=== PATIENT | male | born 1960 | race Caucasian/White ===

== ENCOUNTER 2016-06-14 12:04 | Inpatient (IN) | payer OTHER, BC ==
[~2016-06-14] VITALS: Ht 180.3 cm; Wt 101.8 kg
[~2016-06-14 12:04] MED LIST: ALBU1AER9 INH; AMLO-114 PO; CALC12502 PO; CARB100C2 PO; CETI10TA84 PO; CLIN300C10 PO; DULO1CAP39 PO; EFFSR150 PO; FENO48TA9 PO; FLUT0.0529 NAE; GLIP10TA9 PO; HYDR25TA5 PO; INSDGI SC; LEVO-459 PO; LPT40 PO; LSN20 PO; METO1TAB70 PO; MONT1TAB3 PO; OXYC7.5T65 PO; OXYSR40 PO; SLSS; SUMA25TA12 PO
[2016-06-14] MEDS ORDERED: SODIUM CHLORIDE 0.9% 1000ML 1,000 ML IV STA ×3 (12:28→14:49)
[2016-06-14] MEDS ORDERED: ONDANSETRON INJ 2 MG/ML 2 ML VIAL IV STA ×2 (12:28)
[2016-06-14] MEDS ORDERED: LORAZEPAM 2 MG/ML 1 ML VIAL IV STA ×2 (12:28)
--- NOTE | 2016-06-14 12:38 | EMERGENCY ROOM VISIT NOTE ---
History Report prepared by Kaitlin: Jose Guthrie Under the Supervision of: Dr. Marquez Torres M.D. First contact with patient: 12:22 Chief Complaint: ALTERED MENTAL STATUS Stated Complaint: AMS/TACHYCARDIA/HYPERGLYCEMIA History of Present Illness The patient is a 55 year old male who presents to the Emergency Room with complaints of persistent altered mental status that started this morning prior to arrival. Per the nursing staff, the patient has been having memory issues and did not know his mother earlier. However, the patient does now know his mother. The patient fell this morning and hit his head, and has a bruise above his left eye from that. Per the patient's , the last time the patient was seen normal was yesterday when he had a chiropractor appointment. The patient sees a chiropractor for problems with headaches and neck pain. Per the patient, he is currently having a headache, pain in the back of his neck, and abdominal pain. He is diabetic, and per the patient's , the patient has not been taking his medications. Source of History: patient, spouse/significant other, nursing staff Onset: This morning prior to arrival Position: other (global - altered mental status) Quality: other (memory issues) Timing: other (persistent) Associated Symptoms: + abdominal pain, + headache (may be chronic), + neck pain (may be chronic) Note: Associated symptoms: Did not know his mother earlier, but does know her now. Bruise above left eye from fall. Review of Systems See HPI for pertinent positives & negatives. A total of 10 systems reviewed and were otherwise negative. Past Medical & Surgical Medical Problems: (1) Depression (2) Diabetes mellitus, type II (3) Dyslipidemia (4) Factor V deficiency (5) History of aseptic necrosis of bone (6) History of skin cancer (7) Hypertension (8) Migraine (9) Sleep apnea (10) Trigeminal neuralgia Surgical Problems: (1) Status post hip replacement (2) Status post insertion of inferior vena caval filter (3) Status post sinus surgery (4) Status post sinus surgery Family History Asthma MOTHER Carcinoma of kidney FATHER Myocardial infarction FATHER Thyroid disease MOTHER Social History Smoking Status: Current Every Day Smoker Alcohol Use: none Drug Use: none Marital Status: Housing Status: lives with family Current/Historical Medications Scheduled Duloxetine HCl (Cymbalta), 1 CAP PO BID Hydralazine HCl (Hydralazine HCl), 50 MG PO TID Insulin Aspart (Novolog), 5 UNITS INJ TID Scheduled PRN Oxycodone/Acetaminophen 7.5MG/325MG (Percocet 7.5MG/325MG), 1 TAB PO Q6 PRN for Pain Allergies Coded Allergies: Penicillins (Verified Allergy, Mild, 12/02/09) Shellfish (Verified Adverse Reaction, Unknown, GI UPSET, 06/14/16) Physical Exam Vital Signs Date Time Temp Pulse Resp B/P Pulse Ox O2 Delivery O2 Flow Rate FiO2 06/14/16 12:37 38.2 06/14/16 12:25 124 06/14/16 12:14 37.9 123 18 153/108 96 Room Air Physical Exam CONSTITUTIONAL: Mildly agitated. Oriented to person and name. Slow to answer questions. HEENT: No icterus, moist mucous membranes NECK: No meningismus, trachea is midline. CARDIOVASCULAR: Regular rate, normal perfusion RESPIRATORY: Unlabored breathing. Clear to auscultation. GASTROINTESTINAL: Non-tender GENITOURINARY: No flank tenderness MUSCULOSKELETAL: Full range of motion NEUROLOGIC: No acute gross focal deficits. PSYCHIATRIC: Normal affect SKIN: Normal for ethnicity. Medical Decision & Procedures ER Provider Diagnostic Interpretation: X-ray results as stated below per my interpretation and radiologist interpretation. Other radiology results as stated below per my review and radiologist interpretation. CT SCAN OF THE BRAIN WITHOUT IV CONTRAST CLINICAL HISTORY: Change in mental status. COMPARISON STUDY: CT and MRI of the brain dated 08/04/2008. TECHNIQUE: Unenhanced axial CT scan of the brain is performed from the vertex to the skull base. CT DOSE: 894.57 mGycm FINDINGS: Brain parenchyma: There is an age indeterminant and possibly acute to subacute lacunar infarct identified in the left caudate head/left centrum semiovale. This is best seen on axial image #17. There are age-related involutional changes noting mild subcortical and periventricular microangiopathic change. There is no hemorrhage, mass effect, or evidence of acute territorial ischemia by CT criteria. Ferrari-white matter is preserved. No extra-axial fluid collection is seen. Ventricles, sulci, cisterns: Prominent secondary to involutional change. Intracranial vasculature: There is atherosclerotic calcification of the cavernous carotid and vertebral arteries. Calvarium: Unremarkable. Sinuses and mastoids: Findings are consistent with previous paranasal sinus surgery. Mild mucosal thickening seen within the right maxillary antrum. Moderate mucosal thickening is present within the frontal, ethmoid, and right sphenoid sinuses. The mastoid air cells are well pneumatized. Orbits: The bony orbits are grossly intact. IMPRESSION: 1. There is no hemorrhage, mass effect, or evidence of acute territorial ischemia by CT criteria. 2. Age indeterminant and possibly acute to subacute lacunar infarcts are identified in the left caudate head/left centrum semiovale. This could be further assessed with MRI of clinically warranted. 3. Paranasal sinus disease as above. Electronically signed by: Abdulaziz Soriano M.D. 06/14/2016 1:39 PM Dictated Date/Time: 06/14/2016 1:34 PM SINGLE VIEW CHEST CLINICAL HISTORY: Change in mental status. FINDINGS: An AP, portable, semierect chest radiograph is compared to study dated 12/04/2009. The examination is degraded by portable technique and patient rotation. The heart is enlarged. The pulmonary vasculature is noncongested. There are low lung lines with mild elevation of the right hemidiaphragm and bibasilar atelectasis. No airspace consolidation or large pleural effusion is identified. No pneumothorax is seen. The bony thorax is grossly intact. IMPRESSION: Cardiomegaly with no acute cardiopulmonary abnormality. Electronically signed by: Abdulaziz Soriano M.D. 06/14/2016 1:29 PM Dictated Date/Time: 06/14/2016 1:28 PM Laboratory Results 06/14/16 12:20 Red Blood Count 6.17, Mean Corpuscular Volume 78.8, Mean Corpuscular Hemoglobin 29.0, Mean Corpuscular Hemoglobin Concent 36.8, Mean Platelet Volume 10.5, Neutrophils (%) (Auto) 83.5, Lymphocytes (%) (Auto) 7.0, Monocytes (%) (Auto) 9.1, Eosinophils (%) (Auto) 0.0, Basophils (%) (Auto) 0.1, Neutrophils # (Auto) 22.16, Lymphocytes # (Auto) 1.85, Monocytes # (Auto) 2.40, Eosinophils # (Auto) 0.00, Basophils # (Auto) 0.02 06/14/16 12:20 Test 06/14/16 00:00 06/14/16 12:08 06/14/16 12:20 06/14/16 13:06 Influenza Type A Antigen Neg for Influ A (NEG) Influenza Type B Antigen Neg for Influ B (NEG) Bedside Glucose 439 mg/dl (70-99) White Blood Count 26.51 K/uL (4.8-10.8) Red Blood Count 6.17 M/uL (4.7-6.1) Hemoglobin 17.9 g/dL (14.0-18.0) Hematocrit 48.6 % (42-52) Mean Corpuscular Volume 78.8 fL (80-100) Mean Corpuscular Hemoglobin 29.0 pg (25-34) Mean Corpuscular Hemoglobin Concent 36.8 g/dl (32-36) Platelet Count 317 K/uL (130-400) Mean Platelet Volume 10.5 fL (7.4-10.4) Neutrophils (%) (Auto) 83.5 % Lymphocytes (%) (Auto) 7.0 % Monocytes (%) (Auto) 9.1 % Eosinophils (%) (Auto) 0.0 % Basophils (%) (Auto) 0.1 % Neutrophils # (Auto) 22.16 K/uL (1.4-6.5) Lymphocytes # (Auto) 1.85 K/uL (1.2-3.4) Monocytes # (Auto) 2.40 K/uL (0.11-0.59) Eosinophils # (Auto) 0.00 K/uL (0-0.5) Basophils # (Auto) 0.02 K/uL (0-0.2) RDW Standard Deviation 35.3 fL (36.4-46.3) RDW Coefficient of Variation 12.5 % (11.5-14.5) Immature Granulocyte % (Auto) 0.3 % Immature Granulocyte # (Auto) 0.08 K/uL (0.00-0.02) Prothrombin Time 11.5 SECONDS (9.0-12.0) Prothromb Time International Ratio 1.1 (0.9-1.1) Activated Partial Thromboplast Time 24.5 SECONDS (21.0-31.0) Partial Thromboplastin Ratio 0.9 Est Creatinine Clear Calc Drug Dose 51.1 ml/min Estimated GFR () 42.9 Estimated GFR (Non- 37.0 BUN/Creatinine Ratio 16.7 (10-20) Calcium Level 9.9 mg/dl (8.5-10.1) Magnesium Level 2.0 mg/dl (1.8-2.4) Total Bilirubin 1.3 mg/dl (0.2-1) Direct Bilirubin 0.2 mg/dl (0-0.2) Aspartate Amino Transf (AST/SGOT) 16 U/L (15-37) Alanine Aminotransferase (ALT/SGPT) 25 U/L (12-78) Alkaline Phosphatase 108 U/L (45-117) Total Creatine Kinase 337 U/L (39-308) Troponin I 0.073 ng/ml (0-0.045) Total Protein 8.1 gm/dl (6.4-8.2) Albumin 4.2 gm/dl (3.4-5.0) Lipase 194 U/L (73-393) Beta-Hydroxybutyric Acid 8.90 mg/dL (0.2-2.81) Procalcitonin 0.24 ng/mL (0-0.5) Thyroid Stimulating Hormone (TSH) 0.261 uIu/ml (0.300-4.500) Lyme Disease IgG Antibody NEG (NEG) Lyme Disease IgM Antibody NEG (NEG) Bedside Lactic Acid Venous 4.47 mmol/L (0.90-1.70) Test 06/14/16 13:08 06/14/16 13:10 Venous Blood pH 7.51 (7.36-7.41) Venous Blood Partial Pressure CO2 37 mmHg (38.0-50.0) Venous Blood Partial Pressure O2 20 mmHg Venous Blood HCO3 29 mmol/L Venous Blood Oxygen Saturation < 60.0 % Venous Blood Base Excess 5.7 mmol/L Ethyl Alcohol mg/dL < 3.0 mg/dl (0-3) Bedside Hemoglobin 19.4 g/dl (14.0-18.0) Bedside Hematocrit 57 % (42-52) Bedside Sodium 131 mEq/L (135-144) Bedside Potassium 3.3 mEq/L (3.3-5.0) Bedside Chloride 89 mEq/L (101-112) Bedside Total CO2 27 mEq/l (24-31) Anion Gap 19.0 mmol/L (16-25) Bedside Blood Urea Nitrogen 40 mg/dl (7-18) Bedside Creatinine 1.5 mg/dl (0.6-1.3) Bedside Glucose (other) 455 mg/dl (70-99) Bedside Ionized Calcium (Gary) 1.09 mmol/l (1.12-1.32) Labs reviewed by ED physician. Medications Administered Medications (Trade) Dose Ordered Sig/[place] Route Start Time Stop Time Status Last Admin Dose Admin Ondansetron HCl 4 mg 4 mg NOW STAT IV 06/14/16 12:28 06/14/16 12:31 DC 06/14/16 12:56 4 MG Sodium Chloride (Nss 1000ml) 1,000 ml @ 0 mls/hr Q0M STAT IV 06/14/16 12:28 06/14/16 12:31 DC 06/14/16 12:56 1,000 MLS/HR Lorazepam (Ativan Inj) 1 mg PRN STAT IV 06/14/16 12:28 06/14/16 12:32 DC 06/14/16 12:56 1 MG ECG Indication: altered mental status Rate (beats per minute): 125 Rhythm: sinus tachycardia Findings: no ectopy, other (RBBB, nonspecific-ST findings) ED Course 1222: Past medical records reviewed. The patient was evaluated in room C7. A complete history and physical examination was performed. 1228: Ordered Ativan Inj 1 mg IV PRN, Zofran Inj 4 mg IV, NSS 1000 ml @ 0 mls/ hr Wide Open IV. 1406: I reevaluated the patient. The patient's family verbally expressed understanding and agreement of the treatment plan. The patient will be evaluated for further treatment. 1411: Ordered Vancomycin HCl 1000 mg/NSS 270 ml @ 125 mls/hr IV, Insulin IV Infusion Protocol 1 ea N/A. 1415: Ordered Levaquin/D5W 500 mg IV, Aztreonam 1000 mg/Dextrose 110 ml @ 100 mls/hr IV, Insulin Protocol Goal Range (Other) 1 ea N/A, Insulin Protocol Dka Goal Range 1 ea N/A. 1415: I discussed the patient with Dr. Therese Sanders mink slicer - he will evaluate the patient for further treatment. 1900: Ordered NovoLOG ASPART SLIDING SCALE SC. Medical Decision Differential diagnoses include: sepsis, head bleed, DKA. 55-year-old presents to the emergency department with mother for evaluation of altered mental status. Mother states patient is staying with her. She notes she is also noncompliant with his diabetic regimen. Temperature 37.9 in the emergency room and patient is moderately altered and agitated from time to time. He is confused and cannot provide a clear history. Leukocytosis with shift noted as well as serum ketones and hyperglycemia consistent with DKA. IV fluids, insulin drip, brought specimen antibiotics ordered in context of penicillin allergy. At the time of admission the urine is still pending. Rosie Jamari at bedside at 3 PM. UA pending. Source unclear, CT abd/pelvis ordered. No signs of meningismus on presentation. HR 120. BP WNL. Patient sedated after ativan to facilitate CT Head study earlier. Consults Time Called: 1410 Consulting Physician: Dr. Therese Sanders mink slicer Returned Call: [phone] I discussed the patient with Dr. Therese Sanders mink slicer - he will evaluate the patient for further treatment. Impression Primary Impression: DKA (diabetic ketoacidoses) Additional Impression: Sepsis Critical Care Critical Care time 30 mins Scribe Attestation The scribe's documentation has been prepared under my direction and personally reviewed by me in its entirety. I confirm that the note above accurately reflects all work, treatment, procedures, and medical decision making performed by me. Departure Information Dispostion Being Evaluated By Hospitalist Referrals Vee Mccann M.D. (PCP) Patient Instructions My [facility] Problem Qualifiers
[2016-06-14 12:50] LABS: HEMATOCRIT 48.6 % (42-52); MEAN CELL VOLUME 78.8 fL (80-100); MEAN CORPUSCULAR HGB CONC 36.8 g/dl (32-36); MEAN PLATELET VOLUME 10.5 fL (7.4-10.4); PLATELET COUNT 317 K/uL (130-400); RED BLOOD COUNT 6.17 M/uL (4.7-6.1); WHITE BLOOD COUNT 26.51 K/uL (4.8-10.8)
[2016-06-14 13:00] LABS: INR 1.1 (0.9-1.1); PARTIAL THROMBOPLASTIN RATIO 0.9; PROTHROMBIN TIME (PATIENT) 11.5 SECONDS (9.0-12.0)
[2016-06-14 13:13] LABS: BASO % 0.1 %; BASO ABS # 0.02 K/uL (0-0.2); COMPLETE YES; IG% 0.3 %; LYMPH ABS # 1.85 K/uL (1.2-3.4); MONO % 9.1 %; NEUT % 83.5 %
[2016-06-14 13:14] LABS: BETA-HYDROXYBUTYRATE 8.9 mg/dL (0.2-2.81); BUN/CREATININE RATIO 16.7 (10-20); CALCIUM 9.9 mg/dl (8.5-10.1)
[2016-06-14] MEDS ORDERED: APR/25 PO (13:19)
[2016-06-14] MEDS ORDERED: CYM/30 PO (13:19)
[2016-06-14] MEDS ORDERED: NVLG SQ (13:19)
[2016-06-14] MEDS ORDERED: OXYC7.5T65 PO (13:19)
[2016-06-14 13:21] LABS: ISTAT CREATININE 1.5 mg/dl (0.6-1.3); ISTAT HEMOGLOBIN 19.4 g/dl (14.0-18.0); ISTAT IONIZED CALCIUM 1.09 mmol/l (1.12-1.32)
[2016-06-14 13:24] LABS: VEN BLOOD GAS BASE EXCESS 5.7 mmol/L; VENOUS BLOOD GAS PCO2 37 mmHg (38.0-50.0); VENOUS BLOOD GAS PO2 20 mmHg
[2016-06-14 13:25] LABS: VEN BLD GAS O2 SATURATION < 60.0 %
[2016-06-14 13:26] LABS: THYROID STIMULATING HORMONE 0.261 uIu/ml (0.300-4.500)
--- NOTE | 2016-06-14 13:30 | DIAGNOSTIC IMAGING REPORT ---
SINGLE VIEW CHEST CLINICAL HISTORY: Change in mental status. FINDINGS: An AP, portable, semierect chest radiograph is compared to study dated 12/04/2009. The examination is degraded by portable technique and patient rotation. The heart is enlarged. The pulmonary vasculature is noncongested. There are low lung lines with mild elevation of the right hemidiaphragm and bibasilar atelectasis. No airspace consolidation or large pleural effusion is identified. No pneumothorax is seen. The bony thorax is grossly intact. IMPRESSION: Cardiomegaly with no acute cardiopulmonary abnormality. Electronically signed by: Abdulaziz Soriano M.D. 06/14/2016 1:29 PM Dictated Date/Time: 06/14/2016 1:28 PM
--- NOTE | 2016-06-14 13:41 | DIAGNOSTIC IMAGING REPORT ---
CT SCAN OF THE BRAIN WITHOUT IV CONTRAST CLINICAL HISTORY: Change in mental status. COMPARISON STUDY: CT and MRI of the brain dated 08/04/2008. TECHNIQUE: Unenhanced axial CT scan of the brain is performed from the vertex to the skull base. CT DOSE: 894.57 mGycm FINDINGS: Brain parenchyma: There is an age indeterminant and possibly acute to subacute lacunar infarct identified in the left caudate head/left centrum semiovale. This is best seen on axial image #17. There are age-related involutional changes noting mild subcortical and periventricular microangiopathic change. There is no hemorrhage, mass effect, or evidence of acute territorial ischemia by CT criteria. Ferrari-white matter is preserved. No extra-axial fluid collection is seen. Ventricles, sulci, cisterns: Prominent secondary to involutional change. Intracranial vasculature: There is atherosclerotic calcification of the cavernous carotid and vertebral arteries. Calvarium: Unremarkable. Sinuses and mastoids: Findings are consistent with previous paranasal sinus surgery. Mild mucosal thickening seen within the right maxillary antrum. Moderate mucosal thickening is present within the frontal, ethmoid, and right sphenoid sinuses. The mastoid air cells are well pneumatized. Orbits: The bony orbits are grossly intact. IMPRESSION: 1. There is no hemorrhage, mass effect, or evidence of acute territorial ischemia by CT criteria. 2. Age indeterminant and possibly acute to subacute lacunar infarcts are identified in the left caudate head/left centrum semiovale. This could be further assessed with MRI of clinically warranted. 3. Paranasal sinus disease as above. Electronically signed by: Abdulaziz Soriano M.D. 06/14/2016 1:39 PM Dictated Date/Time: 06/14/2016 1:34 PM
[2016-06-14 14:03] LABS: PROCALCITONIN 0.24 ng/mL (0-0.5)
[2016-06-14] MEDS ORDERED: INSULIN IV INFUSION PROTOCOL STA ×2 (14:11→15:36)
[2016-06-14] MEDS ORDERED: VANCOMYCIN INJ 1,000 MG in SODIUM CHLORIDE 0.9% 250ML 250 ML IV STA (14:11)
[2016-06-14] MEDS ORDERED: DKA GOAL RANGE 150-250 mg/dl 1 EA ONE (14:15)
[2016-06-14] MEDS ORDERED: AZTREONAM IV 1,000 MG in DEXTROSE 5% 100ML 100 ML IV SCH (14:15)
[2016-06-14] MEDS ORDERED: LEVAQUIN 500MG / 100ML D5W IV ONE (14:15)
[2016-06-14] MEDS ORDERED: INSULIN PROTOCOL GOAL RANGE ONE (14:15)
[2016-06-14 14:20] LABS: LYME DISEASE AB IGG NEG (NEG); LYME DISEASE AB IGM NEG (NEG)
[2016-06-14] MEDS ORDERED: GLUCOSE 10 TABS/TUBE PO PRN (15:15)
[2016-06-14] MEDS ORDERED: GLUCAGON FOR INJ 1 MG VIAL SQ PRN (15:15)
[2016-06-14] MEDS ORDERED: DEXTROSE 50% 50 ML SYR IV PRN (15:15)
[2016-06-14] MEDS ORDERED: GLUCOSE 40% GEL 15 GM TUBE PO PRN (15:15)
[2016-06-14] MEDS ORDERED: PHARMACIST DISCHARGE MED REC CONSULT PRN (15:30)
[2016-06-14] MEDS ORDERED: INSULIN HUMAN REGULAR IV BOLUS 2.5 UNIT in SYRINGE 0 ML IV ONE (15:30)
[2016-06-14] MEDS ORDERED: LORAZEPAM 2 MG/ML 1 ML VIAL ONE (15:37)
[2016-06-14] MEDS: INSULIN REGULAR 250 UNITS in SODIUM CHLORIDE 0.9% 250ML 250 ML IV SCH ×4 (15:44→23:22)
[2016-06-14] MEDS ORDERED: PHARMACY GLYCEMIC MGMT CONSULT PRN (15:45)
[2016-06-14] MEDS ORDERED: LORAZEPAM 2 MG/ML 1 ML VIAL IV PRN (15:45)
[2016-06-14] MEDS ORDERED: HHS GOAL RANGE 250-350 mg/dl ONE (15:45)
[2016-06-14] MEDS ORDERED: MODERATE STRESS LEVEL ONE (15:45)
[2016-06-14] MEDS ORDERED: POLY335019 PO (16:20)
[2016-06-14] MEDS ORDERED: HYDR25TA4 PO (16:20)
[2016-06-14] MEDS ORDERED: AMLO-114 PO (16:20)
[2016-06-14] MEDS ORDERED: LISI-792 PO (16:20)
[2016-06-14] MEDS ORDERED: CALC600T9 PO (16:20)
[2016-06-14] MEDS ORDERED: ALBU18002 INH (16:20)
[2016-06-14] MEDS ORDERED: INSDGIPEN SC (16:20)
[2016-06-14] MEDS ORDERED: OXYC40TA34 PO (16:20)
[2016-06-14] MEDS ORDERED: PROM25TA9 PO (16:20)
[2016-06-14] MEDS ORDERED: [UNRECOGNIZED DRUG - CODE] PO (16:20)
[2016-06-14] MEDS ORDERED: ASPEC81 PO (16:20)
[2016-06-14] MEDS ORDERED: CALC500C3 PO (16:20)
[2016-06-14] MEDS ORDERED: AZEL0.15 NAE (16:20)
[2016-06-14] MEDS ORDERED: CETI10TA84 PO (16:20)
[2016-06-14] MEDS ORDERED: SUMA25TA12 PO (16:20)
[2016-06-14] MEDS ORDERED: FLUT0.15 NAE (16:20)
[2016-06-14] MEDS ORDERED: TGR200 PO (16:20)
[2016-06-14] MEDS ORDERED: CHOL100010 PO (16:20)
[2016-06-14] MEDS ORDERED: ATOR80TA PO (16:20)
[2016-06-14] MEDS ORDERED: VENL150C56 PO (16:20)
[2016-06-14] MEDS ORDERED: FENO48TA9 PO (16:20)
[2016-06-14] MEDS ORDERED: WHEAPOW13 PO (16:20)
[2016-06-14] MEDS ORDERED: METR0.7536 EXT (16:20)
--- NOTE | 2016-06-14 17:02 | History and Physical ---
History & Physical Date & Time of Service: Jun 14, 2016 at 15:46 Chief Complaint: Ams/Tachycardia/Hyperglycemia Primary Care Physician: Vee Mccann M.D. 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 History obtained from mother at bedside, nursing staff, and records as patient is obtunded. Per SUPPLY TECHNICIAN, patient was combative when he arrived and was sedated with 1 mg IV Ativan. Patient's mother states yesterday his mentation was at baseline when she saw him after chiropractor appointment for neck pain x 5 months. Pt has also been having severe migraines for several months. Patient lives alone in the mother's home, and today when she went to the house he was confused. He was disoriented to the date and could not recognize her. Patient told the mother he fell and hit his head and there is an abrasion on his right forehead. The fall was unwitnessed. She notes patient was unstable/ off balance when ambulating today with assistance. He usually ambulates with a cane. The emergency room RN states there was no facial drooping or focal weakness on her exam before he was sedated, but he was answering questions inappropriately. In the ER he was disoriented but was able to identify his mother. Per his mother he was nauseous earlier but had no vomiting. She states he often has diarrhea but not in past few days. His mother believes he is non-compliant with his insulin and other medications, except that he takes his oxycodone regularly. She does not believe he took more oxycodone than prescribed. She does not believe he drinks alcohol or takes illicit drugs. Patient is depressed and has expressed to his mother that he wishes to . He did not mention a plan to her. His mother reports chronic sinus problems. She is not aware of recent fever, URI, cough, SOB, abdominal pain, wounds. She denies known sick contact, hospitalization, or antibiotics. No history of CVA or cardiac disorder per his mother. Past Medical/Surgical History Medical Problems: (1) Depression Status: Chronic (2) Diabetes mellitus, type II Status: Chronic (3) Dyslipidemia Status: Chronic (4) Factor V deficiency Status: Chronic (5) History of aseptic necrosis of bone Permanent Comment: bilateral hips Status: Chronic (6) History of skin cancer Status: Chronic (7) Hypertension Status: Chronic (8) Migraine Status: Chronic (9) Sleep apnea Permanent Comment: does not tolerate CPAP Status: Chronic (10) Trigeminal neuralgia Status: Chronic Surgical Problems: (1) Status post hip replacement Permanent Comment: bilateral due to aseptic necrosis Status: Chronic (2) Status post insertion of inferior vena caval filter Status: Chronic (3) Status post sinus surgery Status: Chronic (4) Status post sinus surgery Status: Chronic Family History Asthma MOTHER Carcinoma of kidney FATHER Myocardial infarction FATHER Thyroid disease MOTHER Social History Smoking Status: Current Every Day Smoker Alcohol Use: none Drug Use: none Marital Status: Housing status: lives alone (lives alone in his mother's home. mother is in frequent contact.) Immunizations History of Influenza Vaccine: No History of Tetanus Vaccine?: Yes History of Pneumococcal: Yes History of Hepatitis B Vaccine: No Allergies Coded Allergies: Penicillins (Verified Allergy, Mild, 12/02/09) Shellfish (Verified Adverse Reaction, Unknown, GI UPSET, 06/14/16) Home Medications Scheduled Amlodipine (Norvasc), 10 MG PO DAILY Aspirin (Aspirin EC Low Dose), 81 MG PO DAILY Atorvastatin Calcium (Lipitor), 80 MG PO DAILY Azelastine Hcl (Astepro), 2 SPRY BENNY BID Calcium Carbonate (Tums), 500 MG PO TIDM Calcium Carbonate-Vitamin D (Calcium + D), 1 TAB PO DAILY Cetirizine (Zyrtec), 10 MG PO DAILY Cholecalciferol (Vitamin D), 1,000 UNIT PO DAILY Duloxetine HCl (Cymbalta), 1 CAP PO BID Fenofibrate (Tricor), 1 TAB PO DAILY Fluticasone Propionate (Nasal) (Flonase Allergy Relief), 2 SPRAYS BENNY DAILY Hydralazine HCl (Hydralazine HCl), 50 MG PO TID Hydrochlorothiazide (Hctz), 25 MG PO DAILY Insulin Aspart (Novolog), 5 UNITS SQ TIDM Insulin Glargine (Lantus Solostar), 25 UNITS SC HS Lisinopril (Zestril), 20 MG PO BID Metoprolol Succinate (Toprol Xl), 200 MG PO DAILY Metronidazole (Topical) (Metronidazole), 1 APPLN EXT HS Oxycodone Hcl (Oxycontin), 40 MG PO Q12 Polyethylene Glycol 3350 (Miralax), 17 GM PO DAILY Venlafaxine Hcl (Effexor Extended Rel), 1 CAP PO DAILY Wheat Dextrin (Benefiber), 1 TBS PO HS Scheduled PRN Albuterol Sulfate (Proair Respiclick), 2 PUFFS INH Q4H PRN for Wheezing Carbamazepine (Carbamazepine), 200 MG PO Q4H PRN for Pain Oxycodone/Acetaminophen 7.5MG/325MG (Percocet 7.5MG/325MG), 1 TAB PO Q6 PRN for Pain Promethazine Hcl (Phenergan), 25 MG PO Q8H PRN for Nausea Sumatriptan Succinate (Imitrex), 25 MG PO UD PRN for Migraine Review of Systems Unable to obtain due to patient's obtunded mental status. Physical Exam Vital Signs Date Time Temp Pulse Resp B/P Pulse Ox O2 Delivery O2 Flow Rate FiO2 06/14/16 14:49 127 23 95 06/14/16 14:44 122 17 96 06/14/16 14:39 127 26 94 06/14/16 14:34 122 25 95 06/14/16 14:29 122 22 94 06/14/16 14:24 124 15 94 06/14/16 14:20 165/106 06/14/16 14:19 132 27 91 06/14/16 13:19 121 14 92 06/14/16 13:14 121 25 93 06/14/16 13:09 118 26 93 06/14/16 13:04 110 21 91 06/14/16 12:59 115 21 93 06/14/16 12:54 132 15 100 06/14/16 12:49 125 31 97 06/14/16 12:44 127 30 83 06/14/16 12:39 128 98 06/14/16 12:37 38.2 06/14/16 12:34 124 22 94 06/14/16 12:29 128 24 97 06/14/16 12:25 124 06/14/16 12:24 125 31 98 06/14/16 12:14 37.9 123 18 153/108 96 Room Air 06/14/16 12:09 153/108 General Appearance: + obese, + pertinent finding (obtunded, snoring 55 year old male lying in bed, mother at bedside) Head: normocephalic, + evidence of trama (abrasion right forehead) Eyes: normal inspection, PERRL, + pertinent finding (unable to cooperate with EOM testing) ENT: normal ENT inspection, + pertinent finding (unable to examine pharynx as patient unable to cooperate) Neck: supple, no JVD, trachea midline Respiratory/Chest: lungs clear, normal breath sounds, no respiratory distress, no accessory muscle use Cardiovascular: no murmur, normal peripheral pulses, + tachycardia (rate regular) Abdomen/GI: normal bowel sounds, non tender, soft Extremities/Musculoskelatal: no calf tenderness, normal capillary refill, no pedal edema Neurologic/Psych: + pertinent finding (patient is obtunded after being sedated with Ativan. neuro exam limited due to mental status.) Skin: normal color, warm/dry, no rash Diagnostics Laboratory Results Results Past 24 Hours Test 06/14/16 00:00 06/14/16 12:08 06/14/16 12:20 06/14/16 13:02 Range/Units Influenza Type A Antigen Neg for Influ A NEG Influenza Type B Antigen Neg for Influ B NEG Bedside Glucose 439 70-99 mg/dl White Blood Count 26.51 4.8-10.8 K/uL Red Blood Count 6.17 4.7-6.1 M/uL Hemoglobin 17.9 14.0-18.0 g/dL Hematocrit 48.6 42-52 % Mean Corpuscular Volume 78.8 80-100 fL Mean Corpuscular Hemoglobin 29.0 25-34 pg Mean Corpuscular Hemoglobin Concent 36.8 32-36 g/dl Platelet Count 317 130-400 K/uL Mean Platelet Volume 10.5 7.4-10.4 fL Neutrophils (%) (Auto) 83.5 % Lymphocytes (%) (Auto) 7.0 % Monocytes (%) (Auto) 9.1 % Eosinophils (%) (Auto) 0.0 % Basophils (%) (Auto) 0.1 % Neutrophils # (Auto) 22.16 1.4-6.5 K/uL Lymphocytes # (Auto) 1.85 1.2-3.4 K/uL Monocytes # (Auto) 2.40 0.11-0.59 K/uL Eosinophils # (Auto) 0.00 0-0.5 K/uL Basophils # (Auto) 0.02 0-0.2 K/uL RDW Standard Deviation 35.3 36.4-46.3 fL RDW Coefficient of Variation 12.5 11.5-14.5 % Immature Granulocyte % (Auto) 0.3 % Immature Granulocyte # (Auto) 0.08 0.00-0.02 K/uL Prothrombin Time 11.5 9.0-12.0 SECONDS Prothromb Time International Ratio 1.1 0.9-1.1 Activated Partial Thromboplast Time 24.5 21.0-31.0 SECONDS Partial Thromboplastin Ratio 0.9 Sodium Level 130 136-145 mmol/L Potassium Level 3.0 3.5-5.1 mmol/L Chloride Level 90 98-107 mmol/L Carbon Dioxide Level 23 21-32 mmol/L Anion Gap 17.0 3-11 mmol/L Blood Urea Nitrogen 33 7-18 mg/dl Creatinine 2.00 0.60-1.40 mg/dl Est Creatinine Clear Calc Drug Dose 51.1 ml/min Estimated GFR () 42.9 Estimated GFR (Non- 37.0 BUN/Creatinine Ratio 16.7 10-20 Random Glucose 439 70-99 mg/dl Calcium Level 9.9 8.5-10.1 mg/dl Magnesium Level 2.0 1.8-2.4 mg/dl Total Bilirubin 1.3 0.2-1 mg/dl Direct Bilirubin 0.2 0-0.2 mg/dl Aspartate Amino Transf (AST/SGOT) 16 15-37 U/L Alanine Aminotransferase (ALT/SGPT) 25 12-78 U/L Alkaline Phosphatase 108 45-117 U/L Total Creatine Kinase 337 39-308 U/L Troponin I 0.073 0-0.045 ng/ml Total Protein 8.1 6.4-8.2 gm/dl Albumin 4.2 3.4-5.0 gm/dl Lipase 194 73-393 U/L Beta-Hydroxybutyric Acid 8.90 0.2-2.81 mg/dL Procalcitonin 0.24 0-0.5 ng/mL Thyroid Stimulating Hormone (TSH) 0.261 0.300-4.500 uIu/ml Lyme Disease IgG Antibody NEG NEG Lyme Disease IgM Antibody NEG NEG Bedside Lactic Acid Venous 4.20 0.90-1.70 mmol/L Test 06/14/16 13:06 06/14/16 13:08 06/14/16 13:10 06/14/16 15:08 Range/Units Bedside Lactic Acid Venous 4.47 0.90-1.70 mmol/L Venous Blood pH 7.51 7.36-7.41 Venous Blood Partial Pressure CO2 37 38.0-50.0 mmHg Venous Blood Partial Pressure O2 20 mmHg Venous Blood HCO3 29 mmol/L Venous Blood Oxygen Saturation < 60.0 % Venous Blood Base Excess 5.7 mmol/L Ethyl Alcohol mg/dL < 3.0 0-3 mg/dl Bedside Hemoglobin 19.4 14.0-18.0 g/dl Bedside Hematocrit 57 42-52 % Bedside Sodium 131 135-144 mEq/L Bedside Potassium 3.3 3.3-5.0 mEq/L Bedside Chloride 89 101-112 mEq/L Bedside Total CO2 27 24-31 mEq/l Anion Gap 19.0 16-25 mmol/L Bedside Blood Urea Nitrogen 40 7-18 mg/dl Bedside Creatinine 1.5 0.6-1.3 mg/dl Bedside Glucose (other) 455 70-99 mg/dl Bedside Ionized Calcium (Gary) 1.09 1.12-1.32 mmol/l Bedside Glucose 372 70-99 mg/dl Test 06/14/16 15:30 06/14/16 15:45 Range/Units Microbiology Results 06/14/16 Blood Culture, Received Pending 06/14/16 Blood Culture, Received Pending Diagnostic Radiology CT SCAN OF THE BRAIN WITHOUT IV CONTRAST CLINICAL HISTORY: Change in mental status. COMPARISON STUDY: CT and MRI of the brain dated 08/04/2008. TECHNIQUE: Unenhanced axial CT scan of the brain is performed from the vertex to the skull base. CT DOSE: 894.57 mGycm FINDINGS: Brain parenchyma: There is an age indeterminant and possibly acute to subacute lacunar infarct identified in the left caudate head/left centrum semiovale. This is best seen on axial image #17. There are age-related involutional changes noting mild subcortical and periventricular microangiopathic change. There is no hemorrhage, mass effect, or evidence of acute territorial ischemia by CT criteria. Ferrari-white matter is preserved. No extra-axial fluid collection is seen. Ventricles, sulci, cisterns: Prominent secondary to involutional change. Intracranial vasculature: There is atherosclerotic calcification of the cavernous carotid and vertebral arteries. Calvarium: Unremarkable. Sinuses and mastoids: Findings are consistent with previous paranasal sinus surgery. Mild mucosal thickening seen within the right maxillary antrum. Moderate mucosal thickening is present within the frontal, ethmoid, and right sphenoid sinuses. The mastoid air cells are well pneumatized. Orbits: The bony orbits are grossly intact. IMPRESSION: 1. There is no hemorrhage, mass effect, or evidence of acute territorial ischemia by CT criteria. 2. Age indeterminant and possibly acute to subacute lacunar infarcts are identified in the left caudate head/left centrum semiovale. This could be further assessed with MRI of clinically warranted. 3. Paranasal sinus disease as above. SINGLE VIEW CHEST CLINICAL HISTORY: Change in mental status. FINDINGS: An AP, portable, semierect chest radiograph is compared to study dated 12/04/2009. The examination is degraded by portable technique and patient rotation. The heart is enlarged. The pulmonary vasculature is noncongested. There are low lung lines with mild elevation of the right hemidiaphragm and bibasilar atelectasis. No airspace consolidation or large pleural effusion is identified. No pneumothorax is seen. The bony thorax is grossly intact. IMPRESSION: Cardiomegaly with no acute cardiopulmonary abnormality. EKG sinus tachycardia, rate 125, left atrial enlargement, incomplete RBBB, left anterior fascicular block; LAFB and incomplete RBBB new from prior EKG Impression Assessment and Plan ALTERED MENTAL STATUS Initially was disoriented, combative, off balance; now obtunded after being sedated with Ativan Possible etiologies include metabolic encephalopathy secondary to sepsis, HHS, electrolyte abnormalities, opioid use; R/o acute CVA as CT showed age indeterminate lacunar infarcts Check urine drug screen Hold home opioid medications Spoke with Rocio Hudson PA-C- appreciate input; need to do LP- best w/in 24 hours of initial abx; radiology scheduling for tomorrow morning SEPSIS Presents with fever, tachycardia, tachypnea, leukocytosis (WBC 26,000), lactic acid >4; No hypotension No source identified- CXR neg for infiltrate, need to obtain UA cath/ urine culture; check CT abdomen given nausea; check influenza PCR LP scheduled for tomorrow morning 2nd and 3rd liter fluid boluses are running Empiric broad spectrum antibiotics for PCN allergic patient started in ER - Levaquin, Vancomycin, Aztreonam Continue current antibiotics pending identification of source Blood cultures pending Continue IVF's at 125/hour after boluses finished Trend lactic acid R/O CVA Risk factors include HTN, DM, HL, chronic smoker CT head- no hemorrhage or acute ischemia, + age indeterminate and possibly acute to subacute lacunar infarcts in left caudate head/left centrum semiovale, + paranasal sinus disease Unclear if he is compliant with aspirin at home Will give aspirin suppository as patient is obtunded Check MRI brain, carotid US, echo w/ bubble study Neuro checks PT and OT evaluations Consult neurology HHS Underlying uncontrolled type 2 DM, A1c 10.2 in 01/2016; noncompliant with insulin as per mother Presents with BSG in 400s and elevated anion gap Check serum osmolality Insulin drip started in ER Pharmacy consulted Continue IVF's Monitor electrolytes NECK PAIN Worse x 5 months per mother; seeing chiropractor; now is s/p unwitnessed fall today Check CT neck without contrast given SHARON SHARON Cr is 2.0; baseline Cr 0.9 Likely prerenal due to sepsis Hold lisinopril Getting IVF's Monitor renal function HYPOKALEMIA IV replacement ordered Monitor PRP q4h HYPONATREMIA Possibly due to hyperglycemia Getting IV NSS Recheck PRP q4h ELEVATED TROPONIN No history of CAD EKG shows ST with new LAFB and incomplete RBBB Trend serial cardiac enzymes Recheck EKG in am HYPERTENSION BP [id number] Unclear if compliant with home amlodipine, metoprolol, hydralazine, lisinopril Will allow permissive HTN given possible acute CVA IV Lopressor 2.5 mg q6h PRN SBP >190 DEPRESSION Has suicidal ideation as per mother at bedside One to one observation Consult psych once patient is awake/ alert DYSLIPIDEMIA Unclear if compliant with statin Check lipid panel SLEEP APNEA Intermittently compliant with CPAP per his mother Will try CPAP HS DVT PROPHYLAXIS Heparin SQ Patient seen in collaboration with Dr. Saleh. Please see his addendum. ATTENDING ADDENDUM care coordinated with LISA Kauffman please refer to her notes for full details, I agree with her notes patient seen and examined, records reviewed by myself as well on exam, patient seen lethargic (has received Ativan) not in distress, no accessory muscle use would occasionally awaken, restless no other symptoms VS noted and reviewed not in distress, speaks in sentences with no effort nor accessory muscle use tachycardic rate, regular rhythm, no murmurs clear breath sounds bilaterally non distended, soft, nontender no bipedal edema, erythema, warmth WBC 26k Crea 2.0 CT head: IMPRESSION: 1. There is no hemorrhage, mass effect, or evidence of acute territorial ischemia by CT criteria. 2. Age indeterminant and possibly acute to subacute lacunar infarcts are identified in the left caudate head/left centrum semiovale. This could be further assessed with MRI of clinically warranted. 3. Paranasal sinus disease as above. ASSESSMENT/PLAN> ALTERED MENTAL STATUS, POSSIBLE METABOLIC ENCEPHALOPATHY SECONDARY TO SEPSIS- UNCLEAR SOURCE, R/O MENINGITIS R/O CVA - Sepsis protocol including IV fluids, Antibiotics empiric Vancomycin, Aztreonam, Levaquin, Acyclovir - Lumbar Tap ordered Brain MRI pending - Neurology consulted [facility] - Insulin Drip Pharm consulted S/P FALL check CT Neck other diagnoses and plan of care as per LISA Kauffman's notes Edenilson Saleh MD VTE Prophylaxis VTE Risk Assessment Done? Y/N: Yes Risk Level: Moderate
[2016-06-14] MEDS: INSULIN ASPART 100 UNITS/ML 3 ML PEN SC SCH ×2 (17:15→21:00)
[2016-06-14] MEDS ORDERED: INSULIN ASPART 100 UNITS/ML 3 ML PEN SC SCH ×2 (17:15)
[2016-06-14] MEDS ORDERED: SODIUM CHLORIDE 0.9% 1000ML 1,000 ML IV SCH (17:30)
[2016-06-14] MEDS ORDERED: PENDING D5 1/2NS+20mEq KCL IVF SCH (17:30)
[2016-06-14] MEDS ORDERED: LORAZEPAM 2 MG/ML 1 ML VIAL IV ONE (17:30)
[2016-06-14] MEDS ORDERED: PENDING NSS+20mEq KCL IVF SCH (17:30)
[2016-06-14] MEDS ORDERED: ASPIRIN 300 MG SUPP PR STA (17:31)
[2016-06-14] MEDS ORDERED: LEVAQUIN~CONSULT PHARMACY PRN (17:32)
--- NOTE | 2016-06-14 17:33 | Progress Note ---
Progress Note Post Crystalloid Evaluation Date: Jun 14, 2016 Time: 05:10 (Taylor Kauffman PA-C) Subjective Per nursing he was combative for 20-30 minutes then became obtunded after receiving another dose of Ativan. (Taylor Kauffman PA-C) Physical Exam Vital Signs: Vital Signs Date Time Temp Pulse Resp B/P Pulse Ox O2 Delivery O2 Flow Rate FiO2 06/14/16 16:45 128 27 171/115 94 06/14/16 12:37 38.2 Lungs: lungs clear, normal breath sounds, no respiratory distress, no accessory muscle use Heart: no murmur, normal peripheral pulses, + tachycardia (regular rhythm) Peripheral Pulse: Normal Capillary Refill: Normal (less than 2 seconds) Skin: Unremarkable (Taylor Kauffman PA-C) Assessment & Plan Sepsis unknown source Continue plan as noted in H&P (Taylor Kauffman PA-C) care coordinated with LISA Kauffman, agree with her notes as documented above (Edenilson Saleh MD)
[2016-06-14] MEDS ORDERED: [UNRECOGNIZED DRUG - OTHER] PRN (17:34)
[2016-06-14] MEDS ORDERED: [UNRECOGNIZED DRUG - OTHER] PRN (17:35)
--- NOTE | 2016-06-14 17:40 | Neurology Consultation ---
Neurology Consultation Date of Consultation: Jun 14, 2016. Attending Physician: Edenilson Saleh MD Primary Care Physician: Vee Mccann M.D. 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 History obtained from chart no family in room, nursing staff. He was combative when he arrived and was sedated with 1 mg IV Ativan. According to chart mom states yesterday he was at baseline. He has been having severe migraines and neck pain for several months. He lives with his mother. She states he didn't know the date and could not recognize her. He told her he fell and his his head. He seemed off balance today with ambulating. He usually ambulates with a cane. In the ED there was no facial droop by nursing but he was noted to be confused. She states he often has diarrhea but not in past few days. His mother believes he is non-compliant with his insulin and other medications, except that he takes his oxycodone regularly but thinks he has been taking it appropriately. She is not sure if he takes other drugs or drinks EtOH. Currently he is again sedated with ativan and is not cooperative. The ativan was given due to him being combative. Past Medical/Surgical History Medical Problems: (1) DKA (diabetic ketoacidoses) Status: Acute (2) Sepsis Status: Acute Surgical Problems: (1) Status post sinus surgery Status: Chronic Social History Smoking Status: Former smoker Alcohol Use: none Drug Use: none Marital Status: Housing Status: lives with family Allergies Coded Allergies: Penicillins (Verified Allergy, Mild, 12/02/09) Shellfish (Verified Adverse Reaction, Unknown, GI UPSET, 06/14/16) Current Inpatient Medications Current Inpatient Medications Medications (Trade) Dose Ordered Sig/[place] Route Start Time Stop Time Status Last Admin Dose Admin Aztreonam 1000 mg/ Dextrose 110 ml @ 100 mls/hr NOW IV 06/14/16 14:15 06/16/16 14:14 06/14/16 16:00 100 MLS/HR Insulin Human Regular/Sodium Chloride (novoLIN-R/Nss 250ml) 252.5 ml @ 0 mls/hr DAILY@1130 IV 06/14/16 15:30 07/14/16 15:29 06/14/16 15:44 2.6 MLS/HR Insulin Aspart (novoLOG ASPART) [facility] 06/14/16 17:15 07/14/16 18:59 Glucose (Glucose 40% Gel) UD PRN PO 06/14/16 15:15 07/14/16 15:14 Glucose (Glucose Chew Tab) 1 tabs UD PRN PO 06/14/16 15:15 07/14/16 15:14 Dextrose (Dextrose 50% 50ML Syringe) 50 ml UD PRN IV 06/14/16 15:15 07/14/16 15:14 Glucagon (Glucagon Inj) 1 mg UD PRN SQ 06/14/16 15:15 07/14/16 15:14 Heparin Sodium (Porcine) (Heparin Sq 5000 Unit/0.5ml) 5,000 unit Q8 SQ 06/14/16 22:00 07/14/16 21:59 UNV Acetaminophen (Tylenol Tab) 650 mg Q4H PRN PO 06/14/16 15:30 07/14/16 15:29 Ondansetron HCl (Zofran Inj) 4 mg Q6H PRN IV 06/14/16 15:30 07/14/16 15:29 Miscellaneous Information (Pharmacist Discharge Med Rec Consult) 1 ea UD PRN N/A 06/14/16 15:30 07/14/16 15:29 Insulin Aspart [facility] 06/14/16 17:15 07/14/16 18:59 UNV Sodium Chloride (Nss 1000ml) 1,000 ml @ 125 mls/hr Q8H IV 06/14/16 15:36 07/14/16 15:35 UNV Miscellaneous Information (PENDING NSS+20mEq KCL IVF) 1 ea Q2H N/A 06/14/16 15:45 07/14/16 15:44 UNV Miscellaneous Information (PENDING D5 1/ 2NS+20mEq KCL IVF) 1 ea Q2H N/A 06/14/16 15:45 07/14/16 15:44 UNV Miscellaneous (Insulin Protocol Hhs Goal Range) 1 ea ONE ONCE N/A 06/14/16 15:45 06/14/16 15:46 UNV Insulin Human Regular (Insulin IV Infusion Protocol) 1 ea NOW STAT N/A 06/14/16 15:36 06/14/16 15:37 UNV Miscellaneous (Insulin Protocol Moderate Stress Level) 1 ea ONE ONCE N/A 06/14/16 15:45 06/14/16 15:46 UNV Miscellaneous Information 1 ea 1 ea UD PRN N/A 06/14/16 15:45 07/14/16 15:44 UNV Potassium Chloride/Prmx (Kcl 10 Meq / Wtr/Premixed Water) 100 ml @ 100 mls/hr NOW STAT IV 06/14/16 15:36 06/14/16 16:35 UNV Miscellaneous Information (Pharmacy Consult) 1 ea NOW STAT N/A 06/14/16 16:08 06/14/16 16:09 UNV Miscellaneous Information (Pharmacy Consult) 1 ea NOW STAT N/A 06/14/16 16:08 06/14/16 16:09 UNV Miscellaneous Information (Pharmacy Consult) 1 ea NOW STAT N/A 06/14/16 16:08 06/14/16 16:09 UNV Aspirin (Aspirin Supp) 300 mg NOW STAT HI 06/14/16 16:09 06/14/16 16:10 UNV Metoprolol Tartrate (Lopressor Iv) 2.5 mg Q6 PRN IV. 06/14/16 16:30 07/14/16 16:29 UNV Lorazepam (Ativan Inj) 1 mg Q4H PRN IV 06/14/16 17:00 07/14/16 16:59 UNV Lorazepam (Ativan Inj) 1 mg 1700 ONCE IV 06/14/16 17:00 06/14/16 17:01 UNV Physical Exam Vital Signs (Past 24 Hrs): Date Time Temp Pulse Resp B/P Pulse Ox O2 Delivery O2 Flow Rate FiO2 06/14/16 16:45 128 27 171/115 94 06/14/16 16:19 128 27 94 06/14/16 16:14 117 31 94 06/14/16 16:09 119 22 94 06/14/16 16:04 118 21 95 06/14/16 15:59 119 29 96 06/14/16 15:58 171/115 06/14/16 15:54 119 15 06/14/16 15:49 122 20 06/14/16 15:44 132 21 06/14/16 15:39 129 27 06/14/16 15:34 130 37 06/14/16 15:29 135 20 97 06/14/16 15:24 122 23 95 06/14/16 15:19 122 24 94 06/14/16 15:14 125 26 94 06/14/16 15:09 119 23 93 06/14/16 15:04 126 29 95 06/14/16 14:59 134 32 96 06/14/16 14:54 127 20 95 06/14/16 14:49 127 23 95 06/14/16 14:44 122 17 96 06/14/16 14:39 127 26 94 06/14/16 14:34 122 25 95 06/14/16 14:29 122 22 94 06/14/16 14:24 124 15 94 06/14/16 14:20 165/106 06/14/16 14:19 132 27 91 06/14/16 13:19 121 14 92 06/14/16 13:14 121 25 93 06/14/16 13:09 118 26 93 06/14/16 13:04 110 21 91 06/14/16 12:59 115 21 93 06/14/16 12:54 132 15 100 06/14/16 12:49 125 31 97 06/14/16 12:44 127 30 83 06/14/16 12:39 128 98 06/14/16 12:37 38.2 06/14/16 12:34 124 22 94 06/14/16 12:29 128 24 97 06/14/16 12:25 124 06/14/16 12:24 125 31 98 06/14/16 12:14 37.9 123 18 153/108 96 Room Air 06/14/16 12:09 153/108 gen: ill appearing appears older than age stated, appears flushed a sweaty neck is somewhat stiff lungs course breath sounds CV tacky cardia moves all ext spontaneously will not follow commends Laboratory Results Past 24 Hours: 06/14/16 12:20 Red Blood Count 6.17, Mean Corpuscular Volume 78.8, Mean Corpuscular Hemoglobin 29.0, Mean Corpuscular Hemoglobin Concent 36.8, Mean Platelet Volume 10.5, Neutrophils (%) (Auto) 83.5, Lymphocytes (%) (Auto) 7.0, Monocytes (%) (Auto) 9.1, Eosinophils (%) (Auto) 0.0, Basophils (%) (Auto) 0.1, Neutrophils # (Auto) 22.16, Lymphocytes # (Auto) 1.85, Monocytes # (Auto) 2.40, Eosinophils # (Auto) 0.00, Basophils # (Auto) 0.02 Test 06/14/16 00:00 06/14/16 12:20 06/14/16 13:06 06/14/16 13:08 Influenza Type A Antigen Neg for Influ A (NEG) Influenza Type B Antigen Neg for Influ B (NEG) White Blood Count 26.51 K/uL (4.8-10.8) Red Blood Count 6.17 M/uL (4.7-6.1) Hemoglobin 17.9 g/dL (14.0-18.0) Hematocrit 48.6 % (42-52) Mean Corpuscular Volume 78.8 fL (80-100) Mean Corpuscular Hemoglobin 29.0 pg (25-34) Mean Corpuscular Hemoglobin Concent 36.8 g/dl (32-36) Platelet Count 317 K/uL (130-400) Mean Platelet Volume 10.5 fL (7.4-10.4) Neutrophils (%) (Auto) 83.5 % Lymphocytes (%) (Auto) 7.0 % Monocytes (%) (Auto) 9.1 % Eosinophils (%) (Auto) 0.0 % Basophils (%) (Auto) 0.1 % Neutrophils # (Auto) 22.16 K/uL (1.4-6.5) Lymphocytes # (Auto) 1.85 K/uL (1.2-3.4) Monocytes # (Auto) 2.40 K/uL (0.11-0.59) Eosinophils # (Auto) 0.00 K/uL (0-0.5) Basophils # (Auto) 0.02 K/uL (0-0.2) RDW Standard Deviation 35.3 fL (36.4-46.3) RDW Coefficient of Variation 12.5 % (11.5-14.5) Immature Granulocyte % (Auto) 0.3 % Immature Granulocyte # (Auto) 0.08 K/uL (0.00-0.02) Prothrombin Time 11.5 SECONDS (9.0-12.0) Prothromb Time International Ratio 1.1 (0.9-1.1) Activated Partial Thromboplast Time 24.5 SECONDS (21.0-31.0) Partial Thromboplastin Ratio 0.9 Est Creatinine Clear Calc Drug Dose 51.1 ml/min Osmolality 310 mOsm/kg (280-300) Total Bilirubin 1.3 mg/dl (0.2-1) Direct Bilirubin 0.2 mg/dl (0-0.2) Aspartate Amino Transf (AST/SGOT) 16 U/L (15-37) Alanine Aminotransferase (ALT/SGPT) 25 U/L (12-78) Alkaline Phosphatase 108 U/L (45-117) Total Creatine Kinase 337 U/L (39-308) Troponin I 0.073 ng/ml (0-0.045) Total Protein 8.1 gm/dl (6.4-8.2) Albumin 4.2 gm/dl (3.4-5.0) Lipase 194 U/L (73-393) Beta-Hydroxybutyric Acid 8.90 mg/dL (0.2-2.81) Procalcitonin 0.24 ng/mL (0-0.5) Thyroid Stimulating Hormone (TSH) 0.261 uIu/ml (0.300-4.500) Lyme Disease IgG Antibody NEG (NEG) Lyme Disease IgM Antibody NEG (NEG) Bedside Lactic Acid Venous 4.47 mmol/L (0.90-1.70) Venous Blood pH 7.51 (7.36-7.41) Venous Blood Partial Pressure CO2 37 mmHg (38.0-50.0) Venous Blood Partial Pressure O2 20 mmHg Venous Blood HCO3 29 mmol/L Venous Blood Oxygen Saturation < 60.0 % Venous Blood Base Excess 5.7 mmol/L Ethyl Alcohol mg/dL < 3.0 mg/dl (0-3) Test 06/14/16 13:10 06/14/16 15:08 06/14/16 16:00 Bedside Hemoglobin 19.4 g/dl (14.0-18.0) Bedside Hematocrit 57 % (42-52) Bedside Sodium 131 mEq/L (135-144) Bedside Potassium 3.3 mEq/L (3.3-5.0) Bedside Chloride 89 mEq/L (101-112) Bedside Total CO2 27 mEq/l (24-31) Bedside Blood Urea Nitrogen 40 mg/dl (7-18) Bedside Creatinine 1.5 mg/dl (0.6-1.3) Bedside Glucose (other) 455 mg/dl (70-99) Bedside Ionized Calcium (Gary) 1.09 mmol/l (1.12-1.32) Bedside Glucose 372 mg/dl (70-99) Imaging CT head- There is no hemorrhage, mass effect, or evidence of acute territorial ischemia by CT criteria. Age indeterminant and possibly acute to subacute lacunar infarcts are identified in the left caudate head/left centrum semiovale. This could be further assessed with MRI of clinically warranted. Paranasal sinus disease as above. CXR with no acute findings Impression 55 year old male presents with MS, elevated WBC and glucose Plan 1. will need an LP as soon as can be arranged 2. broad spectrum antibiotics started 3. sepsis work up in process but no source found 4. will need MRI brain once stable 5. tox screen for any overdose on narcotics 6. blood cultures are pending 7. fall precautions 8. further recommendations once LP is completed and other studies are completed I have seen and discussed above patient with Dr Rocio Baires, neurology Pt seen and examined, discussed with pt mother. The pt was last well day prior to admission. He had been to a chiropractor, otherwise not ill, no injury, med or dental procedures. Pt used narcotics for chronic back pain, judiciously. No drug or alcohol use. Today very confused,lethargic complained of headache. Pt does have hx of headache at a baseline. In ER, febrile, tachy combative elevated wbc. Pt sedated prior to my exam. Lethargic not following commands, neck is mildly stiff,perrl, unable to vis fundus, some purposeful movment. No pathologic reflexes. Impression, sauer in MS, fever elevated WBC without source. Need to r/o meningeal process. Discussed with mother who gave consent after discussing potential risks. The pt was prepped and draped in sterile fashion. 1% lidocaine given subq at L4-5 interspace. I was unable to cannulate the interspace, but the pt tolerated the procedure well. Imp change in MS, hyperglycemia, headache, leukocytosis. Meningeal process within differential. REc empiric coverage for meningeal pathogens. LP under fluoro in AM. Will need MRI with and without contrast when able to assess the L hemispheric infarcts which by themselves do not explain pt presentation. SAM Baires MD
[2016-06-14] MEDS: POTASSIUM CHLORIDE INJ 10 MEQ in SODIUM CHLORIDE 0.9% 100ML 100 ML IV SCH ×4 (18:04→20:49)
[2016-06-14] MEDS ORDERED: VANCOMYCIN INJ 1,550 MG in SODIUM CHLORIDE 0.9% 500ML 500 ML IV SCH (18:30)
[2016-06-14] MEDS ORDERED: [UNRECOGNIZED DRUG - OTHER] PRN (18:34)
[2016-06-14 19:20] LABS: URINE APPEARANCE CLEAR (CLEAR); URINE BILIRUBIN NEG (NEG); URINE COLOR YELLOW; URINE NITRITE NEG (NEG); URINE SPECIFIC GRAVITY 1.013 (1.000-1.030); UROBILINOGEN NEG (NEG)
[2016-06-14 19:23] LABS: MANUAL MICROSCOPIC REQUIRED? NO; REVIEW REQ? NO
[2016-06-14 19:27] VITALS: BP 178/106; PULSE 128; TEMP 37.8; O2SAT 96; BMI 31.7
[2016-06-14 19:47] LABS: BENZODIAZEPINE, URINE NEG (NEG); COCAINE,URINE NEG (NEG); PHENCYCLIDINE, URINE NEG (NEG)
[2016-06-14 19:51] LABS: CKMB/CK RATIO 0.5 (0-3.0)
[2016-06-14] MEDS: NSS + 20MEQ KCL 1000ML 1,000 ML IV SCH (20:49)
[2016-06-14 20:56] LABS: CALCIUM 8.5 mg/dl (8.5-10.1); CREATININE 1.2 mg/dl (0.60-1.40); PHOSPHORUS 1.4 mg/dl (2.5-4.9)
[2016-06-14] MEDS ORDERED: POTASSIUM PHOS 3 MMOL/1 ML INFUSION IV STA (21:05)
[2016-06-14] MEDS ORDERED: POTASSIUM PHOSPHATE INJ 21 MMOL in SODIUM CHLORIDE 0.9% 500ML 500 ML IV SCH (21:30)
[2016-06-14] MEDS: DEXTROSE 5% IV SCH (21:41)
[2016-06-14] MEDS: ACYCLOVIR SOD IV SCH (21:41)
[2016-06-14 21:53] VITALS: BP 154/83
[2016-06-14] MEDS ORDERED: HEPARIN SOD 5000 UNIT/0.5 ML CARP SQ SCH (22:00)
[2016-06-14 22:22] LABS: BLOOD UREA NITROGEN 24 mg/dl (7-18); BUN/CREATININE RATIO 22.1 (10-20); CALCIUM 8.1 mg/dl (8.5-10.1); CARBON DIOXIDE 25 mmol/L (21-32); CHLORIDE 103 mmol/L (98-107); GLUCOSE 194 mg/dl (70-99); PHOSPHORUS 1.6 mg/dl (2.5-4.9); SODIUM 139 mmol/L (136-145)
[2016-06-14 22:25] LABS: INFLUENZA A PCR Neg for Influ A (NEG); INFLUENZA B PCR Neg for Influ B (NEG)
--- NOTE | 2016-06-14 22:55 | Pharmacy Progress Note ---
Pharmacy Antibiotic Consult Date of Service: Jun 14, 2016. Pharmacy Dosing Scope Pharmacy is consulted to initiate vancomycin, Azactam, Levaquin, and acyclovir IV dosing therapy, order appropriate labs and adjust drug dose/frequency. Subjective The patient is a 55 year old male admitted on Jun 14, 2016 at 15:26 with altered mental status, elevated white count and temp. He is ordered IV abx for possible sepsis and meningitis. Objective Height (Feet): 5 Height (Inches): 11.00 Weight (Kilograms): 103.200 Lab Results (24hrs): Laboratory Tests Test 06/14/16 12:20 06/14/16 19:05 06/14/16 20:57 BUN/Creatinine Ratio 16.7 22.0 22.1 Blood Urea Nitrogen 33 mg/dl 26 mg/dl 24 mg/dl Creatinine 2.00 mg/dl 1.20 mg/dl 1.10 mg/dl White Blood Count 26.51 K/uL Red Blood Count 6.17 M/uL Hemoglobin 17.9 g/dL Hematocrit 48.6 % Mean Corpuscular Volume 78.8 fL Mean Corpuscular Hemoglobin 29.0 pg Mean Corpuscular Hemoglobin Concent 36.8 g/dl Platelet Count 317 K/uL Mean Platelet Volume 10.5 fL Neutrophils (%) (Auto) 83.5 % Lymphocytes (%) (Auto) 7.0 % Monocytes (%) (Auto) 9.1 % Eosinophils (%) (Auto) 0.0 % Basophils (%) (Auto) 0.1 % Neutrophils # (Auto) 22.16 K/uL Lymphocytes # (Auto) 1.85 K/uL Monocytes # (Auto) 2.40 K/uL Eosinophils # (Auto) 0.00 K/uL Basophils # (Auto) 0.02 K/uL Micro Results: Blood cx x 2 are pending. Chest x-ray is negative for pnx. Assessment & Plan Pt is admitted with altered mental status, unsteady gait, elevated white count, elevated temp & elevated blood glucose (insulin gtt was initiated). This is a 55 y/o male with PMH of DM type 2, HTN, HL, migraines, trigeminal neuralgia, SANAM intermittent CPAP compliance, depression, aseptic necrosis of bone s/p bilat hip replacement. Pt has also been having severe migraines for several months. He is ordered vancomycin, Levaquin, Azactam, and acyclovir for sepsis and possible meningitis. LP will be done tomorrow. Creatinine was 2.0 initially and improved to 1.1 within a few hrs, so may adjust dose in AM if significant change by then. Vancomycin: Loading dose: pt rec'd 1gm in the ER followed by 1550mg on admission to make a modified 25mg/kg load, then 1600mg IV every 12 hours. Goal trough level estimate: between 15 - 20 mcg/mL, aiming for closer to 20 for meningitis. Trough level has been ordered for: 06/16 prior to 0600 dose. Levaquin: 500mg IV initially in ER then continued at 750mg IV q 24 hrs Azactam: 1000mg IV initially in ER then 2gm IV q 8 hrs. Acyclovir: 1000mg (10mg/kg) IV q 8 hrs Pharmacy will continue to follow and will adjust dose/frequency as necessary. Thank you
[2016-06-14 23:11] VITALS: BP 140/93; PULSE 113; TEMP 37.6; O2SAT 98
[2016-06-15] VITALS (7 sets, daily range): BP systolic 146–220; BP diastolic 99–118; PULSE 77–106; TEMP 36.6–38.4; O2SAT 93–100; BMI 32.2
[2016-06-15 00:12] LABS: MAGNESIUM 1.9 mg/dl (1.8-2.4)
[2016-06-15] MEDS: AZTREONAM 2000 MG in DEXTROSE 5% 100 ML IV SCH ×4 (00:45→23:43)
[2016-06-15 00:46] LABS: CKMB/CK RATIO 0.5 (0-3.0)
[2016-06-15] MEDS: INSULIN REGULAR 250 UNITS in SODIUM CHLORIDE 0.9% 250ML 250 ML IV SCH ×5 (01:26→07:18)
[2016-06-15] MEDS ORDERED: ACETAMINOPHEN 325 MG TAB PO ONE (02:00)
[2016-06-15] MEDS ORDERED: POTASSIUM CHLORIDE 10 MEQ TABCR PO STA (03:05)
[2016-06-15] MEDS: DEXTROSE 5% IV SCH (03:28)
[2016-06-15] MEDS: ACYCLOVIR SOD IV SCH (03:28)
[2016-06-15 05:02] LABS: BLOOD UREA NITROGEN 21 mg/dl (7-18); BUN/CREATININE RATIO 18.7 (10-20); CALCIUM 8.3 mg/dl (8.5-10.1); CARBON DIOXIDE 27 mmol/L (21-32); CHLORIDE 103 mmol/L (98-107); CHOLESTEROL 236 mg/dl (0-200); CHOLESTEROL/HDL RATIO 7.4; GLUCOSE 212 mg/dl (70-99); HDL CHOLESTEROL 32 mg/dl; LDL CHOLESTEROL CALCULATED 151 mg/dl; PHOSPHORUS 2.5 mg/dl (2.5-4.9); SODIUM 140 mmol/L (136-145); TRIGLYCERIDES 266 mg/dl (0-150); VERY LOW DENSITY LIPOPROT CALC 53 mg/dl
--- NOTE | 2016-06-15 05:40 | Progress Note ---
Internal Med Progress Note Date of Service: Jun 15, 2016. Provider Documentation: Made aware by RN of hematuria on Al bag. px tugging at Al ff HH hold Heparin SQ for now Will relay to AM provider. Vital Signs: Date Time Temp Pulse Resp B/P Pulse Ox O2 Delivery O2 Flow Rate FiO2 06/15/16 06:07 37.2 06/15/16 04:00 Nasal Cannula 2.0 06/15/16 03:28 38.4 106 20 146/104 97 Nasal Cannula 2.0 06/15/16 00:00 Nasal Cannula 2.0 06/14/16 23:11 37.6 113 22 140/93 98 Nasal Cannula 2.0 06/14/16 21:53 154/83 06/14/16 20:00 Room Air 06/14/16 19:27 37.8 128 24 178/106 96 Room Air 06/14/16 16:45 128 27 171/115 94 06/14/16 16:19 128 27 94 06/14/16 16:14 117 31 94 06/14/16 16:09 119 22 94 06/14/16 16:04 118 21 95 06/14/16 15:59 119 29 96 06/14/16 15:58 171/115 06/14/16 15:54 119 15 06/14/16 15:49 122 20 06/14/16 15:44 132 21 06/14/16 15:39 129 27 06/14/16 15:34 130 37 06/14/16 15:29 135 20 97 06/14/16 15:24 122 23 95 06/14/16 15:19 122 24 94 06/14/16 15:14 125 26 94 06/14/16 15:09 119 23 93 06/14/16 15:04 126 29 95 06/14/16 14:59 134 32 96 06/14/16 14:54 127 20 95 06/14/16 14:49 127 23 95 06/14/16 14:44 122 17 96 06/14/16 14:39 127 26 94 06/14/16 14:34 122 25 95 06/14/16 14:29 122 22 94 06/14/16 14:24 124 15 94 06/14/16 14:20 165/106 06/14/16 14:19 132 27 91 06/14/16 13:19 121 14 92 06/14/16 13:14 121 25 93 06/14/16 13:09 118 26 93 06/14/16 13:04 110 21 91 06/14/16 12:59 115 21 93 06/14/16 12:54 132 15 100 06/14/16 12:49 125 31 97 06/14/16 12:44 127 30 83 06/14/16 12:39 128 98 06/14/16 12:37 38.2 06/14/16 12:34 124 22 94 06/14/16 12:29 128 24 97 06/14/16 12:25 124 06/14/16 12:24 125 31 98 06/14/16 12:14 37.9 123 18 153/108 96 Room Air 06/14/16 12:09 153/108 Lab Results: Results Past 24 Hours Test 06/14/16 12:08 06/14/16 12:20 06/14/16 13:02 06/14/16 13:06 Range/Units Bedside Glucose 439 70-99 mg/dl White Blood Count 26.51 4.8-10.8 K/uL Red Blood Count 6.17 4.7-6.1 M/uL Hemoglobin 17.9 14.0-18.0 g/dL Hematocrit 48.6 42-52 % Mean Corpuscular Volume 78.8 80-100 fL Mean Corpuscular Hemoglobin 29.0 25-34 pg Mean Corpuscular Hemoglobin Concent 36.8 32-36 g/dl Platelet Count 317 130-400 K/uL Mean Platelet Volume 10.5 7.4-10.4 fL Neutrophils (%) (Auto) 83.5 % Lymphocytes (%) (Auto) 7.0 % Monocytes (%) (Auto) 9.1 % Eosinophils (%) (Auto) 0.0 % Basophils (%) (Auto) 0.1 % Neutrophils # (Auto) 22.16 1.4-6.5 K/uL Lymphocytes # (Auto) 1.85 1.2-3.4 K/uL Monocytes # (Auto) 2.40 0.11-0.59 K/uL Eosinophils # (Auto) 0.00 0-0.5 K/uL Basophils # (Auto) 0.02 0-0.2 K/uL RDW Standard Deviation 35.3 36.4-46.3 fL RDW Coefficient of Variation 12.5 11.5-14.5 % Immature Granulocyte % (Auto) 0.3 % Immature Granulocyte # (Auto) 0.08 0.00-0.02 K/uL Prothrombin Time 11.5 9.0-12.0 SECONDS Prothromb Time International Ratio 1.1 0.9-1.1 Activated Partial Thromboplast Time 24.5 21.0-31.0 SECONDS Partial Thromboplastin Ratio 0.9 Sodium Level 130 136-145 mmol/L Potassium Level 3.0 3.5-5.1 mmol/L Chloride Level 90 98-107 mmol/L Carbon Dioxide Level 23 21-32 mmol/L Anion Gap 17.0 3-11 mmol/L Blood Urea Nitrogen 33 7-18 mg/dl Creatinine 2.00 0.60-1.40 mg/dl Est Creatinine Clear Calc Drug Dose 51.1 ml/min Estimated GFR () 42.9 Estimated GFR (Non- 37.0 BUN/Creatinine Ratio 16.7 10-20 Random Glucose 439 70-99 mg/dl Estimated Average Glucose 278 mg/dl Hemoglobin A1c 11.3 4.5-5.6 % Osmolality 310 280-300 mOsm/kg Calcium Level 9.9 8.5-10.1 mg/dl Magnesium Level 2.0 1.8-2.4 mg/dl Total Bilirubin 1.3 0.2-1 mg/dl Direct Bilirubin 0.2 0-0.2 mg/dl Aspartate Amino Transf (AST/SGOT) 16 15-37 U/L Alanine Aminotransferase (ALT/SGPT) 25 12-78 U/L Alkaline Phosphatase 108 45-117 U/L Total Creatine Kinase 337 39-308 U/L Troponin I 0.073 0-0.045 ng/ml Total Protein 8.1 6.4-8.2 gm/dl Albumin 4.2 3.4-5.0 gm/dl Lipase 194 73-393 U/L Beta-Hydroxybutyric Acid 8.90 0.2-2.81 mg/dL Procalcitonin 0.24 0-0.5 ng/mL Thyroid Stimulating Hormone (TSH) 0.261 0.300-4.500 uIu/ml Lyme Disease IgG Antibody NEG NEG Lyme Disease IgM Antibody NEG NEG Bedside Lactic Acid Venous 4.20 4.47 0.90-1.70 mmol/L Test 06/14/16 13:08 06/14/16 13:10 06/14/16 15:08 06/14/16 17:09 Range/Units Venous Blood pH 7.51 7.36-7.41 Venous Blood Partial Pressure CO2 37 38.0-50.0 mmHg Venous Blood Partial Pressure O2 20 mmHg Venous Blood HCO3 29 mmol/L Venous Blood Oxygen Saturation < 60.0 % Venous Blood Base Excess 5.7 mmol/L Ethyl Alcohol mg/dL < 3.0 0-3 mg/dl Bedside Hemoglobin 19.4 14.0-18.0 g/dl Bedside Hematocrit 57 42-52 % Bedside Sodium 131 135-144 mEq/L Bedside Potassium 3.3 3.3-5.0 mEq/L Bedside Chloride 89 101-112 mEq/L Bedside Total CO2 27 24-31 mEq/l Anion Gap 19.0 16-25 mmol/L Bedside Blood Urea Nitrogen 40 7-18 mg/dl Bedside Creatinine 1.5 0.6-1.3 mg/dl Bedside Glucose (other) 455 70-99 mg/dl Bedside Ionized Calcium (Gary) 1.09 1.12-1.32 mmol/l Bedside Glucose 372 228 70-99 mg/dl Test 06/14/16 18:14 06/14/16 18:55 06/14/16 19:00 06/14/16 19:05 Range/Units Bedside Glucose 246 70-99 mg/dl Venous Blood pH 7.45 7.36-7.41 Urine Color YELLOW Urine Appearance CLEAR CLEAR Urine pH 6.0 4.5-7.5 Urine Specific [place] 1.013 1.000-1.030 Urine Protein 1+ NEG Urine Glucose (UA) 3+ NEG Urine Ketones NEG NEG Urine Occult Blood 1+ NEG Urine Nitrite NEG NEG Urine Bilirubin NEG NEG Urine Urobilinogen NEG NEG Urine Leukocyte Esterase NEG NEG Urine WBC (Auto) 1-5 0-5 /hpf Urine RBC (Auto) 10-30 0-4 /hpf Urine Hyaline Casts (Auto) 1-5 0-5 /lpf Urine Epithelial Cells (Auto) 10-20 0-5 /lpf Urine Bacteria (Auto) NEG NEG Urine Opiates Screen POS NEG Urine Methadone, Qualitative NEG NEG Urine Barbiturates NEG NEG Urine Phencyclidine (PCP) Level NEG NEG Ur Amphetamine/Methamphetamine NEG NEG MDMA (Ecstasy) Screen NEG NEG Urine Benzodiazepines Screen NEG NEG Urine Cocaine Metabolite NEG NEG Urine Marijuana (THC) NEG NEG Sodium Level 140 136-145 mmol/L Potassium Level 3.0 3.5-5.1 mmol/L Chloride Level 103 98-107 mmol/L Carbon Dioxide Level 24 21-32 mmol/L Anion Gap 12.0 3-11 mmol/L Blood Urea Nitrogen 26 7-18 mg/dl Creatinine 1.20 0.60-1.40 mg/dl Est Creatinine Clear Calc Drug Dose 87.0 ml/min Estimated GFR () 79.5 Estimated GFR (Non- 68.6 BUN/Creatinine Ratio 22.0 10-20 Random Glucose 226 70-99 mg/dl Lactic Acid Level 2.0 0.4-2.0 mmol/L Calcium Level 8.5 8.5-10.1 mg/dl Phosphorus Level 1.4 2.5-4.9 mg/dl Magnesium Level 2.0 1.8-2.4 mg/dl Total Creatine Kinase 476 39-308 U/L Creatine Kinase MB 2.2 0.5-3.6 ng/ml Creatine Kinase MB Ratio 0.5 0-3.0 Troponin I 0.113 0-0.045 ng/ml Test 06/14/16 19:18 06/14/16 20:11 06/14/16 20:50 06/14/16 20:57 Range/Units Bedside Glucose 200 199 70-99 mg/dl Venous Blood pH 7.42 7.36-7.41 Sodium Level 139 136-145 mmol/L Potassium Level 3.5-5.1 mmol/L Chloride Level 103 98-107 mmol/L Carbon Dioxide Level 25 21-32 mmol/L Anion Gap 11.0 3-11 mmol/L Blood Urea Nitrogen 24 7-18 mg/dl Creatinine 1.10 0.60-1.40 mg/dl Est Creatinine Clear Calc Drug Dose 95.0 ml/min Estimated GFR () 88.4 Estimated GFR (Non- 76.2 BUN/Creatinine Ratio 22.1 10-20 Random Glucose 194 70-99 mg/dl Calcium Level 8.1 8.5-10.1 mg/dl Phosphorus Level 1.6 2.5-4.9 mg/dl Magnesium Level 1.8-2.4 mg/dl Test 06/14/16 21:14 06/14/16 22:21 06/14/16 22:55 06/14/16 23:19 Range/Units Bedside Glucose 198 195 234 70-99 mg/dl Potassium Level 3.5-5.1 mmol/L Magnesium Level 1.8-2.4 mg/dl Test 06/14/16 23:49 06/15/16 00:00 06/15/16 00:16 06/15/16 01:17 Range/Units Potassium Level 3.0 3.5-5.1 mmol/L Magnesium Level 1.9 1.8-2.4 mg/dl Total Creatine Kinase 429 39-308 U/L Creatine Kinase MB 2.2 0.5-3.6 ng/ml Creatine Kinase MB Ratio 0.5 0-3.0 Troponin I 0.131 0-0.045 ng/ml Bedside Glucose 200 162 70-99 mg/dl Test 06/15/16 02:22 06/15/16 03:23 06/15/16 04:20 06/15/16 05:22 Range/Units Bedside Glucose 188 220 227 158 70-99 mg/dl Sodium Level 140 136-145 mmol/L Potassium Level 3.5-5.1 mmol/L Chloride Level 103 98-107 mmol/L Carbon Dioxide Level 27 21-32 mmol/L Anion Gap 10.0 3-11 mmol/L Blood Urea Nitrogen 21 7-18 mg/dl Creatinine 1.10 0.60-1.40 mg/dl Est Creatinine Clear Calc Drug Dose 95.0 ml/min Estimated GFR () 88.4 Estimated GFR (Non- 76.2 BUN/Creatinine Ratio 18.7 10-20 Random Glucose 212 70-99 mg/dl Calcium Level 8.3 8.5-10.1 mg/dl Phosphorus Level 2.5 2.5-4.9 mg/dl Magnesium Level 1.8-2.4 mg/dl Triglycerides Level 266 0-150 mg/dl Cholesterol Level 236 0-200 mg/dl HDL Cholesterol 32 mg/dl LDL Cholesterol, Calculated 151 mg/dl VLDL Cholesterol, Calculated 53 mg/dl Cholesterol/HDL Ratio 7.4 Test 06/15/16 05:35 06/15/16 06:29 Range/Units White Blood Count 22.57 4.8-10.8 K/uL Red Blood Count 5.68 4.7-6.1 M/uL Hemoglobin 16.5 14.0-18.0 g/dL Hematocrit 46.6 42-52 % Mean Corpuscular Volume 82.0 80-100 fL Mean Corpuscular Hemoglobin 29.0 25-34 pg Mean Corpuscular Hemoglobin Concent 35.4 32-36 g/dl Platelet Count 223 130-400 K/uL Mean Platelet Volume 10.3 7.4-10.4 fL Neutrophils (%) (Auto) 73.8 % Lymphocytes (%) (Auto) 14.9 % Monocytes (%) (Auto) 10.8 % Eosinophils (%) (Auto) 0.1 % Basophils (%) (Auto) 0.1 % Neutrophils # (Auto) 16.65 1.4-6.5 K/uL Lymphocytes # (Auto) 3.36 1.2-3.4 K/uL Monocytes # (Auto) 2.44 0.11-0.59 K/uL Eosinophils # (Auto) 0.02 0-0.5 K/uL Basophils # (Auto) 0.03 0-0.2 K/uL RDW Standard Deviation 38.5 36.4-46.3 fL RDW Coefficient of Variation 12.9 11.5-14.5 % Immature Granulocyte % (Auto) 0.3 % Immature Granulocyte # (Auto) 0.07 0.00-0.02 K/uL Venous Blood pH 7.44 7.36-7.41 Potassium Level 3.0 3.5-5.1 mmol/L Magnesium Level 2.0 1.8-2.4 mg/dl Bedside Glucose 162 70-99 mg/dl Microbiology Results 06/14/16 Blood Culture, Received Pending 06/14/16 Blood Culture, Received Pending 06/14/16 Urine Culture, Received Pending
[2016-06-15] MEDS: VANCOMYCIN INJ 1,600 MG in SODIUM CHLORIDE 0.9% 500ML 500 ML IV SCH ×2 (06:07→17:43)
[2016-06-15 06:15] LABS: BASO % 0.1 %; BASO ABS # 0.03 K/uL (0-0.2); COMPLETE YES; EOS % 0.1 %; HEMATOCRIT 46.6 % (42-52); IG% 0.3 %; LYMPH % 14.9 %; LYMPH ABS # 3.36 K/uL (1.2-3.4); MEAN CORPUSCULAR HGB CONC 35.4 g/dl (32-36); MEAN PLATELET VOLUME 10.3 fL (7.4-10.4); MONO % 10.8 %; NEUT % 73.8 %; PLATELET COUNT 223 K/uL (130-400); RED BLOOD COUNT 5.68 M/uL (4.7-6.1); WHITE BLOOD COUNT 22.57 K/uL (4.8-10.8)
[2016-06-15 06:45] LABS: ESTIMATED AVERAGE GLUCOSE 278 mg/dl; HA1C FLAG Normal (Normal)
[2016-06-15] MEDS: INSULIN ASPART 100 UNITS/ML 3 ML PEN SC SCH ×4 (08:00→20:53)
[2016-06-15] MEDS ORDERED: LORAZEPAM 2 MG/ML 1 ML VIAL IV PRN (08:45)
[2016-06-15] MEDS ORDERED: HydrALAZINE HCL 20 MG/ML VIAL IV. ONE (08:45)
[2016-06-15] MEDS ORDERED: LORAZEPAM INJ 1 MG in SYRINGE 0.5 ML IV PRN (08:45)
[2016-06-15] MEDS: NSS + 20MEQ KCL 1000ML 1,000 ML IV SCH ×2 (08:52→20:57)
--- NOTE | 2016-06-15 08:56 | ECHOCARDIOGRAM REPORT ---
*NOTICE TO RECEIVING [facility] This information is strictly Confidential and protected under [place] law. [place] law prohibits you from making any further disclosure of this information unless further disclosure is expressly permitted by the written consent of the person to whom it pertains or is authorized by law. A general authorization for the release of medical or other information is not sufficient for this purpose. Hospital accepts no responsibility if the information is made available to any other person, INCLUDING THE PATIENT. Interpretation Summary * Name: MAHNAZ PASCUAL Study Date: 06/15/2016 06:55 AM BP: 188/118 mmHg * Patient Location: C.2E\[id number]\E202\S\1 HR: 104 * : 1960 (M/d/yyyy) Gender: Male Height: 70 in * Age: 55 yrs Ethnicity: [place] Weight: 224 lb * Ordering Physician: Taylor Kauffman * Referring Physician: Self, Referred * Performed By: Mary Burgess RDCS * * Reason For Study: TIA * BSA: 2.2 m2 * History: TIA * -- Conclusions -- * Small, underfilled LV chamber size with moderate concentric LVH. * Hyperdynamic LV systolic function, EF >70%. * No segmental left ventricular wall motion abnormalities are noted. * Grade I diastolic dysfunction. * No significant valvular pathology. * Intact interatrial septum. Procedure Details * A saline contrast injection was performed to assess for cardiac shunting. * The injection was performed through an intravenous line in the left arm. * The attending nurse who injected the saline contrast was MAGUI MEREDITH RN. * A total of 10 cc of agitated saline was given. * A contrast injection of Definity was performed to improve assessment of LV function. * Contrast was injected into an intravenous site in the left arm. * One vial of Definity ultrasound contrast was diluted in normal saline to a total volume of 10 ml. A total of '2' ml of solution was administered during imaging. * Lot # [id number] of Definity utilized for procedure. * Expiration date MAY 30. * The attending nurse who injected the contrast agent was MAGUI MEREDITH RN. * PATIENT DIFFICULT TO IMAGE; HE WOULD NOT STAY STILL Left Ventricle * The left ventricular cavity is small. * There is moderate concentric left ventricular hypertrophy. * Ejection Fraction = >70 %. * The left ventricle is hyperdynamic. * No segmental left ventricular wall motion abnormalities are noted. * The left ventricular wall motion is normal. Right Ventricle * The right ventricular cavity size is normal (basal dimension <4.2 cm in right ventricular apical 4-chamber view). * The right ventricular systolic function is normal as assessed by tricuspid annular plane systolic excursion (TAPSE) (normal >1.5 cm). Atria * The left atrial size is normal. * Right atrial size is normal. * The interatrial septum is intact with no evidence for an atrial septal defect. Mitral Valve * The mitral valve is normal in structure and function. Tricuspid Valve * The tricuspid valve is normal in structure and function. Aortic Valve * The aortic valve is not well visualized. * No hemodynamically significant valvular aortic stenosis. * There is no significant aortic regurgitation. Pulmonic Valve * The pulmonary valve is not well seen, but the Doppler examination is normal without significant regurgitation or stenosis. Great Vessels * The aortic root and proximal ascending aorta are normal sized. Pericardium/Pleural * There is no pericardial effusion. Left Ventricular Diastolic Function * Grade I diastolic dysfunction, (abnormal relaxation pattern). MMode 2D Measurements and Calculations IVSd 1.6 cm IVSs 2.1 cm LVIDd 4.0 cm LVIDs 2.5 cm LVPWd 1.6 cm LVPWs 1.9 cm IVS/LVPW 1.0 FS 36.5 % EDV(Teich) 70.0 ml ESV(Teich) 23.2 ml EF(Teich) 66.9 % EDV(cubed) 64.0 ml ESV(cubed) 16.4 ml EF(cubed) 74.4 % % IVS thick 35.9 % % LVPW thick 22.6 % LV mass(C)d 250.6 grams LV mass(C)dI 114.4 grams/m\S\2 LV mass(C)s 226.3 grams LV mass(C)sI 103.3 grams/m\S\2 SV(Teich) 46.8 ml SI(Teich) 21.4 ml/m\S\2 SV(cubed) 47.6 ml SI(cubed) 21.7 ml/m\S\2 LVAd ap4 26.2 cm\S\2 LVLd ap4 8.7 cm EDV(MOD-sp4) 64.0 ml EDV(sp4-el) 67.1 ml LVAs ap4 14.9 cm\S\2 LVLs ap4 7.5 cm ESV(MOD-sp4) 24.8 ml ESV(sp4-el) 25.2 ml EF(MOD-sp4) 61.2 % EF(sp4-el) 62.4 % SV(MOD-sp4) 39.2 ml SI(MOD-sp4) 17.9 ml/m\S\2 SV(sp4-el) 41.9 ml SI(sp4-el) 19.1 ml/m\S\2 Doppler Measurements and Calculations MV E max chela 50.9 cm/sec MV A max chela 74.7 cm/sec MV E/A 0.68 MV dec time 0.20 sec Ao V2 max 114.4 cm/sec Ao max PG 5.2 mmHg Ao max PG (full) 0.87 mmHg LV V1 max PG 4.4 mmHg LV V1 max 104.5 cm/sec
--- NOTE | 2016-06-15 10:04 | Progress Note ---
Subjective Date of Service: Jun 15, 2016. Subjective Pt evaluation today including: conversation w/ patient, physical exam, chart review, lab review, review of studies, review of inpatient medication list Saw/examined the patient in room 202 He is answering questions appropriately Remembers falling at home He has no pain anywhere Oriented x 3 He's not sure what's going on, but does know he's in the hospital Aware of the plan going forward for MRI and lumbar puncture Unable to control movements of the legs or arms Currently in restraints due to agitation Problem List Medical Problems: (1) DKA (diabetic ketoacidoses) Status: Acute (2) Sepsis Status: Acute Surgical Problems: (1) Status post sinus surgery Status: Chronic Review of Systems Constitutional: No chills, No fever Respiratory: No shortness of breath Cardiac: No chest pain Abdomen: No diarrhea, No nausea, No pain, No vomiting Difficult to obtain due to mental status He denies most symptoms Medications Current Inpatient Medications Medications (Trade) Dose Ordered Sig/[place] Route Start Time Stop Time Status Last Admin Dose Admin Insulin Human Regular/Sodium Chloride (novoLIN-R/Nss 250ml) 252.5 ml @ 0 mls/hr DAILY@1130 IV 06/14/16 15:30 07/14/16 15:29 06/15/16 07:18 1.4 MLS/HR Insulin Aspart (novoLOG ASPART) [facility] 06/14/16 17:15 07/14/16 18:59 Glucose (Glucose 40% Gel) UD PRN PO 06/14/16 15:15 07/14/16 15:14 Glucose (Glucose Chew Tab) 1 tabs UD PRN PO 06/14/16 15:15 07/14/16 15:14 Dextrose (Dextrose 50% 50ML Syringe) 50 ml UD PRN IV 06/14/16 15:15 07/14/16 15:14 Glucagon (Glucagon Inj) 1 mg UD PRN SQ 06/14/16 15:15 07/14/16 15:14 Heparin Sodium (Porcine) (Heparin Sq 5000 Unit/0.5ml) 5,000 unit Q8 SQ 06/14/16 22:00 07/14/16 21:59 Future Hold 06/14/16 21:44 5,000 UNIT Acetaminophen (Tylenol Tab) 650 mg Q4H PRN PO 06/14/16 15:30 07/15/16 15:29 Ondansetron HCl (Zofran Inj) 4 mg Q6H PRN IV 06/14/16 15:30 07/14/16 15:29 Miscellaneous Information (Pharmacist Discharge Med Rec Consult) 1 ea UD PRN N/A 06/14/16 15:30 07/14/16 15:29 Miscellaneous Information (Consult Glycemic Management Pharmacy) 1 ea UD PRN N/A 06/14/16 15:45 07/14/16 15:44 Miscellaneous Information (Pharmacy Consult) 1 ea UD PRN N/A 06/14/16 17:32 07/14/16 17:31 Miscellaneous Information (Pharmacy Consult) 1 ea UD PRN N/A 06/14/16 17:34 07/14/16 17:33 Miscellaneous Information (Pharmacy Consult) 1 ea UD PRN N/A 06/14/16 17:35 07/14/16 17:34 Metoprolol Tartrate (Lopressor Iv) 2.5 mg Q6 PRN IV 06/14/16 16:30 07/14/16 16:29 Lorazepam (Ativan Inj) 1 mg Q4H PRN IV 06/14/16 17:00 07/14/16 16:59 Miscellaneous Information 1 ea 1 ea UD PRN N/A 06/14/16 18:34 07/14/16 18:33 Aztreonam 2000 mg/ Dextrose 110 ml @ 110 mls/hr Q8@0000,0800,1600 IV 06/15/16 00:00 06/24/16 15:59 06/15/16 00:45 110 MLS/HR Acyclovir Sodium 1000 mg/Dextrose 270 ml @ 250 mls/hr Q8@0400,1200,2000 IV 06/14/16 20:00 06/24/16 19:59 06/15/16 03:28 250 MLS/HR Levofloxacin 750 mg/Prmx 150 ml @ 100 mls/hr DAILY@1400 IV 06/15/16 14:00 06/24/16 13:59 Potassium Chloride/Sodium Chloride 1,000 ml @ 125 mls/hr Q8H IV 06/14/16 21:00 07/14/16 20:59 06/14/16 20:49 125 MLS/HR Vancomycin HCl/ Sodium Chloride (Vancomycin Inj/ Nss 500ml) 532 ml @ 200 mls/hr Q12H IV 06/15/16 06:00 06/24/16 05:59 06/15/16 06:07 200 MLS/HR Hydralazine HCl (HydrALAZINE INJ) 10 mg TODAY@0845 ONCE IV. 06/15/16 08:45 06/15/16 08:46 Objective Vital Signs Date Time Temp Pulse Resp B/P Pulse Ox O2 Delivery O2 Flow Rate FiO2 06/15/16 07:43 37.2 104 20 188/118 93 Room Air 06/15/16 06:07 37.2 06/15/16 04:00 Nasal Cannula 2.0 06/15/16 03:28 38.4 106 20 146/104 97 Nasal Cannula 2.0 06/15/16 00:00 Nasal Cannula 2.0 06/14/16 23:11 37.6 113 22 140/93 98 Nasal Cannula 2.0 06/14/16 21:53 154/83 06/14/16 20:00 Room Air 06/14/16 19:27 37.8 128 24 178/106 96 Room Air 06/14/16 16:45 128 27 171/115 94 06/14/16 16:19 128 27 94 06/14/16 16:14 117 31 94 06/14/16 16:09 119 22 94 06/14/16 16:04 118 21 95 06/14/16 15:59 119 29 96 06/14/16 15:58 171/115 06/14/16 15:54 119 15 06/14/16 15:49 122 20 06/14/16 15:44 132 21 06/14/16 15:39 129 27 06/14/16 15:34 130 37 06/14/16 15:29 135 20 97 06/14/16 15:24 122 23 95 06/14/16 15:19 122 24 94 06/14/16 15:14 125 26 94 06/14/16 15:09 119 23 93 06/14/16 15:04 126 29 95 06/14/16 14:59 134 32 96 06/14/16 14:54 127 20 95 06/14/16 14:49 127 23 95 06/14/16 14:44 122 17 96 06/14/16 14:39 127 26 94 06/14/16 14:34 122 25 95 06/14/16 14:29 122 22 94 06/14/16 14:24 124 15 94 06/14/16 14:20 165/106 06/14/16 14:19 132 27 91 06/14/16 13:19 121 14 92 06/14/16 13:14 121 25 93 06/14/16 13:09 118 26 93 06/14/16 13:04 110 21 91 06/14/16 12:59 115 21 93 06/14/16 12:54 132 15 100 06/14/16 12:49 125 31 97 06/14/16 12:44 127 30 83 06/14/16 12:39 128 98 06/14/16 12:37 38.2 06/14/16 12:34 124 22 94 06/14/16 12:29 128 24 97 06/14/16 12:25 124 06/14/16 12:24 125 31 98 06/14/16 12:14 37.9 123 18 153/108 96 Room Air 06/14/16 12:09 153/108 Physical Exam General Appearance: + mild distress (mildly anxious/agitated) ENT: + pertinent finding (+abrasion above right eye) Respiratory/Chest: lungs clear, normal breath sounds, no respiratory distress, no accessory muscle use Cardiovascular: regular rate, rhythm, no edema, no murmur Abdomen: normal bowel sounds, non tender, soft Extremities: normal inspection, no pedal edema Neurologic/Psychiatric: alert, oriented x 3, + pertinent finding (+anxious/ agitated; somewhat confused, though answers to person, place, time; seems to not be able to control jerking body movements) Skin: normal color Laboratory Results Last 24 Hours Test 06/14/16 12:08 06/14/16 12:20 06/14/16 13:02 06/14/16 13:06 Bedside Glucose 439 mg/dl White Blood Count 26.51 K/uL Red Blood Count 6.17 M/uL Hemoglobin 17.9 g/dL Hematocrit 48.6 % Mean Corpuscular Volume 78.8 fL Mean Corpuscular Hemoglobin 29.0 pg Mean Corpuscular Hemoglobin Concent 36.8 g/dl Platelet Count 317 K/uL Mean Platelet Volume 10.5 fL Neutrophils (%) (Auto) 83.5 % Lymphocytes (%) (Auto) 7.0 % Monocytes (%) (Auto) 9.1 % Eosinophils (%) (Auto) 0.0 % Basophils (%) (Auto) 0.1 % Neutrophils # (Auto) 22.16 K/uL Lymphocytes # (Auto) 1.85 K/uL Monocytes # (Auto) 2.40 K/uL Eosinophils # (Auto) 0.00 K/uL Basophils # (Auto) 0.02 K/uL RDW Standard Deviation 35.3 fL RDW Coefficient of Variation 12.5 % Immature Granulocyte % (Auto) 0.3 % Immature Granulocyte # (Auto) 0.08 K/uL Prothrombin Time 11.5 SECONDS Prothromb Time International Ratio 1.1 Activated Partial Thromboplast Time 24.5 SECONDS Partial Thromboplastin Ratio 0.9 Sodium Level 130 mmol/L Potassium Level 3.0 mmol/L Chloride Level 90 mmol/L Carbon Dioxide Level 23 mmol/L Anion Gap 17.0 mmol/L Blood Urea Nitrogen 33 mg/dl Creatinine 2.00 mg/dl Est Creatinine Clear Calc Drug Dose 51.1 ml/min Estimated GFR () 42.9 Estimated GFR (Non- 37.0 BUN/Creatinine Ratio 16.7 Random Glucose 439 mg/dl Estimated Average Glucose 278 mg/dl Hemoglobin A1c 11.3 % Osmolality 310 mOsm/kg Calcium Level 9.9 mg/dl Magnesium Level 2.0 mg/dl Total Bilirubin 1.3 mg/dl Direct Bilirubin 0.2 mg/dl Aspartate Amino Transf (AST/SGOT) 16 U/L Alanine Aminotransferase (ALT/SGPT) 25 U/L Alkaline Phosphatase 108 U/L Total Creatine Kinase 337 U/L Troponin I 0.073 ng/ml Total Protein 8.1 gm/dl Albumin 4.2 gm/dl Lipase 194 U/L Beta-Hydroxybutyric Acid 8.90 mg/dL Procalcitonin 0.24 ng/mL Thyroid Stimulating Hormone (TSH) 0.261 uIu/ml Lyme Disease IgG Antibody NEG Lyme Disease IgM Antibody NEG Bedside Lactic Acid Venous 4.20 mmol/L 4.47 mmol/L Test 06/14/16 13:08 06/14/16 13:10 06/14/16 15:08 06/14/16 17:09 Venous Blood pH 7.51 Venous Blood Partial Pressure CO2 37 mmHg Venous Blood Partial Pressure O2 20 mmHg Venous Blood HCO3 29 mmol/L Venous Blood Oxygen Saturation < 60.0 % Venous Blood Base Excess 5.7 mmol/L Ethyl Alcohol mg/dL < 3.0 mg/dl Bedside Hemoglobin 19.4 g/dl Bedside Hematocrit 57 % Bedside Sodium 131 mEq/L Bedside Potassium 3.3 mEq/L Bedside Chloride 89 mEq/L Bedside Total CO2 27 mEq/l Anion Gap 19.0 mmol/L Bedside Blood Urea Nitrogen 40 mg/dl Bedside Creatinine 1.5 mg/dl Bedside Glucose (other) 455 mg/dl Bedside Ionized Calcium ([place]) 1.09 mmol/l Bedside Glucose 372 mg/dl 228 mg/dl Test 06/14/16 18:14 06/14/16 18:55 06/14/16 19:00 06/14/16 19:05 Bedside Glucose 246 mg/dl Venous Blood pH 7.45 Urine Color YELLOW Urine Appearance CLEAR Urine pH 6.0 Urine Specific [place] 1.013 Urine Protein 1+ Urine Glucose (UA) 3+ Urine Ketones NEG Urine Occult Blood 1+ Urine Nitrite NEG Urine Bilirubin NEG Urine Urobilinogen NEG Urine Leukocyte Esterase NEG Urine WBC (Auto) 1-5 /hpf Urine RBC (Auto) 10-30 /hpf Urine Hyaline Casts (Auto) 1-5 /lpf Urine Epithelial Cells (Auto) 10-20 /lpf Urine Bacteria (Auto) NEG Urine Opiates Screen POS Urine Methadone, Qualitative NEG Urine Barbiturates NEG Urine Phencyclidine (PCP) Level NEG Ur Amphetamine/Methamphetamine NEG MDMA (Ecstasy) Screen NEG Urine Benzodiazepines Screen NEG Urine Cocaine Metabolite NEG Urine Marijuana (THC) NEG Sodium Level 140 mmol/L Potassium Level 3.0 mmol/L Chloride Level 103 mmol/L Carbon Dioxide Level 24 mmol/L Anion Gap 12.0 mmol/L Blood Urea Nitrogen 26 mg/dl Creatinine 1.20 mg/dl Est Creatinine Clear Calc Drug Dose 87.0 ml/min Estimated GFR () 79.5 Estimated GFR (Non- 68.6 BUN/Creatinine Ratio 22.0 Random Glucose 226 mg/dl Lactic Acid Level 2.0 mmol/L Calcium Level 8.5 mg/dl Phosphorus Level 1.4 mg/dl Magnesium Level 2.0 mg/dl Total Creatine Kinase 476 U/L Creatine Kinase MB 2.2 ng/ml Creatine Kinase MB Ratio 0.5 Troponin I 0.113 ng/ml Test 06/14/16 19:18 06/14/16 20:11 06/14/16 20:50 06/14/16 20:57 Bedside Glucose 200 mg/dl 199 mg/dl Venous Blood pH 7.42 Sodium Level 139 mmol/L Potassium Level mmol/L Chloride Level 103 mmol/L Carbon Dioxide Level 25 mmol/L Anion Gap 11.0 mmol/L Blood Urea Nitrogen 24 mg/dl Creatinine 1.10 mg/dl Est Creatinine Clear Calc Drug Dose 95.0 ml/min Estimated GFR () 88.4 Estimated GFR (Non- 76.2 BUN/Creatinine Ratio 22.1 Random Glucose 194 mg/dl Calcium Level 8.1 mg/dl Phosphorus Level 1.6 mg/dl Magnesium Level mg/dl Test 06/14/16 21:14 06/14/16 22:21 06/14/16 22:55 06/14/16 23:19 Bedside Glucose 198 mg/dl 195 mg/dl 234 mg/dl Potassium Level mmol/L Magnesium Level mg/dl Test 06/14/16 23:49 06/15/16 00:00 06/15/16 00:16 06/15/16 01:17 Potassium Level 3.0 mmol/L Magnesium Level 1.9 mg/dl Total Creatine Kinase 429 U/L Creatine Kinase MB 2.2 ng/ml Creatine Kinase MB Ratio 0.5 Troponin I 0.131 ng/ml Bedside Glucose 200 mg/dl 162 mg/dl Test 06/15/16 02:22 06/15/16 03:23 06/15/16 04:20 06/15/16 05:22 Bedside Glucose 188 mg/dl 220 mg/dl 227 mg/dl 158 mg/dl Sodium Level 140 mmol/L Potassium Level mmol/L Chloride Level 103 mmol/L Carbon Dioxide Level 27 mmol/L Anion Gap 10.0 mmol/L Blood Urea Nitrogen 21 mg/dl Creatinine 1.10 mg/dl Est Creatinine Clear Calc Drug Dose 95.0 ml/min Estimated GFR () 88.4 Estimated GFR (Non- 76.2 BUN/Creatinine Ratio 18.7 Random Glucose 212 mg/dl Calcium Level 8.3 mg/dl Phosphorus Level 2.5 mg/dl Magnesium Level mg/dl Triglycerides Level 266 mg/dl Cholesterol Level 236 mg/dl HDL Cholesterol 32 mg/dl LDL Cholesterol, Calculated 151 mg/dl VLDL Cholesterol, Calculated 53 mg/dl Cholesterol/HDL Ratio 7.4 Test 06/15/16 05:35 06/15/16 06:29 06/15/16 07:14 06/15/16 08:00 White Blood Count 22.57 K/uL Red Blood Count 5.68 M/uL Hemoglobin 16.5 g/dL Hematocrit 46.6 % Mean Corpuscular Volume 82.0 fL Mean Corpuscular Hemoglobin 29.0 pg Mean Corpuscular Hemoglobin Concent 35.4 g/dl Platelet Count 223 K/uL Mean Platelet Volume 10.3 fL Neutrophils (%) (Auto) 73.8 % Lymphocytes (%) (Auto) 14.9 % Monocytes (%) (Auto) 10.8 % Eosinophils (%) (Auto) 0.1 % Basophils (%) (Auto) 0.1 % Neutrophils # (Auto) 16.65 K/uL Lymphocytes # (Auto) 3.36 K/uL Monocytes # (Auto) 2.44 K/uL Eosinophils # (Auto) 0.02 K/uL Basophils # (Auto) 0.03 K/uL RDW Standard Deviation 38.5 fL RDW Coefficient of Variation 12.9 % Immature Granulocyte % (Auto) 0.3 % Immature Granulocyte # (Auto) 0.07 K/uL Venous Blood pH 7.44 Potassium Level 3.0 mmol/L Magnesium Level 2.0 mg/dl Bedside Glucose 162 mg/dl 157 mg/dl Assessment and Plan This is a 55 year old male with PMH of uncontrolled HTN, DM2, HLD, 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 of trigeminal neuralgia, hx. of migraines, SANAM presented with altered mental status /confusion and a fall Altered Mental Status presented with disorientation Acute CVA vs. infectious process? Head CT shows acute vs. subacute lacunar infarct lumbar puncture pending for today (1429) MRI pending for around 11AM blood cultures/urine culture pending possible drug overdose? hold narcotics for now Ativan PRN He is alert, awake, oriented x 3 jerking movements of arms/legs; agitated this morning requiring Ativan doses intermittently currently in restraints for safety Acute Lacunar Infarct acute vs. subacute lacunar infarct likely secondary from uncontrolled blood pressure MRI pending for later today hold antiplatelet therapy for pending lumbar puncture will try to keep systolic blood pressure between 160 and 180 appreciate neurology input Sepsis with unknown source patient meets sepsis criteria leukocytosis - though this is a chronic issue +fever, +tachycardia CXR no acute process UA negative blood cultures/urine culture pending +neck pain will obtain lumbar puncture currently on broad spectrum antibiotics, antiviral Levaquin, Vanco, Aztreonam, Acyclovir Hyperosmolar Hyperglycemic Not compliant with medication/insulin Ha1c > 10 insulin drip was started, appreciate pharmacy glycemic control will now stop insulin drip, start Lantus 10 units BID and insulin sliding scale we'll continue fluids for now Acute Kidney Injury dehydration + infection contributing receiving IVFs continue abx. creat from 2.0, now < 1.0 hold CHARLY-I continue Elevated Troponin continues to have elevated troponin level multiple causes: sepsis, hypertensive urgency EKG changes = incomplete RBBB and LAFB holding antiplatelets for potential LP pending Hypertension blood pressure continues to be elevated patient is on amlodipine, metoprolol, lisinopril and hydralazine at home this is possibly related to noncompliance holding CHARLY-I due to kidney injury continue IV hydralazine, IV metoprolol SBP between 160-180 - possible acute CVA Hypokalemia continue potassium replacement now off of insulin drip also may be dilutional Hyponatremia, resolved with IVFs Depression will need psych consultation when he is mentally improved as per family members, he is depressed and has suicidal ideation currently receiving IV ativan PRN for agitation; restraints for safety will await MRI/LP results, then consult psych HLD elevated total cholesterol LDL ~ 151 restart statin when able SANAM Intermittently compliant with CPAP per his mother Will try CPAP HS DVT ppx subq heparin FULL CODE
[2016-06-15] MEDS: INSULIN GLARGINE SOLOSTAR 100 UNITS/ML 3 ML PEN SC SCH ×2 (10:22→20:55)
[2016-06-15] MEDS: METOPROLOL TARTRATE 1 MG/ML VIAL IV PRN ×2 (10:26→17:53)
[2016-06-15] MEDS: POTASSIUM CHLR 10 MEQ / WTR 10 MEQ in PREMIXED WATER 100 ML IV SCH ×4 (10:26→15:54)
[2016-06-15] MEDS ORDERED: NURSING VERBAL MED ORDER ONE (11:30)
--- NOTE | 2016-06-15 12:00 | DIAGNOSTIC IMAGING REPORT ---
CT SCAN OF THE CERVICAL SPINE CLINICAL HISTORY: Fall with neck pain. COMPARISON STUDY: No priors. TECHNIQUE: CT scan of the cervical spine is performed from the skull base to the upper thoracic spine. Images are reviewed in the axial, sagittal, and coronal planes. IV contrast was not administered for this examination. CT DOSE: 375.44 mGy.cm FINDINGS: Skeletal structures: The skeletal structures are well mineralized. There is no evidence of fracture or subluxation involving the cervical spine. Vertebral body height and alignment are maintained. There is straightening of the cervical lordosis. The odontoid process and lateral masses are intact. The atlantoaxial articulation is preserved noting productive degenerative change with bony overgrowth. The posterior ligaments are densely calcified. The spinous processes appear intact. Anterior osteophytes are seen from C4 through C7. Intervertebral discs: The disc spaces are well maintained. Central canal: Widely patent. Soft tissues: The prevertebral and paraspinous soft tissues are within normal limits. There is atherosclerotic calcification noted in the carotid bulbs. Calvarium: The visualized calvarium at the skull base appears intact. Brain parenchyma: Partially visualized brain parenchyma the skull base is within normal limits. Mastoids: Small mastoid effusions are partially visualized. Lung apices: Mild emphysematous change is present at the apices. Partially imaged apical lung parenchyma is otherwise clear as visualized. IMPRESSION: There is no evidence of fracture or subluxation involving the cervical spine. Electronically signed by: Abdulaziz Soriano M.D. 06/15/2016 11:59 AM Dictated Date/Time: 06/15/2016 11:56 AM
--- NOTE | 2016-06-15 12:07 | Pharmacy Progress Note ---
Glycemic Control Intl Consult Date of Service Jun 15, 2016. Scope Glycemic Pharmacist consulted by Rosie Kauffman PA-C on 06/15/16 for glycemic control and to write orders per [facility] inpatient glycemic control protocol Objective Weight (Kilograms): 104.600 Accuchecks BSG (last 24hrs): Test 06/14/16 12:08 06/14/16 12:20 06/14/16 15:08 06/14/16 17:09 Bedside Glucose 439 mg/dl (70-99) 372 mg/dl (70-99) 228 mg/dl (70-99) Random Glucose 439 mg/dl (70-99) Test 06/14/16 18:14 06/14/16 19:05 06/14/16 19:18 06/14/16 20:11 Bedside Glucose 246 mg/dl (70-99) 200 mg/dl (70-99) 199 mg/dl (70-99) Random Glucose 226 mg/dl (70-99) Test 06/14/16 20:57 06/14/16 21:14 06/14/16 22:21 06/14/16 23:19 Random Glucose 194 mg/dl (70-99) Bedside Glucose 198 mg/dl (70-99) 195 mg/dl (70-99) 234 mg/dl (70-99) Test 06/15/16 00:16 06/15/16 01:17 06/15/16 02:22 06/15/16 03:23 Bedside Glucose 200 mg/dl (70-99) 162 mg/dl (70-99) 188 mg/dl (70-99) 220 mg/dl (70-99) Test 06/15/16 04:20 06/15/16 05:22 06/15/16 06:29 06/15/16 07:14 Bedside Glucose 227 mg/dl (70-99) 158 mg/dl (70-99) 162 mg/dl (70-99) 157 mg/dl (70-99) Random Glucose 212 mg/dl (70-99) Test 06/15/16 08:00 06/15/16 09:06 06/15/16 10:03 06/15/16 11:09 Bedside Glucose 144 mg/dl (70-99) 184 mg/dl (70-99) 225 mg/dl (70-99) 181 mg/dl (70-99) Test 06/15/16 12:00 Laboratory Data (last 24hrs) Test 06/14/16 12:20 06/14/16 13:10 06/14/16 19:05 06/14/16 20:57 Anion Gap 17.0 mmol/L 19.0 mmol/L 12.0 mmol/L 11.0 mmol/L BUN/Creatinine Ratio 16.7 22.0 22.1 Blood Urea Nitrogen 33 mg/dl 26 mg/dl 24 mg/dl Creatinine 2.00 mg/dl 1.20 mg/dl 1.10 mg/dl Hemoglobin A1c 11.3 % Potassium Level 3.0 mmol/L 3.0 mmol/L mmol/L Sodium Level 130 mmol/L 140 mmol/L 139 mmol/L White Blood Count 26.51 K/uL Red Blood Count 6.17 M/uL Hemoglobin 17.9 g/dL Hematocrit 48.6 % Mean Corpuscular Volume 78.8 fL Mean Corpuscular Hemoglobin 29.0 pg Mean Corpuscular Hemoglobin Concent 36.8 g/dl Platelet Count 317 K/uL Mean Platelet Volume 10.5 fL Neutrophils (%) (Auto) 83.5 % Lymphocytes (%) (Auto) 7.0 % Monocytes (%) (Auto) 9.1 % Eosinophils (%) (Auto) 0.0 % Basophils (%) (Auto) 0.1 % Neutrophils # (Auto) 22.16 K/uL Lymphocytes # (Auto) 1.85 K/uL Monocytes # (Auto) 2.40 K/uL Eosinophils # (Auto) 0.00 K/uL Basophils # (Auto) 0.02 K/uL Test 06/14/16 22:55 06/14/16 23:49 06/15/16 04:20 06/15/16 05:35 Potassium Level mmol/L 3.0 mmol/L mmol/L 3.0 mmol/L Anion Gap 10.0 mmol/L BUN/Creatinine Ratio 18.7 Blood Urea Nitrogen 21 mg/dl Creatinine 1.10 mg/dl Sodium Level 140 mmol/L White Blood Count 22.57 K/uL Red Blood Count 5.68 M/uL Hemoglobin 16.5 g/dL Hematocrit 46.6 % Mean Corpuscular Volume 82.0 fL Mean Corpuscular Hemoglobin 29.0 pg Mean Corpuscular Hemoglobin Concent 35.4 g/dl Platelet Count 223 K/uL Mean Platelet Volume 10.3 fL Neutrophils (%) (Auto) 73.8 % Lymphocytes (%) (Auto) 14.9 % Monocytes (%) (Auto) 10.8 % Eosinophils (%) (Auto) 0.1 % Basophils (%) (Auto) 0.1 % Neutrophils # (Auto) 16.65 K/uL Lymphocytes # (Auto) 3.36 K/uL Monocytes # (Auto) 2.44 K/uL Eosinophils # (Auto) 0.02 K/uL Basophils # (Auto) 0.03 K/uL Test 06/15/16 08:00 06/15/16 12:00 HbA1c Test 06/14/16 12:20 Hemoglobin A1c 11.3 % (4.5-5.6) H Recent Pertinent Medications Outpatient Anti-diabetic Regimen: * Lantus 25 units SQ HS * NovoLog 5 units SQ TIDM * Non-Compliant with insulin regimen The patient is currently receiving: IV insulin infusion per protocol Assessment & Plan ASSESSMENT: * 55yo T2DM male with poorly controlled diabetes per significantly elevated A1c = 11.3% on 06/14/16. Pt is reportedly non-compliant with insulin regimen. * Pt initiated on IV insulin infusion per protocol on admission for severe hyperglycemia/HHS. * Pt meets criteria to transition off of IV insulin infusion to SQ basal bolus insulin regimen this AM per lab data. * Will utilize weight based dosing as patient is non-compliant with outpatient regimen. Will use conservative dosing as patient is only ordered a clear liquid diet. Not to be advanced today per provider. * ADA & AACE recommend a goal blood sugar range 140-180 mg/dl for the majority of critically ill & non-critically ill patients. However, more stringent targets may be selected in individual cases. PLAN FOR INPATIENT GLYCEMIC CONTROL: * Transition off of IV insulin infusion to SQ basal bolus insulin regimen * Basal insulin with LANTUS 10 units SQ BID * Correctional Insulin with NOVOLOG per scale ACHS or Q6hrs while NPO * Goal Range: Low 140 mg/dL - High 180 mg/dL * Correction Factor: 30 mg/dL/unit * Nutritional / Prandial insulin per carb ratio of 1 unit per 10 grams CHO consumed * Continue to titrate insulin regimen based on BSG trends * Please note that the plan above was derived based on current level of insulin resistance and hospital stress. These recommendations are appropriate for inpatient admission only. Plan of care upon discharge will need to be reassessed to avoid potential outpatient hypo/hyperglycemia. Thank you.
[2016-06-15] MEDS ORDERED: CHLORTHALIDONE 25 MG TAB PO ONE (12:30)
[2016-06-15] MEDS ORDERED: ENALAPRILAT IV 1.25 MG in DEXTROSE 5% 25ML 25 ML IV ONE (12:30)
[2016-06-15] MEDS: ACYCLOVIR SOD INJ 750 MG in DEXTROSE 5% 250ML 250 ML IV SCH ×2 (12:46→20:54)
--- NOTE | 2016-06-15 12:47 | DIAGNOSTIC IMAGING REPORT ---
ABDOMEN AND PELVIS CT WITHOUT CONTRAST CT DOSE: 1828.40 mGy.cm HISTORY: DKA, fever w/o source TECHNIQUE: Multiaxial CT images of the abdomen and pelvis were performed without the use of intravenous and oral contrast according to the standard department stone protocol. COMPARISON STUDY: Abdomen and pelvis CT 01/15/2009. FINDINGS: Suboptimal evaluation of the abdomen and pelvis due to the mild motion artifact, the patient's overlapping arms, and metallic artifact from the bilateral total hip arthroplasty partially obscuring the deep pelvic structures. The lung bases are clear. No pneumoperitoneum. No pneumatosis. Mild thickening of the distal esophagus. Fatty changes within the liver. No definite hepatic or splenic masses. The unenhanced adrenal glands and pancreas are unremarkable. No renal stones or hydronephrosis. An IVC filter is noted. The bladder is essentially obscured by the metallic artifact. There appears to be a Al catheter within the bladder. The rectum is also not well visualized. However, there is suggestion of a foreign body within the rectum with surrounding gas. This could represent a balloon tipped catheter. Fluid-filled nondilated large and small bowel. This raises the possibility of a gastroenteritis. Normal appendix. Suboptimal evaluation for bowel pathology due to the lack of intravenous and oral contrast. However, there is no definite bowel wall thickening or obstruction. Tiny fat-containing left inguinal hernia. No retroperitoneal lymphadenopathy. IMPRESSION: 1. Overall, suboptimal evaluation the abdomen and pelvis as described above. 2. No definite bowel wall thickening or obstruction. 3. Normal appendix. 4. Fluid-filled nondilated large and small bowel. This can be seen in the setting of a gastroenteritis. 4. There are suggestion of a foreign body within the rectum with surrounding gas raising the possibility of a balloon tip catheter. Clinical correlation recommended. 6. Bladder is essentially obscured by the metallic artifact from the bilateral hip prostheses. There is a Al catheter within the bladder. 7. Mild thickening of the distal esophagus. Electronically signed by: Robbie Cazares M.D. 06/15/2016 12:46 PM Dictated Date/Time: 06/15/2016 12:33 PM
[2016-06-15 12:59] LABS: HEMATOCRIT 47.2 % (42-52)
--- NOTE | 2016-06-15 13:03 | DIAGNOSTIC IMAGING REPORT ---
Brain MRI WITHOUT CONTRAST HISTORY: Altered mental status. TECHNIQUE: Multiplanar multisequence MRI of the brain was performed without the use of contrast. COMPARISON STUDY: Head CT 06/14/2016. FINDINGS: Multiple scattered small foci of restricted diffusion seen within the left high convexity, left caudate, right posterior occipital lobe, and left cerebellar hemisphere consistent with infarcts. Some of these demonstrate only partial loss of signal on the ADC map. Therefore, these may represent acute to subacute infarcts. The dominant focus within the left cerebellar hemisphere measures 2 cm. In addition, a few these have a slightly nodular component best seen within the right occipital lobe measuring 13 mm and within the left caudate measuring 10 mm with mild mass effect at the left lateral ventricle. Old lacunar infarct seen within the right thalamus. The midline structures appear grossly intact. The major vascular flow-voids at the skull base are maintained. Near complete opacification of the ethmoid air cells with complete opacification of the right frontal sinus. There is also mild mucoperiosteal thickening within the remaining paranasal sinuses. A few opacified right mastoid air cells. Mild atrophic changes and microvascular ischemic changes within the brain. No intracranial hemorrhage or midline shift. There appears to be a 2 cm polyp within the right ethmoid air cells. IMPRESSION: 1. Multiple scattered small foci of restricted diffusion as described above consistent with acute to subacute infarcts. 2. Some of these areas of infarction demonstrate a slightly nodular appearance. Therefore, recommend one month brain MRI follow-up with intravenous contrast to exclude the less likely possibility of an underlying lesion. 3. Sinus disease as described above. There appears to be a 2 cm polyp within the right ethmoid air cells. ENT consultation should be considered for further evaluation once the patient is stabilized. Electronically signed by: Robbie Cazares M.D. 06/15/2016 1:02 PM Dictated Date/Time: 06/15/2016 12:46 PM
[2016-06-15] MEDS: LORAZEPAM 2 MG/ML 1 ML VIAL IV PRN ×2 (13:17→15:17)
[2016-06-15 13:33] LABS: BUN/CREATININE RATIO 17.7 (10-20); CALCIUM 8.9 mg/dl (8.5-10.1); CREATININE 0.96 mg/dl (0.60-1.40)
[2016-06-15 13:39] LABS: PHOSPHORUS 1.7 mg/dl (2.5-4.9)
--- NOTE | 2016-06-15 14:01 | Neurology Progress Notes ---
Neurology Progress Note Date of Service Jun 15, 2016. 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 History obtained from chart no family in room, nursing staff. He was combative when he arrived and was sedated with 1 mg IV Ativan. According to chart mom states yesterday he was at baseline. He has been having severe migraines and neck pain for several months. He lives with his mother. She states he didn't know the date and could not recognize her. He told her he fell and his his head. He seemed off balance today with ambulating. He usually ambulates with a cane. In the ED there was no facial droop by nursing but he was noted to be confused. She states he often has diarrhea but not in past few days. His mother believes he is non-compliant with his insulin and other medications, except that he takes his oxycodone regularly but thinks he has been taking it appropriately. She is not sure if he takes other drugs or drinks EtOH. Currently he is more cooperative and identifying mom and friend in room. He knows he will be having a LP to evaluate for infection. According to nursing he was sitting up and eating his breakfast this am. He went down for his MRI at 10a. Objective Date Time Temp Pulse Resp B/P Pulse Ox O2 Delivery O2 Flow Rate FiO2 06/15/16 12:24 Nasal Cannula 2.0 06/15/16 11:03 37.3 84 18 220/114 94 2.0 06/15/16 10:26 92 221/127 06/15/16 08:00 Nasal Cannula 2.0 06/15/16 07:43 37.2 104 20 188/118 93 Room Air 06/15/16 06:07 37.2 06/15/16 04:00 Nasal Cannula 2.0 06/15/16 03:28 38.4 106 20 146/104 97 Nasal Cannula 2.0 06/15/16 00:00 Nasal Cannula 2.0 06/14/16 23:11 37.6 113 22 140/93 98 Nasal Cannula 2.0 06/14/16 21:53 154/83 06/14/16 20:00 Room Air 06/14/16 19:27 37.8 128 24 178/106 96 Room Air 06/14/16 16:45 128 27 171/115 94 06/14/16 16:19 128 27 94 06/14/16 16:14 117 31 94 06/14/16 16:09 119 22 94 06/14/16 16:04 118 21 95 06/14/16 15:59 119 29 96 06/14/16 15:58 171/115 06/14/16 15:54 119 15 06/14/16 15:49 122 20 06/14/16 15:44 132 21 06/14/16 15:39 129 27 06/14/16 15:34 130 37 06/14/16 15:29 135 20 97 06/14/16 15:24 122 23 95 06/14/16 15:19 122 24 94 06/14/16 15:14 125 26 94 06/14/16 15:09 119 23 93 06/14/16 15:04 126 29 95 06/14/16 14:59 134 32 96 06/14/16 14:54 127 20 95 06/14/16 14:49 127 23 95 06/14/16 14:44 122 17 96 06/14/16 14:39 127 26 94 06/14/16 14:34 122 25 95 06/14/16 14:29 122 22 94 06/14/16 14:24 124 15 94 06/14/16 14:20 165/106 06/14/16 14:19 132 27 91 Last 24 Hours Test 06/14/16 15:08 06/14/16 17:09 06/14/16 18:14 06/14/16 18:55 Bedside Glucose 372 mg/dl 228 mg/dl 246 mg/dl Venous Blood pH 7.45 Test 06/14/16 19:00 06/14/16 19:05 06/14/16 19:18 06/14/16 20:11 Urine Color YELLOW Urine Appearance CLEAR Urine pH 6.0 Urine Specific [place] 1.013 Urine Protein 1+ Urine Glucose (UA) 3+ Urine Ketones NEG Urine Occult Blood 1+ Urine Nitrite NEG Urine Bilirubin NEG Urine Urobilinogen NEG Urine Leukocyte Esterase NEG Urine WBC (Auto) 1-5 /hpf Urine RBC (Auto) 10-30 /hpf Urine Hyaline Casts (Auto) 1-5 /lpf Urine Epithelial Cells (Auto) 10-20 /lpf Urine Bacteria (Auto) NEG Urine Opiates Screen POS Urine Methadone, Qualitative NEG Urine Barbiturates NEG Urine Phencyclidine (PCP) Level NEG Ur Amphetamine/Methamphetamine NEG MDMA (Ecstasy) Screen NEG Urine Benzodiazepines Screen NEG Urine Cocaine Metabolite NEG Urine Marijuana (THC) NEG Sodium Level 140 mmol/L Potassium Level 3.0 mmol/L Chloride Level 103 mmol/L Carbon Dioxide Level 24 mmol/L Anion Gap 12.0 mmol/L Blood Urea Nitrogen 26 mg/dl Creatinine 1.20 mg/dl Est Creatinine Clear Calc Drug Dose 87.0 ml/min Estimated GFR () 79.5 Estimated GFR (Non- 68.6 BUN/Creatinine Ratio 22.0 Random Glucose 226 mg/dl Lactic Acid Level 2.0 mmol/L Calcium Level 8.5 mg/dl Phosphorus Level 1.4 mg/dl Magnesium Level 2.0 mg/dl Total Creatine Kinase 476 U/L Creatine Kinase MB 2.2 ng/ml Creatine Kinase MB Ratio 0.5 Troponin I 0.113 ng/ml Bedside Glucose 200 mg/dl 199 mg/dl Test 06/14/16 20:50 06/14/16 20:57 06/14/16 21:14 06/14/16 22:21 Venous Blood pH 7.42 Sodium Level 139 mmol/L Potassium Level mmol/L Chloride Level 103 mmol/L Carbon Dioxide Level 25 mmol/L Anion Gap 11.0 mmol/L Blood Urea Nitrogen 24 mg/dl Creatinine 1.10 mg/dl Est Creatinine Clear Calc Drug Dose 95.0 ml/min Estimated GFR () 88.4 Estimated GFR (Non- 76.2 BUN/Creatinine Ratio 22.1 Random Glucose 194 mg/dl Calcium Level 8.1 mg/dl Phosphorus Level 1.6 mg/dl Magnesium Level mg/dl Bedside Glucose 198 mg/dl 195 mg/dl Test 06/14/16 22:55 06/14/16 23:19 06/14/16 23:49 06/15/16 00:00 Potassium Level mmol/L 3.0 mmol/L Magnesium Level mg/dl 1.9 mg/dl Bedside Glucose 234 mg/dl Total Creatine Kinase 429 U/L Creatine Kinase MB 2.2 ng/ml Creatine Kinase MB Ratio 0.5 Troponin I 0.131 ng/ml Test 06/15/16 00:16 06/15/16 01:17 06/15/16 02:22 06/15/16 03:23 Bedside Glucose 200 mg/dl 162 mg/dl 188 mg/dl 220 mg/dl Test 06/15/16 04:20 06/15/16 05:22 06/15/16 05:35 06/15/16 06:29 Sodium Level 140 mmol/L Potassium Level mmol/L 3.0 mmol/L Chloride Level 103 mmol/L Carbon Dioxide Level 27 mmol/L Anion Gap 10.0 mmol/L Blood Urea Nitrogen 21 mg/dl Creatinine 1.10 mg/dl Est Creatinine Clear Calc Drug Dose 95.0 ml/min Estimated GFR () 88.4 Estimated GFR (Non- 76.2 BUN/Creatinine Ratio 18.7 Bedside Glucose 227 mg/dl 158 mg/dl 162 mg/dl Random Glucose 212 mg/dl Calcium Level 8.3 mg/dl Phosphorus Level 2.5 mg/dl Magnesium Level mg/dl 2.0 mg/dl Triglycerides Level 266 mg/dl Cholesterol Level 236 mg/dl HDL Cholesterol 32 mg/dl LDL Cholesterol, Calculated 151 mg/dl VLDL Cholesterol, Calculated 53 mg/dl Cholesterol/HDL Ratio 7.4 White Blood Count 22.57 K/uL Red Blood Count 5.68 M/uL Hemoglobin 16.5 g/dL Hematocrit 46.6 % Mean Corpuscular Volume 82.0 fL Mean Corpuscular Hemoglobin 29.0 pg Mean Corpuscular Hemoglobin Concent 35.4 g/dl Platelet Count 223 K/uL Mean Platelet Volume 10.3 fL Neutrophils (%) (Auto) 73.8 % Lymphocytes (%) (Auto) 14.9 % Monocytes (%) (Auto) 10.8 % Eosinophils (%) (Auto) 0.1 % Basophils (%) (Auto) 0.1 % Neutrophils # (Auto) 16.65 K/uL Lymphocytes # (Auto) 3.36 K/uL Monocytes # (Auto) 2.44 K/uL Eosinophils # (Auto) 0.02 K/uL Basophils # (Auto) 0.03 K/uL RDW Standard Deviation 38.5 fL RDW Coefficient of Variation 12.9 % Immature Granulocyte % (Auto) 0.3 % Immature Granulocyte # (Auto) 0.07 K/uL Venous Blood pH 7.44 Test 06/15/16 07:14 06/15/16 08:00 06/15/16 09:06 06/15/16 10:03 Bedside Glucose 157 mg/dl 144 mg/dl 184 mg/dl 225 mg/dl Test 06/15/16 11:09 06/15/16 12:50 Bedside Glucose 181 mg/dl Hemoglobin 16.6 g/dL Hematocrit 47.2 % Venous Blood pH 7.47 Sodium Level 142 mmol/L Potassium Level 3.0 mmol/L Chloride Level 106 mmol/L Carbon Dioxide Level 26 mmol/L Anion Gap 10.0 mmol/L Blood Urea Nitrogen 17 mg/dl Creatinine 0.96 mg/dl Est Creatinine Clear Calc Drug Dose 109.5 ml/min Estimated GFR () 104.2 Estimated GFR (Non- 89.9 BUN/Creatinine Ratio 17.7 Random Glucose 172 mg/dl Calcium Level 8.9 mg/dl Phosphorus Level 1.7 mg/dl Magnesium Level 2.0 mg/dl Imaging: MRI brain- . Multiple scattered small foci of restricted diffusion as described above consistent with acute to subacute infarcts. Some of these areas of infarction demonstrate a slightly nodular appearance. Therefore, recommend one month brain MRI follow-up with intravenous contrast to exclude the less likely possibility of an underlying lesion. Sinus disease as described above. There appears to be a 2 cm polyp within the right ethmoid air cells. ENT consultation should be considered for further evaluation once the patient is stabilized. CT spine - : There is no evidence of fracture or subluxation involving the cervical spine. CT abdomen-Overall, suboptimal evaluation the abdomen and pelvis as described above. 2. No definite bowel wall thickening or obstruction. Normal appendix. Fluid-filled nondilated large and small bowel. This can be seen in the setting of a gastroenteritis. There are suggestion of a foreign body within the rectum with surrounding gas raising the possibility of a balloon tip catheter. Clinical correlation recommended. Bladder is essentially obscured by the metallic artifact from the bilateral hip prostheses. There is a Al catheter within the bladder. Mild thickening of the distal esophagus. TTE- Small, underfilled LV chamber size with moderate concentric LVH. * Hyperdynamic LV systolic function, EF >70%. * No segmental left ventricular wall motion abnormalities are noted. * Grade I diastolic dysfunction. * No significant valvular pathology. * Intact interatrial septum. Exam: Physical Exam: Constitutional: appearance nourished, healthy and obese Ears, Nose, Mouth and Throat: mucous membranes moist, no injection and skin normal, eyes normal Cardiovascular: normal S-1 and S-2 and regular rate and rhythm Respiratory: clear to auscultation (CTA) and no rales, rhonchi or wheeze Musculoskeletal: no peripheral edema and good distal pulses Skin: no stigmata of neurocutaneous disease noted and normal and intact Eyes: extraocular muscles intact (EOMI) and pupils equal, round and reactive to light (PERRL) NEUROLOGIC EXAMINATION: Mental status: Alert and interactive Oriented knows he is at [facility] (called it [facility]), knows mom and his friend in room Oriented to person Speech fluent with no evidence of aphasia Cranial Nerves smile and eye brow raise symmetric Reflexes: Deep tendon reflexes were symmetrical and graded 2/5. Plantar responses were flexor. Sensory: no sensory deficits to light touch Coordination: unable to assess Gait/Stance: lying in bed repositioning self in bed moves all ext with commend and spontaneously Current Inpatient Medications Medications (Trade) Dose Ordered Sig/[place] Route Start Time Stop Time Status Last Admin Dose Admin Glucose (Glucose 40% Gel) UD PRN PO 06/14/16 15:15 07/14/16 15:14 Glucose (Glucose Chew Tab) 1 tabs UD PRN PO 06/14/16 15:15 07/14/16 15:14 Dextrose (Dextrose 50% 50ML Syringe) 50 ml UD PRN IV 06/14/16 15:15 07/14/16 15:14 Glucagon (Glucagon Inj) 1 mg UD PRN SQ 06/14/16 15:15 07/14/16 15:14 Heparin Sodium (Porcine) (Heparin Sq 5000 Unit/0.5ml) 5,000 unit Q8 SQ 06/14/16 22:00 07/14/16 21:59 Future Hold 06/14/16 21:44 5,000 UNIT Acetaminophen (Tylenol Tab) 650 mg Q4H PRN PO 06/14/16 15:30 07/15/16 15:29 Ondansetron HCl (Zofran Inj) 4 mg Q6H PRN IV 06/14/16 15:30 07/14/16 15:29 Miscellaneous Information (Pharmacist Discharge Med Rec Consult) 1 ea UD PRN N/A 06/14/16 15:30 07/14/16 15:29 Miscellaneous Information (Consult Glycemic Management Pharmacy) 1 ea UD PRN N/A 06/14/16 15:45 07/14/16 15:44 Miscellaneous Information (Pharmacy Consult) 1 ea UD PRN N/A 06/14/16 17:32 07/14/16 17:31 Miscellaneous Information (Pharmacy Consult) 1 ea UD PRN N/A 06/14/16 17:34 07/14/16 17:33 Miscellaneous Information (Pharmacy Consult) 1 ea UD PRN N/A 06/14/16 17:35 07/14/16 17:34 Metoprolol Tartrate (Lopressor Iv) 2.5 mg Q6 PRN IV 06/14/16 16:30 07/14/16 16:29 06/15/16 10:26 2.5 MG Lorazepam (Ativan Inj) 1 mg Q4H PRN IV 06/14/16 17:00 07/14/16 16:59 Miscellaneous Information 1 ea 1 ea UD PRN N/A 06/14/16 18:34 07/14/16 18:33 Aztreonam 2000 mg/ Dextrose 110 ml @ 110 mls/hr Q8@0000,0800,1600 IV 06/15/16 00:00 06/24/16 15:59 06/15/16 08:45 110 MLS/HR Levofloxacin 750 mg/Prmx 150 ml @ 100 mls/hr DAILY@1400 IV 06/15/16 14:00 06/24/16 13:59 Potassium Chloride/Sodium Chloride 1,000 ml @ 125 mls/hr Q8H IV 06/14/16 21:00 07/14/16 20:59 06/15/16 08:52 125 MLS/HR Vancomycin HCl/ Sodium Chloride (Vancomycin Inj/ Nss 500ml) 532 ml @ 200 mls/hr Q12H IV 06/15/16 06:00 06/24/16 05:59 06/15/16 06:07 200 MLS/HR Lorazepam 1 mg 1 mg ONE PRN IV 06/15/16 08:45 07/15/16 08:44 Lorazepam 1 mg/ Syringe 1 ml @ 1 mls/min ONE PRN IV 06/15/16 08:45 07/15/16 08:44 06/15/16 10:42 1 MLS/MIN Potassium Chloride/Prmx (Kcl 10 Meq / Wtr/Premixed Water) 100 ml @ 100 mls/hr Q1H IV 06/15/16 10:15 06/15/16 14:14 06/15/16 12:50 100 MLS/HR Insulin Glargine (Lantus Solostar Pen) 10 unit BID SC 06/15/16 10:00 07/15/16 09:59 06/15/16 10:22 10 UNIT Insulin Aspart SLIDING SCALE ACHS SC 06/15/16 11:00 07/15/16 10:59 Acyclovir Sodium/ Dextrose (Zovirax Inj/D5 250ml) 265 ml @ 250 mls/hr Q8@0400,1200,2000 IV 06/15/16 12:00 06/25/16 23:59 06/15/16 12:46 250 MLS/HR Impression 55 year old male presents with MS change elevated WBC and glucose- improving Plan 1. LP attempted at bedside last night unable to obtain fluid set for 1430 today 2. broad spectrum antibiotics continued 3. sepsis work up in process but no source found 4. MRI brain without contrast would have provided more information with contrast. 5. tox screen for any overdose on narcotics 6. blood cultures are still pending, C diff was negative 7. fall precautions 8. further recommendations once LP is completed and other studies are completed 9. blood pressure is not well controlled primary team for recs I have seen and discussed above patient with Dr Cam Aparicio, neurology Patientt seen and examined and imaging reviewed Above idscussed with Rocio Olsen LP finally done under fluoro but results pending He is much improved still a bit off mentally and has no cleaar focal findings nor nuchal rigidity and minimal headache MRI shows what I suspect are multiple embolic infarctions perhaps of variable age in posterior and anterior circulation distribution making aortic plaque or cardiac chambers/valvular studture likely sources but echo is negativ and some features of the noncontrast MRI are worrisome for secondary depositws or inflammatory changes. Need review of csf ( ordeers written ) and a repeat mri with contrast and would add an mra or cta to check for unlikely presence of intracranial vascular lesions or even a vasculitie I will check back tomorrow but for nwo he is bettter and improving. Cam Aparicio MD
[2016-06-15] MEDS ORDERED: AMLODIPINE BESYLATE 5 MG TAB PO ONE (14:45)
[2016-06-15] MEDS ORDERED: CLONIDINE HCL 0.1 MG TAB PO ONE ×2 (14:45→18:30)
[2016-06-15] MEDS ORDERED: [UNRECOGNIZED DRUG - REMARK] ONE (15:30)
[2016-06-15] MEDS: LEVOFLOXACIN 750MG / D5W IV SCH (15:46)
--- NOTE | 2016-06-15 16:03 | DIAGNOSTIC IMAGING REPORT ---
FLUOROSCOPICALLY GUIDED LUMBAR PUNCTURE CLINICAL HISTORY: Altered mental status. Sepsis. FLUOROSCOPY TIME: 0.7 minutes. A single image submitted. PROCEDURE: The procedure, risks and benefits were discussed with the patient including the risk of spinal headache, bleeding and infection. The patient agreed to the procedure and informed written consent was obtained. The procedure was performed by Dr. Cazares following a timeout. The left L5-S1 interlaminar space was targeted. Skin overlying the space was prepped and draped in the usual sterile fashion and local anesthesia was achieved with 1% lidocaine. Under intermittent fluoroscopic guidance, a 20-gauge x 12 cm Sprotte needle was inserted into the thecal sac. A total of 10 cc of clear, colorless cerebral spinal fluid was obtained and spread amongst 4 vials. The patient tolerated the procedure well. There were no immediate complications. The specimens were sent to the laboratory at the request of the referring physician. IMPRESSION: Successful fluoroscopic guided lumbar puncture with removal of 10 cc of clear, colorless cerebral spinal fluid. No immediate complications. Electronically signed by: Robbie Cazares M.D. 06/15/2016 4:02 PM Dictated Date/Time: 06/15/2016 4:01 PM
[2016-06-15 16:12] LABS: CSF APPEARANCE CLEAR; CSF COLOR COLORLESS; CSF XANTHOCHROMIC NO XANTHOCHROMIA
[2016-06-15 16:15] LABS: CSF TOTAL PROTEIN 54.4 mg/dl (15.0-45.0)
--- NOTE | 2016-06-15 20:38 | DIAGNOSTIC IMAGING REPORT ---
BILATERAL CAROTID DOPPLER STUDY HISTORY: Mental status change cava COMPARISON: None. TECHNIQUE: Real-time, grayscale, and color Doppler sonography of the carotid arteries was performed. Imaging reviewed in the transverse and longitudinal planes. All measurements were calculated based on NASCET criteria. FINDINGS: Antegrade flow is seen in the bilateral vertebral arteries. The brachial pressures are hemodynamically similar. The peak systolic velocity within the right ICA is 47. The right systolic ratio is 0.9. The peak systolic velocity within the left ICA is 73. The left systolic ratio is 1.0. IMPRESSION: No hemodynamically significant stenosis seen within the carotid arteries. Electronically signed by: Armando Carlos M.D. 06/15/2016 8:37 PM Dictated Date/Time: 06/15/2016 8:36 PM
[2016-06-16] VITALS (11 sets, daily range): BP systolic 130–191; BP diastolic 81–106; PULSE 74–99; TEMP 36.8–37.5; O2SAT 95–98
[2016-06-16] MEDS: ACYCLOVIR SOD INJ 750 MG in DEXTROSE 5% 250ML 250 ML IV SCH ×3 (03:49→20:18)
[2016-06-16] MEDS: NSS + 20MEQ KCL 1000ML 1,000 ML IV SCH (05:17)
[2016-06-16] MEDS ORDERED: VANCOMYCIN TROUGH SCH (05:30)
[2016-06-16] MEDS: VANCOMYCIN INJ 1,600 MG in SODIUM CHLORIDE 0.9% 500ML 500 ML IV SCH (05:52)
[2016-06-16 06:10] LABS: BASO % 0.2 %; BASO ABS # 0.03 K/uL (0-0.2); COMPLETE YES; EOS % 0.3 %; HEMATOCRIT 49.2 % (42-52); IG% 0.3 %; LYMPH % 17.6 %; LYMPH ABS # 2.77 K/uL (1.2-3.4); MEAN CELL VOLUME 82.8 fL (80-100); MEAN CORPUSCULAR HEMOGLOBIN 28.8 pg (25-34); MEAN CORPUSCULAR HGB CONC 34.8 g/dl (32-36); MEAN PLATELET VOLUME 10.2 fL (7.4-10.4); MONO % 7.8 %; NEUT % 73.8 %; PLATELET COUNT 198 K/uL (130-400); RED BLOOD COUNT 5.94 M/uL (4.7-6.1); WHITE BLOOD COUNT 15.74 K/uL (4.8-10.8)
[2016-06-16 06:34] LABS: BUN/CREATININE RATIO 13.8 (10-20); CALCIUM 8.7 mg/dl (8.5-10.1); CREATININE 0.98 mg/dl (0.60-1.40); MAGNESIUM 1.9 mg/dl (1.8-2.4); PHOSPHORUS 1.8 mg/dl (2.5-4.9); POTASSIUM 2.8 mmol/L (3.5-5.1)
[2016-06-16] MEDS ORDERED: POTASSIUM PHOS 3 MMOL/1 ML INFUSION IV STA (08:20)
[2016-06-16] MEDS ORDERED: POTASSIUM PHOSPHATE INJ 9 MMOL in SODIUM CHLORIDE 0.9% 250ML 250 ML IV ONE (09:00)
[2016-06-16] MEDS ORDERED: LISINOPRIL 10 MG TAB PO SCH (09:00)
[2016-06-16] MEDS ORDERED: POTASSIUM CHLORIDE 10 MEQ TABCR PO ONE (09:00)
[2016-06-16] MEDS: AZTREONAM 2000 MG in DEXTROSE 5% 100 ML IV SCH ×3 (09:01→23:54)
--- NOTE | 2016-06-16 09:02 | Progress Note ---
Subjective Date of Service: Jun 16, 2016. Subjective Pt evaluation today including: conversation w/ patient, physical exam, lab review, review of studies, review of inpatient medication list Saw/examined the patient in room 202 Doing well today; much more awake/alert No confusion this morning +chronic pain - bilateral hips +diarrhea - collecting in bag Had lumbar puncture yesterday, doing well afterwards Problem List Medical Problems: (1) DKA (diabetic ketoacidoses) Status: Acute (2) Sepsis Status: Acute Surgical Problems: (1) Status post sinus surgery Status: Chronic Review of Systems Constitutional: No chills, No fever, No weakness Respiratory: No cough, No shortness of breath, No sputum Cardiac: No chest pain Abdomen: + diarrhea, No nausea, No pain, No vomiting Musculoskeletal: + joint pain (bilateral hips) Heme: No abnormal bleeding/bruising Medications Current Inpatient Medications Medications (Trade) Dose Ordered Sig/Kenroy Route Start Time Stop Time Status Last Admin Dose Admin Glucose (Glucose 40% Gel) UD PRN PO 06/14/16 15:15 07/14/16 15:14 Glucose (Glucose Chew Tab) 1 tabs UD PRN PO 06/14/16 15:15 07/14/16 15:14 Dextrose (Dextrose 50% 50ML Syringe) 50 ml UD PRN IV 06/14/16 15:15 07/14/16 15:14 Glucagon (Glucagon Inj) 1 mg UD PRN SQ 06/14/16 15:15 07/14/16 15:14 Heparin Sodium (Porcine) (Heparin Sq 5000 Unit/0.5ml) 5,000 unit Q8 SQ 06/14/16 22:00 07/14/16 21:59 Future Hold 06/14/16 21:44 5,000 UNIT Acetaminophen (Tylenol Tab) 650 mg Q4H PRN PO 06/14/16 15:30 07/15/16 15:29 Ondansetron HCl (Zofran Inj) 4 mg Q6H PRN IV 06/14/16 15:30 07/14/16 15:29 Miscellaneous Information (Pharmacist Discharge Med Rec Consult) 1 ea UD PRN N/A 06/14/16 15:30 07/14/16 15:29 Miscellaneous Information (Consult Glycemic Management Pharmacy) 1 ea UD PRN N/A 06/14/16 15:45 07/14/16 15:44 Miscellaneous Information (Pharmacy Consult) 1 ea UD PRN N/A 06/14/16 17:32 07/14/16 17:31 Miscellaneous Information (Pharmacy Consult) 1 ea UD PRN N/A 06/14/16 17:34 07/14/16 17:33 Miscellaneous Information (Pharmacy Consult) 1 ea UD PRN N/A 06/14/16 17:35 07/14/16 17:34 Metoprolol Tartrate (Lopressor Iv) 2.5 mg Q6 PRN IV 06/14/16 16:30 07/14/16 16:29 06/15/16 17:53 2.5 MG Lorazepam (Ativan Inj) 1 mg Q4H PRN IV 06/14/16 17:00 07/14/16 16:59 06/15/16 15:17 1 MG Miscellaneous Information 1 ea 1 ea UD PRN N/A 06/14/16 18:34 07/14/16 18:33 Aztreonam 2000 mg/ Dextrose 110 ml @ 110 mls/hr Q8@0000,0800,1600 IV 06/15/16 00:00 06/24/16 15:59 06/15/16 23:43 110 MLS/HR Levofloxacin 750 mg/Prmx 150 ml @ 100 mls/hr DAILY@1400 IV 06/15/16 14:00 06/24/16 13:59 06/15/16 15:46 100 MLS/HR Potassium Chloride/Sodium Chloride 1,000 ml @ 125 mls/hr Q8H IV 06/14/16 21:00 07/14/16 20:59 06/16/16 05:17 125 MLS/HR Vancomycin HCl/ Sodium Chloride (Vancomycin Inj/ Nss 500ml) 532 ml @ 200 mls/hr Q12H IV 06/15/16 06:00 06/24/16 05:59 06/16/16 05:52 200 MLS/HR Lorazepam 1 mg 1 mg ONE PRN IV 06/15/16 08:45 07/15/16 08:44 Lorazepam/Syringe (Ativan Inj/ Syringe) 1 ml @ 1 mls/min ONE PRN IV 06/15/16 08:45 07/15/16 08:44 06/15/16 10:42 1 MLS/MIN Insulin Aspart SLIDING SCALE ACHS SC 06/15/16 11:00 07/15/16 10:59 06/15/16 16:55 3 UNITS Acyclovir Sodium/ Dextrose (Zovirax Inj/D5 250ml) 265 ml @ 250 mls/hr Q8@0400,1200,2000 IV 06/15/16 12:00 06/25/16 23:59 06/16/16 03:49 250 MLS/HR Insulin Glargine 12 unit 12 unit BID SC 06/16/16 09:00 07/16/16 08:59 Potassium Chloride/Prmx (Kcl 20 Meq / Wtr/Premixed Water) 100 ml @ 50 mls/hr NOW STAT IV 06/16/16 08:16 06/16/16 10:15 UNV Potassium Chloride (Klor-Con M10) 40 meq NOW STAT PO 06/16/16 08:16 06/16/16 08:17 UNV Chlorthalidone (Hygroton Tab) 25 mg QAM PO 06/16/16 09:00 07/16/16 08:59 UNV Lisinopril (Zestril Tab) 10 mg QAM PO 06/16/16 09:00 07/16/16 08:59 UNV Potassium Phosphate (Potassium Phosphate Replacement) 9 mmol NOW STAT IV 06/16/16 08:20 06/16/16 08:21 UNV Objective Vital Signs Date Time Temp Pulse Resp B/P Pulse Ox O2 Delivery O2 Flow Rate FiO2 06/16/16 07:18 37.0 83 18 182/102 95 Room Air 06/16/16 04:48 98 Nasal Cannula 06/16/16 03:55 37.5 74 20 164/99 98 Nasal Cannula 06/16/16 00:21 98 Nasal Cannula 06/16/16 00:00 36.8 91 20 130/81 96 Room Air 06/15/16 20:00 98 Nasal Cannula 06/15/16 18:56 37.0 79 22 167/99 98 Nasal Cannula 2.0 06/15/16 17:53 87 152/111 06/15/16 16:26 36.6 77 22 195/114 100 Room Air 06/15/16 16:00 Nasal Cannula 2.0 06/15/16 12:24 Nasal Cannula 2.0 06/15/16 11:03 37.3 84 18 220/114 94 2.0 06/15/16 10:26 92 221/127 Physical Exam General Appearance: no apparent distress Respiratory/Chest: lungs clear, normal breath sounds, no respiratory distress, no accessory muscle use Cardiovascular: regular rate, rhythm, no edema, no murmur Abdomen: normal bowel sounds, non tender, soft Extremities: normal inspection, no pedal edema, + pertinent finding 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, no motor/sensory deficits, alert, normal mood/affect, oriented x 3, + pertinent finding (closer to baseline , oriented x 3, no confusion) Laboratory Results Last 24 Hours Test 06/15/16 09:06 06/15/16 10:03 06/15/16 11:09 06/15/16 12:50 Bedside Glucose 184 mg/dl 225 mg/dl 181 mg/dl Hemoglobin 16.6 g/dL Hematocrit 47.2 % Venous Blood pH 7.47 Sodium Level 142 mmol/L Potassium Level 3.0 mmol/L Chloride Level 106 mmol/L Carbon Dioxide Level 26 mmol/L Anion Gap 10.0 mmol/L Blood Urea Nitrogen 17 mg/dl Creatinine 0.96 mg/dl Est Creatinine Clear Calc Drug Dose 109.5 ml/min Estimated GFR () 104.2 Estimated GFR (Non- 89.9 BUN/Creatinine Ratio 17.7 Random Glucose 172 mg/dl Calcium Level 8.9 mg/dl Phosphorus Level 1.7 mg/dl Magnesium Level 2.0 mg/dl Test 06/15/16 15:14 06/15/16 15:22 06/15/16 16:24 06/15/16 20:49 Random Glucose 218 mg/dl CSF Color COLORLESS CSF Appearance CLEAR CSF WBC 2 /uL CSF RBC 88 /uL CSF Xanthrochromic NO XANTHOCHROMIA CSF Cell Count Tube # 3 CSF Chemistry Tube # 1 CSF Glucose 114 mg/dl CSF Lactic Acid 2.3 mmol/L CSF Total Protein 54.4 mg/dl Bedside Glucose 212 mg/dl 134 mg/dl Test 06/16/16 05:44 06/16/16 06:47 White Blood Count 15.74 K/uL Red Blood Count 5.94 M/uL Hemoglobin 17.1 g/dL Hematocrit 49.2 % Mean Corpuscular Volume 82.8 fL Mean Corpuscular Hemoglobin 28.8 pg Mean Corpuscular Hemoglobin Concent 34.8 g/dl Platelet Count 198 K/uL Mean Platelet Volume 10.2 fL Neutrophils (%) (Auto) 73.8 % Lymphocytes (%) (Auto) 17.6 % Monocytes (%) (Auto) 7.8 % Eosinophils (%) (Auto) 0.3 % Basophils (%) (Auto) 0.2 % Neutrophils # (Auto) 11.61 K/uL Lymphocytes # (Auto) 2.77 K/uL Monocytes # (Auto) 1.23 K/uL Eosinophils # (Auto) 0.05 K/uL Basophils # (Auto) 0.03 K/uL RDW Standard Deviation 38.1 fL RDW Coefficient of Variation 12.7 % Immature Granulocyte % (Auto) 0.3 % Immature Granulocyte # (Auto) 0.05 K/uL Sodium Level 139 mmol/L Potassium Level 2.8 mmol/L Chloride Level 102 mmol/L Carbon Dioxide Level 27 mmol/L Anion Gap 10.0 mmol/L Blood Urea Nitrogen 14 mg/dl Creatinine 0.98 mg/dl Est Creatinine Clear Calc Drug Dose 107.3 ml/min Estimated GFR () 101.6 Estimated GFR (Non- 87.7 BUN/Creatinine Ratio 13.8 Random Glucose 175 mg/dl Calcium Level 8.7 mg/dl Phosphorus Level 1.8 mg/dl Magnesium Level 1.9 mg/dl Vancomycin Level Trough 11.6 mcg/ml Bedside Glucose 158 mg/dl Assessment and Plan This is a 55 year old male with PMH of uncontrolled HTN, DM2, HLD, 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 of trigeminal neuralgia, hx. of migraines, SANAM presented with altered mental status /confusion and a fall Altered Mental Status 2/4 closer to baseline oriented x 3, awake and alert unsure of what caused his fall off of restraints will advance diet today 2/3 presented with disorientation Acute CVA vs. infectious process? Head CT shows acute vs. subacute lacunar infarct lumbar puncture pending for today (1430) MRI pending for around 11AM blood cultures/urine culture pending possible drug overdose? hold narcotics for now Ativan PRN He is alert, awake, oriented x 3 jerking movements of arms/legs; agitated this morning requiring Ativan doses intermittently currently in restraints for safety Sepsis with unknown source 2/4 LP performed mild increase in glucose and protein does not meet criteria for bacterial or viral meningitis CSF gram stain = few WBCs CSF culture pending, CSF Lyme and VDRL pending blood cultures + for gram positive cocci x 1 afebrile for 24 hours, WBC improving, hemodynamically stable 2/3 patient meets sepsis criteria leukocytosis - though this is a chronic issue +fever, +tachycardia CXR no acute process UA negative blood cultures/urine culture pending +neck pain will obtain lumbar puncture currently on broad spectrum antibiotics, antiviral Levaquin, Vanco, Aztreonam, Acyclovir Acute Lacunar Infarct 2/4 MRI performed - scattered infarcts, possible nodular appearance repeat MRI with contrast and MRA will be needed appreciate neurology input 2/3 acute vs. subacute lacunar infarct likely secondary from uncontrolled blood pressure MRI pending for later today hold antiplatelet therapy for pending lumbar puncture will try to keep systolic blood pressure between 160 and 180 appreciate neurology input Hyperosmolar Hyperglycemic 2/4 off of insulin drip back to subq insulin advance diet and stop fluids today 2/3 Not compliant with medication/insulin Ha1c > 10 insulin drip was started, appreciate pharmacy glycemic control will now stop insulin drip, start Lantus 10 units BID and insulin sliding scale we'll continue fluids for now Hypertension, uncontrolled 2/4 Very difficult to control blood pressure will add Chlorthalidone and lisinopril this AM 2/3 blood pressure continues to be elevated patient is on amlodipine, metoprolol, lisinopril and hydralazine at home this is possibly related to noncompliance holding CHARLY-I due to kidney injury continue IV hydralazine, IV metoprolol SBP between 160-180 - possible acute CVA Hypokalemia likely due to diarrhea continue potassium replacement now off of insulin drip also may be dilutional Will give 40meq IV and 40meq PO stop fluids and monitor Acute Kidney Injury, resolved dehydration + infection contributing receiving IVFs continue abx. creat from 2.0, now < 1.0 hold CHARLY-I continue Elevated Troponin continues to have elevated troponin level multiple causes: sepsis, hypertensive urgency EKG changes = incomplete RBBB and LAFB holding antiplatelets for potential LP pending Hyponatremia, resolved with IVFs Depression will need psych consultation when he is mentally improved as per family members, he is depressed and has suicidal ideation currently receiving IV ativan PRN for agitation; restraints for safety will await MRI/LP results, then consult psych HLD elevated total cholesterol LDL ~ 151 restart statin when able SANAM Intermittently compliant with CPAP per his mother Will try CPAP HS DVT ppx subq heparin DNR
[2016-06-16] MEDS: INSULIN GLARGINE SOLOSTAR 100 UNITS/ML 3 ML PEN SC SCH ×2 (09:06→21:25)
[2016-06-16] MEDS: INSULIN ASPART 100 UNITS/ML 3 ML PEN SC SCH ×4 (09:07→21:24)
[2016-06-16] MEDS: CHLORTHALIDONE 25 MG TAB PO SCH (09:46)
[2016-06-16] MEDS: POTASSIUM CHLR 10 MEQ / WTR 10 MEQ in PREMIXED WATER 100 ML IV SCH ×4 (11:00→14:33)
--- NOTE | 2016-06-16 11:08 | Pharmacy Progress Note ---
Glycemic Control: Progress Nt Date of Service Jun 16, 2016. Scope Glycemic Pharmacist consulted by Rosie Kauffman PA-C on 06/14/16 for glycemic control and to write orders per [facility] inpatient glycemic control protocol. Objective Accuchecks BSG (last 24hrs): Test 06/15/16 11:09 06/15/16 12:50 06/15/16 15:14 06/15/16 16:24 Bedside Glucose 181 mg/dl (70-99) 212 mg/dl (70-99) Random Glucose 172 mg/dl (70-99) 218 mg/dl (70-99) Test 06/15/16 20:49 06/16/16 05:44 06/16/16 06:47 Bedside Glucose 134 mg/dl (70-99) 158 mg/dl (70-99) Random Glucose 175 mg/dl (70-99) Laboratory Data (last 24hrs) Test 06/15/16 12:50 06/16/16 05:44 Anion Gap 10.0 mmol/L 10.0 mmol/L BUN/Creatinine Ratio 17.7 13.8 Blood Urea Nitrogen 17 mg/dl 14 mg/dl Creatinine 0.96 mg/dl 0.98 mg/dl Potassium Level 3.0 mmol/L 2.8 mmol/L Sodium Level 142 mmol/L 139 mmol/L White Blood Count 15.74 K/uL Red Blood Count 5.94 M/uL Hemoglobin 17.1 g/dL Hematocrit 49.2 % Mean Corpuscular Volume 82.8 fL Mean Corpuscular Hemoglobin 28.8 pg Mean Corpuscular Hemoglobin Concent 34.8 g/dl Platelet Count 198 K/uL Mean Platelet Volume 10.2 fL Neutrophils (%) (Auto) 73.8 % Lymphocytes (%) (Auto) 17.6 % Monocytes (%) (Auto) 7.8 % Eosinophils (%) (Auto) 0.3 % Basophils (%) (Auto) 0.2 % Neutrophils # (Auto) 11.61 K/uL Lymphocytes # (Auto) 2.77 K/uL Monocytes # (Auto) 1.23 K/uL Eosinophils # (Auto) 0.05 K/uL Basophils # (Auto) 0.03 K/uL HbA1c: Test 06/14/16 12:20 Hemoglobin A1c 11.3 % (4.5-5.6) H Recent Pertinent Medications Outpatient Anti-diabetic Regimen: * Lantus 25 units SQ HS * NovoLog 5 units SQ TIDM * Non-Compliant with insulin regimen The patient is currently receiving: Basal Insulin: Lantus 10 units SQ BID Bolus Insulin: NovoLog per scale ACHS Goal range = 140-180mg/dl CF = 30mg/dl/unit CR = 1 unit for every 10g CHO consumed Assessment & Plan ASSESSMENT: * 55yo T2DM male with poorly controlled diabetes per significantly elevated A1c = 11.3% on 06/14/16. Pt is reportedly non-compliant with insulin regimen. * Pt initiated on IV insulin infusion per protocol on admission for severe hyperglycemia/HHS and transitioned to conservative SQ basal bolus insulin regimen 06/15 (pt ordered clear liquid diet only). * Patient has received 23 units of SQ insulin (+ IV insulin infusion yesterday AM) over the past 24hrs * AM fasting BSG is slightly elevated @ 158mg/dl --> will slightly increase basal insulin from 10 units BID to 12 units BID * Diet to advance today, will continue current bolus insulin parameters and re- evaluate once tolerating PO * ADA & AACE recommend a goal blood sugar range 140-180 mg/dl for the majority of critically ill & non-critically ill patients. However, more stringent targets may be selected in individual cases. PLAN FOR INPATIENT GLYCEMIC CONTROL: * Basal insulin with LANTUS 12 units SQ BID * Correctional Insulin with NOVOLOG per scale ACHS or Q6hrs while NPO * Goal Range: Low 140 mg/dL - High 180 mg/dL * Correction Factor: 30 mg/dL/unit * Nutritional / Prandial insulin per carb ratio of 1 unit per 10 grams CHO consumed * Continue to titrate insulin regimen based on BSG trends * Please note that the plan above was derived based on current level of insulin resistance and hospital stress. These recommendations are appropriate for inpatient admission only. Plan of care upon discharge will need to be reassessed to avoid potential outpatient hypo/hyperglycemia. Thank you.
--- NOTE | 2016-06-16 11:59 | Pharmacy Progress Note ---
Pharmacy Antibiotic Prog Note Date of Service: Jun 16, 2016. Subjective: The patient is currently receiving Vancomycin 1600mg IV q12h, in addition to IV azactam, levaquin & acyclovir. The patient is currently on day #3 of IV therapy. Objective: Height (Feet): 5 Height (Inches): 11.00 Weight (Kilograms): 104.600 Levels: Item Value Date Time Vancomycin Level Trough 11.6 mcg/ml 06/16/16 0544 Lab Results (24hrs): Laboratory Tests Test 06/15/16 12:50 06/16/16 05:44 BUN/Creatinine Ratio 17.7 13.8 Blood Urea Nitrogen 17 mg/dl 14 mg/dl Creatinine 0.96 mg/dl 0.98 mg/dl White Blood Count 15.74 K/uL Red Blood Count 5.94 M/uL Hemoglobin 17.1 g/dL Hematocrit 49.2 % Mean Corpuscular Volume 82.8 fL Mean Corpuscular Hemoglobin 28.8 pg Mean Corpuscular Hemoglobin Concent 34.8 g/dl Platelet Count 198 K/uL Mean Platelet Volume 10.2 fL Neutrophils (%) (Auto) 73.8 % Lymphocytes (%) (Auto) 17.6 % Monocytes (%) (Auto) 7.8 % Eosinophils (%) (Auto) 0.3 % Basophils (%) (Auto) 0.2 % Neutrophils # (Auto) 11.61 K/uL Lymphocytes # (Auto) 2.77 K/uL Monocytes # (Auto) 1.23 K/uL Eosinophils # (Auto) 0.05 K/uL Basophils # (Auto) 0.03 K/uL Micro Results: Item Value Date Time Blood Culture - Preliminary Resulted 06/14/16 1253 Blood Gram Positive Cocci Blood Culture - Preliminary Resulted 06/14/16 1303 Blood NO GROWTH TO DATE. Urine Culture - Final Complete 06/14/16 1900 Urine,Catheterized NO GROWTH - LESS THAN 1,000 COLONIES/ML Shiga Toxin Test Received 06/15/16 0950 Stool Pending C.difficile Toxin B Gene (PCR) - Final Complete 06/15/16 0950 Stool No C. difficile toxin B gene detected Gram Stain - Final Resulted 06/15/16 1522 Cerebral Spinal Fluid Fungal Culture Received 06/15/16 1522 Cerebral Spinal Fluid Pending Cryptococcal Antigen - Final Complete 06/15/16 1522 Cerebral Spinal Fluid NO CRYPTOCOCCAL ANTIGEN DETECTED Acid Fast Stain Received 06/15/16 1522 Cerebral Spinal Fluid Pending Recent Pertinent Medications: Item Value Date Time Vancomycin HCl 270 ml @ 125 mls/hr 06/14/16 1411 1000 mg/Sodium NOW STAT/IV 06/14/16 1523 Chloride Vancomycin HCl 531 ml @ 200 mls/hr 06/14/16 1830 1550 mg/Sodium TODAY@1830/IV 06/14/16 1925 Chloride Vancomycin HCl 532 ml @ 200 mls/hr 06/15/16 0600 1600 mg/Sodium Q12H/IV 06/16/16 0552 Chloride Vancomycin HCl 530 ml @ 200 mls/hr 06/16/16 1200 1500 mg/Sodium Q8H/IV Chloride Item Value Date Time Aztreonam 1000 mg/ 110 ml @ 100 mls/hr 06/14/16 1415 Dextrose NOW/IV 06/14/16 1600 Aztreonam 2000 mg/ 110 ml @ 110 mls/hr 06/15/16 0000 Dextrose Q8@0000,0800,1600/IV 06/16/16 0901 Item Value Date Time Levofloxacin 500 mg 06/14/16 1415 (Levaquin / D5W) NOW ONCE/IV 06/14/16 1501 Levofloxacin 750 150 ml @ 100 mls/hr 06/15/16 1400 mg/Prmx DAILY@1400/IV 06/15/16 1546 Item Value Date Time Acyclovir Sodium 270 ml @ 250 mls/hr 06/14/16 2000 1000 mg/Dextrose Q8@0400,1200,2000/IV 06/15/16 0328 Acyclovir Sodium 265 ml @ 250 mls/hr 06/15/16 1200 750 mg/Dextrose Q8@0400,1200,2000/IV 06/16/16 0349 Assessment & Plan: Vancomycin * Goal trough level: 15-20mcg/mL * Trough drawn: 11.6mcg/mL * Drug level is: Subtherapeutic * Change to: Vancomycin 1500mg IV q8h * Half-life est ~ 7.5hr * Trough level ordered for: 06/17/16 1200 Pharmacy will continue to follow and will adjust dose/frequency as necessary. Thank you
--- NOTE | 2016-06-16 14:32 | PROGRESS NOTE ---
DATE: 06/16/2016 Jason looks fine today. His parents think he is almost back to baseline, he is quite conversant, knows his history but has no memory of arriving here this past and claims that he was having headaches for at least several weeks before that, but otherwise had no other symptoms. Denies fevers, sweats, chills, weight loss or any systemic complaints. Today, we have a positive blood culture but the organism is not defined. He has been on antibiotics with vancomycin, acyclovir and aztreonam and his fever seems to be breaking, his white count is coming down. CSF analysis is pretty unremarkable. There are some red cells but only 2 white cells. Protein, glucose are reasonable and there does not appear to be any evidence for meningitis now clinically or by CSF. The MRI without contrast is very suggestive of multiple embolic infarctions in the posterior and anterior circulations but there is some question about whether there may be some other issues, i.e., inflammatory deposits and an MRI with contrast really needs to be done. His echocardiogram is unremarkable without any abnormalities on the valve, specifically no vegetations were seen but endocarditis could still be associated with normal echo. Overall then, while his exam looks fine, he looks back to baseline. I think we need to do some other studies and I am going to schedule him for an MRI with contrast and MRA to make sure we do not have an intracranial vasculopathy, although I doubt that very much. I am going to get infectious disease and cardiology involved to see if they think he needs any further evaluations and specifically to address the question of whether or not this might be endocarditis. He does have a Carlin filter and has had this in for a number of years and this may also be a nidus of infection that could be colonized. Whatever the case, neurology is going to continue to follow him but for now these are only recommendations. I will check back tomorrow, hopefully when some of the studies are on the chart. MARIBEL
[2016-06-16] MEDS: VANCOMYCIN INJ 1,500 MG in SODIUM CHLORIDE 0.9% 500ML 500 ML IV SCH ×2 (14:33→20:18)
[2016-06-16] MEDS: LEVOFLOXACIN 750MG / D5W IV SCH (16:15)
[2016-06-16] MEDS ORDERED: AMLODIPINE BESYLATE 5 MG TAB PO ONE (19:42)
[2016-06-16] MEDS ORDERED: ALUMINUM/MAGNESIUM SUSP 30 ML UDC PO PRN (20:45)
[2016-06-17] VITALS (21 sets, daily range): BP systolic 93–238; BP diastolic 59–123; PULSE 83–101; TEMP 36.6–37.4; O2SAT 93–97
[2016-06-17] MEDS: ACYCLOVIR SOD INJ 750 MG in DEXTROSE 5% 250ML 250 ML IV SCH (03:42)
[2016-06-17] MEDS: VANCOMYCIN INJ 1,500 MG in SODIUM CHLORIDE 0.9% 500ML 500 ML IV SCH ×2 (03:42→12:18)
[2016-06-17] MEDS: ONDANSETRON INJ 2 MG/ML 2 ML VIAL IV PRN ×2 (03:50→10:06)
[2016-06-17] MEDS: ACETAMINOPHEN 325 MG TAB PO PRN (04:22)
[2016-06-17 05:55] LABS: BASO % 0.3 %; BASO ABS # 0.04 K/uL (0-0.2); COMPLETE YES; EOS % 1.2 %; HEMATOCRIT 45.8 % (42-52); IG% 0.3 %; LYMPH % 19.9 %; LYMPH ABS # 3.16 K/uL (1.2-3.4); MEAN CELL VOLUME 81.9 fL (80-100); MEAN CORPUSCULAR HGB CONC 35.4 g/dl (32-36); MEAN PLATELET VOLUME 10.1 fL (7.4-10.4); MONO % 8.4 %; NEUT % 69.9 %; PLATELET COUNT 227 K/uL (130-400); RED BLOOD COUNT 5.59 M/uL (4.7-6.1)
[2016-06-17 06:21] LABS: CALCIUM 8.7 mg/dl (8.5-10.1); CREATININE 0.96 mg/dl (0.60-1.40); POTASSIUM 2.6 mmol/L (3.5-5.1)
[2016-06-17 06:33] LABS: PHOSPHORUS 2.6 mg/dl (2.5-4.9)
[2016-06-17] MEDS ORDERED: POTASSIUM CHLORIDE 10 MEQ TABCR PO STA (07:20)
[2016-06-17] MEDS: AZTREONAM 2000 MG in DEXTROSE 5% 100 ML IV SCH (07:45)
[2016-06-17] MEDS: INSULIN GLARGINE SOLOSTAR 100 UNITS/ML 3 ML PEN SC SCH ×2 (07:51→21:18)
[2016-06-17] MEDS: INSULIN ASPART 100 UNITS/ML 3 ML PEN SC SCH ×4 (07:51→21:18)
[2016-06-17] MEDS: LISINOPRIL 40 MG TAB PO SCH (07:52)
[2016-06-17] MEDS ORDERED: POTASSIUM CHLR 10 MEQ / WTR 10 MEQ in PREMIXED WATER 100 ML IV SCH (08:00)
[2016-06-17] MEDS ORDERED: LOPERAMIDE HCL 2 MG CAP PO STA (08:04)
[2016-06-17] MEDS ORDERED: AMLODIPINE BESYLATE 5 MG TAB PO ONE ×2 (08:30→15:00)
[2016-06-17] MEDS ORDERED: CHLORTHALIDONE 25 MG TAB PO ONE (08:30)
[2016-06-17] MEDS: CHLORTHALIDONE 25 MG TAB PO SCH (08:38)
[2016-06-17] MEDS ORDERED: AMLODIPINE BESYLATE 5 MG TAB PO SCH (09:00)
--- NOTE | 2016-06-17 09:00 | Progress Note ---
Subjective Date of Service: Jun 17, 2016. Subjective Pt evaluation today including: conversation w/ patient, physical exam, lab review, review of studies, review of inpatient medication list Saw/examined the patient in room 202 He is mentally back to baseline +depression, +chronic bilateral hip pain Problem List Medical Problems: (1) DKA (diabetic ketoacidoses) Status: Acute (2) Sepsis Status: Acute Surgical Problems: (1) Status post sinus surgery Status: Chronic Review of Systems Constitutional: No chills, No fever Respiratory: No cough, No shortness of breath, No sputum Cardiac: No chest pain Abdomen: No diarrhea, No nausea, No pain, No vomiting Musculoskeletal: + joint pain (bilateral hip pain) Psychiatric: + depression symptoms, No anxiety, No insomnia, No substance abuse Medications Current Inpatient Medications Medications (Trade) Dose Ordered Sig/Ken[place] Route Start Time Stop Time Status Last Admin Dose Admin Glucose (Glucose 40% Gel) UD PRN PO 06/14/16 15:15 07/14/16 15:14 Glucose (Glucose Chew Tab) 1 tabs UD PRN PO 06/14/16 15:15 07/14/16 15:14 Dextrose (Dextrose 50% 50ML Syringe) 50 ml UD PRN IV 06/14/16 15:15 07/14/16 15:14 Glucagon (Glucagon Inj) 1 mg UD PRN SQ 06/14/16 15:15 07/14/16 15:14 Heparin Sodium (Porcine) (Heparin Sq 5000 Unit/0.5ml) 5,000 unit Q8 SQ 06/14/16 22:00 07/14/16 21:59 Future Hold 06/14/16 21:44 5,000 UNIT Acetaminophen (Tylenol Tab) 650 mg Q4H PRN PO 06/14/16 15:30 07/15/16 15:29 06/17/16 04:22 650 MG Ondansetron HCl (Zofran Inj) 4 mg Q6H PRN IV 06/14/16 15:30 07/14/16 15:29 06/17/16 03:50 4 MG Miscellaneous Information (Pharmacist Discharge Med Rec Consult) 1 ea UD PRN N/A 06/14/16 15:30 07/14/16 15:29 Miscellaneous Information (Consult Glycemic Management Pharmacy) 1 ea UD PRN N/A 06/14/16 15:45 07/14/16 15:44 Miscellaneous Information (Pharmacy Consult) 1 ea UD PRN N/A 06/14/16 17:32 07/14/16 17:31 Miscellaneous Information (Pharmacy Consult) 1 ea UD PRN N/A 06/14/16 17:34 07/14/16 17:33 Miscellaneous Information (Pharmacy Consult) 1 ea UD PRN N/A 06/14/16 17:35 07/14/16 17:34 Metoprolol Tartrate (Lopressor Iv) 2.5 mg Q6 PRN IV 06/14/16 16:30 07/14/16 16:29 06/15/16 17:53 2.5 MG Lorazepam 1 mg 1 mg Q4H PRN IV 06/14/16 17:00 07/14/16 16:59 06/15/16 15:17 1 MG Aztreonam 2000 mg/ Dextrose 110 ml @ 110 mls/hr Q8@0000,0800,1600 IV 06/15/16 00:00 06/24/16 15:59 06/17/16 07:45 110 MLS/HR Levofloxacin/Prmx (Levaquin / D5W/ Premixed D5W) 150 ml @ 100 mls/hr DAILY@1400 IV 06/15/16 14:00 06/24/16 13:59 06/16/16 16:15 100 MLS/HR Lorazepam 1 mg 1 mg ONE PRN IV 06/15/16 08:45 07/15/16 08:44 Lorazepam/Syringe (Ativan Inj/ Syringe) 1 ml @ 1 mls/min ONE PRN IV 06/15/16 08:45 07/15/16 08:44 06/15/16 10:42 1 MLS/MIN Insulin Aspart (novoLOG ASPART) SLIDING SCALE ACHS SC 06/15/16 11:00 07/15/16 10:59 06/17/16 07:51 7 UNITS Insulin Glargine (Lantus Solostar Pen) 12 unit BID SC 06/16/16 09:00 07/16/16 08:59 06/17/16 07:51 12 UNIT Chlorthalidone 25 mg 25 mg QAM PO 06/16/16 09:00 07/16/16 08:59 06/17/16 08:38 25 MG Vancomycin HCl/ Sodium Chloride (Vancomycin Inj/ Nss 500ml) 530 ml @ 200 mls/hr Q8H IV 06/16/16 12:00 06/24/16 11:59 06/17/16 03:42 200 MLS/HR Amlodipine Besylate (Norvasc Tab) 5 mg QAM PO 06/17/16 09:00 07/17/16 08:59 06/17/16 08:38 5 MG Al Hydroxide/Mg Hydroxide (Maalox Susp) 15 ml Q6H PRN PO 06/16/16 20:45 07/16/16 20:44 Lisinopril 40 mg 40 mg QAM PO 06/17/16 09:00 07/17/16 08:59 06/17/16 07:52 40 MG Potassium Chloride/Prmx (Kcl 10 Meq / Wtr/Premixed Water) 100 ml @ 100 mls/hr Q1H IV 06/17/16 08:00 06/17/16 11:59 06/17/16 07:45 100 MLS/HR Objective Vital Signs Date Time Temp Pulse Resp B/P Pulse Ox O2 Delivery O2 Flow Rate FiO2 06/17/16 07:50 37.0 92 18 192/123 95 Room Air 06/17/16 04:27 96 Room Air 06/17/16 03:19 37.4 96 18 153/100 96 Room Air 06/17/16 00:10 96 Room Air 06/16/16 22:58 37.4 99 20 162/101 96 Room Air 06/16/16 20:00 96 Room Air 06/16/16 19:12 36.9 83 20 162/103 96 Room Air 06/16/16 15:44 37.2 82 20 178/93 95 Nasal Cannula 6.0 06/16/16 15:44 96 Room Air 2.0 06/16/16 12:00 96 Room Air 06/16/16 11:20 37.1 75 20 191/106 96 Room Air Physical Exam General Appearance: no apparent distress Respiratory/Chest: lungs clear, normal breath sounds, no respiratory distress, no accessory muscle use Cardiovascular: regular rate, rhythm, no edema, no murmur Abdomen: normal bowel sounds, non tender, soft Extremities: normal inspection, no pedal edema Neurologic/Psychiatric: no motor/sensory deficits, alert, normal mood/affect Laboratory Results Last 24 Hours Test 06/16/16 11:18 06/16/16 16:25 06/16/16 20:59 06/17/16 05:35 Bedside Glucose 184 mg/dl 164 mg/dl 176 mg/dl White Blood Count 15.90 K/uL Red Blood Count 5.59 M/uL Hemoglobin 16.2 g/dL Hematocrit 45.8 % Mean Corpuscular Volume 81.9 fL Mean Corpuscular Hemoglobin 29.0 pg Mean Corpuscular Hemoglobin Concent 35.4 g/dl Platelet Count 227 K/uL Mean Platelet Volume 10.1 fL Neutrophils (%) (Auto) 69.9 % Lymphocytes (%) (Auto) 19.9 % Monocytes (%) (Auto) 8.4 % Eosinophils (%) (Auto) 1.2 % Basophils (%) (Auto) 0.3 % Neutrophils # (Auto) 11.12 K/uL Lymphocytes # (Auto) 3.16 K/uL Monocytes # (Auto) 1.34 K/uL Eosinophils # (Auto) 0.19 K/uL Basophils # (Auto) 0.04 K/uL RDW Standard Deviation 37.5 fL RDW Coefficient of Variation 12.5 % Immature Granulocyte % (Auto) 0.3 % Immature Granulocyte # (Auto) 0.05 K/uL Venous Blood pH 7.52 Sodium Level 136 mmol/L Potassium Level 2.6 mmol/L Chloride Level 100 mmol/L Carbon Dioxide Level 26 mmol/L Anion Gap 10.0 mmol/L Blood Urea Nitrogen 13 mg/dl Creatinine 0.96 mg/dl Est Creatinine Clear Calc Drug Dose 108.5 ml/min Estimated GFR () 104.2 Estimated GFR (Non- 89.9 BUN/Creatinine Ratio 14.0 Random Glucose 167 mg/dl Calcium Level 8.7 mg/dl Phosphorus Level 2.6 mg/dl Magnesium Level 2.0 mg/dl Test 06/17/16 06:44 Bedside Glucose 146 mg/dl Assessment and Plan This is a 55 year old male with PMH of uncontrolled HTN, DM2, HLD, 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 of trigeminal neuralgia, hx. of migraines, SANAM presented with altered mental status /confusion and a fall Altered Mental Status 06/17 patient is closer to baseline possible embolic CVA vs. metabolic encephalopathy appreciate neurology input advanced diet and stopped IVFs 06/16 closer to baseline oriented x 3, awake and alert unsure of what caused his fall off of restraints will advance diet today 2/3 presented with disorientation Acute CVA vs. infectious process? Head CT shows acute vs. subacute lacunar infarct lumbar puncture pending for today (0) MRI pending for around 11AM blood cultures/urine culture pending possible drug overdose? hold narcotics for now Ativan PRN He is alert, awake, oriented x 3 jerking movements of arms/legs; agitated this morning requiring Ativan doses intermittently currently in restraints for safety Sepsis with unknown source 2/5 +fevers on admission, which have since resolved +leukocytosis unknown source? blood cultures + x1 CSF studies not convincing; stopped acyclovir continue broad spectrum abx. and consult ID as per neuro, will consult cardiology for further input 2 LP performed mild increase in glucose and protein does not meet criteria for bacterial or viral meningitis CSF gram stain = few WBCs CSF culture pending, CSF Lyme and VDRL pending blood cultures + for gram positive cocci x 1 afebrile for 24 hours, WBC improving, hemodynamically stable 2/3 patient meets sepsis criteria leukocytosis - though this is a chronic issue +fever, +tachycardia CXR no acute process UA negative blood cultures/urine culture pending +neck pain will obtain lumbar puncture currently on broad spectrum antibiotics, antiviral Levaquin, Vanco, Aztreonam, Acyclovir Acute Lacunar Infarct 06/17 MRI with contrast pending for today 2 MRI performed - scattered infarcts, possible nodular appearance repeat MRI with contrast and MRA will be needed appreciate neurology input 2 acute vs. subacute lacunar infarct likely secondary from uncontrolled blood pressure MRI pending for later today hold antiplatelet therapy for pending lumbar puncture will try to keep systolic blood pressure between 160 and 180 appreciate neurology input Hyperosmolar Hyperglycemic 2/ off of insulin drip back to subq insulin advance diet and stop fluids today 2/3 Not compliant with medication/insulin Ha1c > 10 insulin drip was started, appreciate pharmacy glycemic control will now stop insulin drip, start Lantus 10 units BID and insulin sliding scale we'll continue fluids for now Hypertension, uncontrolled 2 lisinopril increased to 40mg continue metoprolol chlorthalidone added amlodipine added 2 Very difficult to control blood pressure will add Chlorthalidone and lisinopril this AM 2/3 blood pressure continues to be elevated patient is on amlodipine, metoprolol, lisinopril and hydralazine at home this is possibly related to noncompliance holding CHARLY-I due to kidney injury continue IV hydralazine, IV metoprolol SBP between 160-180 - possible acute CVA Hypokalemia likely due to diarrhea continue potassium replacement now off of insulin drip also may be dilutional Will give 40meq IV and 40meq PO stop fluids and monitor Acute Kidney Injury, resolved dehydration + infection contributing receiving IVFs continue abx. creat from 2.0, now < 1.0 hold CHARLY-I continue Elevated Troponin continues to have elevated troponin level multiple causes: sepsis, hypertensive urgency EKG changes = incomplete RBBB and LAFB holding antiplatelets for potential LP pending Hyponatremia, resolved with IVFs Depression will need psych consultation when he is mentally improved as per family members, he is depressed and has suicidal ideation currently receiving IV ativan PRN for agitation; restraints for safety will await MRI/LP results, then consult psych HLD elevated total cholesterol LDL ~ 151 restart statin when able SANAM Intermittently compliant with CPAP per his mother Will try CPAP HS DVT ppx subq heparin DNR
--- NOTE | 2016-06-17 09:11 | Pharmacy Progress Note ---
Glycemic Control: Progress Nt Date of Service Jun 17, 2016. Scope Glycemic Pharmacist consulted by Dr Rosie Kauffman PA-C on 06/14/16 for glycemic control and to write orders per [facility] inpatient glycemic control protocol. Objective Accuchecks BSG (last 24hrs): Test 06/16/16 11:18 06/16/16 16:25 06/16/16 20:59 06/17/16 05:35 Bedside Glucose 184 mg/dl (70-99) 164 mg/dl (70-99) 176 mg/dl (70-99) Random Glucose 167 mg/dl (70-99) Test 06/17/16 06:44 Bedside Glucose 146 mg/dl (70-99) Laboratory Data (last 24hrs) Test 06/17/16 05:35 Anion Gap 10.0 mmol/L BUN/Creatinine Ratio 14.0 Blood Urea Nitrogen 13 mg/dl Creatinine 0.96 mg/dl Potassium Level 2.6 mmol/L Sodium Level 136 mmol/L White Blood Count 15.90 K/uL Red Blood Count 5.59 M/uL Hemoglobin 16.2 g/dL Hematocrit 45.8 % Mean Corpuscular Volume 81.9 fL Mean Corpuscular Hemoglobin 29.0 pg Mean Corpuscular Hemoglobin Concent 35.4 g/dl Platelet Count 227 K/uL Mean Platelet Volume 10.1 fL Neutrophils (%) (Auto) 69.9 % Lymphocytes (%) (Auto) 19.9 % Monocytes (%) (Auto) 8.4 % Eosinophils (%) (Auto) 1.2 % Basophils (%) (Auto) 0.3 % Neutrophils # (Auto) 11.12 K/uL Lymphocytes # (Auto) 3.16 K/uL Monocytes # (Auto) 1.34 K/uL Eosinophils # (Auto) 0.19 K/uL Basophils # (Auto) 0.04 K/uL HbA1c: Test 06/14/16 12:20 Hemoglobin A1c 11.3 % (4.5-5.6) H Recent Pertinent Medications Outpatient Anti-diabetic Regimen: * Lantus 25 units SQ HS * NovoLog 5 units SQ TIDM * Non-Compliant with insulin regimen The patient is currently receiving: Basal Insulin: Lantus 12 units SQ BID Bolus Insulin: NovoLog per scale ACHS Goal range = 120-140mg/dl CF = 30mg/dl/unit CR = 1 unit for every 10g CHO consumed Assessment & Plan ASSESSMENT: * 55yo T2DM male with poorly controlled diabetes per significantly elevated A1c = 11.3% on 06/14/16. Pt is reportedly non-compliant with insulin regimen due to depression. * Pt initiated on IV insulin infusion per protocol on admission for severe hyperglycemia/HHS and transitioned to conservative SQ basal bolus insulin regimen 06/15. Insulin regimen has been titrated daily based on BSG trends. * Patient has received 40 units of SQ insulin over the past 24hrs, BSGs 158, 184 , 164, 176, 146 over the past 24hrs. * AM fasting BSG is trending in the right direction - only mildly above goal range today at 146mg/dl. Expect BSGs to continue to improve as Lantus approaches steady state. Do not want to cause hypoglycemia in a non-compliant patient which could lead to further resistance to adherence with insulin regimen. Will continue current orders and consider increasing basal insulin by a few units if AM fasting BSG does not trend downwards tomorrow. * Post-prandial BSGs only slightly above goal range. Again, do not want to cause hypo in this patient therefore will continue current orders and re-assess tomorrow. * ADA & AACE recommend a goal blood sugar range 140-180 mg/dl for the majority of critically ill & non-critically ill patients. However, more stringent targets may be selected in individual cases. Will utilize more stringent target of 120-140mg/dl based on age. Will use higher "low" end of goal range to help prevent hypoglycemia when pre-meal BSG is below goal range (CHO coverage will be "subtracted off"). PLAN FOR INPATIENT GLYCEMIC CONTROL: No changes needed at this time. Continue current orders and consider making minor adjustments tomorrow based on BSG trends. * Basal insulin with LANTUS 12 units SQ BID * Correctional Insulin with NOVOLOG per scale ACHS or Q6hrs while NPO * Goal Range: Low 120 mg/dL - High 140 mg/dL * Correction Factor: 30 mg/dL/unit * Nutritional / Prandial insulin per carb ratio of 1 unit per 10 grams CHO consumed * Continue to titrate insulin regimen based on BSG trends Looking ahead to discharge: * Please refer to transit manager note from 06/15/16. Pt with significant depression and resistance to adequately manage his diabetes. Depression is very common in patients with diabetes. Diabetes will not improve until depression is resolved. * Main goals for treatment are to help Mr Vides live well day to day. Additionally, prevent blindness, kidney failure, amputation, heart attack, & stroke. * Recommendations: * Consult psych, treat depression accordingly * Continue easy outpatient regimen with once daily Lantus and fixed dosing of NovoLog to hopefully increace compliance. Pt has been receiving ~ 40 units of insulin per day while admitted with adequate control. Recommend continuing this dosing. -- Lantus 25 units HS -- NovoLog 5 units SQ TIDM * Consider Diabetes support group * Please note that the plan above was derived based on current level of insulin resistance and hospital stress. These recommendations are appropriate for inpatient admission only. Plan of care upon discharge will need to be reassessed to avoid potential outpatient hypo/hyperglycemia. Thank you.
[2016-06-17] MEDS ORDERED: HydrALAZINE HCL 20 MG/ML VIAL IV. STA (09:56)
[2016-06-17] MEDS ORDERED: POTASSIUM CHLORIDE 10 MEQ TABCR PO ONE (10:00)
[2016-06-17] MEDS ORDERED: MoRPHine SULFATE 2 MG/ML CARP IV STA (10:01)
[2016-06-17] MEDS ORDERED: LORAZEPAM 2 MG/ML 1 ML VIAL IV STA (10:01)
[2016-06-17] MEDS ORDERED: CLONIDINE HCL 0.1 MG TAB PO ONE (10:15)
--- NOTE | 2016-06-17 10:58 | Psychiatric Consultation ---
Consultation Chief Complaint "I stopped my depression meds months ago". History of Present Illness 55 year old male with DM type 2, HTN,hyperlipidemia, migraines, trigeminal neuralgia, sleep apnea, depression, aseptic necrosis of bone s/p bilat hip replacement, chronic smoker, who presented to the ED with altered mental status. Psychiatrically, he has a h/o depressive disorder who has cymbalta (rx'd at 30mg bid) added to his effexor xr 150mg with both being stopped on his own, per pt a number of months ago, external med history suggests that he stopped around Jan 2016. He endorsed fluctuating of his depressive symptoms to a more severe level for few days at a time with his pain concerns being a main triger for him. His can have some passive SI without intent or specific plan and "could never do that". When pressed he shared how overdose or being hit by a train could be ways one could do it but that he would not ever do that, with the impact of others part of the rationale for why would never do it. He denied any h/o para-suicidal behaviors. He denied any passive or active SI today. He endorsed some confusion while in the hospital including seeing lines on the wall when his eye s are closed and hearing some mumbling that could not fully make out that seemed to him from the rooms next door's other patients and staff. He reported that he feels clearheaded today and that the confusion is gone and that each day since admitted he noticed improvement in that. He denied any prior h/o psychotic features or manic symptoms. He denied substance concerns. He appears to have had at east moderate depressive symptoms occurring most days for many years. one therapy appt years ago. Pt has quite elevated bp currently. Past Psychiatric History Current OP Treatment: no current treatment Prior OP Treatment: therapist (1 visit years ago) Prior Psych Hospitalizations: other (none) Past Medical/Surgical History History of Obesity: No History of HTN: Yes History of Diabetes: Yes History of Heart Disease: No History of Dyslipidemia: Yes History of Concussion/Seizure: No Problem List: (1) Altered mental status (2) Depression (3) Sleep apnea (4) Factor V deficiency (5) Migraine (6) Sepsis (7) Facial cellulitis Allergies Allergies: Coded Allergies: Penicillins (Verified Allergy, Mild, 12/02/09) Shellfish (Verified Adverse Reaction, Unknown, GI UPSET, 06/14/16) Home Medications Scheduled Amlodipine (Norvasc), 10 MG PO DAILY Aspirin (Aspirin EC Low Dose), 81 MG PO DAILY Atorvastatin Calcium (Lipitor), 80 MG PO DAILY Azelastine Hcl (Astepro), 2 SPRY BENNY BID Calcium Carbonate (Tums), 500 MG PO TIDM Calcium Carbonate-Vitamin D (Calcium + D), 1 TAB PO DAILY Cetirizine (Zyrtec), 10 MG PO DAILY Cholecalciferol (Vitamin D), 1,000 UNIT PO DAILY Duloxetine HCl (Cymbalta), 1 CAP PO BID Fenofibrate (Tricor), 1 TAB PO DAILY Fluticasone Propionate (Nasal) (Flonase Allergy Relief), 2 SPRAYS BENNY DAILY Hydralazine HCl (Hydralazine HCl), 50 MG PO TID Hydrochlorothiazide (Hctz), 25 MG PO DAILY Insulin Aspart (Novolog), 5 UNITS SQ TIDM Insulin Glargine (Lantus Solostar), 25 UNITS SC HS Lisinopril (Zestril), 20 MG PO BID Metoprolol Succinate (Toprol Xl), 200 MG PO DAILY Metronidazole (Topical) (Metronidazole), 1 APPLN EXT HS Oxycodone Hcl (Oxycontin), 40 MG PO Q12 Polyethylene Glycol 3350 (Miralax), 17 GM PO DAILY Venlafaxine Hcl (Effexor Extended Rel), 1 CAP PO DAILY Wheat Dextrin (Benefiber), 1 TBS PO HS Scheduled PRN Albuterol Sulfate (Proair Respiclick), 2 PUFFS INH Q4H PRN for Wheezing Carbamazepine (Carbamazepine), 200 MG PO Q4H PRN for Pain Oxycodone/Acetaminophen 7.5MG/325MG (Percocet 7.5MG/325MG), 1 TAB PO Q6 PRN for Pain Promethazine Hcl (Phenergan), 25 MG PO Q8H PRN for Nausea Sumatriptan Succinate (Imitrex), 25 MG PO UD PRN for Migraine Family History Asthma MOTHER Carcinoma of kidney FATHER Myocardial infarction FATHER Thyroid disease MOTHER Alcohol Use Alcohol Use In Past 12 Months: No Substance History Substance Use Past 12 Months: Hx of Inhalent Use: No Hx of Organic Substance Use: No Hx of Illegal/Street Drug Use: No Hx of Over the Counter Med Use: No Hx of Prescription Med Use: No Personal History 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 Legal History: none Abuse History: none Psychological Trauma History: Other (denied, besides pain issues) Examination Vital Signs Vital Signs Past 12 Hours Date Time Temp Pulse Resp B/P Pulse Ox O2 Delivery O2 Flow Rate FiO2 06/17/16 08:00 Room Air 06/17/16 07:50 37.0 92 18 192/123 95 Room Air 06/17/16 04:27 96 Room Air 06/17/16 03:19 37.4 96 18 153/100 96 Room Air 06/17/16 00:10 96 Room Air 06/16/16 22:58 37.4 99 20 162/101 96 Room Air Laboratory Results Last 24 Hours Test 06/16/16 11:18 06/16/16 16:25 06/16/16 20:59 06/17/16 05:35 Bedside Glucose 184 mg/dl 164 mg/dl 176 mg/dl White Blood Count 15.90 K/uL Red Blood Count 5.59 M/uL Hemoglobin 16.2 g/dL Hematocrit 45.8 % Mean Corpuscular Volume 81.9 fL Mean Corpuscular Hemoglobin 29.0 pg Mean Corpuscular Hemoglobin Concent 35.4 g/dl Platelet Count 227 K/uL Mean Platelet Volume 10.1 fL Neutrophils (%) (Auto) 69.9 % Lymphocytes (%) (Auto) 19.9 % Monocytes (%) (Auto) 8.4 % Eosinophils (%) (Auto) 1.2 % Basophils (%) (Auto) 0.3 % Neutrophils # (Auto) 11.12 K/uL Lymphocytes # (Auto) 3.16 K/uL Monocytes # (Auto) 1.34 K/uL Eosinophils # (Auto) 0.19 K/uL Basophils # (Auto) 0.04 K/uL RDW Standard Deviation 37.5 fL RDW Coefficient of Variation 12.5 % Immature Granulocyte % (Auto) 0.3 % Immature Granulocyte # (Auto) 0.05 K/uL Venous Blood pH 7.52 Sodium Level 136 mmol/L Potassium Level 2.6 mmol/L Chloride Level 100 mmol/L Carbon Dioxide Level 26 mmol/L Anion Gap 10.0 mmol/L Blood Urea Nitrogen 13 mg/dl Creatinine 0.96 mg/dl Est Creatinine Clear Calc Drug Dose 108.5 ml/min Estimated GFR () 104.2 Estimated GFR (Non- 89.9 BUN/Creatinine Ratio 14.0 Random Glucose 167 mg/dl Calcium Level 8.7 mg/dl Phosphorus Level 2.6 mg/dl Magnesium Level 2.0 mg/dl Test 06/17/16 06:44 Bedside Glucose 146 mg/dl Impression / Recommendations Impression 55 year old admitted 06/14 with AMS h/o chronic pain and depression, pt stopped his cymbalta and effexor xr (cymbalta appears to have been added to effexor xr 150mg) months ago. Pt has depressive symptoms that worsens when his pain worsens. He endorsed passive SI when his depression is more severe but without intent or specific plan. When pressed about potential plans he shared about OD or getting hit by a train, but was focus on how could never do either of those nor other such type of behaviors. Denied SI currently and denied ho past para-suicidal behaviors. He is willing to resume an antidepressant and prefer to resume Cymbalta over starting something else. Inventory Assets Strengths: willing to take medications for treatment, does not act out destructively Needs: resumption of treatment of depression, consideration of psychotherapy Risk Factors Assessment Male: Yes : Yes Protective Factors Assessment Employed: No Supportive family: Yes Recommendations (1) Altered mental status 2/5 - improving and appearing back to baseline, appears secondary to medical concerns (2) Depression 2/5 - restart cymbalta after not taking for number of months, informed consent to start at 30mg at lunch time given current level of nausea that pt has , set to increase to 60mg on 06/19 if tolerating. Effexor xr last taken months ago and not resuming as aim is to focus on cymbalta as primary SNRI for his depression with potential to help alleviate pain concerns as well. pt has passive SI only without intent or related behaviors and is not considered an imminent risk of harm to self or others. Pt should have outpatient f/u for his depression and would encourage psychiatric me management and also psychotherapy, of note monitoring GI symptoms but also BP given Cymbalta as a SNRI does have side effect profile to sometimes raise BP.
[2016-06-17] MEDS ORDERED: VANCOMYCIN TROUGH SCH (11:30)
--- NOTE | 2016-06-17 12:03 | PROGRESS NOTE ---
DATE: 06/17/2016 Jason is about the same as he was yesterday. Today, he feels a little dyspeptic, little nauseated, may have a little headache and was slightly agitated this morning but all of this has passed over and right now he is alert, awake, oriented, has no memory for the first few days of his hospitalization but this is not surprising. On exam may have a little clumsiness of the left hand, but otherwise not much on neurologic examination to correlate with his multiple areas of infarction, although he did have one in what appeared to be left cerebellar hemisphere, so the hand clumsiness may reflect this. We are still awaiting MRIs with contrast and an MRA to be sure there is not a vasculopathy. The CSF analysis is acceptable and certainly does not indicate an infection and the acyclovir has been stopped. He is still on several other antibiotics. He has a positive culture for the gram-positive organism not yet identified. Infectious disease and cardiology consults are still pending. At this point, I am going to simply follow up on the results of the imaging studies and await the opinions of the consultants but from a neurologic point of view, we do not have evidence for significant meningitis, we do have evidence for what appears to be multiple embolic strokes from an unknown source, likely aortic or possibly intracardiac despite the negative echo and will be curious to see if Dr. Franklin would recommend doing a transesophageal echo or other diagnostic studies to amplify on this. For now, the question remains about whether these emboli are possibly due to bacterial endocarditis and again infectious disease and cardiology will hopefully help settle this. We will take a look at Mr. Vides tomorrow and I will check later this afternoon on computer for the results of his MRI scans. MARIBEL
[2016-06-17] MEDS ORDERED: ISOSORBIDE MONONITRATE 30 MG TABCR PO ONE (12:15)
[2016-06-17] MEDS: DULOXETINE (CYMBALTA) 30 MG CAP PO SCH (12:19)
--- NOTE | 2016-06-17 13:54 | CARDIOLOGY CONSULTATION ---
DATE OF CONSULTATION: 06/17/2016 CONSULTATION REQUESTED BY: Dr. Aparicio. REASON FOR CONSULTATION: Transesophageal echocardiogram. HISTORY OF PRESENT ILLNESS: Mr. Vides is a very pleasant, yet medically complex 55-year-old gentleman who presented to [facility] on 06/14/2016 with reported change in mental status along with sepsis of an unknown source. He was also found to have a CVA as well as acute renal failure and significantly elevated blood sugars. He was found to have positive blood cultures, lumbar puncture and was unremarkable and an MRI that was suggestive of multiple embolic infarctions. A 2D echocardiogram was unremarkable and cardiology was consulted to evaluate for the need for transesophageal echocardiogram to rule out endocarditis as a possible cause of his embolization. Currently, the patient is resting comfortably in bed and is back to his reported normal baseline mental status. He is currently without complaint and states he just feels tired. He specifically denies any chest pain, shortness of breath, palpitations, lightheadedness, dizziness, or syncope. PAST SURGICAL HISTORY: 1. IVC filter placement. 2. Bilateral hip replacements. 3. Nasal septum repair. 4. Tonsillectomy. 5. Upper endoscopy. 6. Colonoscopy. MEDICAL ILLNESSES: 1. Diabetes. 2. Trigeminal neuralgia. 3. Aseptic necrosis. 4. Dyslipidemia. 5. Hypertension. 6. Obesity. 7. Obstructive sleep apnea, noncompliant with CPAP. 8. Medical noncompliance. FAMILY HISTORY: Noncontributory. SOCIAL HISTORY: The patient has a remote tobacco use history, quit in 2012. Denies alcohol or recreational drug use. He lives at home by himself. His mother checks on him often. REVIEW OF SYSTEMS: As per HPI, all other systems reviewed and negative at this time. ALLERGIES: 1. PENICILLIN. 2. SEAFOOD. MEDICATIONS: Currently, 1. Amlodipine 5 mg daily. 2. Lisinopril 40 mg daily. 3. Chlorthalidone 25 mg daily. 4. Levaquin daily. 5. Cymbalta daily. 6. Oxycodone b.i.d. PHYSICAL EXAMINATION: VITALS: Temperature 36.9, pulse 83, respiratory rate 12, and blood pressure 238/114. GENERAL: Awake, alert, and oriented x3 in no acute distress, lethargic. HEENT: Normocephalic and atraumatic. Pupils are equal, round, and reactive to light and accommodation. Extraocular muscles intact. Anicteric sclerae. Moist mucous membranes. NECK: No JVD. No bruit. CARDIOVASCULAR: Regular. Positive S4. Normal S1 and S2. No S3. No murmurs or rubs. PULMONARY: Clear to auscultation bilaterally. No rales, rhonchi, or wheezing. ABDOMEN: Bowel sounds x4, soft. No rebound, guarding, or tenderness. No organomegaly. EXTREMITIES: No clubbing, cyanosis or edema. +2 pedal pulses bilaterally. SKIN: Warm and dry. TEST RESULTS: 1. Transthoracic echocardiogram was read as small under-filled LV chamber size with moderate concentric LVH, hyperdynamic LV systolic function, EF greater than 70%. 2. No segmental left ventricle wall motion abnormalities were noted. Grade 1 diastolic dysfunction. No significant valvular pathology. Intact interatrial septum. 3. Brain MRI was read as multiple scattered small foci of restricted diffusion consistent with acute subacute infarcts. Some of these areas of infarcts demonstrate slightly nodular appearance. Therefore, recommend followup study sinus disease. IMPRESSION: 1. Acute and subacute cerebrovascular accidents. 2. Questionable embolization. 3. Positive blood cultures with Coag negative staph. 4. Hypertension, uncontrolled. RECOMMENDATIONS: It was my pleasure to see Mr. Vides in consultation today. I agree that a transesophageal echocardiogram is indicated at this time to evaluate for possible source of his embolization. The procedure along with the risks, which include but are not limited to oropharyngeal trauma, tooth loss, and esophageal puncture have been discussed with the patient. He states he understands. He is accepting these risks and wishes to proceed with the procedure. Further recommendations to follow. In terms of his uncontrolled hypertension, while in the setting of acute CVA, some permissive hypertension is allowable; however, now is way too high. So, I will change his hydralazine to 25 mg t.i.d. and also add Imdur 30 mg daily. His hydralazine can be up titrated as necessary. He should be continued on his current dose of lisinopril. His amlodipine can also be increased to 10 mg daily.
[2016-06-17] MEDS ORDERED: CALCIUM POLYCARBOPHIL 1 TAB PO PRN (15:45)
[2016-06-17] MEDS ORDERED: LOPERAMIDE HCL 2 MG CAP PO PRN (15:45)
--- NOTE | 2016-06-17 15:59 | Critical Care Consultation ---
Critical Care Consultation Date of Consultation: Jun 17, 2016. Attending Physician: Brenda Willis DO Reason for Consultation: Hypertensive urgency refractory to medication treatment, systolics greater than 200 History of Present Illness Patient is a 55-year-old male with a significant past medical history for aseptic necrosis of the hips with bilateral hip replacement, chronic smoker, type 2 diabetes, hypertension, migraines, chronic narcotic use secondary to chronic pain, and altered mental status which prompted his evaluation in [facility] emergency room on June 14. Patient underwent an LP, unremarkable findings, EKG has been reviewed, MRI which demonstrated multiple infarctions that may be embolic in nature, transthoracic echo which did not demonstrate valvular pathology nor a right to left shunt, ejection fraction greater than 70%. Patient's pain medications were initially held due to presentation with altered mental status, since that time he has been refractory to hydralazine, isosorbide, clonidine, Norvasc, lisinopril, and metoprolol. - Consult it for further management of the patient's hypertension via continuous infusion. Past Medical/Surgical History Patient is a poor historian with regarding the exact nature of his medical problems #1 chronic pain #2 bilateral hip necrosis (patient unsure of etiology) #3 bilateral hip replacement #4 hypertension, poorly controlled #5 insulin-dependent diabetes mellitus #6 depression #7 migraines #8 status post [place] filter placed in 2006 while in [place] (patient unsure of indication, reports that his blood is thick, denies having DVT nor PE) Family History Asthma MOTHER Carcinoma of kidney FATHER Myocardial infarction FATHER Thyroid disease MOTHER Social History Smoking Status: Smoker Current Status UNK Alcohol Use: none Drug Use: none Marital Status: Housing Status: lives with family Allergies Coded Allergies: Penicillins (Verified Allergy, Mild, 12/02/09) Shellfish (Verified Adverse Reaction, Unknown, GI UPSET, 06/14/16) Home Medications Scheduled Amlodipine (Norvasc), 10 MG PO DAILY Aspirin (Aspirin EC Low Dose), 81 MG PO DAILY Atorvastatin Calcium (Lipitor), 80 MG PO DAILY Azelastine Hcl (Astepro), 2 SPRY BENNY BID Calcium Carbonate (Tums), 500 MG PO TIDM Calcium Carbonate-Vitamin D (Calcium + D), 1 TAB PO DAILY Cetirizine (Zyrtec), 10 MG PO DAILY Cholecalciferol (Vitamin D), 1,000 UNIT PO DAILY Duloxetine HCl (Cymbalta), 1 CAP PO BID Fenofibrate (Tricor), 1 TAB PO DAILY Fluticasone Propionate (Nasal) (Flonase Allergy Relief), 2 SPRAYS BENNY DAILY Hydralazine HCl (Hydralazine HCl), 50 MG PO TID Hydrochlorothiazide (Hctz), 25 MG PO DAILY Insulin Aspart (Novolog), 5 UNITS SQ TIDM Insulin Glargine (Lantus Solostar), 25 UNITS SC HS Lisinopril (Zestril), 20 MG PO BID Metoprolol Succinate (Toprol Xl), 200 MG PO DAILY Metronidazole (Topical) (Metronidazole), 1 APPLN EXT HS Oxycodone Hcl (Oxycontin), 40 MG PO Q12 Polyethylene Glycol 3350 (Miralax), 17 GM PO DAILY Venlafaxine Hcl (Effexor Extended Rel), 1 CAP PO DAILY Wheat Dextrin (Benefiber), 1 TBS PO HS Scheduled PRN Albuterol Sulfate (Proair Respiclick), 2 PUFFS INH Q4H PRN for Wheezing Carbamazepine (Carbamazepine), 200 MG PO Q4H PRN for Pain Oxycodone/Acetaminophen 7.5MG/325MG (Percocet 7.5MG/325MG), 1 TAB PO Q6 PRN for Pain Promethazine Hcl (Phenergan), 25 MG PO Q8H PRN for Nausea Sumatriptan Succinate (Imitrex), 25 MG PO UD PRN for Migraine Current Inpatient Medications Current Inpatient Medications Medications (Trade) Dose Ordered Sig/[place] Route Start Time Stop Time Status Last Admin Dose Admin Glucose (Glucose 40% Gel) UD PRN PO 06/14/16 15:15 07/14/16 15:14 Glucose (Glucose Chew Tab) 1 tabs UD PRN PO 06/14/16 15:15 07/14/16 15:14 Dextrose (Dextrose 50% 50ML Syringe) 50 ml UD PRN IV 06/14/16 15:15 07/14/16 15:14 Glucagon (Glucagon Inj) 1 mg UD PRN SQ 06/14/16 15:15 07/14/16 15:14 Heparin Sodium (Porcine) (Heparin Sq 5000 Unit/0.5ml) 5,000 unit Q8 SQ 06/14/16 22:00 07/14/16 21:59 Future Hold 06/14/16 21:44 5,000 UNIT Acetaminophen (Tylenol Tab) 650 mg Q4H PRN PO 06/14/16 15:30 07/15/16 15:29 06/17/16 04:22 650 MG Ondansetron HCl (Zofran Inj) 4 mg Q6H PRN IV 06/14/16 15:30 07/14/16 15:29 06/17/16 10:06 4 MG Miscellaneous Information (Pharmacist Discharge Med Rec Consult) 1 ea UD PRN N/A 06/14/16 15:30 07/14/16 15:29 Miscellaneous Information (Consult Glycemic Management Pharmacy) 1 UD PRN N/A 06/14/16 15:45 07/14/16 15:44 Miscellaneous Information (Pharmacy Consult) 1 UD PRN N/A 06/14/16 17:32 07/14/16 17:31 Miscellaneous Information (Pharmacy Consult) 1 UD PRN N/A 06/14/16 17:34 07/14/16 17:33 Miscellaneous Information (Pharmacy Consult) 1 UD PRN N/A 06/14/16 17:35 07/14/16 17:34 Metoprolol Tartrate (Lopressor Iv) 2.5 mg Q6 PRN IV 06/14/16 16:30 07/14/16 16:29 06/15/16 17:53 2.5 MG Lorazepam 1 mg 1 mg Q4H PRN IV 06/14/16 17:00 07/14/16 16:59 06/15/16 15:17 1 MG Aztreonam 2000 mg/ Dextrose 110 ml @ 110 mls/hr Q8@0000,0800,1600 IV 06/15/16 00:00 06/24/16 15:59 06/17/16 07:45 110 MLS/HR Levofloxacin/Prmx (Levaquin / D5W/ Premixed D5W) 150 ml @ 100 mls/hr DAILY@1400 IV 06/15/16 14:00 06/24/16 13:59 06/16/16 16:15 100 MLS/HR Lorazepam 1 mg 1 mg ONE PRN IV 06/15/16 08:45 07/15/16 08:44 Lorazepam/Syringe (Ativan Inj/ Syringe) 1 ml @ 1 mls/min ONE PRN IV 06/15/16 08:45 07/15/16 08:44 06/15/16 10:42 1 MLS/MIN Insulin Aspart (novoLOG ASPART) SLIDING SCALE ACHS SC 06/15/16 11:00 07/15/16 10:59 06/17/16 07:51 7 UNITS Insulin Glargine (Lantus Solostar Pen) 12 unit BID SC 06/16/16 09:00 07/16/16 08:59 06/17/16 07:51 12 UNIT Chlorthalidone 25 mg 25 mg QAM PO 06/16/16 09:00 07/16/16 08:59 06/17/16 08:38 25 MG Vancomycin HCl/ Sodium Chloride (Vancomycin Inj/ Nss 500ml) 530 ml @ 200 mls/hr Q8H IV 06/16/16 12:00 06/24/16 11:59 06/17/16 12:18 200 MLS/HR Amlodipine Besylate (Norvasc Tab) 5 mg QAM PO 06/17/16 09:00 07/17/16 08:59 06/17/16 08:38 5 MG Al Hydroxide/Mg Hydroxide (Maalox Susp) 15 ml Q6H PRN PO 06/16/16 20:45 07/16/16 20:44 Lisinopril (Zestril Tab) 40 mg QAM PO 06/17/16 09:00 07/17/16 08:59 06/17/16 07:52 40 MG Oxycodone HCl (Oxycontin Tab) 40 mg Q12 PO 06/17/16 21:00 07/01/16 20:59 Oxycodone/ Acetaminophen (Percocet 7.5-325MG Tab) 1 tab Q6H PRN PO 06/17/16 10:00 07/01/16 09:59 Duloxetine HCl (Cymbalta Cap) 30 mg QDL PO 06/17/16 11:30 06/18/16 11:31 06/17/16 12:19 30 MG Duloxetine HCl (Cymbalta Cap) 60 mg QDL PO 06/19/16 11:30 07/19/16 11:29 Hydralazine HCl (Apresoline Tab) 25 mg TID PO 06/17/16 14:00 07/17/16 13:59 Isosorbide Mononitrate (Imdur Ext Rel Tab) 30 mg QAM PO 06/18/16 09:00 07/18/16 08:59 Review of Systems Chronic pain, generalized, and in bilateral hips. Denies chest pain or shortness of breath. With the exceptions noted above A 10 point review of systems has been obtained and is otherwise negative Physical Exam Date Time Temp Pulse Resp B/P Pulse Ox O2 Delivery O2 Flow Rate FiO2 06/17/16 12:35 36.9 83 18 95 06/17/16 11:53 95 Room Air 06/17/16 11:35 36.9 83 18 238/114 95 Room Air 06/17/16 08:00 Room Air 06/17/16 07:50 37.0 92 18 192/123 95 Room Air 06/17/16 04:27 96 Room Air 06/17/16 03:19 37.4 96 18 153/100 96 Room Air 06/17/16 00:10 96 Room Air 06/16/16 22:58 37.4 99 20 162/101 96 Room Air 06/16/16 20:00 96 Room Air 06/16/16 19:12 36.9 83 20 162/103 96 Room Air 06/16/16 15:44 37.2 82 20 178/93 95 Nasal Cannula 6.0 06/16/16 15:44 96 Room Air 2.0 Gen.: Well-nourished well-hydrated male resting in bed with no acute distress CVS: S1-S2 mild systolic ejection murmur, regular rate and rhythm Pulmonary: Lungs clear to auscultation bilaterally Abdomen soft nondistended nontender no hepatosplenomegaly Extremities: Strength 5 out of 5 and 2+ pulses in all 4 extremities. There is no edema, patient does have early evidence of clubbing Skin: Likely onychomycosis of the fingers Neuro: No focal neuro deficit Psych: Flat affect, answering questions appropriately. Laboratory Results Last 24 Hours Test 06/16/16 16:25 06/16/16 20:59 06/17/16 05:35 06/17/16 06:44 Bedside Glucose 164 mg/dl 176 mg/dl 146 mg/dl White Blood Count 15.90 K/uL Red Blood Count 5.59 M/uL Hemoglobin 16.2 g/dL Hematocrit 45.8 % Mean Corpuscular Volume 81.9 fL Mean Corpuscular Hemoglobin 29.0 pg Mean Corpuscular Hemoglobin Concent 35.4 g/dl Platelet Count 227 K/uL Mean Platelet Volume 10.1 fL Neutrophils (%) (Auto) 69.9 % Lymphocytes (%) (Auto) 19.9 % Monocytes (%) (Auto) 8.4 % Eosinophils (%) (Auto) 1.2 % Basophils (%) (Auto) 0.3 % Neutrophils # (Auto) 11.12 K/uL Lymphocytes # (Auto) 3.16 K/uL Monocytes # (Auto) 1.34 K/uL Eosinophils # (Auto) 0.19 K/uL Basophils # (Auto) 0.04 K/uL RDW Standard Deviation 37.5 fL RDW Coefficient of Variation 12.5 % Immature Granulocyte % (Auto) 0.3 % Immature Granulocyte # (Auto) 0.05 K/uL Venous Blood pH 7.52 Sodium Level 136 mmol/L Potassium Level 2.6 mmol/L Chloride Level 100 mmol/L Carbon Dioxide Level 26 mmol/L Anion Gap 10.0 mmol/L Blood Urea Nitrogen 13 mg/dl Creatinine 0.96 mg/dl Est Creatinine Clear Calc Drug Dose 108.5 ml/min Estimated GFR () 104.2 Estimated GFR (Non- 89.9 BUN/Creatinine Ratio 14.0 Random Glucose 167 mg/dl Calcium Level 8.7 mg/dl Phosphorus Level 2.6 mg/dl Magnesium Level 2.0 mg/dl Test 06/17/16 11:05 06/17/16 11:24 Bedside Glucose 147 mg/dl Vancomycin Level Trough 20.3 mcg/ml Diagnostic Results I have reviewed the echo report dated 06/15/2016 I have reviewed the carotid Doppler study report dated 06/15/2016 Reviewed the MRI report as well as reviewed the images dated 06/15/2016 Reviewed the cervical spine CT scan report dated 06/15/2016 I reviewed the abdominal pelvis CT scan report dated 06/15/2016 I have reviewed the CT head report dated 06/14/2016 Assessment & Plan (1) Malignant hypertensive urgency (2) Focal infarction of brain (3) Acute diarrhea (4) Opiate dependence, continuous (5) S/P bilateral hip replacements (6) Chronic pain disorder (7) Migraine (8) History of aseptic necrosis of bone (9) Diabetes mellitus, type II (10) Hypertension (11) Sleep apnea Neuro: Multifocal infarcts of brain - Bearing vascular distributions of the brain - Will likely undergo transesophageal echocardiography to fully evaluate for possible endocarditis - Attempt better blood pressure control Migraines Chronic pain - On long-term narcotics - Pain medications have been withheld during period of altered mental status , aspect of withdrawal may be occurring to elevated blood pressures Cardiovascular - Malignant hypertension urgency - Reviewed cardiology consultation notes - During my evaluation on the second floor patient's systolic blood pressure was 230s, upon his arrival in ICU after being administered additional medications his systolic blood pressure was 150s. - His oral antihypertensives have been changed to Dr. Franklin's recommendations, patient will get an additional 2.5 mg of amlodipine today to make a full 10 mg dose - If patient has significant rebound will place a arterial line and started on IV nicardipine Pulmonary: History of smoking - Encourage tobacco abstinence Abdomen: ; Acute diarrhea - Acute narcotic withdrawal may contribute to diarrhea - Stool study negative - Add fiber - Loperamide when necessary Hematology - Discharge summary dated 12/05/2009 documents "thrombophilia including factor V Leiden, factor VII, factor XI and MTH4 mutations. He has not had a DVT or PE. Diagnosis was made as he had developed bilateral aseptic necrosis of the femur" - History [place] filter - History of so as hematoma secondary to supratherapeutic INR in 2009, patient reports he has not restarted anticoagulant since then - Patient would not be strong candidate for systemic anticoagulation in the setting of multiple infarcts and malignant hypertensive urgency - Prophylaxis with 5000 units heparin subcutaneous every 8 hours Infectious disease: - Leukocytosis - C. difficile toxin negative, - Staph coagulase-negative bacteremia 1 bottle initial blood cultures - Will send second set of blood cultures - Procalcitonin not extremely elevated upon admission, negative lactic acidosis, has been 72 hours since initial presentation Will de-escalate antibiotics - Will discontinue gram-negative coverage - Discontinue Levaquin, no evidence of pneumonia no need for atypical coverage - MRSA screen negative, however coag negative staph from one of 2 bottles - Will continue vancomycin in the setting, repeat blood cultures pending - If prostatic hardware infected or endocarditis may need antibiotic change with the addition of gentamicin - I have contacted the lab on 06/17/2016 at 1550 to run sensitivities on the positive blood culture. - Infectious disease consult, awaiting formal consultation - Hardware infection still in differential, - Will obtain plain radiographs of hips, ESR and CRP - Orthopedics consult regarding possible hip hardware infectionconsult - Consider tagged white blood cell scan if unable to answer this question clinically CODE STATUS: DNR/DNI in event of cardiac arrest Patient is designated his mother Diamante Vides as his healthcare surrogate decision maker her phone is [phone]. I have deferred completing a POLST form to the primary care team. I have personally spent 60 minutes of critical care time in the direct management of this patient. This is a life/limb threatening event. This includes time spent evaluating patient, direct bedside care, chart review, placing orders, interpretation of diagnostic studies, discussion with consultants, patient, and family members, as well as other required patient management activities. This time is exclusive of all separately billable procedures, and teaching time and separate from and in addition to any other critical care service time.
--- NOTE | 2016-06-17 16:01 | Medical Consult ---
Consultation Date of Consultation: Jun 17, 2016. Attending Physician: Brenda Willis DO Reason for Consultation: sepsis with embolic CVAs, question endocarditis History of Present Illness 55-year-old male with complicated past medical history including type 2 diabetes mellitus, hypertension, hyperlipidemia, factor 5 Leiden deficiency, Carlin filter, bilateral aseptic necrosis, chronic neck pain who was found by his mother at home on the day of admission with altered mental status with confusion. She had seen him the day before and he was apparently in usual state of health. He also reportedly was expressing suicidal ideation. Was brought to the emergency department and admitted for further management. Has undergone lumbar puncture with no evidence of CAR FRAMER infection and only mildly elevated protein. MRI of the brain has shown multiple subacute infarcts. 1/2 blood cultures growing coagulase negative Staph. Transthoracic echocardiogram without obvious vegetations seen. Was started on broad-spectrum antibiotics with vancomycin, levofloxacin, and aztreonam as well as acyclovir. All CSF cultures and Gram stain negative. Cryptococcal antigen negative. Acyclovir has been discontinued. No other reported significant symptoms prior to admission. patient now having watery diarrhea. Past Medical/Surgical History Medical Problems: (1) DKA (diabetic ketoacidoses) Status: Acute (2) Sepsis Status: Acute Surgical Problems: (1) Status post sinus surgery Status: Chronic Medical Problems: (1) Acute diarrhea (2) Altered mental status (3) Chronic pain disorder (4) Depression (5) Diabetes mellitus, type II (6) Dyslipidemia (7) Factor V deficiency (8) Focal infarction of brain (9) History of aseptic necrosis of bone (10) History of skin cancer (11) Hypertension (12) Malignant hypertensive urgency (13) Migraine (14) Opiate dependence, continuous (15) Sepsis (16) Sleep apnea (17) Trigeminal neuralgia Surgical Problems: (1) S/P bilateral hip replacements (2) Status post hip replacement (3) Status post insertion of inferior vena caval filter (4) Status post sinus surgery (5) Status post sinus surgery Family History Asthma MOTHER Carcinoma of kidney FATHER Myocardial infarction FATHER Thyroid disease MOTHER Social History Smoking Status: Smoker Current Status UNK Alcohol Use: none Drug Use: none Marital Status: Housing Status: lives with family Allergies Coded Allergies: Penicillins (Verified Allergy, Mild, 12/02/09) Shellfish (Verified Adverse Reaction, Unknown, GI UPSET, 06/14/16) Current Inpatient Medications Current Inpatient Medications Medications (Trade) Dose Ordered Sig/[place] Route Start Time Stop Time Status Last Admin Dose Admin Glucose (Glucose 40% Gel) UD PRN PO 06/14/16 15:15 07/14/16 15:14 Glucose (Glucose Chew Tab) 1 tabs UD PRN PO 06/14/16 15:15 07/14/16 15:14 Dextrose (Dextrose 50% 50ML Syringe) 50 ml UD PRN IV 06/14/16 15:15 07/14/16 15:14 Glucagon (Glucagon Inj) 1 mg UD PRN SQ 06/14/16 15:15 07/14/16 15:14 Heparin Sodium (Porcine) (Heparin Sq 5000 Unit/0.5ml) 5,000 unit Q8 SQ 06/14/16 22:00 07/14/16 21:59 Future Hold 06/14/16 21:44 5,000 UNIT Acetaminophen (Tylenol Tab) 650 mg Q4H PRN PO 06/14/16 15:30 07/15/16 15:29 06/17/16 04:22 650 MG Ondansetron HCl (Zofran Inj) 4 mg Q6H PRN IV 06/14/16 15:30 07/14/16 15:29 06/17/16 10:06 4 MG Miscellaneous Information (Pharmacist Discharge Med Rec Consult) 1 UD PRN N/A 06/14/16 15:30 07/14/16 15:29 Miscellaneous Information (Consult Glycemic Management Pharmacy) 1 UD PRN N/A 06/14/16 15:45 07/14/16 15:44 Miscellaneous Information (Pharmacy Consult) 1 ea UD PRN N/A 06/14/16 17:34 07/14/16 17:33 Metoprolol Tartrate (Lopressor Iv) 2.5 mg Q6 PRN IV 06/14/16 16:30 07/14/16 16:29 06/15/16 17:53 2.5 MG Lorazepam (Ativan Inj) 1 mg Q4H PRN IV 06/14/16 17:00 07/14/16 16:59 06/15/16 15:17 1 MG Lorazepam 1 mg 1 mg ONE PRN IV 06/15/16 08:45 07/15/16 08:44 Lorazepam/Syringe (Ativan Inj/ Syringe) 1 ml @ 1 mls/min ONE PRN IV 06/15/16 08:45 07/15/16 08:44 06/15/16 10:42 1 MLS/MIN Insulin Aspart (novoLOG ASPART) SLIDING SCALE ACHS SC 06/15/16 11:00 07/15/16 10:59 06/17/16 07:51 7 UNITS Insulin Glargine (Lantus Solostar Pen) 12 unit BID SC 06/16/16 09:00 07/16/16 08:59 06/17/16 07:51 12 UNIT Chlorthalidone 25 mg 25 mg QAM PO 06/16/16 09:00 07/16/16 08:59 06/17/16 08:38 25 MG Vancomycin HCl/ Sodium Chloride (Vancomycin Inj/ Nss 500ml) 530 ml @ 200 mls/hr Q8H IV 06/16/16 12:00 06/24/16 11:59 06/17/16 12:18 200 MLS/HR Al Hydroxide/Mg Hydroxide (Maalox Susp) 15 ml Q6H PRN PO 06/16/16 20:45 07/16/16 20:44 06/17/16 15:45 15 ML Lisinopril (Zestril Tab) 40 mg QAM PO 06/17/16 09:00 07/17/16 08:59 06/17/16 07:52 40 MG Oxycodone HCl (Oxycontin Tab) 40 mg Q12 PO 06/17/16 21:00 07/01/16 20:59 Oxycodone/ Acetaminophen (Percocet 7.5-325MG Tab) 1 tab Q6H PRN PO 06/17/16 10:00 07/01/16 09:59 Duloxetine HCl (Cymbalta Cap) 30 mg QDL PO 06/17/16 11:30 06/18/16 11:31 06/17/16 12:19 30 MG Duloxetine HCl (Cymbalta Cap) 60 mg QDL PO 06/19/16 11:30 07/19/16 11:29 Hydralazine HCl (Apresoline Tab) 25 mg TID PO 06/17/16 14:00 07/17/16 13:59 06/17/16 15:39 25 MG Isosorbide Mononitrate (Imdur Ext Rel Tab) 30 mg QAM PO 06/18/16 09:00 07/18/16 08:59 Amlodipine Besylate (Norvasc Tab) 10 mg QAM PO 06/18/16 09:00 07/18/16 08:59 Calcium Polycarbophil (Fibercon Tab) 1 tab BID PRN PO 06/17/16 15:45 07/17/16 15:44 Loperamide HCl (Imodium Cap) 2 mg UD PRN PO 06/17/16 15:45 07/17/16 15:44 Review of Systems All systems were reviewed and are negative except as per HPI Physical Exam Date Time Temp Pulse Resp B/P Pulse Ox O2 Delivery O2 Flow Rate FiO2 06/17/16 12:35 36.9 83 18 95 06/17/16 11:53 95 Room Air 06/17/16 11:35 36.9 83 18 238/114 95 Room Air 06/17/16 08:00 Room Air 06/17/16 07:50 37.0 92 18 192/123 95 Room Air 06/17/16 04:27 96 Room Air 06/17/16 03:19 37.4 96 18 153/100 96 Room Air 06/17/16 00:10 96 Room Air 06/16/16 22:58 37.4 99 20 162/101 96 Room Air 06/16/16 20:00 96 Room Air 06/16/16 19:12 36.9 83 20 162/103 96 Room Air General Appearance: WD/WN, no apparent distress Head: normocephalic, atraumatic Eyes: normal inspection, EOMI ENT: normal ENT inspection, pharynx normal Neck: supple, no adenopathy, thyroid normal, trachea midline Respiratory/Chest: chest non-tender, lungs clear, normal breath sounds, no respiratory distress Cardiovascular: regular rate, rhythm, no gallop, no murmur Abdomen/GI: normal bowel sounds, non tender, soft, no organomegaly Back: normal inspection, no CVA tenderness Extremities/Musculoskelatal: no calf tenderness, non-tender Neurologic/Psych: alert, + disoriented Skin: normal color, warm/dry, no rash Lymphatic: no adenopathy Laboratory Results Date/Time Source Procedure Growth Status 06/17/16 15:42 Blood Blood Culture Pending Received 06/17/16 15:33 Blood Blood Culture Pending Received 06/17/16 13:10 Nasal MRSA DNA Surveillance Screen - Final Specimen Negative for MRSA by DNA Probe Complete Last 24 Hours Test 06/16/16 16:25 06/16/16 20:59 06/17/16 05:35 06/17/16 06:44 Bedside Glucose 164 mg/dl 176 mg/dl 146 mg/dl White Blood Count 15.90 K/uL Red Blood Count 5.59 M/uL Hemoglobin 16.2 g/dL Hematocrit 45.8 % Mean Corpuscular Volume 81.9 fL Mean Corpuscular Hemoglobin 29.0 pg Mean Corpuscular Hemoglobin Concent 35.4 g/dl Platelet Count 227 K/uL Mean Platelet Volume 10.1 fL Neutrophils (%) (Auto) 69.9 % Lymphocytes (%) (Auto) 19.9 % Monocytes (%) (Auto) 8.4 % Eosinophils (%) (Auto) 1.2 % Basophils (%) (Auto) 0.3 % Neutrophils # (Auto) 11.12 K/uL Lymphocytes # (Auto) 3.16 K/uL Monocytes # (Auto) 1.34 K/uL Eosinophils # (Auto) 0.19 K/uL Basophils # (Auto) 0.04 K/uL RDW Standard Deviation 37.5 fL RDW Coefficient of Variation 12.5 % Immature Granulocyte % (Auto) 0.3 % Immature Granulocyte # (Auto) 0.05 K/uL Venous Blood pH 7.52 Sodium Level 136 mmol/L Potassium Level 2.6 mmol/L Chloride Level 100 mmol/L Carbon Dioxide Level 26 mmol/L Anion Gap 10.0 mmol/L Blood Urea Nitrogen 13 mg/dl Creatinine 0.96 mg/dl Est Creatinine Clear Calc Drug Dose 108.5 ml/min Estimated GFR () 104.2 Estimated GFR (Non- 89.9 BUN/Creatinine Ratio 14.0 Random Glucose 167 mg/dl Calcium Level 8.7 mg/dl Phosphorus Level 2.6 mg/dl Magnesium Level 2.0 mg/dl Test 06/17/16 11:05 06/17/16 11:24 06/17/16 15:20 Bedside Glucose 147 mg/dl Vancomycin Level Trough 20.3 mcg/ml Patient Name: MAHNAZ PASCUAL Unit Number: [id number] Dictated: 06/15/16 1246 Transcribed: 06/15/161245 [facility] Printed Date/Time: [~ rep prt dt]/[~ rep prt tm] [~ rep ct labl] - [~ rep ct ivnm] [facility] [place] [address] Dictated: 06/15/161245 Transcribed: 06/15/161245 [place] Printed Date/Time: [~ rep prt dt]/[~ rep prt tm] [~ rep ct labl] - [~ rep ct ivnm] FINDINGS: Multiple scattered small foci of restricted diffusion seen within the left high convexity, left caudate, right posterior occipital lobe, and left cerebellar hemisphere consistent with infarcts. Some of these demonstrate only partial loss of signal on the ADC map. Therefore, these may represent acute to subacute infarcts. The dominant focus within the left cerebellar hemisphere measures 2 cm. In addition, a few these have a slightly nodular component best seen within the right occipital lobe measuring 13 mm and within the left caudate measuring 10 mm with mild mass effect at the left lateral ventricle. Old lacunar infarct seen within the right thalamus. The midline structures appear grossly intact. The major vascular flow-voids at the skull base are maintained. Near complete opacification of the ethmoid air cells with complete opacification of the right frontal sinus. There is also mild mucoperiosteal thickening within the remaining paranasal sinuses. A few opacified right mastoid air cells. Mild atrophic changes and microvascular ischemic changes within the brain. No intracranial hemorrhage or midline shift. There appears to be a 2 cm polyp within the right ethmoid air cells. IMPRESSION: 1. Multiple scattered small foci of restricted diffusion as described above consistent with acute to subacute infarcts. 2. Some of these areas of infarction demonstrate a slightly nodular appearance. Therefore, recommend one month brain MRI follow-up with intravenous contrast to exclude the less likely possibility of an underlying lesion. 3. Sinus disease as described above. There appears to be a 2 cm polyp within the right ethmoid air cells. ENT consultation should be considered for further evaluation once the patient is stabilized. Electronically signed by: Robbie Cazares M.D. 06/15/2016 1:02 PM Dictated Date/Time: 06/15/2016 12:46 PM The status of this report is Signed. Draft = Not yet reviewed or approved by Radiologist. Signed = Reviewed and approved by Radiologist. <AttendingPhy>Brenda Willis DO</AttendingPhy> <FamilyPhy>Vee Mccann M.D.</FamilyPhy> <PrimaryPhy>Vee Mccann M.D.</PrimaryPhy> <UnitNumber> [id number]</UnitNumber> <VisitNumber>[id number]</VisitNumber> <PatientName> MAHNAZ PASCUAL</PatientName> <DateOfBirth>1960</DateOfBirth> <Location>[facility] </Location> <ServiceDate>06/14/16</ServiceDate> <MNE>ESINDI</MNE> <OrderingPhy> Damian Mcdonnell M.D.</OrderingPhy> <OrderingPhyMNE>f rep ord dr kaufman</ OrderingPhyMNE> <DictatingPhyMNE>f rep dict dr kaufman</DictatingPhyMNE> <CCListMNE> f rep ct mne</CCListMNE> <AdmittingPhyMNE>f pt admit dr kaufman</AdmittingPhyMNE> < AttendingPhyMNE>f pt attend dr kaufman</AttendingPhyMNE> <ConsultingPhyMNE>f pt consult dr kaufman</ConsultingPhyMNE> <FamilyPhyMNE>f pt fam dr kaufman</FamilyPhyMNE> <OtherPhyMNE>f pt other dr kaufmna</OtherPhyMNE> < PrimaryPhyMNE>f pt prim care dr kaufman</PrimaryPhyMNE> <ReferringPhyMNE>f pt referring dr kaufman</ReferringPhyMNE> Assessment & Plan 55-year-old male with multiple medical comorbidities now with acute change in mental status with fever in the hospital, single positive blood culture for coagulase-negative Staph, and multiple subacute infarcts on MRI scan. Most likely, the coagulase-negative Staph represents a contaminant, as no obvious risk factors for coagulase negative Staph endocarditis. Given his history of hypercoagulability, wonder about the possibility of a septic emboli. Also need to rule out vasculitic process given family history of hypercoagulable state. No evidence of CAR FRAMER infection based on CSF findings. I have recommended discontinuation of droplet precautions, agree with discontinuation of acyclovir , and would also discontinue levofloxacin. Not clear how much sinus infection may be contributing to fever. Also need to rule out C difficile colitis given large amount of watery stools and abdominal discomfort. Agree with need for transesophageal echocardiogram, and this will be done tomorrow. We will continue to follow.
--- NOTE | 2016-06-17 17:05 | Pharmacy Progress Note ---
Pharmacy Antibiotic Prog Note Date of Service: Jun 17, 2016. Subjective: The patient is currently receiving Vancomycin 1500mg IV q8h. The patient is currently on day #4 of IV therapy. Objective: Height (Feet): 5 Height (Inches): 11.00 Weight (Kilograms): 102.700 Levels: Item Value Date Time Vancomycin Level Trough 20.3 mcg/ml 06/17/16 1124 Vancomycin Level Trough 11.6 mcg/ml 06/16/16 0544 Lab Results (24hrs): Laboratory Tests Test 06/17/16 05:35 BUN/Creatinine Ratio 14.0 Blood Urea Nitrogen 13 mg/dl Creatinine 0.96 mg/dl White Blood Count 15.90 K/uL Red Blood Count 5.59 M/uL Hemoglobin 16.2 g/dL Hematocrit 45.8 % Mean Corpuscular Volume 81.9 fL Mean Corpuscular Hemoglobin 29.0 pg Mean Corpuscular Hemoglobin Concent 35.4 g/dl Platelet Count 227 K/uL Mean Platelet Volume 10.1 fL Neutrophils (%) (Auto) 69.9 % Lymphocytes (%) (Auto) 19.9 % Monocytes (%) (Auto) 8.4 % Eosinophils (%) (Auto) 1.2 % Basophils (%) (Auto) 0.3 % Neutrophils # (Auto) 11.12 K/uL Lymphocytes # (Auto) 3.16 K/uL Monocytes # (Auto) 1.34 K/uL Eosinophils # (Auto) 0.19 K/uL Basophils # (Auto) 0.04 K/uL Micro Results: Item Value Date Time Blood Culture - Preliminary Resulted 06/14/16 1253 Blood Coag Neg Staph Not Lugdunensis Blood Culture - Preliminary Resulted 06/14/16 1303 Blood NO GROWTH TO DATE. Urine Culture - Final Complete 06/14/16 1900 Urine,Catheterized NO GROWTH - LESS THAN 1,000 COLONIES/ML C.difficile Toxin B Gene (PCR) - Final Complete 06/15/16 0950 Stool No C. difficile toxin B gene detected Gram Stain - Final Complete 06/15/16 1522 Cerebral Spinal Fluid Fungal Culture - Preliminary Resulted 06/15/16 1522 Cerebral Spinal Fluid NO YEAST OR FUNGUS ISOLATED - REPORT ... Cryptococcal Antigen - Final Complete 06/15/16 1522 Cerebral Spinal Fluid NO CRYPTOCOCCAL ANTIGEN DETECTED Shiga Toxin Test - Preliminary Resulted 06/15/16 0950 Stool No E. Coli shiga toxin 1 or shiga tox... Acid Fast Stain - Final Resulted 06/15/16 1522 Cerebral Spinal Fluid MRSA DNA Surveillance Screen - Final Complete 06/17/16 1310 Nasal Specimen Negative for MRSA by DNA Probe Blood Culture Received 06/17/16 1533 Blood Pending Blood Culture Received 06/17/16 1542 Blood Pending Recent Pertinent Medications: Item Value Date Time Vancomycin HCl 270 ml @ 125 mls/hr 06/14/16 1411 1000 mg/Sodium NOW STAT/IV 06/14/16 1523 Chloride Vancomycin HCl 531 ml @ 200 mls/hr 06/14/16 1830 1550 mg/Sodium TODAY@1830/IV 06/14/16 1925 Chloride Vancomycin HCl 532 ml @ 200 mls/hr 06/15/16 0600 1600 mg/Sodium Q12H/IV 06/16/16 0552 Chloride Vancomycin HCl 530 ml @ 200 mls/hr 06/16/16 1200 1500 mg/Sodium Q8H/IV 06/17/16 1218 Chloride Vancomycin HCl 528 ml @ 200 mls/hr 06/17/16 2000 1400 mg/Sodium Q8H/IV Chloride Item Value Date Time Acyclovir Sodium 270 ml @ 250 mls/hr 06/14/16 2000 1000 mg/Dextrose Q8@0400,1200,2000/IV 06/15/16 0328 Acyclovir Sodium 265 ml @ 250 mls/hr 06/15/16 1200 750 mg/Dextrose Q8@0400,1200,2000/IV 06/17/16 0342 Item Value Date Time Aztreonam 1000 mg/ 110 ml @ 100 mls/hr 06/14/16 1415 Dextrose NOW/IV 06/14/16 1600 Aztreonam 2000 mg/ 110 ml @ 110 mls/hr 06/15/16 0000 Dextrose Q8@0000,0800,1600/IV 06/17/16 0745 Item Value Date Time Levofloxacin 500 mg 06/14/16 1415 (Levaquin / D5W) NOW ONCE/IV 06/14/16 1501 Levofloxacin 750 150 ml @ 100 mls/hr 06/15/16 1400 mg/Prmx DAILY@1400/IV 06/16/16 1615 Assessment & Plan: Vancomycin * 55 yo male on IV Vanco for possible bacteremia or possible infected hardware, meningitis ruled out * Goal trough level: 15-20mcg/mL * Trough level drawn: 20.3mcg/mL (11.6mcg/mL yesterday) * therapeutic level achieved for possible indications, slightly elevated * Change to: Vancomycin 1400mg IV q8h (~7% decrease) * Repeat trough level ordered for: 06/19/16 0400 Pharmacy will continue to follow and will adjust dose/frequency as necessary. Thank you
[2016-06-17] MEDS ORDERED: GADAVIST IV PRN (17:30)
[2016-06-17] MEDS: OXYCODONE/ACETAMINOPHEN 7.5-325 TAB PO PRN (17:55)
--- NOTE | 2016-06-17 18:11 | DIAGNOSTIC IMAGING REPORT ---
AP PELVIS AND 2 VIEWS OF THE BILATERAL HIPS EACH CLINICAL HISTORY: infection Right COMPARISON STUDY: Pelvis 11/25/2009. FINDINGS: A rectal tube is in place. No acute fracture or dislocation within the pelvis or hips. There are bilateral total hip arthroplasties. The hardware appears intact. No abnormal periprosthetic lucency. An IVC filter is partially visualized. IMPRESSION: Bilateral total hip arthroplasties. No evidence for hardware complication. Electronically signed by: Robbie Cazares M.D. 06/17/2016 6:10 PM Dictated Date/Time: 06/17/2016 6:08 PM
[2016-06-17] MEDS: VANCOMYCIN INJ 1,400 MG in SODIUM CHLORIDE 0.9% 500ML 500 ML IV SCH (20:12)
--- NOTE | 2016-06-17 20:25 | DIAGNOSTIC IMAGING REPORT ---
Brain MRI WITH AND WITHOUT CONTRAST HISTORY: Altered mental status. cva possible abscesses TECHNIQUE: Multiplanar multisequence MRI of the brain was performed both before and after the intravenous administration of contrast. COMPARISON STUDY: Brain MRI 06/15/2016. FINDINGS: Overall, no significant change in multiple scattered T2 hyperintense foci which demonstrate restricted diffusion. These are identified within the left cerebellar hemisphere, right occipital lobe, left high convexity and left basal ganglia. The dominant focus remains within the left cerebellar hemisphere. No new areas of restricted diffusion identified. Again, some these areas demonstrate less than expected loss of signal on ADC map. Therefore, these may represent an acute to subacute infarcts. Some of these areas also demonstrate a rounded appearance. Mild microvascular ischemic changes are again noted. No hematoma or midline shift. Opacified right frontal sinus and partial opacified ethmoid air cells are again noted. There are few opacified bilateral inferior mastoid air cells. The 1.1 cm focus of restricted diffusion within the left basal ganglia demonstrates mass effect along the left lateral ventricle. There is an old lacunar infarct seen within the right thalamus. Some of these T2 hyperintense areas demonstrate faint enhancement. This is nonspecific and can also be seen in the setting of subacute infarcts. IMPRESSION: 1. Overall, no significant change compared to the prior study. Multiple scattered T2 hyperintense foci with associated restricted diffusion as described above. Again, this favors acute to subacute infarcts. Some these demonstrate faint enhancement which can also be seen in the setting of subacute infarcts. A few these lesions demonstrate a nodular appearance. Therefore, recommend continued brain MRI follow-up to ensure resolution. Focal masses/lesions or cerebritis could have a similar appearance but is considered less likely. The pattern of enhancement is also less likely to represent an abscess. 2. Sinus disease is again noted. Electronically signed by: Robbie Cazares M.D. 06/17/2016 8:23 PM Dictated Date/Time: 06/17/2016 8:09 PM
--- NOTE | 2016-06-17 20:29 | DIAGNOSTIC IMAGING REPORT ---
Brain MRA HISTORY: Recent stroke. TECHNIQUE: 3-D [id number] MRA of the brain was performed without contrast. COMPARISON STUDY: None. FINDINGS: Bilateral distal vertebral arteries are widely patent. Mild smooth narrowing within the proximal to mid basilar artery which may be due to the tortuosity. Mild to moderate focal narrowing within the right P2 segment. The left [employer] is patent. The bilateral intracranial internal carotid arteries are patent. The bilateral ACAs and MCAs show no significant stenosis or occlusion. No aneurysms identified within the [place]. IMPRESSION: 1. Mild to moderate focal narrowing within the right P2 segment. 2. Mild smooth narrowing within the proximal to mid basilar artery which may be due to the tortuosity. 3. Otherwise, no significant stenosis, occlusion, or aneurysm within the [place]. Electronically signed by: Robbie Cazares M.D. 06/17/2016 8:28 PM Dictated Date/Time: 06/17/2016 8:24 PM
[2016-06-17] MEDS ORDERED: OXYCODONE HCL 40 MG TABCR (OXYCONTIN) PO SCH (21:00)
[2016-06-17] MEDS: OXYCODONE HCL 20 MG TABCR (OXYCONTIN) PO SCH (21:26)
[2016-06-17] MEDS: NSS + 20MEQ KCL 1000ML 1,000 ML IV SCH (23:08)
[2016-06-18] VITALS (21 sets, daily range): BP systolic 91–135; BP diastolic 48–88; PULSE 64–88; TEMP 36.5–36.9; O2SAT 92–99; BMI 31.2
[2016-06-18] MEDS: OXYCODONE/ACETAMINOPHEN 7.5-325 TAB PO PRN (02:21)
[2016-06-18] MEDS: VANCOMYCIN INJ 1,400 MG in SODIUM CHLORIDE 0.9% 500ML 500 ML IV SCH (03:58)
[2016-06-18 06:07] LABS: HEMATOCRIT 40.5 % (42-52); MEAN CELL VOLUME 81.8 fL (80-100); MEAN CORPUSCULAR HEMOGLOBIN 28.5 pg (25-34); MEAN CORPUSCULAR HGB CONC 34.8 g/dl (32-36); MEAN PLATELET VOLUME 9.7 fL (7.4-10.4); PLATELET COUNT 196 K/uL (130-400); RED BLOOD COUNT 4.95 M/uL (4.7-6.1)
[2016-06-18 06:39] LABS: BUN/CREATININE RATIO 20.5 (10-20); CALCIUM 8.1 mg/dl (8.5-10.1); CREATININE 1.2 mg/dl (0.60-1.40); MAGNESIUM 2.2 mg/dl (1.8-2.4); POTASSIUM 2.9 mmol/L (3.5-5.1)
[2016-06-18] MEDS: INSULIN ASPART 100 UNITS/ML 3 ML PEN SC SCH ×4 (06:45→20:48)
[2016-06-18] MEDS ORDERED: VENLAFAXINE HCL XR 150 MG CAPXR PO SCH (09:00)
[2016-06-18] MEDS ORDERED: INSULIN GLARGINE SOLOSTAR 100 UNITS/ML 3 ML PEN SC SCH (09:00)
[2016-06-18] MEDS ORDERED: AMLODIPINE BESYLATE 5 MG TAB PO SCH (09:00)
[2016-06-18] MEDS ORDERED: ISOSORBIDE MONONITRATE 30 MG TABCR PO SCH (09:00)
[2016-06-18] MEDS ORDERED: MoRPHine SULFATE 2 MG/ML CARP IV ONE (09:30)
[2016-06-18] MEDS ORDERED: MIDAZOLAM HCL 5 MG/ML 1 ML VIAL ONE (09:40)
[2016-06-18] MEDS ORDERED: FENTANYL CITRATE INJ 50 MCG/1 ML 2 ML VIAL ONE (09:40)
--- NOTE | 2016-06-18 09:47 | CONSULTATION REPORT ---
DATE OF CONSULTATION: 06/18/[address] Willis. Plan of care was discussed with Dr. Taylor Holden. CHIEF COMPLAINT: Patient admitted with mental status changes. HISTORY OF PRESENT ILLNESS: Mr. Vides is a 55-year-old white male who was admitted with altered mental status. He has past medical history pertinent for uncontrolled type 2 diabetes mellitus, uncontrolled hypertension, chronic trigeminal neuralgia related pain, depressive disorder, chronic tobacco user, as well as history of chronic bilateral hip pain with history of avascular necrosis status post bilateral NATACHA performed in 2006. The patient was reportedly in his usual state of health whenever his mother visited him and reported difficulties with altered mental status which lead to this admission. The patient was reportedly confused and did report a fall, which was unwitnessed, and an abrasion to the right side of forehead. Extensive evaluation has been completed during this admission and he is currently being treated with IV antibiotic therapy for concerns over sepsis. The etiology of his altered mental status is felt to be multifactorial. Medications were initially held upon admission due to concerns over the altered mental status, including his chronic opiate therapy. His opiate therapy has been resumed within the past 24 hours. The patient reports chronic pain in the bilateral hip location in the lateral aspect of the hip, as well as the groin region. He indicates the pain as deep aching in characteristic and constant at all times, and slightly exacerbated by extended ambulation. The patient reports chronic utilization of opiates since 2006, approximately 3 months after the time of his hip replacements. The patient had minimal benefit from his hip replacement surgeries regards to pain control. He indicates a prior lumbar spine evaluation which failed to reveal etiology of his bilateral hip pain complaints. He denies interventional procedures directed at his bilateral chronic hip pain. The patient denies misuse or abuse of opiate therapy in the past and reports compliance with his prescribed medications. The patient reports pain will occasionally radiate into the thigh location and rarely below the level the knee in a nondermatomal pattern/radicular pattern. He denies weaknesses in the lower extremity or footdrop. He denies any bowel or bladder incontinence. The patient had no complaints of neck pain or headaches upon today's examination which were reported in the medical chart. The patient reports moderate pain control with his opiate therapy chronically. He indicates that he is able to perform his ambulatory and ADL activities. He is prescribed his chronic opiate therapy by his family physician , Dr. Mccann. PAST MEDICAL HISTORY: 1. Chronic bilateral hip pain. 2. Chronic opiate dependency. 3. History of bilateral hip avascular necrosis status post NATACHA 2006. 4. Poorly controlled hypertension. 5. Insulin-dependent diabetes mellitus -- poorly controlled. 6. Depressive disorder with history of suicidal ideations. 7. Chronic neck pain. 8. Migraine headache disorder. 9. Obstructive sleep apnea. 10. History of trigeminal neuralgia. 11. Chronic tobacco user -- smoker. 12. History of skin cancer. 13. Factor V deficiency. PAST SURGICAL HISTORY: 1. Bilateral NATACHA 2006. 2. Status post [place] filter placement in 2006. 3. History of sinus repair with sinus surgery. SOCIAL HISTORY: The patient is living alone with his mother. He denies alcohol or illicit drug use. He denies abuse of his opiate therapy. He is not actively smoking, but has a chronic smoking history. FAMILY HISTORY: 1. Asthma. 2. Kidney cancer. 3. Heart disease. 4. Thyroid disease. ALLERGIES: 1. PENICILLIN. 2. SHELLFISH. CURRENT MEDICATIONS: Were reviewed extensively in EMR -- refer for current list. Home opiate therapy was reported as OxyContin 40 mg q. 12 hours and oxycodone/acetaminophen 7.5/325 one tablet q. 6 hours p.r.n., reportedly b.i.d. dosing. REVIEW OF SYSTEMS: The patient denies complaints related to cardiac, pulmonary, GI, , endocrine, neurologic, hepatic, renal, ENT, dermatologic or musculoskeletal other than described above in the HPI. PHYSICAL EXAMINATION: VITAL SIGNS: Pulse 67, temperature 36.8 degrees Celsius, respirations 12, BP 101/54, pulse oximetry 93 on room air. GENERAL: Mr. Vides was sleeping upon entering the room. He was easily arousable. He is in no acute distress. His speech and thought process was appropriate. His mood and affect was appropriate. His cognition was intact. NECK: Full range of motion without limitation. He is moderately tender in the paravertebral musculature. He has no focal midline or facet joint tenderness to provocative testing. Spurling's maneuver was negative bilaterally. He is minimally tender over the greater occipital nerves to direct palpation bilaterally. BACK AND SPINE: Loss of lumbar lordosis. The patient is nontender over the midline. He has no focal facet or SI joint tenderness. He is nontender in the paravertebral, quadratus lumborum or gluteal musculature to palpation. There is no appreciable spasm or myoneural trigger points. LOWER EXTREMITIES: SLR is negative bilaterally. The patient has well-healed lateral incisions status post NATACHA bilaterally. He is minimally tender to direct palpation over the lateral aspect of the hip and in the groin location. He has limited range of motion of the hips, status post NATACHA. He is tender with modified internal and external rotation maneuvering bilaterally. No evidence of edema, erythema or skin breakdown of the lower extremities. Strength is 5/5 with dorsiflexion, plantar flexion and hip flexion. NEUROLOGIC: Cranial nerves grossly intact. Ambulatory function was not witnessed. IMAGING: Hip x-rays dated 06/17/2016 bilaterally revealed bilateral NATACHA with no evidence for hardware complications. Hardware appeared to be intact. IVC filter was partially visualized. Cervical spine CT reviewed from 06/15/2016 reveal no evidence of fracture or subluxation involving the cervical spine. Anterior osteophytes were seen from C4 through C7. ASSESSMENT: 1. Chronic bilateral hip pain with history of avascular necrosis status post bilateral total hip arthroplasty 2006. 2. Chronic opiate dependency. 3. Depressive disorder. 4. Poorly controlled insulin-dependent diabetes mellitus. 5. Uncontrolled hypertension. 6. Obesity. 7. Altered mental status upon admission -- resolved. 8. Diarrhea. TREATMENT AND RECOMMENDATIONS: 1. I agree with resuming his chronic outpatient opiate therapy during this admission. I do believe the patient is at risk of opioid misuse/abuse due to his comorbid medical conditions and should be monitored closely in the outpatient setting with frequent pill counting and urine screening. Urine evaluation upon this admission was positive for opiates and negative for illicits. Definitive testing is still pending at this time regarding the positive opiate screen. PDMP was reviewed which revealed he is obtaining 120 tablets of oxycodone per month, although he reported b.i.d. use only. Reassessing quantity prescribed per month should be considered by Dr. Mccann in the outpatient setting. There appears to be consistency with his PDMP with regards to pharmacy utilization, as well as prescriber. 2. We did discuss potentially pursuing an articular branch nerve block procedure in the outpatient setting in an attempt to diminish his chronic hip pain, potentially followed by radiofrequency ablation. This would be recommended in the outpatient setting as the patient has more urgent acute medical conditions at this time. He may contact the pain clinic upon discharge for outpatient evaluation. 3. The patient's loose voluminous stools could be related to his opiate withdrawal. Would expect improvement upon resuming of opiate therapy. Alternatively, a stool evaluation should be considered. 4. Will sign off on the patient at this time, but will evaluate the patient in the outpatient setting upon his request for the potential interventional procedure in attempt to diminish his chronic opiate dependency. Thank you for allowing us to participate in the care of Mr. Vides. MARIBEL
--- NOTE | 2016-06-18 09:57 | Psychiatric Progress Notes ---
Psychiatric Progress Note Date of Service Jun 18, 2016. Notes ID: Patient reviewed/seen with liaison nurse. Initial consult completed by Dr. Patricia on 06/17 also reviewed. CC: NPO for WILIAN HPI: states he slept well overnight and feels mood is better today, denies panic , denies SI. ROS: NPO, states he is hungry, sleep improved, had N past 2 days, feels a bit less this am MSE: alert, cooperative, speech nl, thoughts organized, no SI/HI/mckeon Imp: depression and AMS Plan: continue Cymbalta 30 mg for now
--- NOTE | 2016-06-18 10:08 | Pharmacy Progress Note ---
Glycemic Control: Progress Nt Date of Service Jun 18, 2016. Scope Glycemic Pharmacist consulted by Ria PEGUERO on 06/14/16 for glycemic control and to write orders per [facility] inpatient glycemic control protocol. Objective Accuchecks BSG (last 24hrs): Test 06/17/16 11:05 06/17/16 21:07 06/18/16 06:00 Bedside Glucose 147 mg/dl (70-99) 256 mg/dl (70-99) Random Glucose 102 mg/dl (70-99) Laboratory Data (last 24hrs) Test 06/18/16 06:00 Anion Gap 11.0 mmol/L BUN/Creatinine Ratio 20.5 Blood Urea Nitrogen 25 mg/dl Creatinine 1.20 mg/dl Potassium Level 2.9 mmol/L Sodium Level 138 mmol/L White Blood Count 14.50 K/uL HbA1c: Test 06/14/16 12:20 Hemoglobin A1c 11.3 % (4.5-5.6) H Recent Pertinent Medications Outpatient Anti-diabetic Regimen: * Lantus 25 units SQ HS * Novolog 5 units SQ TID w/ meals * poor compliance with the regimen * A1c = 11.3 % 06/14/16 The patient is currently receiving: * Basal insulin: Lantus 12 units every 12 hours * Correctional Insulin: Novolog Correction per scale ACHS Goal Range: Low 120 mg/dL - High 140 mg/dL Correction Factor: 30 mg/dL/unit * Prandial insulin: Per carb ratio of 1 unit per 10 grams CHO consumed * Oral Agents: None currently Risk Factors for Insulin Resistance: * Infection: continues to receive Vancomycin IV for sepsis, possible meningitis , possible septic emboli / endocarditis * Diet: Currently NPO for WILIAN today Assessment & Plan ASSESSMENT: 06/18/16: * Glycemic control has been quite good over the last 48 hours with the exception of an elevated post-prandial BSG at bedtime last evening * Prior to last evening, most BSGs had fallen in the range of 146-184 * The BSG spike to 259 last night was most likely due to lack of prandial insulin with dinner. * Fasting BSG 102 this AM with 24 units of basal insulin on board. He is NPO this AM for WILIAN, will give only 6 units instead of the ordered 12 units. Will resume the usual dose of 12 units this evening with appropriate hold parameters * Novolog CF and CR have prevented climbing post-prandial hyperglycemia when used - no changes required PLAN FOR INPATIENT GLYCEMIC CONTROL: * Continuing Lantus 12 units SQ BID - give 1/2 dose if BSG less than 110; give only 6 units this AM due to NPO status and BSG 102 * Continuing correction factor of 30 mg/dl/unit * Continuing carb ratio of 1 unit per 10 grams CHO consumed * Continuing goal range of Low 120 mg/dL - High 140 mg/dL * Please note that the plan above was derived based on current level of insulin resistance and hospital stress. These recommendations are appropriate for inpatient admission only. Plan of care upon discharge will need to be reassessed to avoid potential outpatient hypo/hyperglycemia. Thank you.
--- NOTE | 2016-06-18 10:17 | Critical Care Progress Note ---
Critical Care Progress Note Date of Service Jun 18, 2016. ICU Day ICU Day Number: [address] Jaqueline Adams This is a 55-year-old male that presented to an [facility] on June 14 for altered mental status. He has a significant past medical history of aseptic necrosis of bilateral hip replacements, is a chronic smoker, type 2 diabetes, headaches/migraines, hypertension, chronic pain requiring narcotic usage. Patient's previous medical workup was pointed towards possible embolism ; he has a history of DVT requiring Monroe filter placement, which is in place currently. He will undergo a WILIAN today to rule out endocarditis. He is already underwent lumbar puncture which was negative. Significantly for this admission, he has had an MRI which demonstrated multiple infarctions consistent with embolism. Upon seeing the patient today he has no acute complaints other than a 7-9 out of 10 headache. Headache is not affected by light or conversation. He feels that he is much improved and feels better; does state that his strength could be more than it currently is. He had no acute events overnight. His blood pressure has remained stable; he is on room air with adequate saturations. However he does state he has a dry cough intermittently. He denies change in vision, fever, chills, shortness of breath, dyspnea, chest pain/pressure, awareness of tachyarrhythmias. He states he did have reflux-like abdominal pain yesterday, which has resolved today. He denies nausea and vomiting, or irritation from his fecal management system/Al. He denies numbness or tingling. Objective Vital Signs - as noted Laboratory Data - as noted Physical Exam: General - NAD, Resting in bed comfortably on room air Eyes - PERRL, EOMI No icterus, gaze conjugate ENT - Mucosa moist, no lesions or candidiasis Lungs - No paradoxical chest wall movement, clear to auscultation bilaterally, no wheezes, rales, or rhonchi Heart - Reg rate and rhythm, No murmur, rubs, clicks, or gallops appreciated Abdomen - BS present, no bruits noted, tympanic to percussion, soft, nontender, nondistended, no organomegaly Extremities - No edema, pedal pulses intact, old appearing hematoma of third toe on Right foot Neuro - A&OX4 Strength extremities equal and appropriate bilaterally CN:PERRL, EOMI, no facial asymmetry, uvula/tongue midline Assessment & Plan (1) Malignant hypertensive urgency Cardiology consult in place Oral antihypertensives currently following Dr. Franklin's recommendations: SBP controlled since admission to ICU Continue current regimen Monitor on telemetry (2) Focal infarction of brain Vasculitis in differential as well as septic emboli based on history Neuro Consult in place Maintain blood pressure less than 180 WILIAN today to rule out endocarditis (3) Acute diarrhea Fecal management system in place; 200 mL out over last 8 hours C. difficile infection ruled out Discontinue fecal management system (4) Opiate dependence, continuous Pain management consult in place; was seen this morning Patient currently denies pain aside from headache Further recommendations per pain management (5) S/P bilateral hip replacements Orthopedics consult placed yesterday; rule out possible prosthetic joint infection However, unlikely. Repeat cultures sent yesterday Await Consult Recommendations (6) Chronic pain disorder Patient currently not complaining of pain, aside from headache Pain management consult in place Continue home Narcotics and Cymbalta Await recommendations (7) Migraine Recent lumbar puncture, MRI demonstrates multiple infarcts, pretense of urgency during admission Home medication includes Imitrex 25 mg by mouth when necessary for migraine Control blood pressure as noted above Continue current pain regimen Neurology consult in place, appreciate Dr. Aparicio's input (8) History of aseptic necrosis of bone Orthopedic consult in place, awaiting recommendation (9) Diabetes mellitus, type II Glucose 24 hour range: 102-256 Currently 102 and nothing by mouth for procedure A1C: 11.3 Consult [employer] Sliding scale insulin in place Monitor blood sugars per protocol Resume diet when possible s/p completion of procedure (10) Hypertension SBP: Low 100s Cardiology consult in place Monitor on telemetry Continue current Antihypertensive * Hydralazine 25 mg by mouth 3 times a day * Lisinopril 40 mg by mouth every morning Consider Descalating antihypertensives, if blood pressure remains in the low 100s (11) Sleep apnea Electrolytes: Hypokalemia: 2.9 Continue NS + 20K IV @ 100ml/hr Recheck K this afternoon Replete as needed Heme: - Per Dr. Domingo: Discharge summary dated 12/05/2009 documents "thrombophilia including factor V Leiden, factor VII, factor XI and MTH4 mutations. He has not had a DVT or PE. Diagnosis was made as he had developed bilateral aseptic necrosis of the femur" History Monroe filter History of Psoas hematoma secondary to supratherapeutic INR in 2009, patient reports he has not restarted anticoagulant since then Patient would not be strong candidate for systemic anticoagulation in the setting of multiple infarcts and malignant hypertensive urgency Prophylaxis with 5000 units heparin subcutaneous every 8 hours DVT Prophylaxis Held for Procedure SCD's held for AM until completion of Bilateral Lower Extremity Dopplers ID: Leukocytosis improvin.5 now (26.51 peak) - C. difficile toxin negative, Staph coagulase-negative bacteremia 1 bottle initial blood cultures(Possible Contaminant) Repeat Cultures Pending Procalcitonin 0.[address] Joe Consulted * Day 5 of Vancomycin, 1400mg IV q8hrs Orthopedic Consult placed, awaiting evaluation D/C Al and Fecal Management System when appropriate Access: [address] DVT Prophylaxis: currently held pending procedure; restart when complete GI Prophylaxis: Not indicated CCT: 0 minutes; Level 3 Inpatient Billing; Not including any billable procedures. Thank you for including us in the care of this patient. Please review Dr. Parsons's addendum for further recommendations. Resident Physician Supervision Note: I was present with LISA Blankenship during the history and exam. I discussed the case with her and agree with the findings and plan as documented in the note. Patient is s/p WILIAN, which did not show any shunt or valvular defect that would explain multifocal embolic phenomenon Patient much improved overall, BP better controlled. No evidence of infectious insult May be transferred to monitored floor, no further need for critical care monitoring Documented By: Noel Parsons Consults & Procedures Consultants: Cardiology: Dr. Franklin Neuro: Dr. Aparicio I.D: Dr. Joe Pain Management: Dr. Holden Psych: Dr. Patricia Ortho: Dr. Pimentel [employer] Procedures: Lumbar Puncture TTE WILIAN Data Medications: Current Inpatient Medications Medications (Trade) Dose Ordered Sig/Ken[place] Route Start Time Stop Time Status Last Admin Dose Admin Glucose (Glucose 40% Gel) UD PRN PO 06/14/16 15:15 07/14/16 15:14 Glucose (Glucose Chew Tab) 1 tabs UD PRN PO 06/14/16 15:15 07/14/16 15:14 Dextrose (Dextrose 50% 50ML Syringe) 50 ml UD PRN IV 06/14/16 15:15 07/14/16 15:14 Glucagon (Glucagon Inj) 1 mg UD PRN SQ 06/14/16 15:15 07/14/16 15:14 Acetaminophen (Tylenol Tab) 650 mg Q4H PRN PO 06/14/16 15:30 07/15/16 15:29 06/17/16 04:22 650 MG Ondansetron HCl (Zofran Inj) 4 mg Q6H PRN IV 06/14/16 15:30 07/14/16 15:29 06/17/16 10:06 4 MG Miscellaneous Information (Pharmacist Discharge Med Rec Consult) 1 UD PRN N/A 06/14/16 15:30 07/14/16 15:29 Miscellaneous Information (Consult Glycemic Management Pharmacy) 1 UD PRN N/A 06/14/16 15:45 07/14/16 15:44 Miscellaneous Information (Pharmacy Consult) 1 UD PRN N/A 06/14/16 17:34 07/14/16 17:33 Metoprolol Tartrate (Lopressor Iv) 2.5 mg Q6 PRN IV 06/14/16 16:30 07/14/16 16:29 06/15/16 17:53 2.5 MG Lorazepam (Ativan Inj) 1 mg Q4H PRN IV 06/14/16 17:00 07/14/16 16:59 06/15/16 15:17 1 MG Lorazepam 1 mg 1 mg ONE PRN IV 06/15/16 08:45 07/15/16 08:44 Lorazepam/Syringe (Ativan Inj/ Syringe) 1 ml @ 1 mls/min ONE PRN IV 06/15/16 08:45 07/15/16 08:44 06/15/16 10:42 1 MLS/MIN Insulin Aspart (novoLOG ASPART) SLIDING SCALE ACHS SC 06/15/16 11:00 07/15/16 10:59 06/17/16 21:18 6 UNITS Insulin Glargine (Lantus Solostar Pen) 12 unit BID SC 06/16/16 09:00 07/16/16 08:59 06/17/16 21:18 12 UNIT Chlorthalidone (Hygroton Tab) 25 mg QAM PO 06/16/16 09:00 07/16/16 08:59 06/17/16 08:38 25 MG Al Hydroxide/Mg Hydroxide (Maalox Susp) 15 ml Q6H PRN PO 06/16/16 20:45 07/16/16 20:44 06/17/16 15:45 15 ML Lisinopril (Zestril Tab) 40 mg QAM PO 06/17/16 09:00 07/17/16 08:59 06/17/16 07:52 40 MG Oxycodone/ Acetaminophen (Percocet 7.5-325MG Tab) 1 tab Q6H PRN PO 06/17/16 10:00 07/01/16 09:59 06/18/16 02:21 1 TAB Duloxetine HCl (Cymbalta Cap) 30 mg QDL PO 06/17/16 11:30 06/18/16 11:31 06/17/16 12:19 30 MG Duloxetine HCl (Cymbalta Cap) 60 mg QDL PO 06/19/16 11:30 07/19/16 11:29 Hydralazine HCl (Apresoline Tab) 25 mg TID PO 06/17/16 14:00 07/17/16 13:59 06/17/16 21:05 25 MG Amlodipine Besylate (Norvasc Tab) 10 mg QAM PO 06/18/16 09:00 07/18/16 08:59 Calcium Polycarbophil (Fibercon Tab) 1 tab BID PRN PO 06/17/16 15:45 07/17/16 15:44 06/17/16 17:55 1 TAB Loperamide HCl 2 mg 2 mg UD PRN PO 06/17/16 15:45 07/17/16 15:44 Vancomycin HCl/ Sodium Chloride (Vancomycin Inj/ Nss 500ml) 528 ml @ 200 mls/hr Q8H IV 06/17/16 20:00 06/24/16 11:59 06/18/16 03:58 200 MLS/HR Gadobutrol (Gadavist) 10 mmol UD PRN IV 06/17/16 17:30 06/21/16 17:29 Oxycodone HCl 40 mg 40 mg Q12 PO 06/17/16 21:00 07/01/16 20:59 06/17/16 21:26 40 MG Potassium Chloride/Sodium Chloride 1,000 ml @ 60 mls/hr [id number] IV 06/17/16 22:30 07/17/16 22:29 06/17/16 23:08 60 MLS/HR Potassium Chloride/Prmx (Kcl 10 Meq / Wtr/Premixed Water) 100 ml @ 50 mls/hr Q1H IV 06/18/16 10:00 06/18/16 13:59 Morphine Sulfate (MoRPHine SULFATE INJ) 1 mg TODAY@0930 ONCE IV 06/18/16 09:30 06/18/16 09:31 I & O: 24-Hour Column 06/18/16 07:59 Intake Total 3754 ml Output Total 2150 ml Balance 1604 ml Vital Signs: Date Time Temp Pulse Resp B/P Pulse Ox O2 Delivery O2 Flow Rate FiO2 06/18/16 06:00 67 12 101/54 93 Room Air 06/18/16 04:00 Room Air 06/18/16 04:00 36.8 64 14 104/58 94 Room Air 06/18/16 02:00 75 15 102/58 95 Room Air 06/18/16 00:01 36.8 77 14 112/75 97 Room Air 06/17/16 23:59 Room Air 06/17/16 22:00 86 15 134/78 95 Room Air 06/17/16 20:00 Room Air 06/17/16 20:00 36.6 94 15 132/67 95 Room Air 06/17/16 17:58 101 6 110/74 93 06/17/16 17:43 93/59 06/17/16 16:13 91 19 141/81 95 06/17/16 16:06 96 18 122/83 97 06/17/16 14:58 86 15 150/91 96 06/17/16 14:13 95 8 142/88 97 06/17/16 13:58 100 17 126/75 97 06/17/16 13:43 93 0 134/76 96 06/17/16 13:28 92 9 140/77 95 06/17/16 13:19 88 14 139/82 96 06/17/16 12:58 96 16 119/81 06/17/16 12:57 93 18 137/82 06/17/16 12:35 36.9 83 18 95 06/17/16 11:53 95 Room Air 06/17/16 11:35 36.9 83 18 238/114 95 Room Air Laboratory Results: Last 24 Hours Test 06/17/16 11:05 06/17/16 11:24 06/17/16 16:00 06/17/16 21:07 Bedside Glucose 147 mg/dl 256 mg/dl Vancomycin Level Trough 20.3 mcg/ml Erythrocyte Sedimentation Rate 16 mm/hr C-Reactive Protein 0.51 mg/dl Test 06/18/16 06:00 White Blood Count 14.50 K/uL Red Blood Count 4.95 M/uL Hemoglobin 14.1 g/dL Hematocrit 40.5 % Mean Corpuscular Volume 81.8 fL Mean Corpuscular Hemoglobin 28.5 pg Mean Corpuscular Hemoglobin Concent 34.8 g/dl RDW Standard Deviation 37.6 fL RDW Coefficient of Variation 12.6 % Platelet Count 196 K/uL Mean Platelet Volume 9.7 fL Venous Blood pH 7.43 Sodium Level 138 mmol/L Potassium Level 2.9 mmol/L Chloride Level 104 mmol/L Carbon Dioxide Level 23 mmol/L Anion Gap 11.0 mmol/L Blood Urea Nitrogen 25 mg/dl Creatinine 1.20 mg/dl Est Creatinine Clear Calc Drug Dose 86.8 ml/min Estimated GFR () 79.5 Estimated GFR (Non- 68.6 BUN/Creatinine Ratio 20.5 Random Glucose 102 mg/dl Calcium Level 8.1 mg/dl Magnesium Level 2.2 mg/dl
--- NOTE | 2016-06-18 10:18 | Progress Note ---
Subjective Date of Service: Jun 18, 2016. Subjective Pt evaluation today including: conversation w/ patient, physical exam, lab review, review of studies, conversation w/ tax credit leasing consultant, review of inpatient medication list Saw/examined the patient in room 108 Doing well today, awake/alert, oriented x 3, pleasant Denies significant pain today, chronic bilateral pain improved with medications aware of the plan going forward Problem List Medical Problems: (1) DKA (diabetic ketoacidoses) Status: Acute (2) Sepsis Status: Acute Surgical Problems: (1) Status post sinus surgery Status: Chronic Review of Systems Constitutional: No chills, No fever Respiratory: No cough, No sputum Cardiac: No chest pain Abdomen: + diarrhea, No nausea, No pain, No vomiting Musculoskeletal: + joint pain (chronic bilateral hip pain) Medications Current Inpatient Medications Medications (Trade) Dose Ordered Sig/Ken[place] Route Start Time Stop Time Status Last Admin Dose Admin Glucose (Glucose 40% Gel) UD PRN PO 06/14/16 15:15 07/14/16 15:14 Glucose (Glucose Chew Tab) 1 tabs UD PRN PO 06/14/16 15:15 07/14/16 15:14 Dextrose (Dextrose 50% 50ML Syringe) 50 ml UD PRN IV 06/14/16 15:15 07/14/16 15:14 Glucagon (Glucagon Inj) 1 mg UD PRN SQ 06/14/16 15:15 07/14/16 15:14 Heparin Sodium (Porcine) (Heparin Sq 5000 Unit/0.5ml) 5,000 unit Q8 SQ 06/14/16 22:00 07/14/16 21:59 Future Hold 06/14/16 21:44 5,000 UNIT Acetaminophen (Tylenol Tab) 650 mg Q4H PRN PO 06/14/16 15:30 07/15/16 15:29 06/17/16 04:22 650 MG Ondansetron HCl (Zofran Inj) 4 mg Q6H PRN IV 06/14/16 15:30 07/14/16 15:29 06/17/16 10:06 4 MG Miscellaneous Information (Pharmacist Discharge Med Rec Consult) 1 ea UD PRN N/A 06/14/16 15:30 07/14/16 15:29 Miscellaneous Information (Consult Glycemic Management Pharmacy) 1 ea UD PRN N/A 06/14/16 15:45 07/14/16 15:44 Miscellaneous Information (Pharmacy Consult) 1 ea UD PRN N/A 06/14/16 17:34 07/14/16 17:33 Metoprolol Tartrate (Lopressor Iv) 2.5 mg Q6 PRN IV 06/14/16 16:30 07/14/16 16:29 06/15/16 17:53 2.5 MG Lorazepam (Ativan Inj) 1 mg Q4H PRN IV 06/14/16 17:00 07/14/16 16:59 06/15/16 15:17 1 MG Lorazepam 1 mg 1 mg ONE PRN IV 06/15/16 08:45 07/15/16 08:44 Lorazepam/Syringe (Ativan Inj/ Syringe) 1 ml @ 1 mls/min ONE PRN IV 06/15/16 08:45 07/15/16 08:44 06/15/16 10:42 1 MLS/MIN Insulin Aspart (novoLOG ASPART) SLIDING SCALE ACHS SC 06/15/16 11:00 07/15/16 10:59 06/17/16 21:18 6 UNITS Insulin Glargine (Lantus Solostar Pen) 12 unit BID SC 06/16/16 09:00 07/16/16 08:59 06/17/16 21:18 12 UNIT Chlorthalidone (Hygroton Tab) 25 mg QAM PO 06/16/16 09:00 07/16/16 08:59 06/17/16 08:38 25 MG Al Hydroxide/Mg Hydroxide (Maalox Susp) 15 ml Q6H PRN PO 06/16/16 20:45 07/16/16 20:44 06/17/16 15:45 15 ML Lisinopril (Zestril Tab) 40 mg QAM PO 06/17/16 09:00 07/17/16 08:59 06/17/16 07:52 40 MG Oxycodone/ Acetaminophen (Percocet 7.5-325MG Tab) 1 tab Q6H PRN PO 06/17/16 10:00 07/01/16 09:59 06/18/16 02:21 1 TAB Duloxetine HCl (Cymbalta Cap) 30 mg QDL PO 06/17/16 11:30 06/18/16 11:31 06/17/16 12:19 30 MG Duloxetine HCl (Cymbalta Cap) 60 mg QDL PO 06/19/16 11:30 07/19/16 11:29 Hydralazine HCl (Apresoline Tab) 25 mg TID PO 06/17/16 14:00 07/17/16 13:59 06/17/16 21:05 25 MG Amlodipine Besylate (Norvasc Tab) 10 mg QAM PO 06/18/16 09:00 07/18/16 08:59 Calcium Polycarbophil (Fibercon Tab) 1 tab BID PRN PO 06/17/16 15:45 07/17/16 15:44 06/17/16 17:55 1 TAB Loperamide HCl 2 mg 2 mg UD PRN PO 06/17/16 15:45 07/17/16 15:44 Vancomycin HCl/ Sodium Chloride (Vancomycin Inj/ Nss 500ml) 528 ml @ 200 mls/hr Q8H IV 06/17/16 20:00 06/24/16 11:59 06/18/16 03:58 200 MLS/HR Gadobutrol (Gadavist) 10 mmol UD PRN IV 06/17/16 17:30 06/21/16 17:29 Oxycodone HCl 40 mg 40 mg Q12 PO 06/17/16 21:00 07/01/16 20:59 06/17/16 21:26 40 MG Potassium Chloride/Sodium Chloride 1,000 ml @ 60 mls/hr [id number] IV 06/17/16 22:30 07/17/16 22:29 06/17/16 23:08 60 MLS/HR Potassium Chloride/Prmx (Kcl 20 Meq / Wtr/Premixed Water) 100 ml @ 50 mls/hr NOW STAT IV 06/18/16 09:03 06/18/16 11:02 UNV Morphine Sulfate (MoRPHine SULFATE INJ) 1 mg NOW STAT IV 06/18/16 09:03 06/18/16 09:04 UNV Objective Vital Signs Date Time Temp Pulse Resp B/P Pulse Ox O2 Delivery O2 Flow Rate FiO2 06/18/16 06:00 67 12 101/54 93 Room Air 06/18/16 04:00 Room Air 06/18/16 04:00 36.8 64 14 104/58 94 Room Air 06/18/16 02:00 75 15 102/58 95 Room Air 06/18/16 00:01 36.8 77 14 112/75 97 Room Air 06/17/16 23:59 Room Air 06/17/16 22:00 86 15 134/78 95 Room Air 06/17/16 20:00 Room Air 06/17/16 20:00 36.6 94 15 132/67 95 Room Air 06/17/16 17:58 101 6 110/74 93 06/17/16 17:43 93/59 06/17/16 16:13 91 19 141/81 95 06/17/16 16:06 96 18 122/83 97 06/17/16 14:58 86 15 150/91 96 06/17/16 14:13 95 8 142/88 97 06/17/16 13:58 100 17 126/75 97 06/17/16 13:43 93 0 134/76 96 06/17/16 13:28 92 9 140/77 95 06/17/16 13:19 88 14 139/82 96 06/17/16 12:58 96 16 119/81 06/17/16 12:57 93 18 137/82 06/17/16 12:35 36.9 83 18 95 06/17/16 11:53 95 Room Air 06/17/16 11:35 36.9 83 18 238/114 95 Room Air Physical Exam General Appearance: no apparent distress Respiratory/Chest: lungs clear, normal breath sounds, no respiratory distress, no accessory muscle use Cardiovascular: regular rate, rhythm, no edema, no murmur Abdomen: normal bowel sounds, non tender, soft Extremities: normal inspection, no pedal edema Neurologic/Psychiatric: no motor/sensory deficits, alert, normal mood/affect Laboratory Results Last 24 Hours Test 06/17/16 11:05 06/17/16 11:24 06/17/16 16:00 06/17/16 21:07 Bedside Glucose 147 mg/dl 256 mg/dl Vancomycin Level Trough 20.3 mcg/ml Erythrocyte Sedimentation Rate 16 mm/hr C-Reactive Protein 0.51 mg/dl Test 06/18/16 06:00 White Blood Count 14.50 K/uL Red Blood Count 4.95 M/uL Hemoglobin 14.1 g/dL Hematocrit 40.5 % Mean Corpuscular Volume 81.8 fL Mean Corpuscular Hemoglobin 28.5 pg Mean Corpuscular Hemoglobin Concent 34.8 g/dl RDW Standard Deviation 37.6 fL RDW Coefficient of Variation 12.6 % Platelet Count 196 K/uL Mean Platelet Volume 9.7 fL Venous Blood pH 7.43 Sodium Level 138 mmol/L Potassium Level 2.9 mmol/L Chloride Level 104 mmol/L Carbon Dioxide Level 23 mmol/L Anion Gap 11.0 mmol/L Blood Urea Nitrogen 25 mg/dl Creatinine 1.20 mg/dl Est Creatinine Clear Calc Drug Dose 86.8 ml/min Estimated GFR () 79.5 Estimated GFR (Non- 68.6 BUN/Creatinine Ratio 20.5 Random Glucose 102 mg/dl Calcium Level 8.1 mg/dl Magnesium Level 2.2 mg/dl Assessment and Plan This is a 55 year old male with PMH of uncontrolled HTN, DM2, HLD, 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 of trigeminal neuralgia, hx. of migraines, SANAM presented with altered mental status /confusion and a fall Neurology Acute/Subacute Scattered Infarcts * Patient presented to the ER with altered mental status, disorientation, possible infectious vs. acute CVA * Head CT, Brain MRI, and Brain MRI with contrast/MRA performed = suggestive of acute-subacute CVA * since admission, patient has been doing much better - he was initially in restraints, very combative; now is he is AAOx3, calm, back to baseline * source of likely embolic events not known; WILIAN pending today for further input * neurology following Infectious Disease Sepsis/Fever of Unknown Origin * patient presented to the ER with +fevers, +leukocytosis, +tachycardia - meeting sepsis criteria * patient was pancultured; CXR, UA negative; due to neck pain, LP performed, but no significant findings * He was initially started on Levaquin, Vanco, Aztreonam, Acyclovir * appreciate ID input; Levaquin, Aztreonam and Acyclovir have been stopped as of 06/17 * continue Vanco for now * blood culture x 1 positive for coag neg staph. Repeat cultures pending * WILIAN pending to r/o endocarditis * since day #1 of admission, he has been afebrile and WBC improving Cardiovascular Hypertensive Urgency * patient presented with elevated blood pressures in the 170s-180s, likely secondary to noncompliance * very difficult to control with oral medications * On 06/17, patient's blood pressures increased to >200/100 * He was tried on amlodipine, lisinopril, lopressor, chlorthalidone, hydralazine , imdur, clonidine with only slight improvement * he was transferred to the ICU for possible IV drip for blood pressure * He was given IV morphine for pain which seemed to have helped his blood pressure * did well with his blood pressure in the ICU and stable for transfer back to [facility] * will stop hydralazine, imdur; would continue lisinopril, amlodipine, and b- benja - will await cardio input Elevated Troponin * patient presented with elevated troponin, likely multifactorial: sepsis, hyperosmolar hyperglycemia, hypertensive urgency * clinically stable, cardiology on board for further input Hyperlipidemia * elevated total cholesterol * LDL ~ 151 * restart statin when able Endocrine Hyperosmolar Hyperglycemic State * Patient presented with BSGs > 400, elevated anion gap, acute kidney injury * patient has been noncompliant with all medications at home, including insulin * Ha1c > 10 * was initially started on an insulin drip * was given IVFs and switched back to subq insulin * Currently on Lantus 12 units BID and an insulin sliding scale * glycemic control consult placed * will need diabetic education prior to discharge Nephrology Acute Kidney Injury, resolved * patient initially presented with creat of 2.0 * likely due to dehydration, volume depletion * given IVFs for HSS and creat has since been back to normal * on 06/18, creat is up to 1.2, monitor and will avoid nephrotoxic agents when able Hyponatremia, resolved * secondary to dehydration, volume depletion * resolved with IVFs Hypokalemia * patient continues to have hypokalemia * initially thought to be due to insulin drip * likely due to GI loss, diarrhea * does not like the tablets, will replace through IV today, recheck K and Mg daily Gastrointestinal Diarrhea * patient has been having diarrhea throughout hospital stay * antibiotics have been tapered, IVFs have been discontinued * rectal tube placed for patient comfort * C. diff and stool cultures are negative * Loperamide and Fibercon started * if persistent, may need GI input Musculoskeletal Avascular Necrosis of Bilateral Hips * s/p bilateral hip replacement * patient has been having chronic pain and uses opioids as outpatient to manage this * he has difficulty daily due to the bilateral hip pain * will consult orthopedic surgery; possible hardware infection? * pain management consulted - will follow and possible outpatient nerve block injections Hematology Thrombophilia * has a hx. of thrombophilia including Factor V Leiden mutation * was once on Coumadin, but due to hematoma, was stopped * s/p [employer] filter * currently on subq heparin q8 Psychiatry Depression * major depression disorder * was once on Cymbalta and Effexor * he had stopped taking these medications on his own * as per patent's mom, he has been depression since stopping these medications * psychiatry consulted and Cymbalta will be restarted at this time DNR
--- NOTE | 2016-06-18 10:21 | Procedure Note ---
Pre-Mod Sedation Assessment General Date of Moderate Sedation: Jun 18, 2016. Vital Signs: Vital Signs Past 12 Hours Date Time Temp Pulse Resp B/P Pulse Ox O2 Delivery O2 Flow Rate FiO2 06/18/16 06:00 67 12 101/54 93 Room Air 06/18/16 04:00 Room Air 06/18/16 04:00 36.8 64 14 104/58 94 Room Air 06/18/16 02:00 75 15 102/58 95 Room Air 06/18/16 00:01 36.8 77 14 112/75 97 Room Air 06/17/16 23:59 Room Air Review Cardiovascular: regular rate, rhythm, no edema, no JVD, no murmur, normal peripheral pulses, + gallop/S4 Abdomen: normal bowel sounds, non tender, soft, no organomegaly, no pulsatile mass Lungs: chest non-tender, lungs clear, normal breath sounds, no respiratory distress, no accessory muscle use Airway Class: II Pre-Sedation Airway Assessment Smoking Status: Smoker Current Status UNK Notes The planned sedation has been discussed with the patient and consent obtained. I have identified the patient, determined the appropriateness of sedation and have assessed the patient immediately prior to the procedure. All medicine(s) and interventions are by my order.
--- NOTE | 2016-06-18 10:25 | Procedure Note ---
Post-Mod Sedation Assessment General Date of Moderate Sedation Jun 18, 2016. Vital Signs: Vital Signs Past 12 Hours Date Time Temp Pulse Resp B/P Pulse Ox O2 Delivery O2 Flow Rate FiO2 06/18/16 06:00 67 12 101/54 93 Room Air 06/18/16 04:00 Room Air 06/18/16 04:00 36.8 64 14 104/58 94 Room Air 06/18/16 02:00 75 15 102/58 95 Room Air 06/18/16 00:01 36.8 77 14 112/75 97 Room Air 06/17/16 23:59 Room Air Review - Discharge Criteria Vital Signs Stable: Yes Alert/Oriented/Conversant: Yes Returned to Baseline Mental St: Yes Nausea Absent/Minimal: Yes Pain/Discomfort/Absent/Minimal: Yes Normal/Baseline Respirations: Yes Active Bleeding?: No Pt Received D/C Instructions: No Prescriptions Given: None
--- NOTE | 2016-06-18 10:26 | [facility] Post Operative Brief Note ---
Immediate Operative Summary Operative Date Jun 18, 2016. Pre-Operative Diagnosis r/o endocarditis Post-Operative Diagnosis endocarditis ruled out Procedure(s) Performed doc Surgeon Rigoberto Tree Feller Surgeon(s) Davis RN Estimated Blood Loss none Findings no vegetations Specimens none Anesthesia Versed 4mg, Fentanyl 100mg Complication(s) None Disposition Surgical ICU
--- NOTE | 2016-06-18 10:29 | Pharmacy Progress Note ---
Pharmacy Antibiotic Prog Note Date of Service: Jun 18, 2016. Subjective: The patient is currently receiving VANCOMYCIN 1400 mg (~13.8mg/kg) IV every 8 hours. The patient is currently on day # 4 of IV VANCOMYCIN therapy for sepsis, possible meningitis, possible septic emboli, possible endocarditis Objective: Height (Feet): 5 Height (Inches): 11.00 Weight (Kilograms): 101.600 Levels: vancomycin level = 20.3mcg/mL 06/17/16 Lab Results (24hrs): Laboratory Tests Test 06/18/16 06:00 BUN/Creatinine Ratio 20.5 Blood Urea Nitrogen 25 mg/dl Creatinine 1.20 mg/dl White Blood Count 14.50 K/uL Micro Results: All micro negative with the exception of CoN staph in 1 of 2 blood cultures on Assessment & Plan: VANCOMYCIN: * Patient continues to produce a large amount of urine; he is on diuretic therapy (chlorthalidone) * He has continued to produce a large amount of loose stools as well * SCr increased over the last 24 hours (0.96-->1.2) * Patient has hypertensive yesterday and transferred to ICU for closer monitoring and an anticipated need for IV continuous infusion of antihypertensives. His BP is controlled at this time without continuous med infusions. * Vancomycin trough level was slightly elevated and the vancomycin dose was reduced as a result, however I am concerned the dose reduction may not have been enough. Given the possible decline in renal fxn over the last 24 hrs, will make another empiric dose reduction, check SCr w/ AM labs tomorrow as well as trough level tomorrow AM. New dose = 1300mg IV Q 8 hours. Pharmacy will continue to follow and will adjust dose/frequency as necessary. Thank you
--- NOTE | 2016-06-18 10:30 | Cardiology Follow-Up ---
Subjective Subjective Date of Service: Jun 18, 2016. Pt evaluation today including: conversation w/ patient, physical exam, chart review, lab review, review of studies, review of inpatient medication list Problem List Medical Problems: (1) DKA (diabetic ketoacidoses) Status: Acute (2) Sepsis Status: Acute Surgical Problems: (1) Status post sinus surgery Status: Chronic Review of Systems Constitutional: No chills, No fever Respiratory: No cough, No sputum Cardiac: No chest pain Abdomen: + diarrhea, No nausea, No pain, No vomiting Musculoskeletal: + joint pain (chronic bilateral hip pain) Psychiatric: + depression symptoms, No anxiety, No insomnia, No substance abuse Heme: No abnormal bleeding/bruising Objective Vital Signs Last Vital Signs Documentation Date Time Temp Pulse Resp B/P Pulse Ox O2 Delivery O2 Flow Rate FiO2 06/18/16 06:00 67 12 101/54 93 Room Air 06/18/16 04:00 36.8 06/16/16 15:44 6.0 Physical Exam: General Appearance: WD/WN, no apparent distress Eyes: bilateral eyes EOMI, bilateral eyes PERRL, bilateral eyes normal inspection ENT: normal ENT inspection, hearing grossly normal, pharynx normal, + pertinent finding (+abrasion above right eye) Neck: supple, no adenopathy, thyroid normal, no JVD, no carotid bruits, trachea midline Respiratory/Chest: lungs clear, normal breath sounds, no respiratory distress, no accessory muscle use Cardiovascular: regular rate, rhythm, no edema, no JVD, no murmur, + gallop/S4 Abdomen: normal bowel sounds, non tender, soft Extremities: normal range of motion, non-tender, normal inspection, no pedal edema, no calf tenderness Neurologic/Psychiatric: woodworking machine feeder II-XII nml as tested, no motor/sensory deficits, alert, normal mood/affect Skin: normal color, warm/dry, no rash Lymphatic: no adenopathy Assessment and Plan 1. 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 Hypertension extremely labile with significant spike on 06/17 resolved likely secondary to cva will titrate meds back now d/c hydralazine and imdur decrease amlodipine to 5mg daily
--- NOTE | 2016-06-18 10:32 | Infectious Disease Progress Nt ---
Progress Note Date of Service Jun 18, 2016. Subjective Pt evaluation today including: conversation w/ patient, physical exam, chart review, lab review, review of studies, conversation w/ product management consultant, review of inpatient medication list WILIAN this morning shows no evidence of endocarditis. remains afebrile. Follow- up blood cultures negative to date. No new complaints.Mental status improving. All Other Systems: Reviewed and Negative Medications Current Inpatient Medications Medications (Trade) Dose Ordered Sig/[place] Route Start Time Stop Time Status Last Admin Dose Admin Glucose (Glucose 40% Gel) UD PRN PO 06/14/16 15:15 07/14/16 15:14 Glucose (Glucose Chew Tab) 1 tabs UD PRN PO 06/14/16 15:15 07/14/16 15:14 Dextrose (Dextrose 50% 50ML Syringe) 50 ml UD PRN IV 06/14/16 15:15 07/14/16 15:14 Glucagon (Glucagon Inj) 1 mg UD PRN SQ 06/14/16 15:15 07/14/16 15:14 Acetaminophen (Tylenol Tab) 650 mg Q4H PRN PO 06/14/16 15:30 07/15/16 15:29 06/17/16 04:22 650 MG Ondansetron HCl (Zofran Inj) 4 mg Q6H PRN IV 06/14/16 15:30 07/14/16 15:29 06/17/16 10:06 4 MG Miscellaneous Information (Pharmacist Discharge Med Rec Consult) 1 ea UD PRN N/A 06/14/16 15:30 07/14/16 15:29 Miscellaneous Information (Consult Glycemic Management Pharmacy) 1 ea UD PRN N/A 06/14/16 15:45 07/14/16 15:44 Miscellaneous Information (Pharmacy Consult) 1 ea UD PRN N/A 06/14/16 17:34 07/14/16 17:33 Metoprolol Tartrate (Lopressor Iv) 2.5 mg Q6 PRN IV 06/14/16 16:30 07/14/16 16:29 06/15/16 17:53 2.5 MG Lorazepam (Ativan Inj) 1 mg Q4H PRN IV 06/14/16 17:00 07/14/16 16:59 06/15/16 15:17 1 MG Lorazepam 1 mg 1 mg ONE PRN IV 06/15/16 08:45 07/15/16 08:44 Lorazepam/Syringe (Ativan Inj/ Syringe) 1 ml @ 1 mls/min ONE PRN IV 06/15/16 08:45 07/15/16 08:44 06/15/16 10:42 1 MLS/MIN Insulin Aspart (novoLOG ASPART) SLIDING SCALE ACHS SC 06/15/16 11:00 07/15/16 10:59 06/17/16 21:18 6 UNITS Insulin Glargine (Lantus Solostar Pen) 12 unit BID SC 06/16/16 09:00 07/16/16 08:59 Future hold 06/17/16 21:18 12 UNIT Chlorthalidone (Hygroton Tab) 25 mg QAM PO 06/16/16 09:00 07/16/16 08:59 06/17/16 08:38 25 MG Al Hydroxide/Mg Hydroxide (Maalox Susp) 15 ml Q6H PRN PO 06/16/16 20:45 07/16/16 20:44 06/17/16 15:45 15 ML Lisinopril (Zestril Tab) 40 mg QAM PO 06/17/16 09:00 07/17/16 08:59 06/17/16 07:52 40 MG Oxycodone/ Acetaminophen (Percocet 7.5-325MG Tab) 1 tab Q6H PRN PO 06/17/16 10:00 07/01/16 09:59 06/18/16 02:21 1 TAB Duloxetine HCl (Cymbalta Cap) 30 mg QDL PO 06/17/16 11:30 06/18/16 11:31 06/17/16 12:19 30 MG Duloxetine HCl (Cymbalta Cap) 60 mg QDL PO 06/19/16 11:30 07/19/16 11:29 Hydralazine HCl (Apresoline Tab) 25 mg TID PO 06/17/16 14:00 07/17/16 13:59 06/17/16 21:05 25 MG Amlodipine Besylate (Norvasc Tab) 10 mg QAM PO 06/18/16 09:00 07/18/16 08:59 Calcium Polycarbophil (Fibercon Tab) 1 tab BID PRN PO 06/17/16 15:45 07/17/16 15:44 06/17/16 17:55 1 TAB Loperamide HCl (Imodium Cap) 2 mg UD PRN PO 06/17/16 15:45 07/17/16 15:44 Gadobutrol (Gadavist) 10 mmol UD PRN IV 06/17/16 17:30 06/21/16 17:29 Oxycodone HCl 40 mg 40 mg Q12 PO 06/17/16 21:00 07/01/16 20:59 06/17/16 21:26 40 MG Potassium Chloride/Sodium Chloride 1,000 ml @ 60 mls/hr [id number] IV 06/17/16 22:30 07/17/16 22:29 06/17/16 23:08 60 MLS/HR Potassium Chloride/Prmx (Kcl 10 Meq / Wtr/Premixed Water) 100 ml @ 50 mls/hr Q1H IV 06/18/16 10:00 06/18/16 13:59 Insulin Glargine 6 unit 6 unit TODAY@0900 SC 06/18/16 09:00 06/18/16 12:00 Vancomycin HCl/ Sodium Chloride (Vancomycin Inj/ Nss 250ml) 276 ml @ 125 mls/hr Q8H IV 06/18/16 12:00 06/24/16 11:59 Objective Vital Signs Date Time Temp Pulse Resp B/P Pulse Ox O2 Delivery O2 Flow Rate FiO2 06/18/16 10:07 78 16 112/48 98 Nasal Cannula 4.0 06/18/16 09:50 70 16 118/59 94 Nasal Cannula 4.0 06/18/16 06:00 67 12 101/54 93 Room Air 06/18/16 04:00 Room Air 06/18/16 04:00 36.8 64 14 104/58 94 Room Air 06/18/16 02:00 75 15 102/58 95 Room Air 06/18/16 00:01 36.8 77 14 112/75 97 Room Air 06/17/16 23:59 Room Air 06/17/16 22:00 86 15 134/78 95 Room Air 06/17/16 20:00 Room Air 06/17/16 20:00 36.6 94 15 132/67 95 Room Air 06/17/16 17:58 101 6 110/74 93 06/17/16 17:43 93/59 06/17/16 16:13 91 19 141/81 95 06/17/16 16:06 96 18 122/83 97 06/17/16 14:58 86 15 150/91 96 06/17/16 14:13 95 8 142/88 97 06/17/16 13:58 100 17 126/75 97 06/17/16 13:43 93 0 134/76 96 06/17/16 13:28 92 9 140/77 95 06/17/16 13:19 88 14 139/82 96 06/17/16 12:58 96 16 119/81 06/17/16 12:57 93 18 137/82 06/17/16 12:35 36.9 83 18 95 06/17/16 11:53 95 Room Air 06/17/16 11:35 36.9 83 18 238/114 95 Room Air Physical Exam General Appearance: WD/WN, no apparent distress Eyes: normal inspection, sclerae normal ENT: normal ENT inspection, pharynx normal Neck: supple, no adenopathy, trachea midline Respiratory/Chest: lungs clear, normal breath sounds, no respiratory distress Cardiovascular: regular rate, rhythm, no gallop, no murmur Abdomen: normal bowel sounds, non tender, soft, no organomegaly Extremities: non-tender, no calf tenderness Neurologic/Psychiatric: alert, oriented x 3 Skin: normal color, no rash Lymphatic: no adenopathy Laboratory Results Date/Time Source Procedure Growth Status 06/17/16 15:42 Blood Blood Culture Pending Received 06/17/16 15:33 Blood Blood Culture Pending Received 06/17/16 13:10 Nasal MRSA DNA Surveillance Screen - Final Specimen Negative for MRSA by DNA Probe Complete 06/17/16 20:30 Stool C.difficile Toxin B Gene (PCR) - Final No C. difficile toxin B gene detected Complete Last 24 Hours Test 06/17/16 11:05 06/17/16 11:24 06/17/16 16:00 06/17/16 21:07 Bedside Glucose 147 mg/dl 256 mg/dl Vancomycin Level Trough 20.3 mcg/ml Erythrocyte Sedimentation Rate 16 mm/hr C-Reactive Protein 0.51 mg/dl Test 06/18/16 06:00 White Blood Count 14.50 K/uL Red Blood Count 4.95 M/uL Hemoglobin 14.1 g/dL Hematocrit 40.5 % Mean Corpuscular Volume 81.8 fL Mean Corpuscular Hemoglobin 28.5 pg Mean Corpuscular Hemoglobin Concent 34.8 g/dl RDW Standard Deviation 37.6 fL RDW Coefficient of Variation 12.6 % Platelet Count 196 K/uL Mean Platelet Volume 9.7 fL Venous Blood pH 7.43 Sodium Level 138 mmol/L Potassium Level 2.9 mmol/L Chloride Level 104 mmol/L Carbon Dioxide Level 23 mmol/L Anion Gap 11.0 mmol/L Blood Urea Nitrogen 25 mg/dl Creatinine 1.20 mg/dl Est Creatinine Clear Calc Drug Dose 86.8 ml/min Estimated GFR () 79.5 Estimated GFR (Non- 68.6 BUN/Creatinine Ratio 20.5 Random Glucose 102 mg/dl Calcium Level 8.1 mg/dl Magnesium Level 2.2 mg/dl Brain MRI WITH AND WITHOUT CONTRAST HISTORY: Altered mental status. cva possible abscesses TECHNIQUE: Multiplanar multisequence MRI of the brain was performed both before and after the intravenous administration of contrast. COMPARISON STUDY: Brain MRI 06/15/2016. FINDINGS: Overall, no significant change in multiple scattered T2 hyperintense foci which demonstrate restricted diffusion. These are identified within the left cerebellar hemisphere, right occipital lobe, left high convexity and left basal ganglia. The dominant focus remains within the left cerebellar hemisphere. No new areas of restricted diffusion identified. Again, some these areas demonstrate less than expected loss of signal on ADC map. Therefore, these may represent an acute to subacute infarcts. Some of these areas also demonstrate a rounded appearance. Mild microvascular ischemic changes are again noted. No hematoma or midline shift. Opacified right frontal sinus and partial opacified ethmoid air cells are again noted. There are few opacified bilateral inferior mastoid air cells. The 1.1 cm focus of restricted diffusion within the left basal ganglia demonstrates mass effect along the left lateral ventricle. There is an old lacunar infarct seen within the right thalamus. Some of these T2 hyperintense areas demonstrate faint enhancement. This is nonspecific and can also be seen in the setting of subacute infarcts. Assessment and Plan (1) Malignant hypertensive urgency Cardiology consult in place Oral antihypertensives currently following Dr. Franklin's recommendations: SBP controlled since admission to ICU Continue current regimen Monitor on telemetry (2) Focal infarction of brain Vasculitis in differential as well as septic emboli based on history Neuro Consult in place Maintain blood pressure less than 180 WILIAN today to rule out endocarditis (3) Acute diarrhea Fecal management system in place; 200 mL out over last 8 hours C. difficile infection ruled out Discontinue fecal management system (4) Opiate dependence, continuous Pain management consult in place; was seen this morning Patient currently denies pain aside from headache Further recommendations per pain management (5) S/P bilateral hip replacements Orthopedics consult placed yesterday; rule out possible prosthetic joint infection However, unlikely. Repeat cultures sent yesterday Await Consult Recommendations (6) Chronic pain disorder Patient currently not complaining of pain, aside from headache Pain management consult in place Continue home Narcotics and Cymbalta Await recommendations (7) Migraine Status: Chronic Recent lumbar puncture, MRI demonstrates multiple infarcts, pretense of urgency during admission Home medication includes Imitrex 25 mg by mouth when necessary for migraine Control blood pressure as noted above Continue current pain regimen Neurology consult in place, appreciate Dr. 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 Orthopedic consult in place, awaiting recommendation (9) Diabetes mellitus, type II Status: Chronic Glucose 24 hour range: 102-256 Currently 102 and nothing by mouth for procedure A1C: 11.3 Consult Digital Learning Platforms Manager Sliding scale insulin in place Monitor blood sugars per protocol Resume diet when possible s/p completion of procedure (10) Hypertension Status: Chronic SBP: Low 100s Cardiology consult in place Monitor on telemetry Continue current Antihypertensive * Hydralazine 25 mg by mouth 3 times a day * Lisinopril 40 mg by mouth every morning Consider Descalating antihypertensives, if blood pressure remains in the low 100s (11) Sleep apnea Status: Chronic 55-year-old male with multiple medical comorbidities now with acute change in mental status with fever in the hospital, single positive blood culture for coagulase-negative Staph, and multiple subacute infarcts on MRI scan. Most likely, the coagulase-negative Staph represents a contaminant, as no obvious risk factors for coagulase negative Staph endocarditis. WILIAN shows no evidence of endocarditis, and follow-up blood cultures are negative. Would give consideration of discontinuation of vancomycin in next day or so, will discuss with all involved.
[2016-06-18] MEDS ORDERED: AMLODIPINE BESYLATE 5 MG TAB PO ONE (11:00)
[2016-06-18] MEDS: POTASSIUM CHLR 10 MEQ / WTR 10 MEQ in PREMIXED WATER 100 ML IV SCH ×4 (11:00→14:00)
[2016-06-18] MEDS: LISINOPRIL 40 MG TAB PO SCH (11:27)
[2016-06-18] MEDS: CHLORTHALIDONE 25 MG TAB PO SCH (11:27)
[2016-06-18] MEDS: DULOXETINE (CYMBALTA) 30 MG CAP PO SCH (11:28)
[2016-06-18] MEDS: OXYCODONE HCL 20 MG TABCR (OXYCONTIN) PO SCH ×2 (11:44→20:45)
--- NOTE | 2016-06-18 12:15 | TEE ---
*NOTICE TO RECEIVING LIBERTARIAN AGENCY This information is strictly Confidential and protected under [place] law. [place] law prohibits you from making any further disclosure of this information unless further disclosure is expressly permitted by the written consent of the person to whom it pertains or is authorized by law. A general authorization for the release of medical or other information is not sufficient for this purpose. Hospital accepts no responsibility if the information is made available to any other person, INCLUDING THE PATIENT. Interpretation Summary * Name: MAHNAZ PASCUAL Study Date: 06/18/2016 09:27 AM BP: 131/80 mmHg * Patient Location: [facility] HR: 65 * : 1960 (M/d/yyyy) Gender: Male Height: 71 in * Age: 55 yrs Ethnicity: [place] Weight: 226 lb * Ordering Physician: Yoav Franklin * Performed By: Natalee Bright RDCS * * Reason For Study: Endocarditis * BSA: 2.2 m2 * -- Conclusions -- * No valvular lesions present. * Normal valvular structure and function. Procedure Details * The transesophageal portion of this study was personally supervised by the undersigned interpreting physician. * WILIAN Probe #2 utilized for procedure. * The study was performed at bedside. * Time out was conducted by the physician, nurse, and computer hardware technician with positive identification of patient and procedure. * Informed consent for Transesophageal Echocardiogram was obtained prior to the procedure. * An intravenous line was placed. A topical anesthetic agent was used for oropharangeal anesthesia. A bite block was inserted. * The patient's vital signs, including blood pressure, heart rate, pulse oximetry and cardiac rhythm were monitored throughout the procedure . * Fentanyl 100 mcg was administered for procedural sedation. * Midazolam 4 mg administered for sedation. * The posterior oropharynx was anesthetized using a topical anesthetic spray. A bite guard was inserted. * A multifrequency, multiplane transesopheageal echocardiographic endoscope was inserted and manipulated in the standard fashion to achieve multiplane views. * The transesophageal probe was passed without difficulty. * The usual views were obtained; basal, mid-esophageal, transgastric and aortic views. * Contrast injection with agitated saline was performed. * A 2D transesophageal echocardiogram with Doppler and color flow Doppler was performed. Left Ventricle * The left ventricle is normal in size. * Left ventricular systolic function is normal. Atria * The left atrial size is normal. * Right atrial size is normal. * The interatrial septum is intact with no evidence for an atrial septal defect. Mitral Valve * The mitral valve is normal in structure and function. Tricuspid Valve * The tricuspid valve is normal in structure and function. Aortic Valve * The aortic valve is normal in structure and function. Pulmonic Valve * The pulmonic valve is normal in structure and function. Great Vessels * The aortic root and proximal ascending aorta are normal sized. Pericardium * There is no pericardial effusion.
[2016-06-18] MEDS: VANCOMYCIN INJ 1,300 MG in SODIUM CHLORIDE 0.9% 250ML 250 ML IV SCH ×2 (13:18→20:55)
[2016-06-18] MEDS: NSS + 20MEQ KCL 1000ML 1,000 ML IV SCH (15:10)
[2016-06-18] MEDS ORDERED: FENTANYL CITRATE INJ 50 MCG/1 ML 2 ML VIAL IV ONE (15:45)
[2016-06-18] MEDS ORDERED: MIDAZOLAM HCL 1 MG/ML 2ML VIAL IV ONE (15:45)
--- NOTE | 2016-06-18 16:39 | DIAGNOSTIC IMAGING REPORT ---
ULTRASOUND VENOUS DOPPLER LWR EXT BILA CLINICAL HISTORY: Leg swelling. History of DVTs. COMPARISON STUDY: No previous studies for comparison. FINDINGS: Real-time and color flow Doppler imaging were performed. Flow was seen within the femoral, popliteal and calf veins with no intraluminal thrombus demonstrated. The saphenous vein is patent. IMPRESSION: No evidence of lower extremity DVT. Electronically signed by: Ander Marr M.D. 06/18/2016 4:37 PM Dictated Date/Time: 06/18/2016 4:37 PM
--- NOTE | 2016-06-18 19:30 | PROGRESS NOTE ---
DATE: 06/18/2016 Jason has been moved to another room in the ICU but he is fine intellectually, he is not confused, he was not agitated. He has no focal findings. The left arm clumsiness that I thought was present yesterday is not evident and overall he seems to be getting close to his baseline. The enhanced MRI did not show anything of significance other than the presumptive embolic infarctions and the MRA did not show anything that would have been suggestive of vasculitis. Transesophageal echo has been done. I have not seen the official report but Jason tells me that it was "okay." I will wait until the official report however before I accept this. He does have a [place] filter in place from prior episodes of DVT and he is said to have factor V Leiden mutation but his Coumadin therapy which he had taken for years, was stopped and he has not apparently been on any aspirin. At this point, the major question is still whether he has an endocarditis as the cause of his embolic infarctions and wait and see what infectious disease and cardiology decide. For now in terms of anticoagulation, unless there is a clear embolic source, I would put him on aspirin/plavix but I wonder if we should repeat the coagulopathy workup at some point when things calm down a bit and see if he might be someone who needs to be on Coumadin. We will visit him tomorrow. Hopefully, we will have a few more answers then. MARIBEL
[2016-06-18] MEDS: INSULIN GLARGINE SOLOSTAR 100 UNITS/ML 3 ML PEN SC SCH (20:47)
--- NOTE | 2016-06-18 22:35 | ORTHOPEDIC CONSULTATION ---
DATE OF CONSULTATION: 06/18/2016 CHIEF COMPLAINT: Altered mental status, rule out hip infection. HISTORY OF PRESENT ILLNESS: This patient is a 55-year-old chronically ill male with multiple medical problems including type 2 diabetes, hypertension, trigeminal neuralgia, obstructive sleep apnea, depression and history of bilateral hip replacements performed many years ago in [facility]. He apparently was admitted approximately 3-4 days ago combative and with mental status changes. He has been hospitalized and had at least 1 laboratory blood test that showed the possibility of staph sepsis in the blood. An orthopedic consultation is requested specifically regarding his hip and to rule out any possibility of hip infection as a source. The patient again notes he had his hip performed in [facility] many years ago. He has had chronic hip and thigh pain bilaterally over the years. He states that this has not really changed, he did not have any escalation or increased pain with his current hospitalization or illness. He also has a history of chronic DVT and has a [place] filter in place. OBJECTIVE: Exam today - the patient is in bed. He is comfortable. He has well-healed scars consistent with previous surgeries. Both hips can be flexed and rotated with essentially no discomfort. The patient can actually actively move both hips without discomfort as well. LABORATORY STUDIES: Show a C-reactive protein of 0.51, erythrocyte sedimentation rate of 16. He does have an elevated white cell count at 14.5. X-RAYS: AP pelvis and lateral of the hip show bilateral total hip replacements in good position. There is no evidence of any bone loss or scalloping, alignment is good, there is minimal to no polyethylene wear, the hips are of a porcine growth type and again show no acute changes at all. ASSESSMENT: Altered mental status, possible staphylococcal bacteremia. DISCUSSION: It is highly unlikely that this patient has any seeding or any origination of infection from his hips. He has normal laboratory values and essentially no hip pain. I would be worried about his [place] filter as a possible source of sepsis. At this point, he is being appropriately treated and has not shown any sign of infecting or seeding his hips. We would be happy to see him again as needed.
[2016-06-19] VITALS (8 sets, daily range): BP systolic 129–161; BP diastolic 71–97; PULSE 68–79; TEMP 36.5–37.2; O2SAT 95–97
[2016-06-19 03:27] LABS: HSV TYPE 1 DNA Not Detected (Not Detected); HSV TYPE 1&2 DNA SOURCE CSF; HSV TYPE 2 DNA Not Detected (Not Detected); LYME DNA PCR CSF OR SYNOVIAL Not detected (Not Detected); LYME DNA SOURCE CSF
[2016-06-19] MEDS ORDERED: VANCOMYCIN TROUGH SCH (03:30)
[2016-06-19 04:07] LABS: HEMATOCRIT 39.8 % (42-52); MEAN CELL VOLUME 80.7 fL (80-100); MEAN CORPUSCULAR HGB CONC 35.9 g/dl (32-36); MEAN PLATELET VOLUME 9.7 fL (7.4-10.4); PLATELET COUNT 199 K/uL (130-400); RED BLOOD COUNT 4.93 M/uL (4.7-6.1); WHITE BLOOD COUNT 14.18 K/uL (4.8-10.8)
[2016-06-19] MEDS: VANCOMYCIN INJ 1,300 MG in SODIUM CHLORIDE 0.9% 250ML 250 ML IV SCH ×2 (04:11→21:22)
[2016-06-19 04:23] LABS: BUN/CREATININE RATIO 18.3 (10-20); CALCIUM 8.4 mg/dl (8.5-10.1); CREATININE 1.1 mg/dl (0.60-1.40); MAGNESIUM 1.9 mg/dl (1.8-2.4)
[2016-06-19] MEDS ORDERED: POTASSIUM CHLORIDE 10 MEQ TABCR PO STA (05:22)
[2016-06-19] MEDS ORDERED: MAGNESIUM SULFATE 1GM / D5W 1 GM in PREMIXED IN D5W 100 ML IV STA (05:23)
[2016-06-19] MEDS: ACETAMINOPHEN 325 MG TAB PO PRN ×2 (07:37→16:59)
[2016-06-19] MEDS: INSULIN ASPART 100 UNITS/ML 3 ML PEN SC SCH ×4 (07:49→21:00)
[2016-06-19] MEDS: INSULIN GLARGINE SOLOSTAR 100 UNITS/ML 3 ML PEN SC SCH ×2 (07:50→21:00)
[2016-06-19] MEDS: AMLODIPINE BESYLATE 5 MG TAB PO SCH (07:51)
[2016-06-19] MEDS: NSS + 20MEQ KCL 1000ML 1,000 ML IV SCH (07:51)
[2016-06-19] MEDS: CHLORTHALIDONE 25 MG TAB PO SCH (07:52)
[2016-06-19] MEDS: LISINOPRIL 40 MG TAB PO SCH (07:52)
[2016-06-19] MEDS: OXYCODONE HCL 20 MG TABCR (OXYCONTIN) PO SCH ×2 (07:55→21:29)
[2016-06-19] MEDS ORDERED: VANCOMYCIN CONSULT ACTIVE PRN (10:45)
[2016-06-19] MEDS ORDERED: DULOXETINE HCL 60 MG CAP PO SCH (11:30)
[2016-06-19] MEDS: DULOXETINE HCL 60 MG CAP PO SCH (11:35)
--- NOTE | 2016-06-19 11:42 | Cardiology Follow-Up ---
Subjective Subjective Date of Service: Jun 19, 2016. Pt evaluation today including: conversation w/ patient, conversation w/ family , physical exam, chart review, lab review, review of studies, review of inpatient medication list Additional Details: Pt seen and examined, with mother at bedside. States that he feels weak, otherwise, without complaint. Denies cp, sob, palpitations, lightheadedness or dizziness. Tele reviewed: sinus rhythm without arrhythmia or significant ectopy. Problem List Medical Problems: (1) DKA (diabetic ketoacidoses) Status: Acute (2) Sepsis Status: Acute Surgical Problems: (1) Status post sinus surgery Status: Chronic Review of Systems Constitutional: No chills, No fever Respiratory: No cough, No sputum Cardiac: No chest pain Abdomen: + diarrhea, No nausea, No pain, No vomiting Musculoskeletal: + joint pain (chronic bilateral hip pain) Psychiatric: + depression symptoms, No anxiety, No insomnia, No substance abuse Heme: No abnormal bleeding/bruising Objective Vital Signs Last Vital Signs Documentation Date Time Temp Pulse Resp B/P Pulse Ox O2 Delivery O2 Flow Rate FiO2 06/19/16 11:24 Room Air 06/19/16 07:52 37.0 74 16 136/84 96 06/18/16 18:01 4.0 Physical Exam: General Appearance: WD/WN, no apparent distress Eyes: bilateral eyes EOMI, bilateral eyes PERRL, bilateral eyes normal inspection ENT: normal ENT inspection, pharynx normal Neck: supple, no adenopathy, trachea midline Respiratory/Chest: lungs clear, normal breath sounds, no respiratory distress Cardiovascular: regular rate, rhythm, no gallop, no murmur Abdomen: normal bowel sounds, non tender, soft, no organomegaly Extremities: non-tender, no calf tenderness Neurologic/Psychiatric: alert, oriented x 3 Skin: normal color, no rash Lymphatic: no adenopathy Assessment and Plan 1. 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 Hypertension extremely labile with significant spike on 06/17 resolved likely secondary to cva cont current doses of amlodipine, lisinopril and chlorthalidone no further cardiac follow up necessary
--- NOTE | 2016-06-19 15:17 | Infectious Disease Progress Nt ---
Progress Note Date of Service Jun 19, 2016. Subjective Pt evaluation today including: conversation w/ patient, conversation w/ family (Mother), physical exam, chart review, lab review, review of studies, conversation w/ healthcare market consultant, review of inpatient medication list Still large amount of diarrhea via rectal tube. C difficile PCR negative. Mental status improved. Remains afebrile and hemodynamically stable. Orthopedic follow-up noted. No obvious septic arthritis. Follow-up blood cultures all negative. All Other Systems: Reviewed and Negative Medications Current Inpatient Medications Medications (Trade) Dose Ordered Sig/Kenroy Route Start Time Stop Time Status Last Admin Dose Admin Glucose (Glucose 40% Gel) UD PRN PO 06/14/16 15:15 07/14/16 15:14 Glucose (Glucose Chew Tab) 1 tabs UD PRN PO 06/14/16 15:15 07/14/16 15:14 Dextrose (Dextrose 50% 50ML Syringe) 50 ml UD PRN IV 06/14/16 15:15 07/14/16 15:14 Glucagon (Glucagon Inj) 1 mg UD PRN SQ 06/14/16 15:15 07/14/16 15:14 Acetaminophen (Tylenol Tab) 650 mg Q4H PRN PO 06/14/16 15:30 07/15/16 15:29 06/19/16 07:37 650 MG Ondansetron HCl (Zofran Inj) 4 mg Q6H PRN IV 06/14/16 15:30 07/14/16 15:29 06/17/16 10:06 4 MG Miscellaneous Information (Pharmacist Discharge Med Rec Consult) 1 ea UD PRN N/A 06/14/16 15:30 07/14/16 15:29 Miscellaneous Information (Consult Glycemic Management Pharmacy) 1 ea UD PRN N/A 06/14/16 15:45 07/14/16 15:44 Metoprolol Tartrate (Lopressor Iv) 2.5 mg Q6 PRN IV 06/14/16 16:30 07/14/16 16:29 06/15/16 17:53 2.5 MG Lorazepam (Ativan Inj) 1 mg Q4H PRN IV 06/14/16 17:00 07/14/16 16:59 06/15/16 15:17 1 MG Lorazepam 1 mg 1 mg ONE PRN IV 06/15/16 08:45 07/15/16 08:44 Lorazepam/Syringe (Ativan Inj/ Syringe) 1 ml @ 1 mls/min ONE PRN IV 06/15/16 08:45 07/15/16 08:44 06/15/16 10:42 1 MLS/MIN Insulin Aspart (novoLOG ASPART) SLIDING SCALE ACHS SC 06/15/16 11:00 07/15/16 10:59 06/19/16 11:46 5 UNITS Chlorthalidone (Hygroton Tab) 25 mg QAM PO 06/16/16 09:00 07/16/16 08:59 06/19/16 07:52 25 MG Al Hydroxide/Mg Hydroxide (Maalox Susp) 15 ml Q6H PRN PO 06/16/16 20:45 07/16/16 20:44 06/17/16 15:45 15 ML Lisinopril (Zestril Tab) 40 mg QAM PO 06/17/16 09:00 07/17/16 08:59 06/19/16 07:52 40 MG Oxycodone/ Acetaminophen (Percocet 7.5-325MG Tab) 1 tab Q6H PRN PO 06/17/16 10:00 07/01/16 09:59 06/18/16 02:21 1 TAB Duloxetine HCl (Cymbalta Cap) 60 mg QDL PO 06/19/16 11:30 07/19/16 11:29 06/19/16 11:35 60 MG Calcium Polycarbophil (Fibercon Tab) 1 tab BID PRN PO 06/17/16 15:45 07/17/16 15:44 06/17/16 17:55 1 TAB Loperamide HCl (Imodium Cap) 2 mg UD PRN PO 06/17/16 15:45 07/17/16 15:44 Gadobutrol (Gadavist) 10 mmol UD PRN IV 06/17/16 17:30 06/21/16 17:29 Oxycodone HCl 40 mg 40 mg Q12 PO 06/17/16 21:00 07/01/16 20:59 06/19/16 07:55 40 MG Potassium Chloride/Sodium Chloride (Nss + 20meq KCl 1000ml) 1,000 ml @ 60 mls/hr [id number] IV 06/17/16 22:30 07/17/16 22:29 2/7/17 07:51 60 MLS/HR Amlodipine Besylate (Norvasc Tab) 5 mg QAM PO 06/19/16 09:00 07/19/16 08:59 06/19/16 07:51 5 MG Insulin Glargine (Lantus Solostar Pen) 0 units if BSG less than 12... BID SC 06/18/16 21:00 07/18/16 20:59 06/19/16 07:50 6 UNIT Vancomycin HCl 1 ea 1 ea UD PRN N/A 06/19/16 10:45 07/19/16 10:44 Vancomycin HCl/ Sodium Chloride (Vancomycin Inj/ Nss 250ml) 276 ml @ 125 mls/hr Q12H IV 06/19/16 22:00 06/29/16 21:59 Objective Vital Signs Date Time Temp Pulse Resp B/P Pulse Ox O2 Delivery O2 Flow Rate FiO2 06/19/16 12:00 Room Air 06/19/16 11:24 Room Air 06/19/16 11:20 37.1 68 20 148/84 95 Room Air 06/19/16 08:00 Room Air 06/19/16 07:52 37.0 74 16 136/84 96 06/19/16 04:02 Room Air 06/19/16 03:52 37.1 69 17 129/73 95 Room Air 06/19/16 00:36 36.9 74 18 134/76 95 Room Air 06/19/16 00:02 Room Air 06/18/16 20:04 Room Air 06/18/16 19:30 36.5 71 19 135/85 96 Room Air 71 06/18/16 18:01 36.9 74 20 93 4.0 06/18/16 16:00 36.9 74 20 134/78 93 Room Air 06/18/16 16:00 Room Air Physical Exam General Appearance: WD/WN, no apparent distress Eyes: normal inspection, sclerae normal ENT: normal ENT inspection, pharynx normal Neck: supple, no adenopathy, trachea midline Respiratory/Chest: chest non-tender, lungs clear, normal breath sounds, no respiratory distress Cardiovascular: regular rate, rhythm, no gallop, no murmur Abdomen: normal bowel sounds, non tender, soft, no organomegaly Extremities: non-tender, no calf tenderness Neurologic/Psychiatric: alert, oriented x 3 Skin: normal color, no rash Lymphatic: no adenopathy Laboratory Results Last 24 Hours Test 06/18/16 16:51 06/18/16 17:04 06/18/16 20:34 06/19/16 03:59 Bedside Glucose 166 mg/dl 187 mg/dl Potassium Level 3.1 mmol/L 3.0 mmol/L White Blood Count 14.18 K/uL Red Blood Count 4.93 M/uL Hemoglobin 14.3 g/dL Hematocrit 39.8 % Mean Corpuscular Volume 80.7 fL Mean Corpuscular Hemoglobin 29.0 pg Mean Corpuscular Hemoglobin Concent 35.9 g/dl RDW Standard Deviation 36.4 fL RDW Coefficient of Variation 12.4 % Platelet Count 199 K/uL Mean Platelet Volume 9.7 fL Sodium Level 137 mmol/L Chloride Level 100 mmol/L Carbon Dioxide Level 26 mmol/L Anion Gap 11.0 mmol/L Blood Urea Nitrogen 20 mg/dl Creatinine 1.10 mg/dl Est Creatinine Clear Calc Drug Dose 94.2 ml/min Estimated GFR () 88.4 Estimated GFR (Non- 76.2 BUN/Creatinine Ratio 18.3 Random Glucose 152 mg/dl Calcium Level 8.4 mg/dl Magnesium Level 1.9 mg/dl Vancomycin Level Trough 26.9 mcg/ml Test 06/19/16 07:00 06/19/16 11:42 Bedside Glucose 124 mg/dl 169 mg/dl Assessment and Plan (1) Malignant hypertensive urgency Cardiology consult in place Oral antihypertensives currently following Dr. Franklin's recommendations: SBP controlled since admission to ICU Continue current regimen Monitor on telemetry (2) Focal infarction of brain Vasculitis in differential as well as septic emboli based on history Neuro Consult in place Maintain blood pressure less than 180 WILIAN today to rule out endocarditis (3) Acute diarrhea Fecal management system in place; 200 mL out over last 8 hours C. difficile infection ruled out Discontinue fecal management system (4) Opiate dependence, continuous Pain management consult in place; was seen this morning Patient currently denies pain aside from headache Further recommendations per pain management (5) S/P bilateral hip replacements Orthopedics consult placed yesterday; rule out possible prosthetic joint infection However, unlikely. Repeat cultures sent yesterday Await Consult Recommendations (6) Chronic pain disorder Patient currently not complaining of pain, aside from headache Pain management consult in place Continue home Narcotics and Cymbalta Await recommendations (7) Migraine Status: Chronic Recent lumbar puncture, MRI demonstrates multiple infarcts, pretense of urgency during admission Home medication includes Imitrex 25 mg by mouth when necessary for migraine Control blood pressure as noted above Continue current pain regimen Neurology consult in place, appreciate Dr. 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 Orthopedic consult in place, awaiting recommendation (9) Diabetes mellitus, type II Status: Chronic Glucose 24 hour range: 102-256 Currently 102 and nothing by mouth for procedure A1C: 11.3 Consult Callisthenics Instructor Sliding scale insulin in place Monitor blood sugars per protocol Resume diet when possible s/p completion of procedure (10) Hypertension Status: Chronic SBP: Low 100s Cardiology consult in place Monitor on telemetry Continue current Antihypertensive * Hydralazine 25 mg by mouth 3 times a day * Lisinopril 40 mg by mouth every morning Consider Descalating antihypertensives, if blood pressure remains in the low 100s (11) Sleep apnea Status: Chronic 55-year-old male with multiple medical comorbidities now with acute change in mental status with fever in the hospital, single positive blood culture for coagulase-negative Staph, and multiple subacute infarcts on MRI scan. Most likely, the coagulase-negative Staph represents a contaminant, as no obvious risk factors for coagulase negative Staph endocarditis. WILIAN shows no evidence of endocarditis, and follow-up blood cultures are negative. Would give consideration of discontinuation of vancomycin. We will discuss.
--- NOTE | 2016-06-19 15:32 | Pharmacy Progress Note ---
Pharmacy Antibiotic Prog Note Date of Service: Jun 19, 2016. Subjective: The patient is currently receiving Vancomycin 1300mg IV every 12 hours. The patient is currently on day # 6 of Vancomycin IV therapy. Objective: Height (Feet): 5 Height (Inches): 11.00 Weight (Kilograms): 103.000 Levels: Item Value Date Time Vancomycin Level Trough 26.9 mcg/ml 06/19/16 0359 Lab Results (24hrs): Laboratory Tests Test 06/19/16 03:59 BUN/Creatinine Ratio 18.3 Blood Urea Nitrogen 20 mg/dl Creatinine 1.10 mg/dl White Blood Count 14.18 K/uL Assessment & Plan: This drug level is Supratherapeutic. I will reduce frequency for patients Vancomycin. Change to Vancomycin 1300mg IV every 12 hours and check another trough level prior to 1000 dose on 06/21/16. The patients renal function has been somewhat erratic which has contributed to some inconsistent trough levels. Dr. Joe and several other disciplines have given input on this patients case. Dr. Joe is now at the point of considering discontinuation of the Vancomycin. Dr. Pimentel has seen and ruled out infection source from his artificial hip(s) but we will wait for the medical team to decide on a discontinuation time frame at this point. Goal trough level estimate: between 15-20 mcg/mL. Pharmacy will continue to follow and will adjust dose/frequency as necessary. Thank you
[2016-06-19 16:18] LABS: COD UR NEGATIVE NG/ML (CUTOFF=50); HYDROCOD UR NEGATIVE NG/ML (CUTOFF=50); HYDROMOR UR NEGATIVE NG/ML (CUTOFF=50); MORPHINE UR NEGATIVE NG/ML (CUTOFF=50); NORHYDROCODONE CONF UR NEGATIVE NG/ML (CUTOFF=50); OXYMORPH UR 965 NG/ML (CUTOFF=50)
--- NOTE | 2016-06-19 17:30 | Progress Note ---
Internal Med Progress Note Date of Service: Jun 19, 2016. Provider Documentation: SUBJECTIVE: Patient is alert/awake and is in no apparent distress. Answers my questions appropriately. Breathing comfortably. Still has rectal tube and has been passing liquid stools. OBJECTIVE: Vital Signs-as noted below Examination: General Appearance: Is Alert/Awake, In no apparent distress HEENT: Normocephalic, Eyes, Ears, Nose & Throat are normal. Neck: Supple, Midline trachea. Respiratory/Chest: lungs clear, normal breath sounds, no respiratory distress, no accessory muscle use Cardiovascular: regular rate, rhythm, no edema, no murmur Abdomen: normal bowel sounds, non tender, soft Extremities: normal inspection, no pedal edema Neurologic/Psychiatric: no motor/sensory deficits, alert, normal mood/affect Lab data as noted below. 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 of trigeminal neuralgia, hx. of migraines, SANAM presented with altered mental status/confusion and a fall Acute/Subacute Scattered Infarcts: Patient presented to the ER with altered mental status, disorientation, possible infectious vs. acute CVA. Clinically improving and is hemodynamically stable. -Head CT, Brain MRI, and Brain MRI with contrast/MRA performed = suggestive of acute-subacute CVA -Reviewed WILIAN and shows no clinically significant finding. -Neurology following. Thanks for input. Sepsis/Fever of Unknown Origin: Patient presented to the ER with +fevers, + leukocytosis, +tachycardia - meeting sepsis criteria Has been afebrile -Patient was pancultured; CXR, UA negative; due to neck pain, LP performed, but no significant findings -He was initially started on Levaquin, Vanco, Aztreonam, Acyclovir. Levaquin , Aztreonam and Acyclovir have been stopped as of 06/17 & is on Vancomycin for now. -Appreciate ID input. Thanks -Blood culture x 1 positive for coag neg staph. Repeat cultures pending Hyponatremia: Resolved Hypokalemia: Patient continues to have hypokalemia. Likely due to GI loss, diarrhea -Does not like the tablets, will replace through IV today, recheck K and Mg daily Hypertensive Urgency: Patient presented with elevated blood pressures in the 170s-180s, likely secondary to noncompliance On 06/17, patient's blood pressures increased to >200/100. He was tried on amlodipine, lisinopril, lopressor, chlorthalidone, hydralazine, imdur, clonidine with only slight improvement -He was given IV morphine for pain which seemed to have helped his blood pressure -Continue lisinopril, amlodipine, and b-ebnja --Noted Cardiology input. Thanks Elevated Troponin: Patient presented with elevated troponin, likely multifactorial: sepsis, hyperosmolar hyperglycemia, hypertensive urgency -Clinically stable and Cardiology is following the patient. Diarrhea: Patient has been having diarrhea throughout hospital stay. Antibiotics have been tapered, IVFs have been discontinued -Rectal tube placed for patient comfort -C. diff and stool cultures are negative -Loperamide and Fibercon started -if persistent, may need GI input Hyperlipidemia: LDL is 151. Will restart Statin once is clinically stable. Hyperosmolar Hyperglycemic State: Patient presented with BSGs > 400, elevated anion gap, acute kidney injury. Patient has been noncompliant with all medications at home, including insulin. HbA1c > 10 -He was initially started on an insulin drip. Was given IVFs and switched back to subq insulin -Currently on Lantus 12 units BID and an insulin sliding scale -glycemic control consult -Will need diabetic education prior to discharge Acute Kidney Injury: Resolved. Patient initially presented with creat of 2.0 likely due to dehydration, volume depletion -Given IVFs for HSS and creat has since been back to normal -Monitor GFR and avoid any Nephrotoxin. 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 Patient has been having chronic pain and uses opioids as outpatient to manage this He has difficulty daily due to the bilateral hip pain -Consult orthopedic surgery; possible hardware infection? -Pain management consulted - will follow and possible outpatient nerve block injections Thrombophilia: Has a hx. of thrombophilia including Factor V Leiden mutation & was once on Coumadin, but due to hematoma, was stopped s/p Carlin filter -Currently on Sq heparin q8 Depression: History of major depression disorder & was once on Cymbalta and Effexor. He had stopped taking these medications on his own As per patent's mom, he has been depression since stopping these medications -Psychiatry consulted and Cymbalta will be restarted at this time Patient is DNR DVT Prophylaxis: Sq Heparin Disposition: Pending DVT PROPHYLAXIS [] DISPOSITION [] Vital Signs: Date Time Temp Pulse Resp B/P Pulse Ox O2 Delivery O2 Flow Rate FiO2 06/19/16 16:00 Room Air 06/19/16 15:23 37.2 77 19 146/71 96 Room Air 06/19/16 12:00 Room Air 06/19/16 11:24 Room Air 06/19/16 11:20 37.1 68 20 148/84 95 Room Air 06/19/16 08:00 Room Air 06/19/16 07:52 37.0 74 16 136/84 96 06/19/16 04:02 Room Air 06/19/16 03:52 37.1 69 17 129/73 95 Room Air 06/19/16 00:36 36.9 74 18 134/76 95 Room Air 06/19/16 00:02 Room Air 06/18/16 20:04 Room Air 06/18/16 19:30 36.5 71 19 135/85 96 Room Air 71 06/18/16 18:01 36.9 74 20 93 4.0 Lab Results: Results Past 24 Hours Test 06/18/16 20:34 06/19/16 03:59 06/19/16 07:00 06/19/16 11:42 Range/Units Bedside Glucose 187 124 169 70-99 mg/dl White Blood Count 14.18 4.8-10.8 K/uL Red Blood Count 4.93 4.7-6.1 M/uL Hemoglobin 14.3 14.0-18.0 g/dL Hematocrit 39.8 42-52 % Mean Corpuscular Volume 80.7 80-100 fL Mean Corpuscular Hemoglobin 29.0 25-34 pg Mean Corpuscular Hemoglobin Concent 35.9 32-36 g/dl RDW Standard Deviation 36.4 36.4-46.3 fL RDW Coefficient of Variation 12.4 11.5-14.5 % Platelet Count 199 130-400 K/uL Mean Platelet Volume 9.7 7.4-10.4 fL Sodium Level 137 136-145 mmol/L Potassium Level 3.0 3.5-5.1 mmol/L Chloride Level 100 98-107 mmol/L Carbon Dioxide Level 26 21-32 mmol/L Anion Gap 11.0 3-11 mmol/L Blood Urea Nitrogen 20 7-18 mg/dl Creatinine 1.10 0.60-1.40 mg/dl Est Creatinine Clear Calc Drug Dose 94.2 ml/min Estimated GFR () 88.4 Estimated GFR (Non- 76.2 BUN/Creatinine Ratio 18.3 10-20 Random Glucose 152 70-99 mg/dl Calcium Level 8.4 8.5-10.1 mg/dl Magnesium Level 1.9 1.8-2.4 mg/dl Vancomycin Level Trough 26.9 SEE COMMENT mcg/ml Test 06/19/16 16:12 Range/Units Bedside Glucose 182 70-99 mg/dl
[2016-06-19] MEDS ORDERED: NURSING VERBAL MED ORDER ONE (21:15)
[2016-06-19] MEDS ORDERED: VANCOMYCIN INJ 1,300 MG in SODIUM CHLORIDE 0.9% 250ML 250 ML IV SCH (22:00)
--- NOTE | 2016-06-19 23:43 | PROGRESS NOTE ---
DATE: 06/19/2016 Jason looks great today. He has been moved to yet another room. He is not confused. He feels well. Dr. Joe has recommended stopping the vancomycin thinking the staph was contaminant and cardiology has found nothing to suggest significant valvular disorder, interatrial shunt or indeed any other source of emboli. We may not find the cause of this. This could have been due to some paroxysmal atrial fibrillation that we did not see and on an outpatient basis perhaps cardionet monitoring would be indicated. For now, I would suggest we get another coagulation profile as he did have what apparently was a Factor V Leiden issue in the past. I would recommend obtaining protein S, protein C, antithrombin III, antiprothrombin gene, factor V Leiden, MTHFR and the antiphospholipid antibody. I will let his attending physician decide when to order this. In terms of anticoagulation, I would send him home on aspirin and Plavix combination. Neurology could take a look at him again in about 4-6 weeks' time which would allow some of the outstanding laboratory studies to come back on the chart and see how he does after discharge. I will check back with him tomorrow. MARIBEL
[2016-06-20] VITALS (10 sets, daily range): BP systolic 121–162; BP diastolic 72–88; PULSE 69–102; TEMP 36.8–37.1; O2SAT 94–98
[2016-06-20 06:47] LABS: BASO % 0.3 %; BASO ABS # 0.04 K/uL (0-0.2); COMPLETE YES; EOS % 2.5 %; HEMATOCRIT 40.6 % (42-52); IG% 0.4 %; LYMPH % 19.7 %; LYMPH ABS # 2.74 K/uL (1.2-3.4); MEAN CELL VOLUME 81.2 fL (80-100); MEAN CORPUSCULAR HEMOGLOBIN 29.4 pg (25-34); MEAN CORPUSCULAR HGB CONC 36.2 g/dl (32-36); MEAN PLATELET VOLUME 9.8 fL (7.4-10.4); MONO % 7.8 %; NEUT % 69.3 %; PLATELET COUNT 211 K/uL (130-400); WHITE BLOOD COUNT 13.88 K/uL (4.8-10.8)
[2016-06-20 07:13] LABS: ALT/SGPT 36 U/L (12-78); BLOOD UREA NITROGEN 16 mg/dl (7-18); BUN/CREATININE RATIO 15.9 (10-20); CALCIUM 8.6 mg/dl (8.5-10.1); CARBON DIOXIDE 30 mmol/L (21-32); CHLORIDE 97 mmol/L (98-107); GLUCOSE 132 mg/dl (70-99); MAGNESIUM 2.1 mg/dl (1.8-2.4); SODIUM 137 mmol/L (136-145)
[2016-06-20 07:17] LABS: ALB/GLOB RATIO 0.9 (0.9-2); ALKALINE PHOSPHATASE 72 U/L (45-117); AST/SGOT 20 U/L (15-37)
[2016-06-20] MEDS: LISINOPRIL 40 MG TAB PO SCH (07:51)
[2016-06-20] MEDS: OXYCODONE HCL 20 MG TABCR (OXYCONTIN) PO SCH ×2 (07:52→20:08)
[2016-06-20] MEDS: AMLODIPINE BESYLATE 5 MG TAB PO SCH (07:53)
[2016-06-20] MEDS: INSULIN GLARGINE SOLOSTAR 100 UNITS/ML 3 ML PEN SC SCH ×2 (07:57→20:12)
[2016-06-20] MEDS: INSULIN ASPART 100 UNITS/ML 3 ML PEN SC SCH ×4 (07:57→20:07)
[2016-06-20] MEDS ORDERED: POTASSIUM CHLORIDE 20 MEQ TABCR PO ONE (08:45)
[2016-06-20] MEDS: VANCOMYCIN INJ 1,300 MG in SODIUM CHLORIDE 0.9% 250ML 250 ML IV SCH (10:08)
[2016-06-20] MEDS: DULOXETINE HCL 60 MG CAP PO SCH (11:30)
[2016-06-20] MEDS: ACETAMINOPHEN 325 MG TAB PO PRN (11:32)
--- NOTE | 2016-06-20 13:21 | Pharmacy Progress Note ---
Glycemic: Assessment & Plan Date of Service Jun 20, 2016. Assessment & Plan Recent Pertinent Medications Outpatient Anti-diabetic Regimen: * Lantus 25 units SQ HS * NovoLog 5 units SQ TID w/ meals * poor compliance with the regimen * A1c = 11.3 % 06/14/16 The patient is currently receiving: * Basal insulin: Lantus 6 units every 12 hours * Correctional Insulin: NovoLog Correction per scale AC/HS Goal Range: Low 120 mg/dL - High 140 mg/dL Correction Factor: 30 mg/dL/unit * Prandial insulin: Per carb ratio of 1 unit per 10 grams CHO consumed * Oral Agents: None currently Risk Factors for Insulin Resistance: * Infection: continues to receive Vancomycin IV * Diet: T1DM/AHA Assessment & Plan ASSESSMENT: 06/18/16: * Glycemic control has been quite good over the last 48 hours with the exception of an elevated post-prandial BSG at bedtime last evening * Prior to last evening, most BSGs had fallen in the range of 146-184 * The BSG spike to 259 last night was most likely due to lack of prandial insulin with dinner. * Fasting BSG 102 this AM with 24 units of basal insulin on board. He is NPO this AM for WILIAN, will give only 6 units instead of the ordered 12 units. Will resume the usual dose of 12 units this evening with appropriate hold parameters * NovoLog CF and CR have prevented climbing post-prandial hyperglycemia when used - no changes required 06/20/16: * Glycemic control has been adequate over the past 24-48 hours with 18-25 units per day administered * Fasting BSG WNL today - we will continue 6 units of basal insulin twice daily * much less than home dose (~50% decrease) secondary to non-compliance as an outpatient * NovoLog parameters remain appropriate PLAN FOR INPATIENT GLYCEMIC CONTROL: * Continuing Lantus 6 units SQ BID * hold if BSG is below 100mg/dL * Continue NovoLog AC and HS * Correction factor of 30 mg/dl/unit * Carb ratio of 1 unit per 10 grams CHO consumed * Goal range of Low 120 mg/dL - High 140 mg/dL * Please note that the plan above was derived based on current level of insulin resistance and hospital stress. These recommendations are appropriate for inpatient admission only. Plan of care upon discharge will need to be reassessed to avoid potential outpatient hypo/hyperglycemia. Thank you.
--- NOTE | 2016-06-20 15:07 | Neurology Progress Notes ---
Neurology Progress Note Date of Service Jun 20, 2016. 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 He was combative when he arrived and was sedated with 1 mg IV Ativan. According to chart mom states yesterday he was at baseline. He has been having severe migraines and neck pain for several months. He lives with his mother. She states he didn't know the date and could not recognize her. He told her he fell and his his head. He seemed off balance today with ambulating. He usually ambulates with a cane. In the ED there was no facial droop by nursing but he was noted to be confused His mother is currently in room and worried that they are not finding the source of the infection. Orthopedics didn't feel there was seeding from his previous hip surgeries but mention his caval filter as a possible source of sepsis. He does currently have a headache which he states he has been getting Tylenol and some narcotics for the pain. It is the same headache he has had since the admission. Objective Date Time Temp Pulse Resp B/P Pulse Ox O2 Delivery O2 Flow Rate FiO2 06/20/16 12:00 36.9 85 16 162/87 94 Room Air 06/20/16 12:00 98 Room Air 06/20/16 10:35 102 06/20/16 08:00 98 Room Air 06/20/16 04:00 Room Air 06/20/16 03:37 36.8 69 18 145/88 96 Room Air 06/19/16 23:59 Room Air 06/19/16 23:56 37.1 79 20 133/76 97 Room Air 06/19/16 20:00 Room Air 06/19/16 19:08 36.5 74 18 142/76 97 Room Air 06/19/16 16:00 Room Air 06/19/16 15:23 37.2 77 19 146/71 96 Room Air Last 24 Hours Test 06/19/16 16:12 06/19/16 20:02 06/20/16 06:33 06/20/16 06:40 Bedside Glucose 182 mg/dl 112 mg/dl 119 mg/dl White Blood Count 13.88 K/uL Red Blood Count 5.00 M/uL Hemoglobin 14.7 g/dL Hematocrit 40.6 % Mean Corpuscular Volume 81.2 fL Mean Corpuscular Hemoglobin 29.4 pg Mean Corpuscular Hemoglobin Concent 36.2 g/dl Platelet Count 211 K/uL Mean Platelet Volume 9.8 fL Neutrophils (%) (Auto) 69.3 % Lymphocytes (%) (Auto) 19.7 % Monocytes (%) (Auto) 7.8 % Eosinophils (%) (Auto) 2.5 % Basophils (%) (Auto) 0.3 % Neutrophils # (Auto) 9.62 K/uL Lymphocytes # (Auto) 2.74 K/uL Monocytes # (Auto) 1.08 K/uL Eosinophils # (Auto) 0.35 K/uL Basophils # (Auto) 0.04 K/uL RDW Standard Deviation 36.5 fL RDW Coefficient of Variation 12.5 % Immature Granulocyte % (Auto) 0.4 % Immature Granulocyte # (Auto) 0.05 K/uL Sodium Level 137 mmol/L Potassium Level 3.0 mmol/L Chloride Level 97 mmol/L Carbon Dioxide Level 30 mmol/L Anion Gap 10.0 mmol/L Blood Urea Nitrogen 16 mg/dl Creatinine 1.00 mg/dl Est Creatinine Clear Calc Drug Dose 104.3 ml/min Estimated GFR () 99.2 Estimated GFR (Non- 85.5 BUN/Creatinine Ratio 15.9 Random Glucose 132 mg/dl Calcium Level 8.6 mg/dl Magnesium Level 2.1 mg/dl Total Bilirubin 0.6 mg/dl Aspartate Amino Transf (AST/SGOT) 20 U/L Alanine Aminotransferase (ALT/SGPT) 36 U/L Alkaline Phosphatase 72 U/L Troponin I < 0.015 ng/ml Total Protein 6.4 gm/dl Albumin 3.1 gm/dl Globulin 3.3 gm/dl Albumin/Globulin Ratio 0.9 Test 06/20/16 11:22 06/20/16 13:30 Bedside Glucose 145 mg/dl Imaging: TTE-- Conclusions -- * No valvular lesions present. * Normal valvular structure and function. Exam: Physical Exam: Constitutional: appearance nourished, obese Ears, Nose, Mouth and Throat: mucous membranes moist, no injection and skin normal, eyes normal Cardiovascular: normal S-1 and S-2 and regular rate and rhythm Respiratory: course breath sounds Musculoskeletal: no peripheral edema Skin: no stigmata of neurocutaneous disease noted and normal and intact Eyes: extraocular muscles intact (EOMI) and pupils equal, round and reactive to light (PERRL) NEUROLOGIC EXAMINATION: Mental status: Alert and interactive Oriented to full date and location Oriented to person Speech fluent with no evidence of aphasia Cranial Nerves face is symmetric Coordination: finger to nose without bipass or tremor Gait/Stance: sitting in bed Motor: Negative for pronator drift of out stretched arms with eyes closed. Strength: biceps triceps hand nursing home director 5/5 bilaterally, hip flex plantar flex ext 5/5 bilaterally Current Inpatient Medications Medications (Trade) Dose Ordered Sig/Ken[place] Route Start Time Stop Time Status Last Admin Dose Admin Glucose (Glucose 40% Gel) UD PRN PO 06/14/16 15:15 07/14/16 15:14 Glucose (Glucose Chew Tab) 1 tabs UD PRN PO 06/14/16 15:15 07/14/16 15:14 Dextrose (Dextrose 50% 50ML Syringe) 50 ml UD PRN IV 06/14/16 15:15 07/14/16 15:14 Glucagon (Glucagon Inj) 1 mg UD PRN SQ 06/14/16 15:15 07/14/16 15:14 Acetaminophen (Tylenol Tab) 650 mg Q4H PRN PO 06/14/16 15:30 07/15/16 15:29 06/20/16 11:32 650 MG Ondansetron HCl (Zofran Inj) 4 mg Q6H PRN IV 06/14/16 15:30 07/14/16 15:29 06/17/16 10:06 4 MG Miscellaneous Information (Pharmacist Discharge Med Rec Consult) 1 ea UD PRN N/A 06/14/16 15:30 07/14/16 15:29 Miscellaneous Information (Consult Glycemic Management Pharmacy) 1 ea UD PRN N/A 06/14/16 15:45 07/14/16 15:44 Metoprolol Tartrate (Lopressor Iv) 2.5 mg Q6 PRN IV 06/14/16 16:30 07/14/16 16:29 06/15/16 17:53 2.5 MG Lorazepam (Ativan Inj) 1 mg Q4H PRN IV 06/14/16 17:00 07/14/16 16:59 06/15/16 15:17 1 MG Lorazepam 1 mg 1 mg ONE PRN IV 06/15/16 08:45 07/15/16 08:44 Lorazepam/Syringe (Ativan Inj/ Syringe) 1 ml @ 1 mls/min ONE PRN IV 06/15/16 08:45 07/15/16 08:44 06/15/16 10:42 1 MLS/MIN Insulin Aspart (novoLOG ASPART) SLIDING SCALE ACHS SC 06/15/16 11:00 07/15/16 10:59 06/20/16 11:30 4 UNITS Chlorthalidone (Hygroton Tab) 25 mg QAM PO 06/16/16 09:00 07/16/16 08:59 Future Hold 06/19/16 07:52 25 MG Al Hydroxide/Mg Hydroxide (Maalox Susp) 15 ml Q6H PRN PO 06/16/16 20:45 07/16/16 20:44 06/17/16 15:45 15 ML Lisinopril (Zestril Tab) 40 mg QAM PO 06/17/16 09:00 07/17/16 08:59 06/20/16 07:51 40 MG Oxycodone/ Acetaminophen (Percocet 7.5-325MG Tab) 1 tab Q6H PRN PO 06/17/16 10:00 07/01/16 09:59 06/18/16 02:21 1 TAB Duloxetine HCl (Cymbalta Cap) 60 mg QDL PO 06/19/16 11:30 07/19/16 11:29 06/20/16 11:30 60 MG Calcium Polycarbophil (Fibercon Tab) 1 tab BID PRN PO 06/17/16 15:45 07/17/16 15:44 06/17/16 17:55 1 TAB Loperamide HCl (Imodium Cap) 2 mg UD PRN PO 06/17/16 15:45 07/17/16 15:44 Gadobutrol (Gadavist) 10 mmol UD PRN IV 06/17/16 17:30 06/21/16 17:29 Oxycodone HCl (Oxycontin Tab) 40 mg Q12 PO 06/17/16 21:00 07/01/16 20:59 06/20/16 07:52 40 MG Amlodipine Besylate (Norvasc Tab) 5 mg QAM PO 06/19/16 09:00 07/19/16 08:59 06/20/16 07:53 5 MG Insulin Glargine (Lantus Solostar Pen) SEE PROTOCOL BID SC 06/18/16 21:00 07/18/16 20:59 06/20/16 07:57 6 UNIT Impression 55 year old male presents with MS change elevated WBC and glucose- improving Plan 1. LP attempted at bedside then done in radiology with no source of infection found 2. antibiotic per ID recommendations 3. sepsis workup but no source found 4. MRI brain with and without contrast- multiple scattered acute subacute infarcts 5. coag work up ordered 6. blood cultures no source found C diff was negative 7. fall precautions 8. no source of infection at this point 9. permissive hypertension should proceed with blood pressure control 10. should be on plavix and aspirin at this point 11. will see back in our office in 3-4 week to follow up on the coag labs I have seen and discussed above patient with Dr Cam Aparicio, neurology See my dictated note agree with the above findings and recommendations and discussed with Rocio Aparicio MD
--- NOTE | 2016-06-20 17:17 | PROGRESS NOTE ---
DATE: 06/20/2016 I saw Jason today, reviewed his case with Rocio Hudson. She has ordered the appropriate hypercoagulable state. He looks well, but I think he will probably need a little time at a rehabilitation facility before we can get him home. He feels a little weak. He has been up ambulating. There are no focal signs. For now until the coagulation workup is complete, which can take several weeks, I would discharge him on aspirin and Plavix and we probably ought to see him in neurology about 3-4 weeks after he is discharged. I will continue to look at him tomorrow.
--- NOTE | 2016-06-20 18:25 | Progress Note ---
Internal Med Progress Note Date of Service: Jun 20, 2016. Provider Documentation: SUBJECTIVE: Patient is alert/awake and is in no apparent distress. Answers my questions appropriately. Breathing comfortably. Rectal tube has been discontinued. Feels better. OBJECTIVE: Vital Signs-as noted below Examination: General Appearance: Is Alert/Awake, In no apparent distress HEENT: Normocephalic, Eyes, Ears, Nose & Throat are normal. Neck: Supple, Midline trachea. Respiratory/Chest: lungs clear, normal breath sounds, no respiratory distress, no accessory muscle use Cardiovascular: regular rate, rhythm, no edema, no murmur Abdomen: normal bowel sounds, non tender, soft Extremities: normal inspection, no pedal edema Neurologic/Psychiatric: no motor/sensory deficits, alert, normal mood/affect Lab data as noted below. 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 of trigeminal neuralgia, hx. of migraines, SANAM presented with altered mental status/confusion and a fall Acute/Subacute Scattered Infarcts: Patient presented to the ER with altered mental status, disorientation, possible infectious vs. acute CVA. Clinically improving and is hemodynamically stable. -Head CT, Brain MRI, and Brain MRI with contrast/MRA performed = suggestive of acute-subacute CVA -Reviewed WILIAN and shows no clinically significant finding. -Neurology following. Thanks for input. Sepsis/Fever of Unknown Origin: Patient presented to the ER with +fevers, + leukocytosis, +tachycardia - meeting sepsis criteria Has been afebrile -Patient was pancultured; CXR, UA negative; due to neck pain, LP performed, but no significant findings -He was initially started on Levaquin, Vanco, Aztreonam, Acyclovir. Levaquin , Aztreonam and Acyclovir have been stopped as of 06/17 & is on Vancomycin for now. -Appreciate ID input. Thanks -Blood culture x 1 positive for coag neg staph. Repeat cultures pending Hyponatremia: Resolved Hypokalemia: Patient continues to have hypokalemia. Likely due to GI loss, diarrhea -Does not like the tablets, will replace through IV today, recheck K and Mg daily Hypertensive Urgency: Patient presented with elevated blood pressures in the 170s-180s, likely secondary to noncompliance On 06/17, patient's blood pressures increased to >200/100. He was tried on amlodipine, lisinopril, lopressor, chlorthalidone, hydralazine, imdur, clonidine with only slight improvement -He was given IV morphine for pain which seemed to have helped his blood pressure -Continue lisinopril, amlodipine, and b-benja --Noted Cardiology input. Thanks Elevated Troponin: Patient presented with elevated troponin, likely multifactorial: sepsis, hyperosmolar hyperglycemia, hypertensive urgency -Clinically stable and Cardiology is following the patient. Diarrhea: Patient has been having diarrhea throughout hospital stay. Antibiotics have been tapered, IVFs have been discontinued -Rectal tube placed for patient comfort -C. diff and stool cultures are negative -Loperamide and Fibercon started -if persistent, may need GI input Hyperlipidemia: LDL is 151. Will restart Statin once is clinically stable. Hyperosmolar Hyperglycemic State: Patient presented with BSGs > 400, elevated anion gap, acute kidney injury. Patient has been noncompliant with all medications at home, including insulin. HbA1c > 10 -He was initially started on an insulin drip. Was given IVFs and switched back to subq insulin -Currently on Lantus 12 units BID and an insulin sliding scale -glycemic control consult -Will need diabetic education prior to discharge Acute Kidney Injury: Resolved. Patient initially presented with creat of 2.0 likely due to dehydration, volume depletion -Given IVFs for HSS and creat has since been back to normal -Monitor GFR and avoid any Nephrotoxin. 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 Patient has been having chronic pain and uses opioids as outpatient to manage this He has difficulty daily due to the bilateral hip pain -Consult orthopedic surgery; possible hardware infection? -Pain management consulted - will follow and possible outpatient nerve block injections Thrombophilia: Has a hx. of thrombophilia including Factor V Leiden mutation & was once on Coumadin, but due to hematoma, was stopped s/p [place] filter -Currently on Sq heparin q8 Depression: History of major depression disorder & was once on Cymbalta and Effexor. He had stopped taking these medications on his own As per patent's mom, he has been depression since stopping these medications -Psychiatry consulted and Cymbalta will be restarted at this time Patient is DNR DVT Prophylaxis: Sq Heparin Disposition: Pending Vital Signs: Date Time Temp Pulse Resp B/P Pulse Ox O2 Delivery O2 Flow Rate FiO2 06/20/16 16:00 98 Room Air 06/20/16 15:42 36.8 73 18 123/76 96 06/20/16 12:00 36.9 85 16 162/87 94 Room Air 06/20/16 12:00 98 Room Air 06/20/16 10:35 102 06/20/16 08:00 98 Room Air 06/20/16 04:00 Room Air 06/20/16 03:37 36.8 69 18 145/88 96 Room Air 06/19/16 23:59 Room Air 06/19/16 23:56 37.1 79 20 133/76 97 Room Air 06/19/16 20:00 Room Air 06/19/16 19:08 36.5 74 18 142/76 97 Room Air Lab Results: Results Past 24 Hours Test 06/19/16 20:02 06/20/16 06:33 06/20/16 06:40 06/20/16 11:22 Range/Units Bedside Glucose 112 119 145 70-99 mg/dl White Blood Count 13.88 4.8-10.8 K/uL Red Blood Count 5.00 4.7-6.1 M/uL Hemoglobin 14.7 14.0-18.0 g/dL Hematocrit 40.6 42-52 % Mean Corpuscular Volume 81.2 80-100 fL Mean Corpuscular Hemoglobin 29.4 25-34 pg Mean Corpuscular Hemoglobin Concent 36.2 32-36 g/dl Platelet Count 211 130-400 K/uL Mean Platelet Volume 9.8 7.4-10.4 fL Neutrophils (%) (Auto) 69.3 % Lymphocytes (%) (Auto) 19.7 % Monocytes (%) (Auto) 7.8 % Eosinophils (%) (Auto) 2.5 % Basophils (%) (Auto) 0.3 % Neutrophils # (Auto) 9.62 1.4-6.5 K/uL Lymphocytes # (Auto) 2.74 1.2-3.4 K/uL Monocytes # (Auto) 1.08 0.11-0.59 K/uL Eosinophils # (Auto) 0.35 0-0.5 K/uL Basophils # (Auto) 0.04 0-0.2 K/uL RDW Standard Deviation 36.5 36.4-46.3 fL RDW Coefficient of Variation 12.5 11.5-14.5 % Immature Granulocyte % (Auto) 0.4 % Immature Granulocyte # (Auto) 0.05 0.00-0.02 K/uL Sodium Level 137 136-145 mmol/L Potassium Level 3.0 3.5-5.1 mmol/L Chloride Level 97 98-107 mmol/L Carbon Dioxide Level 30 21-32 mmol/L Anion Gap 10.0 3-11 mmol/L Blood Urea Nitrogen 16 7-18 mg/dl Creatinine 1.00 0.60-1.40 mg/dl Est Creatinine Clear Calc Drug Dose 104.3 ml/min Estimated GFR () 99.2 Estimated GFR (Non- 85.5 BUN/Creatinine Ratio 15.9 10-20 Random Glucose 132 70-99 mg/dl Calcium Level 8.6 8.5-10.1 mg/dl Magnesium Level 2.1 1.8-2.4 mg/dl Total Bilirubin 0.6 0.2-1 mg/dl Aspartate Amino Transf (AST/SGOT) 20 15-37 U/L Alanine Aminotransferase (ALT/SGPT) 36 12-78 U/L Alkaline Phosphatase 72 45-117 U/L Troponin I < 0.015 0-0.045 ng/ml Total Protein 6.4 6.4-8.2 gm/dl Albumin 3.1 3.4-5.0 gm/dl Globulin 3.3 2.5-4.0 gm/dl Albumin/Globulin Ratio 0.9 0.9-2 Test 06/20/16 13:30 06/20/16 16:17 Range/Units Bedside Glucose 199 70-99 mg/dl
[2016-06-21] VITALS (9 sets, daily range): BP systolic 111–145; BP diastolic 68–94; PULSE 71–91; TEMP 36.6–37.4; O2SAT 94–96; Ht 180.3 cm; Wt 101.8 kg
[2016-06-21] MEDS ORDERED: VANCOMYCIN TROUGH SCH ×2 (03:30→09:30)
[2016-06-21 06:14] LABS: BASO % 0.4 %; BASO ABS # 0.05 K/uL (0-0.2); COMPLETE YES; EOS % 2.4 %; HEMATOCRIT 39.6 % (42-52); IG% 0.3 %; LYMPH % 17.3 %; LYMPH ABS # 2.36 K/uL (1.2-3.4); MEAN CELL VOLUME 81.5 fL (80-100); MEAN CORPUSCULAR HGB CONC 35.6 g/dl (32-36); MEAN PLATELET VOLUME 9.9 fL (7.4-10.4); MONO % 8.9 %; NEUT % 70.7 %; PLATELET COUNT 222 K/uL (130-400); RED BLOOD COUNT 4.86 M/uL (4.7-6.1); WHITE BLOOD COUNT 13.61 K/uL (4.8-10.8)
[2016-06-21 06:42] LABS: BUN/CREATININE RATIO 18.3 (10-20); CALCIUM 8.6 mg/dl (8.5-10.1); CREATININE 1.1 mg/dl (0.60-1.40)
[2016-06-21] MEDS ORDERED: POTASSIUM CHLORIDE 20 MEQ TABCR PO ONE (07:30)
[2016-06-21] MEDS: OXYCODONE HCL 20 MG TABCR (OXYCONTIN) PO SCH ×2 (08:17→21:12)
[2016-06-21] MEDS: LISINOPRIL 40 MG TAB PO SCH (08:19)
[2016-06-21] MEDS: AMLODIPINE BESYLATE 5 MG TAB PO SCH (08:20)
[2016-06-21] MEDS: INSULIN ASPART 100 UNITS/ML 3 ML PEN SC SCH ×4 (08:25→21:19)
[2016-06-21] MEDS: INSULIN GLARGINE SOLOSTAR 100 UNITS/ML 3 ML PEN SC SCH ×2 (08:26→21:20)
[2016-06-21] MEDS: POTASSIUM CHLORIDE 20 MEQ TABCR PO SCH ×2 (08:39→21:13)
[2016-06-21] MEDS: OXYCODONE/ACETAMINOPHEN 7.5-325 TAB PO PRN ×2 (10:16→16:46)
[2016-06-21] MEDS: DULOXETINE HCL 60 MG CAP PO SCH (12:26)
--- NOTE | 2016-06-21 15:45 | Neurology Progress Notes ---
Neurology Progress Note Date of Service Jun 21, 2016. 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 He was combative when he arrived and was sedated with 1 mg IV Ativan. According to chart mom states yesterday he was at baseline. He has been having severe migraines and neck pain for several months. He lives with his mother. She states he didn't know the date and could not recognize her. He told her he fell and his his head. He seemed off balance today with ambulating. He usually ambulates with a cane. In the ED there was no facial droop by nursing but he was noted to be confused Orthopedics didn't feel there was seeding from his previous hip surgeries but mention his caval filter as a possible source of sepsis. He does currently have a mild headache which he states he has been getting Tylenol and some narcotics for the pain. It is the same headache he has had since the admission. he also complains of hip pain which has been ongoing for years. He is reading the newspaper. denies CP, SOB, abdominal pain, N, V, D. Objective Date Time Temp Pulse Resp B/P Pulse Ox O2 Delivery O2 Flow Rate FiO2 06/21/16 15:20 37.4 79 18 137/83 96 Room Air 06/21/16 13:51 37.1 77 18 121/74 94 Room Air 06/21/16 07:18 37.3 71 18 136/73 95 Room Air 06/21/16 04:00 94 Room Air 06/21/16 03:36 37.0 75 17 111/68 96 Room Air 06/20/16 23:59 94 Room Air 06/20/16 23:40 37.1 76 18 141/79 94 Room Air 06/20/16 20:00 94 Room Air 06/20/16 19:41 36.9 81 18 140/80 94 Room Air 06/20/16 16:00 98 Room Air 06/20/16 15:42 36.8 73 18 123/76 96 Last 24 Hours Test 06/20/16 16:17 06/20/16 20:07 06/21/16 05:48 06/21/16 06:30 Bedside Glucose 199 mg/dl 138 mg/dl 128 mg/dl White Blood Count 13.61 K/uL Red Blood Count 4.86 M/uL Hemoglobin 14.1 g/dL Hematocrit 39.6 % Mean Corpuscular Volume 81.5 fL Mean Corpuscular Hemoglobin 29.0 pg Mean Corpuscular Hemoglobin Concent 35.6 g/dl Platelet Count 222 K/uL Mean Platelet Volume 9.9 fL Neutrophils (%) (Auto) 70.7 % Lymphocytes (%) (Auto) 17.3 % Monocytes (%) (Auto) 8.9 % Eosinophils (%) (Auto) 2.4 % Basophils (%) (Auto) 0.4 % Neutrophils # (Auto) 9.62 K/uL Lymphocytes # (Auto) 2.36 K/uL Monocytes # (Auto) 1.21 K/uL Eosinophils # (Auto) 0.33 K/uL Basophils # (Auto) 0.05 K/uL RDW Standard Deviation 36.3 fL RDW Coefficient of Variation 12.5 % Immature Granulocyte % (Auto) 0.3 % Immature Granulocyte # (Auto) 0.04 K/uL Sodium Level 136 mmol/L Potassium Level 3.0 mmol/L Chloride Level 98 mmol/L Carbon Dioxide Level 28 mmol/L Anion Gap 10.0 mmol/L Blood Urea Nitrogen 20 mg/dl Creatinine 1.10 mg/dl Est Creatinine Clear Calc Drug Dose 92.8 ml/min Estimated GFR () 88.4 Estimated GFR (Non- 76.2 BUN/Creatinine Ratio 18.3 Random Glucose 136 mg/dl Calcium Level 8.6 mg/dl Magnesium Level 2.0 mg/dl Test 06/21/16 11:15 Bedside Glucose 233 mg/dl Imaging: no new imaging Exam: Physical Exam: Constitutional: B appearance nourished, healthy and obese Ears, Nose, Mouth and Throat: mucous membranes moist, no injection and skin normal, eyes normal Cardiovascular: normal S-1 and S-2 and regular rate and rhythm Respiratory: course breath sounds Musculoskeletal: no peripheral edema Skin: no stigmata of neurocutaneous disease noted and normal and intact Eyes: extraocular muscles intact (EOMI) and pupils equal, round and reactive to light (PERRL) NEUROLOGIC EXAMINATION: Mental status: Alert and interactive Oriented to full date and location Oriented to person Speech fluent with no evidence of aphasia Cranial Nerves smile eye brow raise symmetric, tongue midline Coordination: finger to nose without bi pass or tremor Gait/Stance: sitting up in bed Motor: Negative for pronator drift of out stretched arms with eyes closed. Strength: biceps triceps, hand roof technician 5/5 bilaterally, hip flex plantar flex ext 5/5 bilaterally Current Inpatient Medications Medications (Trade) Dose Ordered Sig/[place] Route Start Time Stop Time Status Last Admin Dose Admin Glucose (Glucose 40% Gel) UD PRN PO 06/14/16 15:15 07/14/16 15:14 Glucose (Glucose Chew Tab) 1 tabs UD PRN PO 06/14/16 15:15 07/14/16 15:14 Dextrose (Dextrose 50% 50ML Syringe) 50 ml UD PRN IV 06/14/16 15:15 07/14/16 15:14 Glucagon (Glucagon Inj) 1 mg UD PRN SQ 06/14/16 15:15 07/14/16 15:14 Acetaminophen (Tylenol Tab) 650 mg Q4H PRN PO 06/14/16 15:30 07/15/16 15:29 06/20/16 11:32 650 MG Ondansetron HCl (Zofran Inj) 4 mg Q6H PRN IV 06/14/16 15:30 07/14/16 15:29 06/17/16 10:06 4 MG Miscellaneous Information (Pharmacist Discharge Med Rec Consult) 1 ea UD PRN N/A 06/14/16 15:30 07/14/16 15:29 Miscellaneous Information (Consult Glycemic Management Pharmacy) 1 UD PRN N/A 06/14/16 15:45 07/14/16 15:44 Metoprolol Tartrate (Lopressor Iv) 2.5 mg Q6 PRN IV 06/14/16 16:30 07/14/16 16:29 06/15/16 17:53 2.5 MG Lorazepam (Ativan Inj) 1 mg Q4H PRN IV 06/14/16 17:00 07/14/16 16:59 06/15/16 15:17 1 MG Lorazepam 1 mg 1 mg ONE PRN IV 06/15/16 08:45 07/15/16 08:44 Lorazepam/Syringe (Ativan Inj/ Syringe) 1 ml @ 1 mls/min ONE PRN IV 06/15/16 08:45 3/5/17 08:44 06/15/16 10:42 1 MLS/MIN Insulin Aspart (novoLOG ASPART) SLIDING SCALE ACHS SC 06/15/16 11:00 07/15/16 10:59 06/21/16 11:00 9 UNITS Chlorthalidone (Hygroton Tab) 25 mg QAM PO 06/16/16 09:00 07/16/16 08:59 Future Hold 06/19/16 07:52 25 MG Al Hydroxide/Mg Hydroxide (Maalox Susp) 15 ml Q6H PRN PO 06/16/16 20:45 07/16/16 20:44 06/17/16 15:45 15 ML Lisinopril (Zestril Tab) 40 mg QAM PO 06/17/16 09:00 07/17/16 08:59 06/21/16 08:19 40 MG Oxycodone/ Acetaminophen (Percocet 7.5-325MG Tab) 1 tab Q6H PRN PO 06/17/16 10:00 07/01/16 09:59 06/21/16 10:16 1 TAB Duloxetine HCl (Cymbalta Cap) 60 mg QDL PO 06/19/16 11:30 07/19/16 11:29 06/21/16 12:26 60 MG Calcium Polycarbophil (Fibercon Tab) 1 tab BID PRN PO 06/17/16 15:45 07/17/16 15:44 06/17/16 17:55 1 TAB Loperamide HCl (Imodium Cap) 2 mg UD PRN PO 06/17/16 15:45 07/17/16 15:44 Gadobutrol (Gadavist) 10 mmol UD PRN IV 06/17/16 17:30 06/21/16 17:29 Oxycodone HCl (Oxycontin Tab) 40 mg Q12 PO 06/17/16 21:00 07/01/16 20:59 06/21/16 08:17 40 MG Amlodipine Besylate (Norvasc Tab) 5 mg QAM PO 06/19/16 09:00 07/19/16 08:59 06/21/16 08:20 5 MG Insulin Glargine (Lantus Solostar Pen) SEE PROTOCOL BID SC 06/18/16 21:00 07/18/16 20:59 2/9/17 08:26 6 UNIT Potassium Chloride (Klor-Con Tab) 20 meq BID PO 06/21/16 09:00 07/21/16 08:59 06/21/16 08:39 20 MEQ Impression 55 year old male presents with MS change elevated WBC and glucose- improving Plan 1. LP attempted at bedside then done in radiology with no source of infection found 2. antibiotic per ID recommendations 3. sepsis workup but no source found 4. MRI brain with and without contrast- multiple scattered acute subacute infarcts 5. coag work up ordered 6. blood cultures no source found C diff was negative 7. fall precautions 8. no source of infection at this point 9. permissive hypertension then should proceed with blood pressure control 10. should be on plavix and aspirin at this point 11. will see back in our office in 3-4 week to follow up on the coag labs I have seen and discussed above patient with Dr Cam Aparicio, neurology Patient seen and discussed with Rocio Hudson ASA and plavix apparently never started so we have done so Follow up post discharge with neuro in about three to four weeks plans uncertain at this time ie Rehab?? home care?? we will sign off at present as for now Neurology has no more to offer until coag workup is back Cam Aparicio MD
[2016-06-21] MEDS ORDERED: ALPRAZOLAM 0.5 MG TAB PO PRN (16:15)
--- NOTE | 2016-06-21 16:16 | Progress Note ---
Internal Med Progress Note Date of Service: Jun 21, 2016. Provider Documentation: SUBJECTIVE: Patient is alert/awake and is in no apparent distress. Answers my questions appropriately. Breathing comfortably. Rectal tube has been discontinued. Feels better. OBJECTIVE: Vital Signs-as noted below Examination: General Appearance: Is Alert/Awake, In no apparent distress HEENT: Normocephalic, Eyes, Ears, Nose & Throat are normal. Neck: Supple, Midline trachea. Respiratory/Chest: lungs clear, normal breath sounds, no respiratory distress, no accessory muscle use Cardiovascular: regular rate, rhythm, no edema, no murmur Abdomen: normal bowel sounds, non tender, soft Extremities: normal inspection, no pedal edema Neurologic/Psychiatric: no motor/sensory deficits, alert, normal mood/affect Lab data as noted below. 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 of trigeminal neuralgia, hx. of migraines, SANAM presented with altered mental status/confusion and a fall Acute/Subacute Scattered Infarcts: Patient presented to the ER with altered mental status, disorientation, possible infectious vs. acute CVA. Clinically improving and is hemodynamically stable. -Head CT, Brain MRI, and Brain MRI with contrast/MRA performed = suggestive of acute-subacute CVA -Reviewed WILIAN and shows no clinically significant finding. -Neurology following. Thanks for input. Sepsis/Fever of Unknown Origin: Patient presented to the ER with +fevers, + leukocytosis, +tachycardia - meeting sepsis criteria Has been afebrile -Patient was pancultured; CXR, UA negative; due to neck pain, LP performed, but no significant findings -He was initially started on Levaquin, Vanco, Aztreonam, Acyclovir. Levaquin , Aztreonam and Acyclovir have been stopped as of 06/17 & is on Vancomycin for now which I intend to stop soon.. -Appreciate ID input. Thanks -Blood culture x 1 positive for coag neg staph. Repeat cultures pending Hyponatremia: Resolved Hypokalemia: Patient continues to have hypokalemia. Likely due to GI loss, diarrhea -Does not like the tablets, will replace through IV today, recheck K and Mg daily Hypertensive Urgency: Patient presented with elevated blood pressures in the 170s-180s, likely secondary to noncompliance On 06/17, patient's blood pressures increased to >200/100. He was tried on amlodipine, lisinopril, lopressor, chlorthalidone, hydralazine, imdur, clonidine with only slight improvement -He was given IV morphine for pain which seemed to have helped his blood pressure -Continue lisinopril, amlodipine, and b-benja --Noted Cardiology input. Thanks Elevated Troponin: Patient presented with elevated troponin, likely multifactorial: sepsis, hyperosmolar hyperglycemia, hypertensive urgency -Clinically stable and Cardiology is following the patient. Diarrhea: Patient has been having diarrhea throughout hospital stay. Antibiotics have been tapered, IVFs have been discontinued -Rectal tube placed for patient comfort -C. diff and stool cultures are negative -Loperamide and Fibercon started -if persistent, may need GI input Hyperlipidemia: LDL is 151. Will restart Statin once is clinically stable. Hyperosmolar Hyperglycemic State: Patient presented with BSGs > 400, elevated anion gap, acute kidney injury. Patient has been noncompliant with all medications at home, including insulin. HbA1c > 10 -He was initially started on an insulin drip. Was given IVFs and switched back to subq insulin -Currently on Lantus 12 units BID and an insulin sliding scale -glycemic control consult -Will need diabetic education prior to discharge Acute Kidney Injury: Resolved. Patient initially presented with creat of 2.0 likely due to dehydration, volume depletion -Given IVFs for HSS and creat has since been back to normal -Monitor GFR and avoid any Nephrotoxin. 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 Patient has been having chronic pain and uses opioids as outpatient to manage this He has difficulty daily due to the bilateral hip pain -Consult orthopedic surgery; possible hardware infection? -Pain management consulted - will follow and possible outpatient nerve block injections Thrombophilia: Has a hx. of thrombophilia including Factor V Leiden mutation & was once on Coumadin, but due to hematoma, was stopped s/p [place] filter -Currently on Sq heparin q8 Depression: History of major depression disorder & was once on Cymbalta and Effexor. He had stopped taking these medications on his own As per patent's mom, he has been depression since stopping these medications -Psychiatry consulted and Cymbalta will be restarted at this time Patient is DNR DVT Prophylaxis: Sq Heparin Disposition: Pending Vital Signs: Date Time Temp Pulse Resp B/P Pulse Ox O2 Delivery O2 Flow Rate FiO2 06/21/16 15:20 37.4 79 18 137/83 96 Room Air 06/21/16 13:51 37.1 77 18 121/74 94 Room Air 06/21/16 07:18 37.3 71 18 136/73 95 Room Air 06/21/16 04:00 94 Room Air 06/21/16 03:36 37.0 75 17 111/68 96 Room Air 06/20/16 23:59 94 Room Air 06/20/16 23:40 37.1 76 18 141/79 94 Room Air 06/20/16 20:00 94 Room Air 06/20/16 19:41 36.9 81 18 140/80 94 Room Air Lab Results: Results Past 24 Hours Test 06/20/16 16:17 06/20/16 20:07 06/21/16 05:48 06/21/16 06:30 Range/Units Bedside Glucose 199 138 128 70-99 mg/dl White Blood Count 13.61 4.8-10.8 K/uL Red Blood Count 4.86 4.7-6.1 M/uL Hemoglobin 14.1 14.0-18.0 g/dL Hematocrit 39.6 42-52 % Mean Corpuscular Volume 81.5 80-100 fL Mean Corpuscular Hemoglobin 29.0 25-34 pg Mean Corpuscular Hemoglobin Concent 35.6 32-36 g/dl Platelet Count 222 130-400 K/uL Mean Platelet Volume 9.9 7.4-10.4 fL Neutrophils (%) (Auto) 70.7 % Lymphocytes (%) (Auto) 17.3 % Monocytes (%) (Auto) 8.9 % Eosinophils (%) (Auto) 2.4 % Basophils (%) (Auto) 0.4 % Neutrophils # (Auto) 9.62 1.4-6.5 K/uL Lymphocytes # (Auto) 2.36 1.2-3.4 K/uL Monocytes # (Auto) 1.21 0.11-0.59 K/uL Eosinophils # (Auto) 0.33 0-0.5 K/uL Basophils # (Auto) 0.05 0-0.2 K/uL RDW Standard Deviation 36.3 36.4-46.3 fL RDW Coefficient of Variation 12.5 11.5-14.5 % Immature Granulocyte % (Auto) 0.3 % Immature Granulocyte # (Auto) 0.04 0.00-0.02 K/uL Sodium Level 136 136-145 mmol/L Potassium Level 3.0 3.5-5.1 mmol/L Chloride Level 98 98-107 mmol/L Carbon Dioxide Level 28 21-32 mmol/L Anion Gap 10.0 3-11 mmol/L Blood Urea Nitrogen 20 7-18 mg/dl Creatinine 1.10 0.60-1.40 mg/dl Est Creatinine Clear Calc Drug Dose 92.8 ml/min Estimated GFR () 88.4 Estimated GFR (Non- 76.2 BUN/Creatinine Ratio 18.3 10-20 Random Glucose 136 70-99 mg/dl Calcium Level 8.6 8.5-10.1 mg/dl Magnesium Level 2.0 1.8-2.4 mg/dl Test 06/21/16 11:15 Range/Units Bedside Glucose 233 70-99 mg/dl
[2016-06-21] MEDS ORDERED: ASPIRIN 81 MG ECTAB PO ONE (16:30)
[2016-06-21] MEDS ORDERED: CLOPIDOGREL BISULFATE 75 MG TAB PO ONE (16:30)
--- NOTE | 2016-06-21 16:59 | Infectious Disease Progress Nt ---
Progress Note Date of Service Jun 21, 2016. Subjective Pt evaluation today including: conversation w/ patient, physical exam, chart review, lab review, review of studies, conversation w/ legal nurse consultant, review of inpatient medication list patient offering no complaints today. Remains afebrile. Mental status much improved. follow-up blood cultures negative. All Other Systems: Reviewed and Negative Medications Current Inpatient Medications Medications (Trade) Dose Ordered Sig/[place] Route Start Time Stop Time Status Last Admin Dose Admin Glucose (Glucose 40% Gel) UD PRN PO 06/14/16 15:15 07/14/16 15:14 Glucose (Glucose Chew Tab) 1 tabs UD PRN PO 06/14/16 15:15 07/14/16 15:14 Dextrose (Dextrose 50% 50ML Syringe) 50 ml UD PRN IV 06/14/16 15:15 07/14/16 15:14 Glucagon (Glucagon Inj) 1 mg UD PRN SQ 06/14/16 15:15 07/14/16 15:14 Acetaminophen (Tylenol Tab) 650 mg Q4H PRN PO 06/14/16 15:30 07/15/16 15:29 06/20/16 11:32 650 MG Ondansetron HCl (Zofran Inj) 4 mg Q6H PRN IV 06/14/16 15:30 07/14/16 15:29 06/17/16 10:06 4 MG Miscellaneous Information (Pharmacist Discharge Med Rec Consult) 1 ea UD PRN N/A 06/14/16 15:30 07/14/16 15:29 Miscellaneous Information (Consult Glycemic Management Pharmacy) 1 ea UD PRN N/A 06/14/16 15:45 07/14/16 15:44 Metoprolol Tartrate (Lopressor Iv) 2.5 mg Q6 PRN IV 06/14/16 16:30 07/14/16 16:29 06/15/16 17:53 2.5 MG Insulin Aspart (novoLOG ASPART) SLIDING SCALE ACHS SC 06/15/16 11:00 07/15/16 10:59 06/21/16 11:00 9 UNITS Chlorthalidone (Hygroton Tab) 25 mg QAM PO 06/16/16 09:00 07/16/16 08:59 Future Hold 06/19/16 07:52 25 MG Al Hydroxide/Mg Hydroxide (Maalox Susp) 15 ml Q6H PRN PO 06/16/16 20:45 07/16/16 20:44 06/17/16 15:45 15 ML Lisinopril (Zestril Tab) 40 mg QAM PO 06/17/16 09:00 07/17/16 08:59 06/21/16 08:19 40 MG Oxycodone/ Acetaminophen (Percocet 7.5-325MG Tab) 1 tab Q6H PRN PO 06/17/16 10:00 07/01/16 09:59 06/21/16 16:46 1 TAB Duloxetine HCl (Cymbalta Cap) 60 mg QDL PO 06/19/16 11:30 07/19/16 11:29 06/21/16 12:26 60 MG Calcium Polycarbophil (Fibercon Tab) 1 tab BID PRN PO 06/17/16 15:45 07/17/16 15:44 06/17/16 17:55 1 TAB Loperamide HCl (Imodium Cap) 2 mg UD PRN PO 06/17/16 15:45 07/17/16 15:44 Gadobutrol (Gadavist) 10 mmol UD PRN IV 06/17/16 17:30 06/21/16 17:29 Oxycodone HCl (Oxycontin Tab) 40 mg Q12 PO 06/17/16 21:00 07/01/16 20:59 06/21/16 08:17 40 MG Amlodipine Besylate (Norvasc Tab) 5 mg QAM PO 06/19/16 09:00 07/19/16 08:59 06/21/16 08:20 5 MG Insulin Glargine (Lantus Solostar Pen) SEE PROTOCOL BID SC 06/18/16 21:00 07/18/16 20:59 06/21/16 08:26 6 UNIT Potassium Chloride (Klor-Con Tab) 20 meq BID PO 06/21/16 09:00 07/21/16 08:59 06/21/16 08:39 20 MEQ Lactobacillus Acidophilus (Lactinex Granules Pack) 1 gm TIDM PO 06/21/16 16:45 07/21/16 16:44 Alprazolam (Xanax Tab) 0.5 mg Q6H PRN PO 06/21/16 16:15 07/21/16 16:14 06/21/16 16:47 0.5 MG Clopidogrel Bisulfate (plAVix TAB) 75 mg QAM PO 06/22/16 09:00 07/22/16 08:59 Aspirin (Ecotrin Tab) 81 mg QAM PO 06/22/16 09:00 07/22/16 08:59 Objective Vital Signs Date Time Temp Pulse Resp B/P Pulse Ox O2 Delivery O2 Flow Rate FiO2 06/21/16 15:20 37.4 79 18 137/83 96 Room Air 06/21/16 13:51 37.1 77 18 121/74 94 Room Air 06/21/16 07:18 37.3 71 18 136/73 95 Room Air 06/21/16 04:00 94 Room Air 06/21/16 03:36 37.0 75 17 111/68 96 Room Air 06/20/16 23:59 94 Room Air 06/20/16 23:40 37.1 76 18 141/79 94 Room Air 06/20/16 20:00 94 Room Air 06/20/16 19:41 36.9 81 18 140/80 94 Room Air Physical Exam General Appearance: WD/WN, no apparent distress Eyes: normal inspection, sclerae normal ENT: normal ENT inspection, hearing grossly normal, pharynx normal Neck: supple, no adenopathy, trachea midline Respiratory/Chest: chest non-tender, lungs clear, normal breath sounds, no respiratory distress Cardiovascular: regular rate, rhythm, no gallop, no murmur Abdomen: normal bowel sounds, non tender, soft, no organomegaly Extremities: non-tender, no calf tenderness Neurologic/Psychiatric: alert, oriented x 3 Skin: normal color, warm/dry, no rash Lymphatic: no adenopathy Laboratory Results Last 24 Hours Test 06/20/16 20:07 06/21/16 05:48 06/21/16 06:30 06/21/16 11:15 Bedside Glucose 138 mg/dl 128 mg/dl 233 mg/dl White Blood Count 13.61 K/uL Red Blood Count 4.86 M/uL Hemoglobin 14.1 g/dL Hematocrit 39.6 % Mean Corpuscular Volume 81.5 fL Mean Corpuscular Hemoglobin 29.0 pg Mean Corpuscular Hemoglobin Concent 35.6 g/dl Platelet Count 222 K/uL Mean Platelet Volume 9.9 fL Neutrophils (%) (Auto) 70.7 % Lymphocytes (%) (Auto) 17.3 % Monocytes (%) (Auto) 8.9 % Eosinophils (%) (Auto) 2.4 % Basophils (%) (Auto) 0.4 % Neutrophils # (Auto) 9.62 K/uL Lymphocytes # (Auto) 2.36 K/uL Monocytes # (Auto) 1.21 K/uL Eosinophils # (Auto) 0.33 K/uL Basophils # (Auto) 0.05 K/uL RDW Standard Deviation 36.3 fL RDW Coefficient of Variation 12.5 % Immature Granulocyte % (Auto) 0.3 % Immature Granulocyte # (Auto) 0.04 K/uL Sodium Level 136 mmol/L Potassium Level 3.0 mmol/L Chloride Level 98 mmol/L Carbon Dioxide Level 28 mmol/L Anion Gap 10.0 mmol/L Blood Urea Nitrogen 20 mg/dl Creatinine 1.10 mg/dl Est Creatinine Clear Calc Drug Dose 92.8 ml/min Estimated GFR () 88.4 Estimated GFR (Non- 76.2 BUN/Creatinine Ratio 18.3 Random Glucose 136 mg/dl Calcium Level 8.6 mg/dl Magnesium Level 2.0 mg/dl Test 06/21/16 16:14 Bedside Glucose 93 mg/dl Assessment and Plan 55-year-old male with multiple medical comorbidities now with acute change in mental status with fever in the hospital, single positive blood culture for coagulase-negative Staph, and multiple subacute infarcts on MRI scan. Most likely, the coagulase-negative Staph represents a contaminant, as no obvious risk factors for coagulase negative Staph endocarditis. WILIAN shows no evidence of endocarditis, and follow-up blood cultures are negative. Vancomycin discontinued, will follow.
[2016-06-21] MEDS: LACTOBACILLUS ACIDOPHILUS 1 GM PACK PO SCH (17:55)
--- NOTE | 2016-06-21 19:19 | DIAGNOSTIC IMAGING REPORT ---
KUB CLINICAL HISTORY: Generalized abdominal pain. FINDINGS: 2 AP supine abdominal radiograph are correlated with abdominal CT dated 06/15/16. An IVC filter is again noted. There is a nonobstructed abdominal bowel gas pattern noting moderate colonic fecal retention. There is no radiographic evidence of nephrolithiasis. The skeletal structures are osteopenic. Bilateral hip arthroplasties are in place. IMPRESSION: Nonobstructed abdominal bowel gas pattern noting moderate colonic fecal retention. Electronically signed by: Abdulaziz Soriano M.D. 06/21/2016 7:17 PM Dictated Date/Time: 06/21/2016 7:16 PM
[2016-06-22 05:18] VITALS: O2SAT 95
[2016-06-22 06:29] LABS: BASO % 0.5 %; BASO ABS # 0.06 K/uL (0-0.2); COMPLETE YES; EOS % 2.7 %; HEMATOCRIT 39.4 % (42-52); IG% 0.4 %; LYMPH % 22.4 %; MEAN CELL VOLUME 83.1 fL (80-100); MEAN CORPUSCULAR HEMOGLOBIN 28.7 pg (25-34); MEAN CORPUSCULAR HGB CONC 34.5 g/dl (32-36); MEAN PLATELET VOLUME 9.9 fL (7.4-10.4); PLATELET COUNT 251 K/uL (130-400); RED BLOOD COUNT 4.74 M/uL (4.7-6.1); WHITE BLOOD COUNT 12.06 K/uL (4.8-10.8)
[2016-06-22 06:39] LABS: BUN/CREATININE RATIO 18.8 (10-20); CALCIUM 8.7 mg/dl (8.5-10.1); CREATININE 1.2 mg/dl (0.60-1.40); MAGNESIUM 2.1 mg/dl (1.8-2.4); PHOSPHORUS 3.2 mg/dl (2.5-4.9); POTASSIUM 3.4 mmol/L (3.5-5.1)
[2016-06-22 07:15] VITALS: BP 134/77; PULSE 73; TEMP 36.9; O2SAT 95
[2016-06-22] MEDS: CLOPIDOGREL BISULFATE 75 MG TAB PO SCH (08:04)
[2016-06-22] MEDS: ASPIRIN 81 MG ECTAB PO SCH (08:04)
[2016-06-22] MEDS: POTASSIUM CHLORIDE 20 MEQ TABCR PO SCH ×2 (08:04→20:44)
[2016-06-22] MEDS: LISINOPRIL 40 MG TAB PO SCH (08:05)
[2016-06-22] MEDS: AMLODIPINE BESYLATE 5 MG TAB PO SCH (08:05)
[2016-06-22] MEDS: LACTOBACILLUS ACIDOPHILUS 1 GM PACK PO SCH ×3 (08:05→15:47)
[2016-06-22] MEDS: INSULIN GLARGINE SOLOSTAR 100 UNITS/ML 3 ML PEN SC SCH ×2 (08:07→20:42)
[2016-06-22 08:43] VITALS: PULSE 103; O2SAT 97
[2016-06-22] MEDS ORDERED: DOCUSATE SODIUM 100 MG CAP PO ONE (08:45)
--- NOTE | 2016-06-22 09:21 | Pharmacy Progress Note ---
Glycemic Control: Progress Nt Date of Service Jun 22, 2016. Scope Glycemic Pharmacist consulted by Ria PEGUERO on 06/14/16 for glycemic control and to write orders per [facility] inpatient glycemic control protocol. Objective Accuchecks BSG (last 24hrs): Test 06/21/16 11:15 06/21/16 16:14 06/21/16 20:17 06/22/16 05:54 Bedside Glucose 233 mg/dl (70-99) 93 mg/dl (70-99) 258 mg/dl (70-99) Random Glucose 148 mg/dl (70-99) Laboratory Data (last 24hrs) Test 06/22/16 05:54 Anion Gap 9.0 mmol/L BUN/Creatinine Ratio 18.8 Blood Urea Nitrogen 23 mg/dl Creatinine 1.20 mg/dl Potassium Level 3.4 mmol/L Sodium Level 137 mmol/L White Blood Count 12.06 K/uL Red Blood Count 4.74 M/uL Hemoglobin 13.6 g/dL Hematocrit 39.4 % Mean Corpuscular Volume 83.1 fL Mean Corpuscular Hemoglobin 28.7 pg Mean Corpuscular Hemoglobin Concent 34.5 g/dl Platelet Count 251 K/uL Mean Platelet Volume 9.9 fL Neutrophils (%) (Auto) 62.0 % Lymphocytes (%) (Auto) 22.4 % Monocytes (%) (Auto) 12.0 % Eosinophils (%) (Auto) 2.7 % Basophils (%) (Auto) 0.5 % Neutrophils # (Auto) 7.47 K/uL Lymphocytes # (Auto) 2.70 K/uL Monocytes # (Auto) 1.45 K/uL Eosinophils # (Auto) 0.33 K/uL Basophils # (Auto) 0.06 K/uL HbA1c: Test 06/14/16 12:20 Hemoglobin A1c 11.3 % (4.5-5.6) H Recent Pertinent Medications Outpatient Anti-diabetic Regimen: * Lantus 25 units SQ HS * Novolog 5 units SQ TID w/ meals * poor compliance with the regimen * A1c = 11.3 % 06/14/16 The patient is currently receiving: * Basal insulin: Lantus 6 units every 12 hours - hold if BSG 100 or less * Correctional Insulin: Novolog Correction per scale ACHS Goal Range: Low 120 mg/dL - High 140 mg/dL Correction Factor: 30 mg/dL/unit * Prandial insulin: Per carb ratio of 1 unit per 10 grams CHO consumed * Oral Agents: None currently Risk Factors for Insulin Resistance: * Diet: currently ordered T2DM/AHA diet and he appears to be tolerating well per carb counts Assessment & Plan ASSESSMENT: 06/22/16: * Glycemic control has been acceptable * Fasting BSG 148 this AM with 12 units Lantus on board - and likely reflective of this Lantus dose at steady-state * BSG pattern was a bit more erratic yesterday vs prior days. I suspect this may be due to insulin stacking and narrow goal range on Novolog order * Will broaden the goal range, however keep all other orders unchanged PLAN FOR INPATIENT GLYCEMIC CONTROL: * Continuing Lantus 6 units SQ BID - hold if BSG less than 100 * Continuing correction factor of 30 mg/dl/unit * Continuing carb ratio of 1 unit per 10 grams CHO consumed * Changing goal range to Low 100 mg/dL - High 140 mg/dL * Please note that the plan above was derived based on current level of insulin resistance and hospital stress. These recommendations are appropriate for inpatient admission only. Plan of care upon discharge will need to be reassessed to avoid potential outpatient hypo/hyperglycemia. Thank you.
[2016-06-22] MEDS: OXYCODONE HCL 20 MG TABCR (OXYCONTIN) PO SCH ×2 (09:32→20:45)
[2016-06-22] MEDS: INSULIN ASPART 100 UNITS/ML 3 ML PEN SC SCH ×4 (09:33→20:43)
--- NOTE | 2016-06-22 10:30 | Psychiatric Progress Notes ---
Psychiatric Progress Note Date of Service Jun 22, 2016. Notes ID: Patient reviewed/seen with liaison nurse. Initial consult completed by Dr. Patricia on 06/17. CC: "my mood is holding up" HPI: tired today, denies N, appears a bit flatter than last contact. ROS: GI c/o denies, fatigue as above MSE: alert, cooperative, speech nl, thoughts organized, no SI/HI/mckeon Imp: depression and AMS Plan: titrated Cymbalta 60 mg on 06/19. No further changes recommended. Psychiatrically stable for discharge to appropriate level of medical care.
[2016-06-22] MEDS: DULOXETINE HCL 60 MG CAP PO SCH (12:34)
[2016-06-22 15:26] VITALS: BP 153/73; PULSE 88; TEMP 37.8; O2SAT 95
[2016-06-22] MEDS: OXYCODONE/ACETAMINOPHEN 7.5-325 TAB PO PRN (15:46)
--- NOTE | 2016-06-22 15:59 | Progress Note ---
Internal Med Progress Note Date of Service: Jun 22, 2016. Provider Documentation: SUBJECTIVE: Patient is alert/awake and is in no apparent distress. Answers my questions appropriately.Continues to make gradual progress. Breathing comfortably. Rectal tube has been discontinued. Feels better. OBJECTIVE: Vital Signs-as noted below Examination: General Appearance: Is Alert/Awake, In no apparent distress HEENT: Normocephalic, Eyes, Ears, Nose & Throat are normal. Neck: Supple, Midline trachea. Respiratory/Chest: lungs clear, normal breath sounds, no respiratory distress, no accessory muscle use Cardiovascular: regular rate, rhythm, no edema, no murmur Abdomen: normal bowel sounds, non tender, soft Extremities: normal inspection, no pedal edema Neurologic/Psychiatric: no motor/sensory deficits, alert, normal mood/affect Lab data as noted below. 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 of trigeminal neuralgia, hx. of migraines, SANAM presented with altered mental status/confusion and a fall Acute/Subacute Scattered Infarcts: Patient presented to the ER with altered mental status, disorientation, possible infectious vs. acute CVA. Clinically improving and is hemodynamically stable. -Head CT, Brain MRI, and Brain MRI with contrast/MRA performed = suggestive of acute-subacute CVA -Reviewed WILIAN and shows no clinically significant finding. -Neurology following. Thanks for input. Sepsis/Fever of Unknown Origin: Patient presented to the ER with +fevers, + leukocytosis, +tachycardia - meeting sepsis criteria Has been afebrile -Patient was pancultured; CXR, UA negative; due to neck pain, LP performed, but no significant findings -He was initially started on Levaquin, Vanco, Aztreonam, Acyclovir. Levaquin , Aztreonam and Acyclovir have been stopped as of 06/17 & is off Vancomycin -Appreciate ID input. Thanks -Blood culture x 1 positive for coag neg staph which is likely a contaminant. Hyponatremia: Resolved Hypokalemia: Patient continues to have hypokalemia. Likely due to GI loss, diarrhea -Does not like the tablets, will replace through IV today, recheck K and Mg daily Hypertensive Urgency: Patient presented with elevated blood pressures in the 170s-180s, likely secondary to noncompliance On 06/17, patient's blood pressures increased to >200/100. He was tried on amlodipine, lisinopril, Lopressor, chlorthalidone, hydralazine, imdur, clonidine with only slight improvement -He was given IV morphine for pain which seemed to have helped his blood pressure -Continue lisinopril, amlodipine, and b-benja --Noted Cardiology input. Thanks Elevated Troponin: Patient presented with elevated troponin, likely multifactorial: sepsis, hyperosmolar hyperglycemia, hypertensive urgency -Clinically stable and Cardiology is following the patient. Diarrhea: Patient has been having diarrhea throughout hospital stay. Antibiotics have been tapered, IVFs have been discontinued -Rectal tube placed for patient comfort -C. diff and stool cultures are negative -Loperamide and Fibercon started -if persistent, may need GI input Hyperlipidemia: LDL is 151. Will restart Statin once is clinically stable. Hyperosmolar Hyperglycemic State: Patient presented with BSGs > 400, elevated anion gap, acute kidney injury. Patient has been noncompliant with all medications at home, including insulin. HbA1c > 10 -He was initially started on an insulin drip. Was given IVFs and switched back to subq insulin -Currently on Lantus 12 units BID and an insulin sliding scale -glycemic control consult -Will need diabetic education prior to discharge Acute Kidney Injury: Resolved. Patient initially presented with creat of 2.0 likely due to dehydration, volume depletion -Given IVFs for HSS and creat has since been back to normal -Monitor GFR and avoid any Nephrotoxin. 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 Patient has been having chronic pain and uses opioids as outpatient to manage this He has difficulty daily due to the bilateral hip pain -Consult orthopedic surgery; possible hardware infection? -Pain management consulted - will follow and possible outpatient nerve block injections Thrombophilia: Has a hx. of thrombophilia including Factor V Leiden mutation & was once on Coumadin, but due to hematoma, was stopped s/p [place] filter -Currently on Sq heparin q8 Depression: History of major depression disorder & was once on Cymbalta and Effexor. He had stopped taking these medications on his own As per patent's mom, he has been depression since stopping these medications -Psychiatry consulted and Cymbalta will be restarted at this time Patient is DNR DVT Prophylaxis: Sq Heparin Disposition: Pending Vital Signs: Date Time Temp Pulse Resp B/P Pulse Ox O2 Delivery O2 Flow Rate FiO2 06/22/16 15:26 37.8 88 18 153/73 95 Room Air 06/22/16 08:43 103 97 06/22/16 08:00 Room Air 06/22/16 07:15 36.9 73 16 134/77 95 Room Air 06/22/16 05:18 95 Room Air 06/21/16 23:46 36.6 72 16 145/94 95 Room Air 06/21/16 19:14 37.0 91 20 135/84 95 Room Air 06/21/16 18:47 37.4 79 18 96 4.0 06/21/16 16:00 Room Air Lab Results: Results Past 24 Hours Test 06/21/16 16:14 06/21/16 20:17 06/22/16 05:54 06/22/16 08:00 Range/Units Bedside Glucose 93 258 137 70-99 mg/dl White Blood Count 12.06 4.8-10.8 K/uL Red Blood Count 4.74 4.7-6.1 M/uL Hemoglobin 13.6 14.0-18.0 g/dL Hematocrit 39.4 42-52 % Mean Corpuscular Volume 83.1 80-100 fL Mean Corpuscular Hemoglobin 28.7 25-34 pg Mean Corpuscular Hemoglobin Concent 34.5 32-36 g/dl Platelet Count 251 130-400 K/uL Mean Platelet Volume 9.9 7.4-10.4 fL Neutrophils (%) (Auto) 62.0 % Lymphocytes (%) (Auto) 22.4 % Monocytes (%) (Auto) 12.0 % Eosinophils (%) (Auto) 2.7 % Basophils (%) (Auto) 0.5 % Neutrophils # (Auto) 7.47 1.4-6.5 K/uL Lymphocytes # (Auto) 2.70 1.2-3.4 K/uL Monocytes # (Auto) 1.45 0.11-0.59 K/uL Eosinophils # (Auto) 0.33 0-0.5 K/uL Basophils # (Auto) 0.06 0-0.2 K/uL RDW Standard Deviation 38.3 36.4-46.3 fL RDW Coefficient of Variation 12.7 11.5-14.5 % Immature Granulocyte % (Auto) 0.4 % Immature Granulocyte # (Auto) 0.05 0.00-0.02 K/uL Sodium Level 137 136-145 mmol/L Potassium Level 3.4 3.5-5.1 mmol/L Chloride Level 98 98-107 mmol/L Carbon Dioxide Level 30 21-32 mmol/L Anion Gap 9.0 3-11 mmol/L Blood Urea Nitrogen 23 7-18 mg/dl Creatinine 1.20 0.60-1.40 mg/dl Est Creatinine Clear Calc Drug Dose 85.0 ml/min Estimated GFR () 79.5 Estimated GFR (Non- 68.6 BUN/Creatinine Ratio 18.8 10-20 Random Glucose 148 70-99 mg/dl Calcium Level 8.7 8.5-10.1 mg/dl Phosphorus Level 3.2 2.5-4.9 mg/dl Magnesium Level 2.1 1.8-2.4 mg/dl Test 06/22/16 11:35 Range/Units Bedside Glucose 191 70-99 mg/dl
[2016-06-22] MEDS ORDERED: POTASSIUM CHLORIDE 20 MEQ TABCR PO ONE (16:00)
--- NOTE | 2016-06-22 19:05 | DIAGNOSTIC IMAGING REPORT ---
CHEST 2 VIEWS ROUTINE CLINICAL HISTORY: Leukocytosis. COMPARISON STUDY: Chest radiograph June 14, 2016. FINDINGS: Lung volumes are normal. There is no pneumothorax or pleural effusion. Mild cardiomegaly is unchanged. There is no evidence of pulmonary edema. No consolidation is identified. The appearance of the chest is unchanged. IMPRESSION: No acute cardiopulmonary findings. Electronically signed by: Isaías Shore M.D. 06/22/2016 7:04 PM Dictated Date/Time: 06/22/2016 7:02 PM
[2016-06-22 23:33] VITALS: BP 138/89; PULSE 82; TEMP 37; O2SAT 95
[2016-06-23] VITALS: O2SAT 97
[2016-06-23 06:09] LABS: BASO % 0.5 %; BASO ABS # 0.06 K/uL (0-0.2); COMPLETE YES; EOS % 2.7 %; HEMATOCRIT 38.1 % (42-52); IG% 0.4 %; LYMPH % 18.1 %; LYMPH ABS # 2.08 K/uL (1.2-3.4); MEAN CELL VOLUME 84.1 fL (80-100); MEAN CORPUSCULAR HEMOGLOBIN 28.9 pg (25-34); MEAN CORPUSCULAR HGB CONC 34.4 g/dl (32-36); MEAN PLATELET VOLUME 9.8 fL (7.4-10.4); MONO % 13.1 %; NEUT % 65.2 %; PLATELET COUNT 265 K/uL (130-400); RED BLOOD COUNT 4.53 M/uL (4.7-6.1); WHITE BLOOD COUNT 11.47 K/uL (4.8-10.8)
[2016-06-23 06:52] LABS: BUN/CREATININE RATIO 16.8 (10-20); CALCIUM 8.7 mg/dl (8.5-10.1); CREATININE 1.3 mg/dl (0.60-1.40)
[2016-06-23] MEDS: POTASSIUM CHLORIDE 20 MEQ TABCR PO SCH (07:24)
[2016-06-23] MEDS: LISINOPRIL 40 MG TAB PO SCH (07:25)
[2016-06-23] MEDS: ASPIRIN 81 MG ECTAB PO SCH (07:25)
[2016-06-23] MEDS: POLYETHYLENE (MIRALAX) 17 GM PACK PO SCH (07:25)
[2016-06-23] MEDS: CLOPIDOGREL BISULFATE 75 MG TAB PO SCH (07:25)
[2016-06-23] MEDS: AMLODIPINE BESYLATE 5 MG TAB PO SCH (07:25)
[2016-06-23] MEDS: DOCUSATE SODIUM 100 MG CAP PO SCH (07:25)
[2016-06-23] MEDS: LACTOBACILLUS ACIDOPHILUS 1 GM PACK PO SCH ×3 (07:26→17:00)
[2016-06-23] MEDS: INSULIN GLARGINE SOLOSTAR 100 UNITS/ML 3 ML PEN SC SCH ×2 (07:34→20:43)
[2016-06-23 07:58] VITALS: BP 139/89; PULSE 63; TEMP 36.7; O2SAT 95
[2016-06-23] MEDS: INSULIN ASPART 100 UNITS/ML 3 ML PEN SC SCH ×4 (08:30→20:43)
[2016-06-23] MEDS: OXYCODONE HCL 20 MG TABCR (OXYCONTIN) PO SCH ×2 (08:31→20:41)
--- NOTE | 2016-06-23 10:33 | Pharmacy Progress Note ---
Glycemic Control: Progress Nt Date of Service Jun 23, 2016. Scope Glycemic Pharmacist consulted by Ria PEGUERO on 06/14/16 for glycemic control and to write orders per [facility] inpatient glycemic control protocol. Objective Accuchecks BSG (last 24hrs): Test 06/22/16 11:35 06/22/16 17:25 06/22/16 20:37 06/23/16 05:50 Bedside Glucose 191 mg/dl (70-99) 206 mg/dl (70-99) 202 mg/dl (70-99) Random Glucose 195 mg/dl (70-99) Test 06/23/16 07:29 06/23/16 07:41 Bedside Glucose 145 mg/dl (70-99) 157 mg/dl (70-99) Laboratory Data (last 24hrs) Test 06/23/16 05:50 Anion Gap 9.0 mmol/L BUN/Creatinine Ratio 16.8 Blood Urea Nitrogen 22 mg/dl Creatinine 1.30 mg/dl Potassium Level 4.0 mmol/L Sodium Level 136 mmol/L White Blood Count 11.47 K/uL Red Blood Count 4.53 M/uL Hemoglobin 13.1 g/dL Hematocrit 38.1 % Mean Corpuscular Volume 84.1 fL Mean Corpuscular Hemoglobin 28.9 pg Mean Corpuscular Hemoglobin Concent 34.4 g/dl Platelet Count 265 K/uL Mean Platelet Volume 9.8 fL Neutrophils (%) (Auto) 65.2 % Lymphocytes (%) (Auto) 18.1 % Monocytes (%) (Auto) 13.1 % Eosinophils (%) (Auto) 2.7 % Basophils (%) (Auto) 0.5 % Neutrophils # (Auto) 7.47 K/uL Lymphocytes # (Auto) 2.08 K/uL Monocytes # (Auto) 1.50 K/uL Eosinophils # (Auto) 0.31 K/uL Basophils # (Auto) 0.06 K/uL HbA1c: Test 06/14/16 12:20 Hemoglobin A1c 11.3 % (4.5-5.6) H Recent Pertinent Medications Outpatient Anti-diabetic Regimen: * Lantus 25 units SQ HS * Novolog 5 units SQ TID w/ meals * poor compliance with the regimen * A1c = 11.3 % 06/14/16 The patient is currently receiving: * Basal insulin: Lantus 6 units every 12 hours - hold if BSG 100 or less * Correctional Insulin: Novolog Correction per scale ACHS Goal Range: Low 120 mg/dL - High 140 mg/dL Correction Factor: 30 mg/dL/unit * Prandial insulin: Per carb ratio of 1 unit per 10 grams CHO consumed * Oral Agents: None currently Risk Factors for Insulin Resistance: * Diet: currently ordered T2DM/AHA diet and he appears to be tolerating well per carb counts Assessment & Plan ASSESSMENT: 06/22/16 * Glycemic control has been acceptable * Fasting BSG 148 this AM with 12 units Lantus on board - and likely reflective of this Lantus dose at steady-state * BSG pattern was a bit more erratic yesterday vs prior days. I suspect this may be due to insulin stacking and narrow goal range on Novolog order * Will broaden the goal range, however keep all other orders unchanged 06/23/16 * All post-prandial BSGs elevated above goal yesterday * He has received 39 units per day for the last 2 days - fasting BSGs are near goal however post-prandial BSGs less well controlled * Will increase the prandial insulin dose today, but will also increase the Lantus dose as well as it appears he will require 40+ units of insulin per day while tolerating a diet. Note, the home Lantus dose is twice what we are currently giving. Will add hold parameters to Lantus should the increase be too much. PLAN FOR INPATIENT GLYCEMIC CONTROL: * Increase Lantus to 10 units SQ BID - give 1/2 dose (5 units) if BSG less than 110 * Changing correction factor to 25 mg/dl/unit * Changing carb ratio to 1 unit per 9 grams CHO consumed * Continue goal range of Low 100 mg/dL - High 140 mg/dL * Please note that the plan above was derived based on current level of insulin resistance and hospital stress. These recommendations are appropriate for inpatient admission only. Plan of care upon discharge will need to be reassessed to avoid potential outpatient hypo/hyperglycemia. Thank you.
[2016-06-23] MEDS: DULOXETINE HCL 60 MG CAP PO SCH (12:34)
[2016-06-23 15:07] VITALS: BP 161/89; PULSE 96; TEMP 37.1; O2SAT 91
--- NOTE | 2016-06-23 15:32 | Progress Note ---
Internal Med Progress Note Date of Service: Jun 23, 2016. Provider Documentation: SUBJECTIVE: Patient is alert/awake and is in no apparent distress. Answers my questions appropriately.Continues to make gradual progress. Breathing comfortably. Feels better. Her has been able to ambulate with help of PT. OBJECTIVE: Vital Signs-as noted below Examination: General Appearance: Is Alert/Awake, In no apparent distress HEENT: Normocephalic, Eyes, Ears, Nose & Throat are normal. Neck: Supple, Midline trachea. Respiratory/Chest: lungs clear, normal breath sounds, no respiratory distress, no accessory muscle use Cardiovascular: regular rate, rhythm, no edema, no murmur Abdomen: normal bowel sounds, non tender, soft Extremities: normal inspection, no pedal edema Neurologic/Psychiatric: no motor/sensory deficits, alert, normal mood/affect Lab data as noted below. 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 of trigeminal neuralgia, hx. of migraines, SANAM presented with altered mental status/confusion and a fall Acute/Subacute Scattered Infarcts: Patient presented to the ER with altered mental status, disorientation, possible infectious vs. acute CVA. Clinically improving and is hemodynamically stable. -Head CT, Brain MRI, and Brain MRI with contrast/MRA performed = suggestive of acute-subacute CVA -Reviewed WILIAN and shows no clinically significant finding. -Neurology following. Thanks for input. Sepsis/Fever of Unknown Origin: Patient presented to the ER with +fevers, + leukocytosis, +tachycardia - meeting sepsis criteria Has been afebrile for the past many days and is off all the antibiotics. -Patient was pancultured; CXR, UA negative; due to neck pain, LP performed, but no significant findings -He was initially started on Levaquin, Vanco, Aztreonam, Acyclovir. Levaquin , Aztreonam and Acyclovir have been stopped as of 06/17 & is off Vancomycin -Appreciate ID input. Thanks -Blood culture x 1 positive for coag neg staph which is likely a contaminant. Hyponatremia: Resolved Hypokalemia:Resolved. Hypertensive Urgency: Patient presented with elevated blood pressures in the 170s-180s, likely secondary to noncompliance -Continue lisinopril, amlodipine, and b-benja --Noted Cardiology input. Thanks Elevated Troponin: Patient presented with elevated troponin, likely multifactorial: sepsis, hyperosmolar hyperglycemia, hypertensive urgency BP is better controlled now. -Clinically stable and Cardiology is following the patient. Diarrhea: Patient has been having diarrhea throughout hospital stay. Antibiotics have been tapered, IVFs have been discontinued It is gradually resolving -Rectal tube placed for patient comfort -C. diff and stool cultures are negative -Loperamide and Fibercon started -if persistent, may need GI input Hyperlipidemia: LDL is 151. Will restart Statin once is clinically stable. Hyperosmolar Hyperglycemic State: Patient presented with BSGs > 400, elevated anion gap, acute kidney injury. Patient has been noncompliant with all medications at home, including insulin. HbA1c > 10 -He was initially started on an insulin drip. Was given IVFs and switched back to subq insulin -Currently on Lantus 12 units BID and an insulin sliding scale -glycemic control consult -Will need diabetic education prior to discharge Acute Kidney Injury: Resolved. Patient initially presented with creat of 2.0 likely due to dehydration, volume depletion -Given IVFs for HSS and creat has since been back to normal -Monitor GFR and avoid any Nephrotoxin. 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 Patient has been having chronic pain and uses opioids as outpatient to manage this He has difficulty daily due to the bilateral hip pain -Consult orthopedic surgery; possible hardware infection? -Pain management consulted - will follow and possible outpatient nerve block injections Thrombophilia: Has a hx. of thrombophilia including Factor V Leiden mutation & was once on Coumadin, but due to hematoma, was stopped s/p [place] filter -Currently on Sq heparin q8 Depression: History of major depression disorder & was once on Cymbalta and Effexor. He had stopped taking these medications on his own As per patent's mom, he has been depression since stopping these medications -Psychiatry consulted and Cymbalta will be restarted at this time Patient is DNR DVT Prophylaxis: Sq Heparin Disposition: Pending. PT/OT is being continued. Patient wants to be transferred to [facility] after discharge. Discussed with Yassine about it. Vital Signs: Date Time Temp Pulse Resp B/P Pulse Ox O2 Delivery O2 Flow Rate FiO2 06/23/16 15:07 37.1 96 16 161/89 91 Room Air 06/23/16 08:00 Room Air 06/23/16 07:58 36.7 63 20 139/89 95 06/23/16 00:00 97 Room Air 06/22/16 23:33 37.0 82 18 138/89 95 Room Air 06/22/16 16:00 Room Air Lab Results: Results Past 24 Hours Test 06/22/16 17:25 06/22/16 20:37 06/23/16 05:50 06/23/16 07:29 Range/Units Bedside Glucose 206 202 145 70-99 mg/dl White Blood Count 11.47 4.8-10.8 K/uL Red Blood Count 4.53 4.7-6.1 M/uL Hemoglobin 13.1 14.0-18.0 g/dL Hematocrit 38.1 42-52 % Mean Corpuscular Volume 84.1 80-100 fL Mean Corpuscular Hemoglobin 28.9 25-34 pg Mean Corpuscular Hemoglobin Concent 34.4 32-36 g/dl Platelet Count 265 130-400 K/uL Mean Platelet Volume 9.8 7.4-10.4 fL Neutrophils (%) (Auto) 65.2 % Lymphocytes (%) (Auto) 18.1 % Monocytes (%) (Auto) 13.1 % Eosinophils (%) (Auto) 2.7 % Basophils (%) (Auto) 0.5 % Neutrophils # (Auto) 7.47 1.4-6.5 K/uL Lymphocytes # (Auto) 2.08 1.2-3.4 K/uL Monocytes # (Auto) 1.50 0.11-0.59 K/uL Eosinophils # (Auto) 0.31 0-0.5 K/uL Basophils # (Auto) 0.06 0-0.2 K/uL RDW Standard Deviation 38.5 36.4-46.3 fL RDW Coefficient of Variation 12.8 11.5-14.5 % Immature Granulocyte % (Auto) 0.4 % Immature Granulocyte # (Auto) 0.05 0.00-0.02 K/uL Sodium Level 136 136-145 mmol/L Potassium Level 4.0 3.5-5.1 mmol/L Chloride Level 99 98-107 mmol/L Carbon Dioxide Level 28 21-32 mmol/L Anion Gap 9.0 3-11 mmol/L Blood Urea Nitrogen 22 7-18 mg/dl Creatinine 1.30 0.60-1.40 mg/dl Est Creatinine Clear Calc Drug Dose 79.9 ml/min Estimated GFR () 72.2 Estimated GFR (Non- 62.3 BUN/Creatinine Ratio 16.8 10-20 Random Glucose 195 70-99 mg/dl Calcium Level 8.7 8.5-10.1 mg/dl Test 06/23/16 07:41 06/23/16 11:39 Range/Units Bedside Glucose 157 142 70-99 mg/dl
[2016-06-23 23:25] VITALS: BP 144/76; PULSE 76; TEMP 37.2; O2SAT 95
[2016-06-24] VITALS: O2SAT 97
[2016-06-24 07:02] VITALS: BP 162/93; PULSE 64; TEMP 36.9; O2SAT 97
[2016-06-24] MEDS: LACTOBACILLUS ACIDOPHILUS 1 GM PACK PO SCH ×3 (08:00→17:00)
[2016-06-24] MEDS: POLYETHYLENE (MIRALAX) 17 GM PACK PO SCH (08:00)
[2016-06-24] MEDS: OXYCODONE HCL 20 MG TABCR (OXYCONTIN) PO SCH ×2 (09:10→20:18)
[2016-06-24] MEDS: LISINOPRIL 40 MG TAB PO SCH (09:13)
[2016-06-24] MEDS: ASPIRIN 81 MG ECTAB PO SCH (09:13)
[2016-06-24] MEDS: AMLODIPINE BESYLATE 5 MG TAB PO SCH (09:13)
[2016-06-24] MEDS: CLOPIDOGREL BISULFATE 75 MG TAB PO SCH (09:13)
[2016-06-24] MEDS: DOCUSATE SODIUM 100 MG CAP PO SCH (09:14)
[2016-06-24] MEDS: POTASSIUM CHLORIDE 20 MEQ TABCR PO SCH (09:15)
[2016-06-24] MEDS: INSULIN GLARGINE SOLOSTAR 100 UNITS/ML 3 ML PEN SC SCH ×2 (09:17→20:16)
[2016-06-24] MEDS: INSULIN ASPART 100 UNITS/ML 3 ML PEN SC SCH ×4 (09:18→20:16)
[2016-06-24 10:48] VITALS: BP 142/88; PULSE 70; O2SAT 94
[2016-06-24] MEDS: DULOXETINE HCL 60 MG CAP PO SCH (12:35)
--- NOTE | 2016-06-24 12:54 | Pharmacy Progress Note ---
Glycemic Control: Progress Nt Date of Service Jun 24, 2016. Scope Glycemic Pharmacist consulted by Ria PEGUERO on 06/14/16 for glycemic control and to write orders per [facility] inpatient glycemic control protocol. Objective Accuchecks BSG (last 24hrs): Test 06/23/16 16:47 06/23/16 20:29 06/24/16 07:24 06/24/16 11:32 Bedside Glucose 193 mg/dl (70-99) 167 mg/dl (70-99) 152 mg/dl (70-99) 155 mg/dl (70-99) HbA1c: Test 06/14/16 12:20 Hemoglobin A1c 11.3 % (4.5-5.6) H Recent Pertinent Medications Outpatient Anti-diabetic Regimen: * Lantus 25 units SQ HS * Novolog 5 units SQ TID w/ meals * poor compliance with the regimen * A1c = 11.3 % 06/14/16 The patient is currently receiving: * Basal insulin: Lantus 10 units every 12 hours - give 1/2 dose (5 units) if BSG less than 110 * Correctional Insulin: Novolog Correction per scale ACHS Goal Range: Low 100 mg/dL - High 140 mg/dL Correction Factor: 25 mg/dL/unit * Prandial insulin: Per carb ratio of 1 unit per 9 grams CHO consumed * Oral Agents: None currently Risk Factors for Insulin Resistance: * Diet: currently ordered T2DM/AHA diet and he appears to be tolerating well per carb counts Assessment & Plan ASSESSMENT: 06/22/16 * Glycemic control has been acceptable * Fasting BSG 148 this AM with 12 units Lantus on board - and likely reflective of this Lantus dose at steady-state * BSG pattern was a bit more erratic yesterday vs prior days. I suspect this may be due to insulin stacking and narrow goal range on Novolog order * Will broaden the goal range, however keep all other orders unchanged 06/23/16 * All post-prandial BSGs elevated above goal yesterday * He has received 39 units per day for the last 2 days - fasting BSGs are near goal however post-prandial BSGs less well controlled * Will increase the prandial insulin dose today, but will also increase the Lantus dose as well as it appears he will require 40+ units of insulin per day while tolerating a diet. Note, the home Lantus dose is twice what we are currently giving. Will add hold parameters to Lantus should the increase be too much. 06/24/16 * BSGs well controlled over the last 24 hrs; BSGs have ranged 145-193 (only one BSG above 180) * He seems to be tolerating his diet well; yesterday he received a total of 47 units * Fasting BSG 154 this AM w/ 20 units of Lantus on board. Plan to continue the current Lantus dose as it is ~50% anticipated total daily insulin dose. Current Lantus dose has not yet achieved steady-state. * Post-prandial BSGs improved w/ yesterday's changes PLAN FOR INPATIENT GLYCEMIC CONTROL: * Continue Lantus 10 units SQ BID - give 1/2 dose (5 units) if BSG less than 110 * Continue correction factor of 25 mg/dl/unit * Continue carb ratio of 1 unit per 9 grams CHO consumed * Continue goal range of Low 100 mg/dL - High 140 mg/dL * Please note that the plan above was derived based on current level of insulin resistance and hospital stress. These recommendations are appropriate for inpatient admission only. Plan of care upon discharge will need to be reassessed to avoid potential outpatient hypo/hyperglycemia. Thank you.
--- NOTE | 2016-06-24 13:55 | Progress Note ---
Internal Med Progress Note Date of Service: Jun 24, 2016. Provider Documentation: SUBJECTIVE: Patient is alert/awake and is in no apparent distress. Answers my questions appropriately.Continues to make gradual progress. Breathing comfortably. Feels better. Her has been able to ambulate with help of PT. OBJECTIVE: Vital Signs-as noted below Examination: General Appearance: Is Alert/Awake, In no apparent distress HEENT: Normocephalic, Eyes, Ears, Nose & Throat are normal. Neck: Supple, Midline trachea. Respiratory/Chest: lungs clear, normal breath sounds, no respiratory distress, no accessory muscle use Cardiovascular: regular rate, rhythm, no edema, no murmur Abdomen: normal bowel sounds, non tender, soft Extremities: normal inspection, no pedal edema Neurologic/Psychiatric: no motor/sensory deficits, alert, normal mood/affect Lab data as noted below. 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 of trigeminal neuralgia, hx. of migraines, SANAM presented with altered mental status/confusion and a fall Acute/Subacute Scattered Infarcts: Patient presented to the ER with altered mental status, disorientation, possible infectious vs. acute CVA. Clinically improving and is hemodynamically stable. -Head CT, Brain MRI, and Brain MRI with contrast/MRA performed = suggestive of acute-subacute CVA -Reviewed WILIAN and shows no clinically significant finding. -Neurology following. Thanks for input. Sepsis/Fever of Unknown Origin: Patient presented to the ER with +fevers, + leukocytosis, +tachycardia - meeting sepsis criteria Has been afebrile for the past many days and is off all the antibiotics. -Patient was pancultured; CXR, UA negative; due to neck pain, LP performed, but no significant findings -He was initially started on Levaquin, Vanco, Aztreonam, Acyclovir. Levaquin , Aztreonam and Acyclovir have been stopped as of 06/17 & is off Vancomycin -Appreciate ID input. Thanks -Blood culture x 1 positive for coag neg staph which is likely a contaminant. Hyponatremia: Resolved Hypokalemia:Resolved. Hypertensive Urgency: Patient presented with elevated blood pressures in the 170s-180s, likely secondary to noncompliance -Continue lisinopril, amlodipine, and b-benja --Noted Cardiology input. Thanks Elevated Troponin: Patient presented with elevated troponin, likely multifactorial: sepsis, hyperosmolar hyperglycemia, hypertensive urgency BP is better controlled now. -Clinically stable and Cardiology is following the patient. Diarrhea: Patient has been having diarrhea throughout hospital stay. Antibiotics have been tapered, IVFs have been discontinued It is gradually resolving -Rectal tube placed for patient comfort -C. diff and stool cultures are negative -Loperamide and Fibercon started -if persistent, may need GI input Hyperlipidemia: LDL is 151. Will restart Statin once is clinically stable. Hyperosmolar Hyperglycemic State: Patient presented with BSGs > 400, elevated anion gap, acute kidney injury. Patient has been noncompliant with all medications at home, including insulin. HbA1c > 10 -He was initially started on an insulin drip. Was given IVFs and switched back to subq insulin -Currently on Lantus 12 units BID and an insulin sliding scale -glycemic control consult -Will need diabetic education prior to discharge Acute Kidney Injury: Resolved. Patient initially presented with creat of 2.0 likely due to dehydration, volume depletion -Given IVFs for HSS and creat has since been back to normal -Monitor GFR and avoid any Nephrotoxin. 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 Patient has been having chronic pain and uses opioids as outpatient to manage this He has difficulty daily due to the bilateral hip pain -Consult orthopedic surgery; possible hardware infection? -Pain management consulted - will follow and possible outpatient nerve block injections Thrombophilia: Has a hx. of thrombophilia including Factor V Leiden mutation & was once on Coumadin, but due to hematoma, was stopped s/p [place] filter -Currently on Sq heparin q8 Depression: History of major depression disorder & was once on Cymbalta and Effexor. He had stopped taking these medications on his own As per patent's mom, he has been depression since stopping these medications -Psychiatry consulted and Cymbalta will be restarted at this time Patient is DNR DVT Prophylaxis: Sq Heparin Disposition: Pending. PT/OT is being continued. Patient wants to be transferred to [facility] after discharge. Discussed with Yassine about it. Vital Signs: Date Time Temp Pulse Resp B/P Pulse Ox O2 Delivery O2 Flow Rate FiO2 06/24/16 10:48 70 94 06/24/16 08:00 Room Air 06/24/16 07:02 36.9 64 20 162/93 97 Room Air 06/24/16 00:00 97 Room Air 06/23/16 23:25 37.2 76 20 144/76 95 Room Air 06/23/16 16:00 Room Air 06/23/16 16:00 Room Air 06/23/16 15:07 37.1 96 16 161/89 91 Room Air Lab Results: Results Past 24 Hours Test 06/23/16 16:47 06/23/16 20:29 06/24/16 07:24 06/24/16 11:32 Range/Units Bedside Glucose 193 167 152 155 70-99 mg/dl
[2016-06-24 14:55] VITALS: BP 151/85; PULSE 91; TEMP 36.9; O2SAT 96
[2016-06-24] MEDS: ACETAMINOPHEN 325 MG TAB PO PRN (16:27)
[2016-06-24 22:58] VITALS: BP 168/109; PULSE 80; TEMP 36.8; O2SAT 95
[2016-06-25] VITALS: O2SAT 94
[2016-06-25] MEDS: OXYCODONE/ACETAMINOPHEN 7.5-325 TAB PO PRN (03:42)
[2016-06-25 06:34] LABS: BASO % 0.5 %; BASO ABS # 0.05 K/uL (0-0.2); COMPLETE YES; EOS % 2.6 %; HEMATOCRIT 38.6 % (42-52); IG% 0.3 %; LYMPH % 23.4 %; LYMPH ABS # 2.35 K/uL (1.2-3.4); MEAN CELL VOLUME 82.1 fL (80-100); MEAN CORPUSCULAR HEMOGLOBIN 28.7 pg (25-34); MEAN PLATELET VOLUME 9.4 fL (7.4-10.4); MONO % 11.2 %; PLATELET COUNT 303 K/uL (130-400); WHITE BLOOD COUNT 10.05 K/uL (4.8-10.8)
[2016-06-25 07:03] LABS: BUN/CREATININE RATIO 15.3 (10-20); CALCIUM 9.4 mg/dl (8.5-10.1); CREATININE 1.1 mg/dl (0.60-1.40)
[2016-06-25 07:06] LABS: ALB/GLOB RATIO 0.7 (0.9-2)
[2016-06-25 07:27] VITALS: BP 157/83; PULSE 63; TEMP 36.7; O2SAT 97
[2016-06-25] MEDS: DOCUSATE SODIUM 100 MG CAP PO SCH (09:10)
[2016-06-25] MEDS: POTASSIUM CHLORIDE 20 MEQ TABCR PO SCH (09:11)
[2016-06-25] MEDS: LISINOPRIL 40 MG TAB PO SCH (09:11)
[2016-06-25] MEDS: ASPIRIN 81 MG ECTAB PO SCH (09:11)
[2016-06-25] MEDS: AMLODIPINE BESYLATE 5 MG TAB PO SCH (09:11)
[2016-06-25] MEDS: CLOPIDOGREL BISULFATE 75 MG TAB PO SCH (09:11)
[2016-06-25] MEDS: POLYETHYLENE (MIRALAX) 17 GM PACK PO SCH (09:11)
[2016-06-25] MEDS: LACTOBACILLUS ACIDOPHILUS 1 GM PACK PO SCH ×2 (09:11→12:51)
[2016-06-25] MEDS: OXYCODONE HCL 20 MG TABCR (OXYCONTIN) PO SCH (09:15)
[2016-06-25] MEDS: INSULIN ASPART 100 UNITS/ML 3 ML PEN SC SCH ×2 (09:17→12:55)
[2016-06-25] MEDS: INSULIN GLARGINE SOLOSTAR 100 UNITS/ML 3 ML PEN SC SCH (09:17)
[2016-06-25 11:17] VITALS: BP 157/83; PULSE 63; TEMP 36.7; O2SAT 97
--- NOTE | 2016-06-25 12:10 | Progress Note ---
Internal Med Progress Note Date of Service: Jun 25, 2016. Provider Documentation: SUBJECTIVE: Patient is alert/awake and is in no apparent distress. Answers my questions appropriately.Continues to make gradual progress. Breathing comfortably. Feels better. Her has been able to ambulate with help of PT. Feels tired today. No other new change or complaint. OBJECTIVE: Vital Signs-as noted below Examination: General Appearance: Is Alert/Awake, In no apparent distress HEENT: Normocephalic, Eyes, Ears, Nose & Throat are normal. Neck: Supple, Midline trachea. Respiratory/Chest: lungs clear, normal breath sounds, no respiratory distress, no accessory muscle use Cardiovascular: regular rate, rhythm, no edema, no murmur Abdomen: normal bowel sounds, non tender, soft Extremities: normal inspection, no pedal edema Neurologic/Psychiatric: no motor/sensory deficits, alert, normal mood/affect Lab data as noted below. 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 of trigeminal neuralgia, hx. of migraines, SANMA presented with altered mental status/confusion and a fall Acute/Subacute Scattered Infarcts: Patient presented to the ER with altered mental status, disorientation, possible infectious vs. acute CVA. Clinically improving and is hemodynamically stable. -Head CT, Brain MRI, and Brain MRI with contrast/MRA performed = suggestive of acute-subacute CVA -Reviewed WILIAN and shows no clinically significant finding. -Neurology following. Thanks for input. Sepsis/Fever of Unknown Origin: Patient presented to the ER with +fevers, + leukocytosis, +tachycardia - meeting sepsis criteria Has been afebrile for the past many days and is off all the antibiotics.Remains afebrile for many days. -Patient was pancultured; CXR, UA negative; due to neck pain, LP performed, but no significant findings -He was initially started on Levaquin, Vanco, Aztreonam, Acyclovir. Levaquin , Aztreonam and Acyclovir have been stopped as of 06/17 & is off Vancomycin -Appreciate ID input. Thanks -Blood culture x 1 positive for coag neg staph which is likely a contaminant. Hyponatremia: Resolved Hypokalemia:Resolved. Hypertensive Urgency: Patient presented with elevated blood pressures in the 170s-180s, likely secondary to noncompliance BP is better controlled now and intermittently goes higher. -Continue lisinopril, amlodipine, and b-benja --Noted Cardiology input. Thanks Elevated Troponin: Patient presented with elevated troponin, likely multifactorial: sepsis, hyperosmolar hyperglycemia, hypertensive urgency BP is better controlled now. -Clinically stable and Cardiology is following the patient. Diarrhea: Resolved now. Patient has been having diarrhea throughout hospital stay. Antibiotics have been tapered, IVFs have been discontinued -Rectal tube was placed for patient comfort and has been discontinued many days ago. -C. diff and stool cultures are negative -Loperamide and Fibercon started -if persistent, may need GI input Hyperlipidemia: LDL is 151. Will restart Statin after discharge. Hyperosmolar Hyperglycemic State: Patient presented with BSGs > 400, elevated anion gap, acute kidney injury. Patient has been noncompliant with all medications at home, including insulin. HbA1c > 10 -He was initially started on an insulin drip. Was given IVFs and switched back to subq insulin -Currently on Lantus 12 units BID and an insulin sliding scale -glycemic control consult -Will need diabetic education prior to discharge Acute Kidney Injury: Resolved. Patient initially presented with creat of 2.0 likely due to dehydration, volume depletion -Given IVFs for HSS and creat has since been back to normal -Monitor GFR and avoid any Nephrotoxin. 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 Patient has been having chronic pain and uses opioids as outpatient to manage this He has difficulty daily due to the bilateral hip pain -Consult orthopedic surgery; possible hardware infection? -Pain management consulted - will follow and possible outpatient nerve block injections Thrombophilia: Has a hx. of thrombophilia including Factor V Leiden mutation & was once on Coumadin, but due to hematoma, was stopped s/p Carlin filter -Currently on Sq heparin q8 Depression: History of major depression disorder & was once on Cymbalta and Effexor. He had stopped taking these medications on his own As per patent's mom, he has been depression since stopping these medications -Psychiatry consulted and Cymbalta has been restarted at this time Patient is DNR DVT Prophylaxis: Sq Heparin Disposition: Discharge to [facility] later today. has been accepted. Vital Signs: Date Time Temp Pulse Resp B/P Pulse Ox O2 Delivery O2 Flow Rate FiO2 2/13/17 11:17 36.7 63 20 97 Room Air 06/25/16 09:00 Room Air 06/25/16 07:27 36.7 63 20 157/83 97 Room Air 06/25/16 00:00 94 Room Air 06/24/16 22:58 36.8 80 20 168/109 95 Room Air 06/24/16 14:55 36.9 91 20 151/85 96 Room Air Lab Results: Results Past 24 Hours Test 06/24/16 16:28 06/24/16 20:01 06/25/16 05:47 06/25/16 07:40 Range/Units Bedside Glucose 162 242 140 70-99 mg/dl White Blood Count 10.05 4.8-10.8 K/uL Red Blood Count 4.70 4.7-6.1 M/uL Hemoglobin 13.5 14.0-18.0 g/dL Hematocrit 38.6 42-52 % Mean Corpuscular Volume 82.1 80-100 fL Mean Corpuscular Hemoglobin 28.7 25-34 pg Mean Corpuscular Hemoglobin Concent 35.0 32-36 g/dl Platelet Count 303 130-400 K/uL Mean Platelet Volume 9.4 7.4-10.4 fL Neutrophils (%) (Auto) 62.0 % Lymphocytes (%) (Auto) 23.4 % Monocytes (%) (Auto) 11.2 % Eosinophils (%) (Auto) 2.6 % Basophils (%) (Auto) 0.5 % Neutrophils # (Auto) 6.23 1.4-6.5 K/uL Lymphocytes # (Auto) 2.35 1.2-3.4 K/uL Monocytes # (Auto) 1.13 0.11-0.59 K/uL Eosinophils # (Auto) 0.26 0-0.5 K/uL Basophils # (Auto) 0.05 0-0.2 K/uL RDW Standard Deviation 37.1 36.4-46.3 fL RDW Coefficient of Variation 12.3 11.5-14.5 % Immature Granulocyte % (Auto) 0.3 % Immature Granulocyte # (Auto) 0.03 0.00-0.02 K/uL Sodium Level 137 136-145 mmol/L Potassium Level 4.0 3.5-5.1 mmol/L Chloride Level 100 98-107 mmol/L Carbon Dioxide Level 29 21-32 mmol/L Anion Gap 8.0 3-11 mmol/L Blood Urea Nitrogen 17 7-18 mg/dl Creatinine 1.10 0.60-1.40 mg/dl Est Creatinine Clear Calc Drug Dose 94.3 ml/min Estimated GFR () 88.4 Estimated GFR (Non- 76.2 BUN/Creatinine Ratio 15.3 10-20 Random Glucose 167 70-99 mg/dl Calcium Level 9.4 8.5-10.1 mg/dl Total Bilirubin 0.3 0.2-1 mg/dl Aspartate Amino Transf (AST/SGOT) 13 15-37 U/L Alanine Aminotransferase (ALT/SGPT) 25 12-78 U/L Alkaline Phosphatase 79 45-117 U/L Total Protein 7.0 6.4-8.2 gm/dl Albumin 2.9 3.4-5.0 gm/dl Globulin 4.1 2.5-4.0 gm/dl Albumin/Globulin Ratio 0.7 0.9-2 Test 06/25/16 11:47 Range/Units Bedside Glucose 199 70-99 mg/dl
[2016-06-25] MEDS ORDERED: LSN40 PO (12:13)
[2016-06-25] MEDS ORDERED: CLC100 PO (12:13)
[2016-06-25] MEDS ORDERED: OXYSR/20 PO (12:13)
[2016-06-25] MEDS ORDERED: CYM60 PO (12:13)
[2016-06-25] MEDS ORDERED: OXYC7.5T62 PO (12:13)
[2016-06-25] MEDS ORDERED: NRV5 PO (12:13)
[2016-06-25] MEDS ORDERED: TPRSR50 PEG (12:19)
[2016-06-25] MEDS ORDERED: XNX5 PO (12:19)
[2016-06-25] MEDS ORDERED: PLV75 PO (12:19)
--- NOTE | 2016-06-25 12:24 | Discharge Instructions ---
Discharge Instructions Admission Reason for Admission: Altered Mental Status, Sepsis Discharge Discharge Diagnosis / Problem: Lacunar Infarct Discharge Goals Goal(s): Decrease discomfort, Improve function, Increase independence, Improve disease control, Improve nutritional status, Therapeutic intervention Activity Recommendations Activity Limitations: resume your previous activity (A tolerated following fall precautions.) Exercise/Sports Limitations: as tolerated (As per PT/OT) Shower/Bathe: no limitations . Instructions / Follow-Up Instructions / Follow-Up 1. Take all the medications as directed. 2. BP needs to be monitored closely. 3. PT/OT as tolerated. 4. Monitor Bowel movements Risk Factors for Stroke: You can reduce your chances of stroke by working with your medical provider to adopt a healthy lifestyle. Some specific ways to lower your chance of stroke are: * If you are a smoker, now is the time to stop smoking cigarettes * If you are diabetic, improve the control of your blood sugars * Avoid excessive amounts of alcohol * Control high blood pressure * Lose weight if you are overweight * Be sure to lead an active lifestyle * Eat a healthy diet low in salt, cholesterol and fat You should know about other risk factors for stroke that you are unable to control. These include: * Age 55 years or older * Male gender * Certain racial groups: , or / * Family History of Stroke, Mini stroke or Heart Attack * Sickle Cell Disease Follow Up: It is important for you to keep your follow up appointments with your medical provider. Follow up with PCP within one week after discharge from the Rehab facility. Follow up with Neurology in 2 weeks as outpatient. Current Hospital Diet Patient's current hospital diet: AHA Diet (Heart Healthy), Diabetes Type 2 Diet Discharge Diet Recommended Diet: AHA Diet (Heart Healthy), Diabetes Type 2 Diet Procedures Procedures Performed: doc Pending Studies Studies pending at discharge: no Laboratory Results Hemoglobin A1c Test 06/14/16 12:20 Range/Units Estimated Average Glucose 278 mg/dl Hemoglobin A1c 11.3 H 4.5-5.6 % Lipid Panel Test 06/15/16 04:20 Range/Units Triglycerides Level 266 H 0-150 mg/dl Cholesterol Level 236 H 0-200 mg/dl HDL Cholesterol 32 mg/dl Cholesterol/HDL Ratio 7.4 LDL Cholesterol, Calculated 151 mg/dl Medical Emergencies . Who to Call and When: Medical Emergencies: Call 911 immediately if you experience any of the following warning signs and symptoms of Stroke: * Sudden numbness or weakness of the face, arm or leg, especially on one side of the body * Sudden confusion, trouble speaking or understanding * Sudden trouble seeing in one or both eyes * Sudden trouble walking, dizziness, loss of balance or coordination * Sudden severe headache with no cause Do not delay calling 911 if you experience any warning signs or symptoms of a stroke. Delay in seeking medical attention may affect what treatments can be given to you. . Non-Emergent Contact Non-Emergency issues call your: Primary Care Provider . . "Provider Documentation" section prepared by John Perez. Stroke Core Measures Reason no t-PA for Stroke: Treatment not indicated Reason no antithrom by day 2: Treatment provided - N/A Reason no antithrom at D/C: Treatment provided - N/A Reason no statin at D/C: Treatment provided - N/A Reason no anticoag w/a fib: Treatment not indicated VTE Core Measure Inpt VTE Proph given/why not?: Unfractionated heparin SQ
--- NOTE | 2016-06-25 12:33 | Discharge Summary ---
Discharge Summary Admission Date: Jun 14, 2016 at 15:26 Discharge Date: Jun 25, 2016 Discharge Disposition: Rehab Principal Diagnosis: Acute / Subacute Infarcts Fever of Unknown Origin (Resolved) Hypokalemia (Resolved) Hyponatremia (Resolved) Hypertensive Urgency (Improved) Diarrhea (Resolved) Hyperosmolar Hyperglycemic State (Resolved) Acute Kidney Injury (Resolved) Secondary Diagnoses/Problems: History Hypertension Thrombophilia Depression Hyperlipidemia Procedures: Echocardiogram CT SCAN OF THE BRAIN WITHOUT IV CONTRAST IMPRESSION: 1. There is no hemorrhage, mass effect, or evidence of acute territorial ischemia by CT criteria. 2. Age indeterminant and possibly acute to subacute lacunar infarcts are identified in the left caudate head/left centrum semiovale. This could be further assessed with MRI of clinically warranted. 3. Paranasal sinus disease as above. CT Abdomen/Pelvis IMPRESSION: 1. Overall, suboptimal evaluation the abdomen and pelvis as described above. 2. No definite bowel wall thickening or obstruction. 3. Normal appendix. 4. Fluid-filled nondilated large and small bowel. This can be seen in the setting of a gastroenteritis. 4. There are suggestion of a foreign body within the rectum with surrounding gas raising the possibility of a balloon tip catheter. Clinical correlation recommended. 6. Bladder is essentially obscured by the metallic artifact from the bilateral hip prostheses. There is a Al catheter within the bladder. 7. Mild thickening of the distal esophagus. MRI Brain IMPRESSION: 1. Multiple scattered small foci of restricted diffusion as described above consistent with acute to subacute infarcts. 2. Some of these areas of infarction demonstrate a slightly nodular appearance. Therefore, recommend one month brain MRI follow-up with intravenous contrast to exclude the less likely possibility of an underlying lesion. 3. Sinus disease as described above. There appears to be a 2 cm polyp within the right ethmoid air cells. ENT consultation should be considered for further evaluation once the patient is stabilized. Head MRA 1. Mild to moderate focal narrowing within the right P2 segment. 2. Mild smooth narrowing within the proximal to mid basilar artery which may be due to the tortuosity. 3. Otherwise, no significant stenosis, occlusion, or aneurysm within the [place]. Carotid Duplex IMPRESSION: No hemodynamically significant stenosis seen within the carotid arteries. Vaccinations: NONE Consultations: Cardiology Infectious Disease Neurology Psychiatry Pending Studies/Follow-Up: Needs follow up for her blood sugars, BP. Follow up for PT/OT Medication Reconciliation New Medications: Metoprolol Succinate (Metoprolol Succinate ER) 50 Mg Tabcr 1 TAB PEG QD, #30 TAB Alprazolam (Alprazolam) 0.5 Mg Tab 0.5 MG PO Q8 PRN for anxiety, #14 TAB Amlodipine Besylate (Amlodipine Besylate) 5 Mg Tab 5 MG PO QAM, #30 TAB Clopidogrel Bisulfate (Clopidogrel) 75 Mg Tab 75 MG PO QAM, #90 TAB Docusate Sodium (Docusate Sodium) 100 Mg Cap 100 MG PO DAILY, #30 CAP Duloxetine HCl (Duloxetine HCl) 60 Mg Cap 60 MG PO QDL, #30 CAP Lisinopril (Lisinopril) 40 Mg Tab 40 MG PO QAM, #30 TAB Oxycodone HCl (Oxycontin) 20 Mg Tabcr 40 MG PO Q12, #30 Oxycodone/Acetaminophen 7.5MG/325MG (Endocet 7.5MG/325MG) 1 Tab Tab 1 TAB PO Q6H PRN for Pain, #14 TAB Continued Medications: Albuterol Sulfate (Proair Respiclick) 108 Mcg/Act Aer 2 PUFFS INH Q4H PRN for Wheezing Aspirin (Aspirin EC Low Dose) 81 Mg Ectab 81 MG PO DAILY Atorvastatin Calcium (Lipitor) 80 Mg Tab 80 MG PO DAILY, TAB Azelastine Hcl (Astepro) 0.15 % Spr 2 SPRY BENNY BID for 30 Days, #30 ML 5 Refills Calcium Carbonate (Tums) 500 Mg Chew 500 MG PO TIDM Calcium Carbonate-Vitamin D (Calcium + D) 1 Tab Tab 1 TAB PO DAILY Cetirizine (Zyrtec) 10 Mg Tab 10 MG PO DAILY, TAB Cholecalciferol (Vitamin D) 1,000 Unit Tab 1000 UNIT PO DAILY Fenofibrate (Tricor) 48 Mg Tab 1 TAB PO DAILY for 30 Days, #30 TAB 5 Refills Fluticasone Propionate (Nasal) (Flonase Allergy Relief) 50 Mcg/Act Spr 2 SPRAYS BENNY DAILY Insulin Aspart (Novolog) 100 Units/Ml Inj 5 UNITS SQ TIDM Insulin Glargine (Lantus Solostar) 100 Unit/Ml Inj 25 UNITS SC HS, PEN Metronidazole (Topical) (Metronidazole) 1 % Gel 1 APPLN EXT HS Polyethylene Glycol 3350 (Miralax) 1 Pow Pow 17 GM PO DAILY, #527 GM Promethazine Hcl (Phenergan) 25 Mg Tab 25 MG PO Q8H PRN for Nausea, TAB Sumatriptan Succinate (Imitrex) 25 Mg Tab 25 MG PO UD PRN for Migraine, TAB 2 pills by mouth at onset of migraine and one every 2 hours as needed, up to 5 tabs per day. Wheat Dextrin (Benefiber) 1 Pow Pow 1 TBS PO HS Discontinued Medications: Amlodipine (Norvasc) 10 Mg Tab 10 MG PO DAILY, TAB Carbamazepine (Carbamazepine) 200 Mg Tab 200 MG PO Q4H PRN for Pain Duloxetine HCl (Cymbalta) 30 Mg Cap 1 CAP PO BID for 30 Days, #60 CAP 2 Refills Hydralazine HCl (Hydralazine HCl) 25 Mg Tab 50 MG PO TID Hydrochlorothiazide (Hctz) 25 Mg Tab 25 MG PO DAILY, TAB Lisinopril (Zestril) 20 Mg Tab 20 MG PO BID, TAB Metoprolol Succinate (Toprol Xl) 200 Mg Tabcr 200 MG PO DAILY Oxycodone Hcl (Oxycontin) 40 Mg Tab 40 MG PO Q12, TAB Oxycodone/Acetaminophen 7.5MG/325MG (Percocet 7.5MG/325MG) Tab 1 TAB PO Q6 PRN for Pain, TAB PRN PAIN Venlafaxine Hcl (Effexor Extended Rel) 150 Mg Cap 1 CAP PO DAILY for 30 Days, #30 CAP 1 Refill Admission Information HPI (per Admitting provider): This is a 55 y/o male with PMH of DM type 2, HTN, HL, migraines, trigeminal neuralgia, SANAM intermittent CPAP compliance, depression, aseptic necrosis of bone s/p bilat hip replacement, chronic smoker, who presents to the ED with altered mental status. History obtained from mother at bedside, nursing staff, and records as patient is obtunded. Per [employer], patient was combative when he arrived and was sedated with 1 mg IV Ativan. Patient's mother states yesterday his mentation was at baseline when she saw him after chiropractor appointment for neck pain x 5 months. Pt has also been having severe migraines for several months. Patient lives alone in the mother's home, and today when she went to the house he was confused. He was disoriented to the date and could not recognize her. Patient told the mother he fell and hit his head and there is an abrasion on his right forehead. The fall was unwitnessed. She notes patient was unstable/ off balance when ambulating today with assistance. He usually ambulates with a cane. The emergency room RN states there was no facial drooping or focal weakness on her exam before he was sedated, but he was answering questions inappropriately. In the ER he was disoriented but was able to identify his mother. Per his mother he was nauseous earlier but had no vomiting. She states he often has diarrhea but not in past few days. His mother believes he is non-compliant with his insulin and other medications, except that he takes his oxycodone regularly. She does not believe he took more oxycodone than prescribed. She does not believe he drinks alcohol or takes illicit drugs. Patient is depressed and has expressed to his mother that he wishes to . He did not mention a plan to her. His mother reports chronic sinus problems. She is not aware of recent fever, URI, cough, SOB, abdominal pain, wounds. She denies known sick contact, hospitalization, or antibiotics. No history of CVA or cardiac disorder per his mother. Physical Exam (per Admitting): General Appearance: + obese, + pertinent finding (obtunded, snoring 55 year old male lying in bed, mother at bedside) Head: normocephalic, + evidence of trama (abrasion right forehead) Eyes: normal inspection, PERRL, + pertinent finding (unable to cooperate with EOM testing) ENT: normal ENT inspection, + pertinent finding (unable to examine pharynx as patient unable to cooperate) Neck: supple, no JVD, trachea midline Respiratory/Chest: lungs clear, normal breath sounds, no respiratory distress, no accessory muscle use Cardiovascular: no murmur, normal peripheral pulses, + tachycardia (rate regular) Abdomen/GI: normal bowel sounds, non tender, soft Extremities/Musculoskelatal: no calf tenderness, normal capillary refill, no pedal edema Neurologic/Psych: + pertinent finding (patient is obtunded after being sedated with Ativan. neuro exam limited due to mental status.) Skin: normal color, warm/dry, no rash Hospital Course 55 year old male with PMH of uncontrolled HTN, DM2, HLD, 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 of trigeminal neuralgia, hx. of migraines, SANAM presented with altered mental status/confusion and a fall Acute/Subacute Scattered lacunar Infarcts: Patient presented to the ER with altered mental status, disorientation, possible infectious vs. acute CVA. Clinically improving and is hemodynamically stable. -Head CT, Brain MRI, and Brain MRI with contrast/MRA performed = suggestive of acute-subacute CVA -Reviewed WILIAN and shows no clinically significant finding. -Neurology following. Thanks for input. Sepsis/Fever of Unknown Origin: Patient presented to the ER with +fevers, + leukocytosis, +tachycardia - meeting sepsis criteria Has been afebrile for the past many days and is off all the antibiotics.Remains afebrile for many days. -Patient was pancultured; CXR, UA negative; due to neck pain, LP performed, but no significant findings -He was initially started on Levaquin, Vanco, Aztreonam, Acyclovir. Levaquin , Aztreonam and Acyclovir have been stopped as of 06/17 & is off Vancomycin -Appreciate ID input. Thanks -Blood culture x 1 positive for coag neg staph which is likely a contaminant. Hyponatremia: Resolved Hypokalemia:Resolved. Hypertensive Urgency: Patient presented with elevated blood pressures in the 170s-180s, likely secondary to noncompliance BP is better controlled now and intermittently goes higher. -Continue lisinopril, amlodipine, and b-benja --Noted Cardiology input. Thanks Elevated Troponin: Patient presented with elevated troponin, likely multifactorial: sepsis, hyperosmolar hyperglycemia, hypertensive urgency BP is better controlled now. -Clinically stable and Cardiology is following the patient. Diarrhea: Resolved now. Patient has been having diarrhea throughout hospital stay. Antibiotics have been tapered, IVFs have been discontinued -Rectal tube was placed for patient comfort and has been discontinued many days ago. -C. diff and stool cultures are negative -Loperamide and Fibercon started -if persistent, may need GI input Hyperlipidemia: LDL is 151. Will restart Statin after discharge. Hyperosmolar Hyperglycemic State: Patient presented with BSGs > 400, elevated anion gap, acute kidney injury. Patient has been noncompliant with all medications at home, including insulin. HbA1c > 10 -He was initially started on an insulin drip. Was given IVFs and switched back to subq insulin -Currently on Lantus 12 units BID and an insulin sliding scale -glycemic control consult -Will need diabetic education prior to discharge Acute Kidney Injury: Resolved. Patient initially presented with creat of 2.0 likely due to dehydration, volume depletion -Given IVFs for HSS and creat has since been back to normal -Monitor GFR and avoid any Nephrotoxin. 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 Patient has been having chronic pain and uses opioids as outpatient to manage this He has difficulty daily due to the bilateral hip pain -Consult orthopedic surgery; possible hardware infection? -Pain management consulted - will follow and possible outpatient nerve block injections Thrombophilia: Has a hx. of thrombophilia including Factor V Leiden mutation & was once on Coumadin, but due to hematoma, was stopped s/p [place] filter -Currently on Sq heparin q8 Depression: History of major depression disorder & was once on Cymbalta and Effexor. He had stopped taking these medications on his own As per patent's mom, he has been depression since stopping these medications -Psychiatry consulted and Cymbalta has been restarted at this time Patient is DNR DVT Prophylaxis: Sq Heparin Disposition: Discharge to [facility] later today. has been accepted. Total time spent on discharge = 45v minutes This includes examination of the patient, discharge planning, medication reconciliation, and communication with other providers. Discharge Instructions Discharge Discharge Diagnosis / Problem: Lacunar Infarct Discharge Goals Goal(s): Decrease discomfort, Improve function, Increase independence, Improve disease control, Improve nutritional status, Therapeutic intervention Activity Recommendations Activity Limitations: resume your previous activity (A tolerated following fall precautions.) Exercise/Sports Limitations: as tolerated (As per PT/OT) Shower/Bathe: no limitations . Instructions / Follow-Up Instructions / Follow-Up 1. Take all the medications as directed. 2. BP needs to be monitored closely. 3. PT/OT as tolerated. 4. Monitor Bowel movements Risk Factors for Stroke: You can reduce your chances of stroke by working with your medical provider to adopt a healthy lifestyle. Some specific ways to lower your chance of stroke are: * If you are a smoker, now is the time to stop smoking cigarettes * If you are diabetic, improve the control of your blood sugars * Avoid excessive amounts of alcohol * Control high blood pressure * Lose weight if you are overweight * Be sure to lead an active lifestyle * Eat a healthy diet low in salt, cholesterol and fat You should know about other risk factors for stroke that you are unable to control. These include: * Age 55 years or older * Male gender * Certain racial groups: , or / * Family History of Stroke, Mini stroke or Heart Attack * Sickle Cell Disease Follow Up: It is important for you to keep your follow up appointments with your medical provider. Follow up with PCP within one week after discharge from the Rehab facility. Follow up with Neurology in 2 weeks as outpatient. Additional Copies To Vee Mccann M.D. [facility]
[2016-06-25] MEDS: DULOXETINE HCL 60 MG CAP PO SCH (12:51)
[2016-06-25 17:44] LABS: ANTITHROMBINIII ACTIVITY** 118 % activity (80-120); B2 GLYCOPROTEIN IGA <9 SAU (<=20); B2 GLYCOPROTEIN IGG <9 SGU (<=20); B2 GLYCOPROTEIN IGM <9 SMU (<=20); LUPUS ANTICOAGULANT** TC36573X Negative (Negative); PROTEIN C ACTIVITY** TC 1777X >200 % (70-180); PROTEIN S ACT(FUNCT)**1779X 122 % (70-150)
[2017-02-13] MEDS ORDERED: MORP60TA69 PO (14:28)
[2017-02-13] MEDS ORDERED: MORP-158 PO (14:28)
[2017-02-13] MEDS ORDERED: MORP15TA PO (14:28)
== END 2016-06-25 14:24 | DRG 871 ==
LOC: ENRESERVTM → ENRESERVDT → EDBD 12:04 → C.EDC 12:04 → UNDOADMIN 15:26 → C.2E 15:26 → EDBEDREQ 15:49 → CANBEDREQ 06-17 12:14 → C.MSICU 06-17 12:48 → C.2T 06-18 18:00 → C.4E 06-21 19:09
PROVIDERS: ADMIT Internal Medicine; ATTEND Emergency Medicine
PROC: 009U3ZX Drainage of Spinal Canal, Percutaneous Approach, Diagnostic (ICD-10-PCS; principal; 2016-06-15)
PROC: 0D9P70Z Drainage of Rectum with Drainage Device, Via Natural or Artificial Opening (ICD-10-PCS; 2016-06-15)
DX: A41.9 Sepsis, unspecified organism (principal); I63.8 Other cerebral infarction; G93.41 Metabolic encephalopathy; E11.00 Type 2 diabetes mellitus with hyperosmolarity without nonketotic hyperglycemic-hyperosmolar coma (NKHHC); N17.9 Acute kidney failure, unspecified; E87.1 Hypo-osmolality and hyponatremia; D68.59 Other primary thrombophilia; I10 Essential (primary) hypertension; E78.5 Hyperlipidemia, unspecified; G47.33 Obstructive sleep apnea (adult) (pediatric); F32.9 Major depressive disorder, single episode, unspecified; E87.6 Hypokalemia; E11.65 Type 2 diabetes mellitus with hyperglycemia; G89.29 Other chronic pain; R19.7 Diarrhea, unspecified; Z66 Do not resuscitate; Z79.4 Long term (current) use of insulin; Z79.82 Long term (current) use of aspirin; Z79.899 Other long term (current) drug therapy; F17.210 Nicotine dependence, cigarettes, uncomplicated; Z96.643 Presence of artificial hip joint, bilateral

== ENCOUNTER 2016-09-10 19:03 | Emergency (ER) | payer OTHER, BC ==
[~2016-09-10] VITALS: Ht 180.3 cm; Wt 107.5 kg
[~2016-09-10 19:03] MED LIST changes: +ALBU18002 INH; -ALBU1AER9 INH; -AMLO-114 PO; +ASPEC81 PO; +ATOR80TA PO; +AZEL0.15 NAE; -CALC12502 PO; +CALC500C3 PO; +CALC600T9 PO; -CARB100C2 PO; +CHOL100010 PO; +CLC100 PO; -CLIN300C10 PO; +CYM60 PO; -DULO1CAP39 PO; -EFFSR150 PO; -FLUT0.0529 NAE; +FLUT0.15 NAE; -GLIP10TA9 PO; -HYDR25TA5 PO; -INSDGI SC; +INSDGIPEN SC; -LEVO-459 PO; -LPT40 PO; -LSN20 PO; +LSN40 PO; -METO1TAB70 PO; +METR0.7536 EXT; -MONT1TAB3 PO; +NRV5 PO; +NVLG SQ; +OXYC7.5T62 PO; -OXYC7.5T65 PO; +OXYSR/20 PO; -OXYSR40 PO; +PLV75 PO; +POLY335019 PO; +PROM25TA9 PO; -SLSS; +TPRSR50 PEG; +WHEAPOW13 PO; +XNX5 PO
[2016-09-10 19:17] VITALS: TEMP 36.7; Ht 180.3 cm; Wt 107.5 kg
[2016-09-10 19:26] VITALS: O2SAT 98
--- NOTE | 2016-09-10 19:44 | EMERGENCY ROOM VISIT NOTE ---
History Report prepared by Rosangelaibkelvin: Joshua Macias Under the Supervision of: Dr. Kobi Carrington M.D. First contact with patient: 19:24 Chief Complaint: PALPITATIONS Stated Complaint: PALPITATIONS, TIGHT, TACHY, LIGHTHEADED History of Present Illness The patient is a 55 year old male who presents to the Emergency Room with complaints of persistent heart palpitations that started six hours ago. The patient notes the palpitations have been constant. He also complains of shortness of breath, chest tightness, feeling lightheaded, and some pain in his back. He has experienced palpitations before, but notes they have never been this severe before. Three months ago, the patient had a stroke. He does not complain of any deficits after recovering from the stroke. The patient was also septic and they couldn't find the source of the infection. He has been wearing a heart monitor holter since and was wearing one today when the palpitations started. At this time, the patient denies any pain in his extremities. The patient is on Plavix and Aspirin every day currently. Source of History: patient Onset: six hours ago Position: chest Timing: other (persistent) Associated Symptoms: + SOB, + back pain (some) Note: Other associated symptoms: chest tightness, feeling lightheaded Denies: pain in his extremities Review of Systems All systems have been listed, reviewed, and are negative other than those previously mentioned. Please see Additional Medical History Sheet. 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 (9) History of aseptic necrosis of bone (10) History of skin cancer (11) Hypertension (12) Malignant hypertensive urgency (13) Migraine (14) Opiate dependence, continuous (15) Sepsis (16) Sleep apnea (17) Trigeminal neuralgia Surgical Problems: (1) S/P bilateral hip replacements (2) Status post hip replacement (3) Status post insertion of inferior vena caval filter (4) Status post sinus surgery (5) Status post sinus surgery Family History Asthma MOTHER Carcinoma of kidney FATHER Myocardial infarction FATHER Thyroid disease MOTHER Social History Smoking Status: Never Smoker Alcohol Use: none Drug Use: none Marital Status: Housing Status: lives with family Current/Historical Medications Scheduled Amlodipine (Norvasc), 5 MG PO QAM Aspirin (Aspirin EC Low Dose), 81 MG PO DAILY Atorvastatin Calcium (Lipitor), 80 MG PO DAILY Azelastine Hcl (Astepro), 2 SPRY BENNY BID Calcium Carbonate (Tums), 500 MG PO TIDM Calcium Carbonate-Vitamin D (Calcium + D), 1 TAB PO DAILY Cetirizine (Zyrtec), 10 MG PO DAILY Cholecalciferol (Vitamin D), 1,000 UNIT PO DAILY Clopidogrel (Plavix), 75 MG PO QAM Docusate Sodium (Docusate Sodium), 1 CAP PO BID Duloxetine Hcl (Cymbalta), 60 MG PO QDL Fenofibrate (Tricor), 1 TAB PO DAILY Insulin Aspart (Novolog), 5 UNITS SQ TIDM Insulin Glargine (Lantus Solostar), 25 UNITS SC HS Lisinopril (Lisinopril), 40 MG PO QAM Metoprolol Succ (Toprol Xl) (Toprol-Xl), 50 MG PO QAM Metronidazole (Topical) (Metronidazole), 1 APPLN EXT HS Oxycodone Hcl (Oxycontin), 40 MG PO Q12 Polyethylene Glycol 3350 (Miralax), 17 GM PO DAILY Scheduled PRN Acetaminophen (Tylenol), 650 MG PO Q4H PRN for Pain or Fever Albuterol Sulfate (Proair Respiclick), 2 PUFFS INH Q4H PRN for Wheezing Alprazolam (Xanax), 0.5 MG PO Q8 PRN for Anxiety/Agitation Oxycodone/Acetaminophen 7.5MG/325MG (Percocet 7.5MG/325MG), 1 TAB PO Q6H PRN for Pain Sennosides-Docusate Sodium (Senna S), 1 TAB PO DAILY PRN for Constipation Sumatriptan Succinate (Imitrex), 25 MG PO UD PRN for Migraine Allergies Coded Allergies: Penicillins (Verified Allergy, Unknown, HAPPENED A CHILD, 09/10/16) Shellfish (Verified Adverse Reaction, Unknown, GI UPSET, 09/10/16) Physical Exam Vital Signs Date Time Temp Pulse Resp B/P Pulse Ox O2 Delivery O2 Flow Rate FiO2 09/10/16 22:42 71 18 135/77 96 Room Air 09/10/16 21:46 71 16 168/107 97 Room Air 09/10/16 20:45 66 18 137/82 97 Room Air 09/10/16 19:29 88 09/10/16 19:26 98 Room Air 09/10/16 19:26 98 Room Air 09/10/16 19:17 36.7 89 18 146/90 98 Room Air Physical Exam GENERAL: Patient awake, alert, oriented x 3. Patient follows commands. Patient does not appear toxic. Patient is adequately hydrated and well- nourished. SKIN: No erythema, pallor, cyanosis or rash HEENT: Normal head, pupils equal, reactive to light and accommodation. Neck: Without adenopathy, no neck vein distention. LUNGS: Clear to auscultation. No wheezes, no rales, no rhonchi. HEART: Irregular irregular rhythm. ABDOMEN: No masses, no rebound, no hepatomegaly or splenomegaly. EXTREMITIES: No signs of trauma. No pedal or pretibial edema. No calf or thigh tenderness. NEUROLOGIC: Cranial nerves II-XII within normal limits. No gross motor sensory function deficits. Medical Decision & Procedures ER Provider Diagnostic Interpretation: X ray results are stated below per my interpretation and the radiologist's interpretation. SINGLE VIEW CHEST CLINICAL HISTORY: Palpitations. FINDINGS: An AP, portable, upright chest radiograph is compared to study dated 06/22/16. The examination is degraded by portable technique and patient rotation. The heart is mildly enlarged. The pulmonary vasculature is noncongested. Chronic interstitial thickening is unchanged. The lungs and pleural spaces are clear. No pneumothorax is seen. The bony thorax is grossly intact. IMPRESSION: Mild cardiac enlargement with no active disease in the chest. Electronically signed by: Abdulaziz Soriano M.D. 09/10/2016 8:11 PM Dictated Date/Time: 09/10/2016 8:[address] ANGIOGRAM OF THE CHEST CLINICAL HISTORY: Palpitations. Tachycardia. COMPARISON STUDY: Chest x-ray dated 09/10/2016. TECHNIQUE: Following the IV administration of 106 cc of Optiray 320, CT angiogram of the chest was performed from the upper abdomen to the thoracic inlet utilizing the pulmonary embolus protocol. Images are reviewed in the axial, sagittal, and coronal planes. 3-D MIPS images are created and assessed. IV contrast was administered without complication. CT DOSE: 647.50 mGy.cm FINDINGS: Thyroid: Imaged portions of the thyroid gland are normal in size and attenuation. Thoracic aorta: The thoracic aorta is normal in caliber and demonstrates standard 3-vessel arch anatomy. No dissection is seen. Pulmonary vasculature: The pulmonary trunk is normal in caliber. There are no filling defects identified in main, lobar, or segmental pulmonary branches to suggest pulmonary embolus. Heart: The heart is mildly enlarged and without pericardial effusion. There is reflux of contrast into the IVC and hepatic veins suggesting cardiac dysfunction. The coronary arteries are densely calcified. Lungs and pleural spaces: Emphysema is noted. There is no lobe consolidation or pleural effusion. There are patchy groundglass foci identified in the left upper and left lower lobes seen on images #137 and #187. The trachea and central airways are clear. Mild diffuse peribronchial thickening suggests reactive airway disease. Mediastinum: There is no mediastinal lymphadenopathy. Katt: Clear. Axillae: There is no axillary lymphadenopathy. Upper abdomen: The liver appears enlarged and steatotic. The spleen is mildly enlarged. A tiny hiatal hernia is observed. Skeletal structures: No lytic or blastic bony lesions are seen. Mild degenerative changes noted throughout the thoracic spine. IMPRESSION: 1. There is no evidence of pulmonary embolus in the main, lobar, or segmental pulmonary arteries. 2. Cardiomegaly with evidence of cardiac dysfunction. 3. Emphysema. 4. There is no lobar consolidation or pleural effusion. Patchy foci of groundglass change are seen in the left upper and left lower lobes, and likely represents a mild infectious/inflammatory pneumonitis. Follow-up chest CT in 3 months time is recommended to document resolution. 5. Hepatic steatosis and mild splenomegaly are noted in the upper abdomen. Electronically signed by: Abdulaziz Soriano M.D. 09/10/2016 9:57 PM Dictated Date/Time: 09/10/2016 9:51 PM Laboratory Results 09/10/16 19:30 Red Blood Count 4.83, Mean Corpuscular Volume 83.2, Mean Corpuscular Hemoglobin 28.4, Mean Corpuscular Hemoglobin Concent 34.1, Mean Platelet Volume 9.5, Neutrophils (%) (Auto) 64.5, Lymphocytes (%) (Auto) 23.5, Monocytes (%) (Auto) 9.6, Eosinophils (%) (Auto) 1.9, Basophils (%) (Auto) 0.3, Neutrophils # (Auto) 7.63, Lymphocytes # (Auto) 2.79, Monocytes # (Auto) 1.14, Eosinophils # (Auto) 0.23, Basophils # (Auto) 0.04 09/10/16 19:30 Test 09/10/16 19:30 09/10/16 19:36 White Blood Count 11.85 K/uL (4.8-10.8) Red Blood Count 4.83 M/uL (4.7-6.1) Hemoglobin 13.7 g/dL (14.0-18.0) Hematocrit 40.2 % (42-52) Mean Corpuscular Volume 83.2 fL (80-100) Mean Corpuscular Hemoglobin 28.4 pg (25-34) Mean Corpuscular Hemoglobin Concent 34.1 g/dl (32-36) Platelet Count 246 K/uL (130-400) Mean Platelet Volume 9.5 fL (7.4-10.4) Neutrophils (%) (Auto) 64.5 % Lymphocytes (%) (Auto) 23.5 % Monocytes (%) (Auto) 9.6 % Eosinophils (%) (Auto) 1.9 % Basophils (%) (Auto) 0.3 % Neutrophils # (Auto) 7.63 K/uL (1.4-6.5) Lymphocytes # (Auto) 2.79 K/uL (1.2-3.4) Monocytes # (Auto) 1.14 K/uL (0.11-0.59) Eosinophils # (Auto) 0.23 K/uL (0-0.5) Basophils # (Auto) 0.04 K/uL (0-0.2) RDW Standard Deviation 38.8 fL (36.4-46.3) RDW Coefficient of Variation 12.9 % (11.5-14.5) Immature Granulocyte % (Auto) 0.2 % Immature Granulocyte # (Auto) 0.02 K/uL (0.00-0.02) Prothrombin Time 10.7 SECONDS (9.0-12.0) Prothromb Time International Ratio 1.0 (0.9-1.1) Activated Partial Thromboplast Time 24.3 SECONDS (21.0-31.0) Partial Thromboplastin Ratio 0.9 Anion Gap 7.0 mmol/L (3-11) Est Creatinine Clear Calc Drug Dose 62.7 ml/min Estimated GFR () 52.2 Estimated GFR (Non- 45.0 BUN/Creatinine Ratio 16.9 (10-20) Calcium Level 9.3 mg/dl (8.5-10.1) Total Bilirubin 0.3 mg/dl (0.2-1) Aspartate Amino Transf (AST/SGOT) 11 U/L (15-37) Alanine Aminotransferase (ALT/SGPT) 25 U/L (12-78) Alkaline Phosphatase 63 U/L (45-117) Total Protein 7.3 gm/dl (6.4-8.2) Albumin 4.0 gm/dl (3.4-5.0) Globulin 3.3 gm/dl (2.5-4.0) Albumin/Globulin Ratio 1.2 (0.9-2) Bedside D-Dimer > 450 ng/mlFEU (0-450) Bedside Troponin I 0.000 ng/ml (0-0.045) Laboratory results as stated above per my review. Medications Administered Medications (Trade) Dose Ordered Sig/[place] Route Start Time Stop Time Status Last Admin Dose Admin Amlodipine Besylate (Norvasc Tab) 5 mg NOW ONCE PO 09/10/16 22:30 09/10/16 22:31 DC 09/10/16 22:40 5 MG ECG Indication: palpitations Rate (beats per minute): 83 Rhythm: normal sinus Findings: LAFB, RBBB (incomplete), prolonged QT ED Course 1925: Past medical records reviewed. The patient was evaluated in room C3. A complete history and physical examination was performed. 2214: At this time, I reevaluated the patient and he was starting to feel a little better. Medication will be ordered for the patient and he will be observed for some more time. 2229: Ordered Norvasc Tab 5 mg PO. 2300: Upon reevaluation, the patient appeared to have improvement of his symptoms. I discussed today's findings with him. He verbalized agreement of the treatment plan. The patient was discharged home. Medical Decision Differential diagnoses include PACs, PVCs, atrial fibrillation, PE, or myocardial infarction. Patient is here with what feels like an arrhythmia. On monitoring he is noted to have multiple PACs. Labs, EKG and imaging were obtained. The patient's d- dimer was elevated along with the shortness of breath necessitating a CT scan of his chest. No PE was found. The patient's PACs resolved without treatment. His blood pressure slowly came down. He was given an extra dose of Norvasc. Patient was monitored and multiple he felt safe to return home. The patient's to follow-up with his family physician this week. Impression Primary Impression: Premature atrial contractions Scribe Attestation The scribe's documentation has been prepared under my direction and personally reviewed by me in its entirety. I confirm that the note above accurately reflects all work, treatment, procedures, and medical decision making performed by me. Departure Information Dispostion Home / Self-Care Referrals Suman Kaplan M.D.([facility]) (PCP) Forms HOME CARE DOCUMENTATION FORM, IMPORTANT VISIT INFORMATION, WORK / SCHOOL INSTRUCTIONS Patient Instructions My [facility] Additional Instructions Continue all of your current medications as prescribed. Follow-up with your family physician this week. Return here if you become more short of breath or develop chest pain.
[2016-09-10 19:47] LABS: BASO % 0.3 %; BASO ABS # 0.04 K/uL (0-0.2); COMPLETE YES; EOS % 1.9 %; HEMATOCRIT 40.2 % (42-52); IG% 0.2 %; LYMPH % 23.5 %; LYMPH ABS # 2.79 K/uL (1.2-3.4); MEAN CELL VOLUME 83.2 fL (80-100); MEAN CORPUSCULAR HEMOGLOBIN 28.4 pg (25-34); MEAN CORPUSCULAR HGB CONC 34.1 g/dl (32-36); MEAN PLATELET VOLUME 9.5 fL (7.4-10.4); MONO % 9.6 %; NEUT % 64.5 %; PLATELET COUNT 246 K/uL (130-400); RED BLOOD COUNT 4.83 M/uL (4.7-6.1); WHITE BLOOD COUNT 11.85 K/uL (4.8-10.8)
[2016-09-10 20:00] LABS: PARTIAL THROMBOPLASTIN RATIO 0.9; PROTHROMBIN TIME (PATIENT) 10.7 SECONDS (9.0-12.0)
[2016-09-10 20:10] LABS: ALB/GLOB RATIO 1.2 (0.9-2); BUN/CREATININE RATIO 16.9 (10-20); CALCIUM 9.3 mg/dl (8.5-10.1); CREATININE 1.7 mg/dl (0.60-1.40); POTASSIUM 3.6 mmol/L (3.5-5.1)
--- NOTE | 2016-09-10 20:12 | DIAGNOSTIC IMAGING REPORT ---
SINGLE VIEW CHEST CLINICAL HISTORY: Palpitations. FINDINGS: An AP, portable, upright chest radiograph is compared to study dated 06/22/16. The examination is degraded by portable technique and patient rotation. The heart is mildly enlarged. The pulmonary vasculature is noncongested. Chronic interstitial thickening is unchanged. The lungs and pleural spaces are clear. No pneumothorax is seen. The bony thorax is grossly intact. IMPRESSION: Mild cardiac enlargement with no active disease in the chest. Electronically signed by: Abdulaziz Soriano M.D. 09/10/2016 8:11 PM Dictated Date/Time: 09/10/2016 8:10 PM
[2016-09-10] MEDS ORDERED: OPTIRAY 320 IV PRN (21:30)
--- NOTE | 2016-09-10 21:58 | DIAGNOSTIC IMAGING REPORT ---
CT ANGIOGRAM OF THE CHEST CLINICAL HISTORY: Palpitations. Tachycardia. COMPARISON STUDY: Chest x-ray dated 09/10/2016. TECHNIQUE: Following the IV administration of 106 cc of Optiray 320, CT angiogram of the chest was performed from the upper abdomen to the thoracic inlet utilizing the pulmonary embolus protocol. Images are reviewed in the axial, sagittal, and coronal planes. 3-D MIPS images are created and assessed. IV contrast was administered without complication. CT DOSE: 647.50 mGy.cm FINDINGS: Thyroid: Imaged portions of the thyroid gland are normal in size and attenuation. Thoracic aorta: The thoracic aorta is normal in caliber and demonstrates standard 3-vessel arch anatomy. No dissection is seen. Pulmonary vasculature: The pulmonary trunk is normal in caliber. There are no filling defects identified in main, lobar, or segmental pulmonary branches to suggest pulmonary embolus. Heart: The heart is mildly enlarged and without pericardial effusion. There is reflux of contrast into the IVC and hepatic veins suggesting cardiac dysfunction. The coronary arteries are densely calcified. Lungs and pleural spaces: Emphysema is noted. There is no lobe consolidation or pleural effusion. There are patchy groundglass foci identified in the left upper and left lower lobes seen on images #137 and #187. The trachea and central airways are clear. Mild diffuse peribronchial thickening suggests reactive airway disease. Mediastinum: There is no mediastinal lymphadenopathy. Katt: Clear. Axillae: There is no axillary lymphadenopathy. Upper abdomen: The liver appears enlarged and steatotic. The spleen is mildly enlarged. A tiny hiatal hernia is observed. Skeletal structures: No lytic or blastic bony lesions are seen. Mild degenerative changes noted throughout the thoracic spine. IMPRESSION: 1. There is no evidence of pulmonary embolus in the main, lobar, or segmental pulmonary arteries. 2. Cardiomegaly with evidence of cardiac dysfunction. 3. Emphysema. 4. There is no lobar consolidation or pleural effusion. Patchy foci of groundglass change are seen in the left upper and left lower lobes, and likely represents a mild infectious/inflammatory pneumonitis. Follow-up chest CT in 3 months time is recommended to document resolution. 5. Hepatic steatosis and mild splenomegaly are noted in the upper abdomen. Electronically signed by: Abdulaziz Soriano M.D. 09/10/2016 9:57 PM Dictated Date/Time: 09/10/2016 9:51 PM
[2016-09-10] MEDS ORDERED: AMLODIPINE BESYLATE 5 MG TAB PO ONE (22:30)
[2016-09-10] MEDS ORDERED: LSN40 PO (22:47)
[2016-09-10] MEDS ORDERED: CLOP1TAB15 PO (22:47)
[2016-09-10] MEDS ORDERED: METO50TA7 PO (22:47)
[2016-09-10] MEDS ORDERED: OXYC7.5T65 PO (22:47)
[2016-09-10] MEDS ORDERED: AMLO-110 PO (22:48)
[2016-09-10] MEDS ORDERED: DOCU100C31 PO (22:48)
[2016-09-10] MEDS ORDERED: ACET-1311 PO (22:48)
[2016-09-10] MEDS ORDERED: ALPR-411 PO (22:48)
[2016-09-10] MEDS ORDERED: DULO60CA44 PO (22:48)
[2016-09-10] MEDS ORDERED: OXYC40TA34 PO (22:48)
[2016-09-10] MEDS ORDERED: SENN-91 PO (22:48)
[2016-09-10 23:26] VITALS: BP 138/72; PULSE 78; O2SAT 96
[2017-02-13] MEDS ORDERED: MORP-158 PO (14:28)
[2017-02-13] MEDS ORDERED: MORP60TA69 PO (14:28)
[2017-02-13] MEDS ORDERED: MORP15TA PO (14:28)
== END 2016-09-10 23:27 | disposition home or self-care (01) ==
LOC: C.EDB 19:04 → C.EDC 23:27
DX: I49.1 Atrial premature depolarization (principal); Z86.73 Personal history of transient ischemic attack (TIA), and cerebral infarction without residual deficits; Z79.82 Long term (current) use of aspirin; Z79.01 Long term (current) use of anticoagulants; F32.9 Major depressive disorder, single episode, unspecified; E11.9 Type 2 diabetes mellitus without complications; E78.5 Hyperlipidemia, unspecified; D68.2 Hereditary deficiency of other clotting factors; Z85.828 Personal history of other malignant neoplasm of skin; I10 Essential (primary) hypertension; F11.20 Opioid dependence, uncomplicated; G47.30 Sleep apnea, unspecified; G50.0 Trigeminal neuralgia; Z96.643 Presence of artificial hip joint, bilateral; Z82.5 Family history of asthma and other chronic lower respiratory diseases; Z80.51 Family history of malignant neoplasm of kidney; Z82.49 Family history of ischemic heart disease and other diseases of the circulatory system; Z79.4 Long term (current) use of insulin; Z79.899 Other long term (current) drug therapy

== ENCOUNTER 2018-09-09 15:24 | Inpatient (IN) ==
[2018-09-09] MEDS ORDERED: fentaNYL citrate 100 MCG/2 ML VIAL IV STA (16:53)
[2018-09-09] MEDS ORDERED: SODIUM CHLORIDE 0.9% 1000ML 1,000 ML IV SCH (17:00)
[2018-09-09 17:08] LABS: Basophils # (auto) 0.04 K/uL (0-0.2); Basophils % (auto) 0.2 %; Eosinophils # (auto) 0.12 K/uL (0-0.5); Eosinophils % (auto) 0.6 %; Hematocrit (blood only) 45.7 % (42-52); Hemoglobin 15.3 g/dL (14.0-18.0); Immature Granulocytes # (auto) 0.17 K/uL (0.00-0.02); Immature Granulocytes % (auto) 0.9 %; Lymphocytes # (auto) 1.68 K/uL (1.2-3.4); Lymphocytes % (auto) 8.5 %; Mean Corpuscular Hgb Conc 33.5 g/dL (32-36); Mean Corpuscular Volume 86.2 fL (80-100); Monocytes # (auto) 1.36 K/uL (0.11-0.59); Monocytes % (auto) 6.9 %; Neutrophils # (auto) 16.37 K/uL (1.4-6.5); Neutrophils % (auto) 82.9 %; Platelet Count 182 K/uL (130-400); RDW Coefficient of Variation 13.1 % (11.5-14.5); RDW Standard Deviation 41.2 fL (36.4-46.3); White Blood Count 19.74 K/uL (4.8-10.8)
--- NOTE | 2018-09-09 17:09 | Emergency Department Note ---
ED Provider Note CHIEF COMPLAINT: Low back pain HISTORY OF PRESENT ILLNESS: This 57-year-old male patient presents to the emergency department via EMS complaining of pain in the low back which began yesterday and got significantly worse today. The pain was gradual in onset, is now constant and worse with movement. The patient notes the pain as sharp and stabbing and a 7/10. The patient has taken 50 mg of immediate release morphine and 30 mg of extended release morphine at 10 AM with minimal relief of the pain. The patient did receive 100 mcg of fentanyl IV from EMS, and does report that his pain has reduced from 10/10 to 7/10. The patient denies any loss of control of their bowel or bladder functions. There has been no leg numbness or weakness, and no change in sensation. No nausea or vomiting or abdominal pain. No chest pain or shortness of breath. The patient has a history of previous sciatica and low back problems, but states this feels a little bit different. He also has a history of bilateral chronic hip pain and sees pain management for this, but states that this feels different from his hip pain. He states the pain is in the middle of his back and shoots down the back of both legs. No dysuria or increased urinary frequency. He denies any fevers or chills REVIEW OF SYSTEMS: A complete 10 point review of systems was reviewed with the patient with pertinent positives and negatives as per history of present illness. All else were negative. ALLERGIES: Reviewed in chart MEDICATIONS: Reviewed in chart PMH: Hypertension, type 2 diabetes, hyperlipidemia, bilateral chronic hip pain, CVA, factor V deficiency SOCIAL HISTORY: Lives at home, he admits to daily tobacco use PHYSICAL EXAM: VITALS: Vitals are noted on the nurse's note and reviewed by myself. Vital signs stable. GENERAL: Pleasant and cooperative, in no acute distress, but appears to be uncomfortable from pain. Non-diaphoretic, well-developed well-nourished. SKIN: The skin was without rashes, erythema, edema, or bruising. Capillary refill less than 2 seconds. NECK: Supple without nuchal rigidity. No cervical spine tenderness. No para spinous muscle tenderness. HEART: Regular rate and rhythm without murmurs gallops or rubs. LUNGS: Clear to auscultation bilaterally without wheezes, rales or rhonchi. ABDOMEN: Positive bowel sounds x 4. Normal tympanic percussion. Soft, nontender, without masses or organomegaly. Vazquez sign negative. No CVA tenderness bilaterally. MUSCULOSKELETAL: No muscle atrophy, erythema, or edema noted of the back. There is mild midline tenderness over the lumbar spinous processes. There is no t enderness over the paraspinous muscles of the lumbar region. There is no midline tenderness over the thoracic spine or paraspinous muscles. There are no visible muscle spasms present. The patient is slow to move around with maximum tenderness with bending at the waist. Positive bilateral straight leg raise test. NEURO: Patient was alert and oriented to person place and time. Normal sensation to light and sharp touch. Deep tendon reflexes 2+ in the lower extremities. Dorsalis pedis pulse 2+ bilaterally. Strength 5/5 and equal in the bilateral lower extremities. ED COURSE AND MEDICAL DECISION MAKING: CC: Patient presenting with complaint of low back pain DIFFERENTIAL DIAGNOSIS: Includes, but not limited to lumbar sprain/strain, sciatica/lumbar radiculopathy, degenerative disc disease, vertebral fracture/subluxation, cauda equina syndrome, epidural abscess, UTI, pyelonephritis, sepsis/bacteremia, among others. INTERPRETATION OF LABS: Leukocytosis with left shift, no anemia, normal platelets, hyperglycemia with mild hyponatremia, no other significant electrolyte abnormalities, acute elevation in BUN and creatinine compared to baseline, normal liver enzymes and lipase. Acid within normal limits, procalcitonin within normal limits. UA appears consistent with urinary tract infection with positive nitrite, leuk esterase, hematuria, and WBCs. Urine culture pending. IMAGING: CT lumbar spine wo con CT DOSE: 652.95 mGy.cm HISTORY: Pain LOW BACK PAIN TECHNIQUE: Multiaxial CT images of the lumbar spine were performed and reformatted in the sagittal and coronal plane without the use of contrast. A dose lowering technique was utilized adhering to the principles of ALARA. COMPARISON: None. FINDINGS: Vertebral body stature is normal. No evidence for compression deformity. Mild degenerative disc change throughout. Mild anterior and to a lesser extent posterior osteophytic change from L2 through L5. No major compromise of the spinal canal. Degenerative changes of the posterior elements throughout. Moderate multifactorial narrowing of the spinal canal at L3-L4, and L4-L5, IMPRESSION: 1. Mild degenerative disc change throughout the entire lumbar region. 2. Moderate multifocal narrowing of the spinal canal at L3-L4 and L4-L5. 3. No evidence for compression deformity. MEDICATION RECONCILIATION: I attest that I have personally reviewed the patien t's current medication list. INITIAL VITAL SIGNS REVIEW: I reviewed the patient's initial vital signs and interpret them as follows: T: Afebrile; BP: Hypertensive; HR: Tachycardic; RR: Within normal limits; Pulse Ox: Within normal limits on room air. Blood pressure screening: The patient was found to have an elevated blood pressure and was referred to the inpatient team for further management. MDM SUMMARY: Patient was evaluated at bedside, history and physical exam performed. Patient is alert and oriented, in no acute distress, resting calmly in stretcher. He does appear to be significantly uncomfortable from pain and is slow to move around, maximally tender with bending at the waist. No abdominal tenderness on exam. No CVA tenderness on exam. Patient does have positive straight leg raise bilaterally, complaining of radiating pain down the backs of his thighs. He has normal strength and sensation in the bilateral lower extremities, no saddle paresthesias or bowel or bladder dysfunction to suggest cauda equina at this time. Patient is noted to be tachycardic, but is afebrile and nontoxic-appearing. Orders were placed at bedside for labs, UA, IV fluid bolus for hydration, IV fentanyl for pain, CT lumbar spine to evaluate for low back pain. Patient discussed with Dr. Hernández, who agrees with my assessment, plan, and disposition. Labs and imaging reviewed as above. CT imaging does note mild degenerative disc change throughout the entire lumbar region as well as moderate narrowing of the spinal canal from L3-L5, but no fracture or other significant abnormality. Concerning findings of significant leukocytosis as well as an acute kidney injury with creatinine of 2.1 (baseline 1.2 from outside labs). UA does appear to be consistent with a urinary tract infection, I suspect patient may have pyelonephritis as the cause of his back pain. Lactic acid, procalcitonin, and blood cultures were ordered. IV Rocephin 2 g ordered to cover for urinary tract infection. Given the leukocytosis and SHARON in this insulin-dependent diabetic, I did feel the patient would benefit from admission. I spoke on the phone with Dr. Haines, [facility] hospitalist, who agrees to evaluate the patient for admission. Lactic acid and procalcitonin are both within normal limits, I do not suspect that the patient is currently septic. Will defer to inpatient team for any additional antibiotic coverage. Patient reassessed multiple times throughout ED stay, he has remained hemodynamically stable and afebrile, and reports his pain is improved with the fentanyl. Patient was updated on all results and plan for admission, he verbalized understanding and was agreeable to this plan. The patient was stable at time of admission. The chart was completed utilizing [employer] voice recognition software. Grammatical errors, random word insertions, pronoun errors, and incomplete sentences are an occasional consequence of this system due to software limitations, ambient noise, and hardware issues. Any formal questions or concerns about the content, text, or information contained within the body of this dictation should be directly addressed to the nurse practitioner for clarification. 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 Social History Preferred Language: Arabic Communication Ability: Effective Lap Regulator Required: No Beliefs That Will Affect Care: None marital status: Current Living Situation: Alone current occupational status: disabled Other Information That Helps Us Care for You: No Feels Safe at Home: Yes Safety Concerns: Feels Safe At This Time Smoking Status: Former smoker packs per day: 1 Years Smoked: 30 Do You Dip or Chew Tobacco: Yes Second Hand Exposure: No Tobacco Cessation Education Requested by Patient: No Hx Alcohol Use: No Hx Substance Use: No Results & Data Vital Signs Vital Signs - 24 hr 09/09/18 15:32 09/09/18 17:00 09/09/18 18:51 Temperature 36.9 C Temperature Source Oral Sepsis Recent Fever Within 48 Hours No Sepsis New/Unexplained Change in Mental Status No Sepsis Action Taken by Nursing No Action Required Pulse Rate 115 H Pulse Rate [Apical] 94 H Pulse Rate [Finger] Pulse Rhythm [Finger] Pulse Strength [Finger] Respiratory Rate 18 18 Respiratory Effort / Characteristics Respiratory Depth Respiratory Pattern Blood Pressure 133/90 Blood Pressure [Left Arm] Blood Pressure [Right Arm] 120/79 Blood Pressure Mean 104 Blood Pressure Mean [Left Arm] Blood Pressure Mean [Right Arm] 92 Blood Pressure Position [Left Arm] Blood Pressure Position [Right Arm] Pulse Oximetry 93 89 L 96 Oxygen Delivery Method Room Air Nasal Cannula Nasal Cannula Oxygen Flow Rate 3 3 09/09/18 20:33 09/09/18 20:57 09/09/18 22:23 Temperature 36.8 C Temperature Source Oral Sepsis Recent Fever Within 48 Hours Sepsis New/Unexplained Change in Mental Status Sepsis Action Taken by Nursing Pulse Rate Pulse Rate [Apical] 87 Pulse Rate [Finger] 102 H Pulse Rhythm [Finger] Regular Pulse Strength [Finger] Normal Respiratory Rate 18 22 Respiratory Effort / Characteristics Non-Labored Spontaneous Respiratory Depth Normal Respiratory Pattern Regular Blood Pressure Blood Pressure [Left Arm] Blood Pressure [Right Arm] 143/117 H 119/73 105/69 Blood Pressure Mean Blood Pressure Mean [Left Arm] Blood Pressure Mean [Right Arm] 125 88 81 Blood Pressure Position [Left Arm] Blood Pressure Position [Right Arm] Lying Pulse Oximetry 93 94 Oxygen Delivery Method Nasal Cannula Room Air Oxygen Flow Rate 2 09/09/18 22:39 09/10/18 00:00 Temperature 36.8 C Temperature Source Oral Sepsis Recent Fever Within 48 Hours Sepsis New/Unexplained Change in Mental Status Sepsis Action Taken by Nursing Pulse Rate 106 H Pulse Rate [Apical] Pulse Rate [Finger] 101 H Pulse Rhythm [Finger] Pulse Strength [Finger] Respiratory Rate 20 Respiratory Effort / Characteristics Respiratory Depth Normal Respiratory Pattern Blood Pressure Blood Pressure [Left Arm] 99/60 L Blood Pressure [Right Arm] Blood Pressure Mean Blood Pressure Mean [Left Arm] 73 Blood Pressure Mean [Right Arm] Blood Pressure Position [Left Arm] Lying Blood Pressure Position [Right Arm] Pulse Oximetry 94 Oxygen Delivery Method Room Air Oxygen Flow Rate Laboratory Data Result diagrams: 09/09/18 14:53 09/09/18 14:53 Lab Results 09/09/18 09/09/18 09/09/18 Range/Units 14:53 14:53 14:53 WBC 19.74 H (4.8-10.8) K/uL RBC 5.30 (4.7-6.1) M/uL Hgb 15.3 (14.0-18.0) g/dL Hct 45.7 (42-52) % MCV 86.2 (80-100) fL MCH 28.9 (25-34) pg MCHC 33.5 (32-36) g/dL RDW Std Deviation 41.2 (36.4-46.3) fL RDW Coeff of Parth 13.1 (11.5-14.5) % Plt Count 182 (130-400) K/uL MPV 10.0 (7.4-10.4) fL Immature Gran % (Auto) 0.9 % Neut % (Auto) 82.9 % Lymph % (Auto) 8.5 % [place] % (Auto) 6.9 % Eos % (Auto) 0.6 % Baso % (Auto) 0.2 % Immature Gran # (Auto) 0.17 H (0.00-0.02) K/uL Neut # (Auto) 16.37 H (1.4-6.5) K/uL Lymph # (Auto) 1.68 (1.2-3.4) K/uL [place] # (Auto) 1.36 H (0.11-0.59) K/uL Eos # (Auto) 0.12 (0-0.5) K/uL Baso # (Auto) 0.04 (0-0.2) K/uL Sodium 134 L (136-145) mmol/L Potassium 4.1 (3.5-5.1) mmol/L Chloride 104 (98-107) mmol/L Carbon Dioxide 18 L (21-32) mmol/L Anion Gap 12.0 H (3-11) BUN 25 H (7-18) mg/dl Creatinine 2.10 H (0.6-1.4) mg/dl Est Cr Clr Drug Dosing 50.7 ml/min Est GFR ( Amer) 39.9 Est GFR (Non-Af Amer) 34.4 BUN/Creatinine Ratio 11.9 (10-20) Glucose 226 H (70-99) mg/dl POC Glucose (70-99) Osmolality (280-300) mOsm/kg Lactate (0.4-2.0) mmol/L Calcium 9.2 (8.5-10.1) mg/dl Total Bilirubin 0.4 (0.2-1) mg/dl AST 13 L (15-37) U/L ALT 21 (12-78) U/L Alkaline Phosphatase 99 (45-117) U/L Total Protein 7.7 (6.4-8.2) gm/dl Albumin 4.0 (3.4-5.0) gm/dl Globulin 3.7 (2.5-4.0) gm/dl Albumin/Globulin Ratio 1.1 (0.9-2) Lipase 183 (73-393) U/L Procalcitonin 0.16 (0-0.5) ng/ml Urine Color Urine Appearance (Clear) Urine pH (4.5-7.5) Ur Specific [place] (1.000-1.030) Urine Protein (Negative) Urine Glucose (UA) (Negative) Urine Ketones (Negative) Urine Blood (Negative) Urine Nitrite (Negative) Urine Bilirubin (Negative) Urine Urobilinogen (Negative) Ur Leukocyte Esterase (Negative) Urine WBC (Auto) (0-5) /hpf Urine RBC (Auto) (0-4) /hpf U Hyaline Cast (Auto) (0-5) /lpf U Epithel Cells (Auto) (0-5) /lpf Urine Bacteria (Auto) (Negative) Urine Crystals (None Prsent) Waxy Casts (0) /lpf WBC Casts (0) /lpf 09/09/18 09/09/18 09/09/18 Range/Units 14:53 19:03 19:39 WBC (4.8-10.8) K/uL RBC (4.7-6.1) M/uL Hgb (14.0-18.0) g/dL Hct (42-52) % MCV (80-100) fL MCH (25-34) pg MCHC (32-36) g/dL RDW Std Deviation (36.4-46.3) fL RDW Coeff of Parth (11.5-14.5) % Plt Count (130-400) K/uL MPV (7.4-10.4) fL Immature Gran % (Auto) % Neut % (Auto) % Lymph % (Auto) % [place] % (Auto) % Eos % (Auto) % Baso % (Auto) % Immature Gran # (Auto) (0.00-0.02) K/uL Neut # (Auto) (1.4-6.5) K/uL Lymph # (Auto) (1.2-3.4) K/uL [place] # (Auto) (0.11-0.59) K/uL Eos # (Auto) (0-0.5) K/uL Baso # (Auto) (0-0.2) K/uL Sodium (136-145) mmol/L Potassium (3.5-5.1) mmol/L Chloride (98-107) mmol/L Carbon Dioxide (21-32) mmol/L Anion Gap (3-11) BUN (7-18) mg/dl Creatinine (0.6-1.4) mg/dl Est Cr Clr Drug Dosing ml/min Est GFR ( Amer) Est GFR (Non-Af Amer) BUN/Creatinine Ratio (10-20) Glucose (70-99) mg/dl POC Glucose (70-99) Osmolality 298 (280-300) mOsm/kg Lactate 1.6 (0.4-2.0) mmol/L Calcium (8.5-10.1) mg/dl Total Bilirubin (0.2-1) mg/dl AST (15-37) U/L ALT (12-78) U/L Alkaline Phosphatase (45-117) U/L Total Protein (6.4-8.2) gm/dl Albumin (3.4-5.0) gm/dl Globulin (2.5-4.0) gm/dl Albumin/Globulin Ratio (0.9-2) Lipase (73-393) U/L Procalcitonin (0-0.5) ng/ml Urine Color [place] Urine Appearance Turbid H (Clear) Urine pH 5.0 (4.5-7.5) Ur Specific [place] 1.028 (1.000-1.030) Urine Protein 3+ H (Negative) Urine Glucose (UA) 1+ H (Negative) Urine Ketones Trace H (Negative) Urine Blood 3+ H (Negative) Urine Nitrite Positive H (Negative) Urine Bilirubin Negative (Negative) Urine Urobilinogen Negative (Negative) Ur Leukocyte Esterase 1+ H (Negative) Urine WBC (Auto) 5-10 H (0-5) /hpf Urine RBC (Auto) >30 H (0-4) /hpf U Hyaline Cast (Auto) >30 H (0-5) /lpf U Epithel Cells (Auto) >30 H (0-5) /lpf Urine Bacteria (Auto) Negative (Negative) Urine Crystals Uric Acid H (None Prsent) Waxy Casts 1-5 H (0) /lpf WBC Casts 1-5 H (0) /lpf 09/09/18 Range/Units 22:57 WBC (4.8-10.8) K/uL RBC (4.7-6.1) M/uL Hgb (14.0-18.0) g/dL Hct (42-52) % MCV (80-100) fL MCH (25-34) pg MCHC (32-36) g/dL RDW Std Deviation (36.4-46.3) fL RDW Coeff of Parth (11.5-14.5) % Plt Count (130-400) K/uL MPV (7.4-10.4) fL Immature Gran % (Auto) % Neut % (Auto) % Lymph % (Auto) % [place] % (Auto) % Eos % (Auto) % Baso % (Auto) % Immature Gran # (Auto) (0.00-0.02) K/uL Neut # (Auto) (1.4-6.5) K/uL Lymph # (Auto) (1.2-3.4) K/uL [place] # (Auto) (0.11-0.59) K/uL Eos # (Auto) (0-0.5) K/uL Baso # (Auto) (0-0.2) K/uL Sodium (136-145) mmol/L Potassium (3.5-5.1) mmol/L Chloride (98-107) mmol/L Carbon Dioxide (21-32) mmol/L Anion Gap (3-11) BUN (7-18) mg/dl Creatinine (0.6-1.4) mg/dl Est Cr Clr Drug Dosing ml/min Est GFR ( Amer) Est GFR (Non-Af Amer) BUN/Creatinine Ratio (10-20) Glucose (70-99) mg/dl POC Glucose 152 H (70-99) Osmolality (280-300) mOsm/kg Lactate (0.4-2.0) mmol/L Calcium (8.5-10.1) mg/dl Total Bilirubin (0.2-1) mg/dl AST (15-37) U/L ALT (12-78) U/L Alkaline Phosphatase (45-117) U/L Total Protein (6.4-8.2) gm/dl Albumin (3.4-5.0) gm/dl Globulin (2.5-4.0) gm/dl Albumin/Globulin Ratio (0.9-2) Lipase (73-393) U/L Procalcitonin (0-0.5) ng/ml Urine Color Urine Appearance (Clear) Urine pH (4.5-7.5) Ur Specific [place] (1.000-1.030) Urine Protein (Negative) Urine Glucose (UA) (Negative) Urine Ketones (Negative) Urine Blood (Negative) Urine Nitrite (Negative) Urine Bilirubin (Negative) Urine Urobilinogen (Negative) Ur Leukocyte Esterase (Negative) Urine WBC (Auto) (0-5) /hpf Urine RBC (Auto) (0-4) /hpf U Hyaline Cast (Auto) (0-5) /lpf U Epithel Cells (Auto) (0-5) /lpf Urine Bacteria (Auto) (Negative) Urine Crystals (None Prsent) Waxy Casts (0) /lpf WBC Casts (0) /lpf Administered Medications Amitriptyline HCl (Elavil) 25 mg PO HS NEL Stop: 10/09/18 21:40 Last Admin: 09/09/18 23:33 Dose: 25 mg Documented by: [id number] Carbamazepine (Tegretol Xr) 400 mg PO BID NEL Stop: 10/09/18 21:40 Last Admin: 09/09/18 23:35 Dose: 400 mg Documented by: [id number] Sodium Chloride (Nss 1000ml) 1,000 mls @ 100 mls/hr IV .Q10H NEL Stop: 10/09/18 21:40 Last Admin: 09/09/18 23:49 Dose: 100 mls/hr Documented by: [id number] Insulin Aspart (Novolog Flexpen) 0 units SC ACHS [facility] Stop: 10/09/18 21:40 Last Admin: 09/09/18 23:35 Dose: Not Given Documented by: [id number] Cosigned by: [id number] Insulin Glargine (Lantus Solostar Pen) 0 - 20 units SC HS NEL Stop: 10/09/18 21:40 Last Admin: 09/09/18 23:33 Dose: 10 units Documented by: [id number] Cosigned by: [id number] Metoprolol Succinate (Toprol Xl) 50 mg PO BID [facility] Stop: 10/09/18 21:40 Last Admin: 09/09/18 23:37 Dose: 50 mg Documented by: [id number] Miscellaneous (Order Awaiting Action) 1 ea N/A QS [facility] Stop: 10/10/18 00:00 Last Admin: 09/10/18 00:02 Dose: Not Given Documented by: [id number] Morphine Sulfate (Ms Contin) 30 mg PO Q12 [facility] Stop: 09/23/18 21:40 Last Admin: 09/09/18 23:50 Dose: 30 mg Documented by: [id number] Discontinued Medications Fentanyl Citrate (Fentanyl Citrate) 100 mcg IV NOW STA Stop: 09/09/18 16:54 Last Admin: 09/09/18 17:18 Dose: 100 mcg Documented by: [id number] Sodium Chloride (Nss 1000ml) 1,000 mls @ 100 mls/hr IV .Q10H [facility] Stop: 09/10/18 02:59 Last Infusion: 09/09/18 22:00 Dose: 0 mls/hr Documented by: [id number] Admin: 09/09/18 17:18 Dose: 100 mls/hr Documented by: [id number] Ceftriaxone Sodium 2,000 mg/ (Dextrose) 70 mls @ 100 mls/hr IV NOW STA Stop: 09/09/18 20:14 Last Infusion: 09/09/18 22:21 Dose: 0 mls/hr Documented by: [id number] Admin: 09/09/18 20:39 Dose: 100 mls/hr Documented by: [id number] Discharge Plan Visit Data *Final* Discharge Date/Time: 09/09/18 21:09 Chief Complaint: Back Injury/Pain Stated Complaint: BACK PAIN ED Provider: Terri Hernández ED Midlevel Provider: Cassidy Heard Discharge Problem: Acute pyelonephritis Patient Disposition: Admitted As Inpatient Condition: Good Discharge Instructions Interventions: ED Discharge Assessment Last Done: 09/09/18 21:09
[2018-09-09 17:16] LABS: BUN Creatinine Ratio 11.9 (10-20); Calcium 9.2 mg/dl (8.5-10.1); Creatinine Clr Calc Pharmacy 50.7 ml/min; Est GFR (African American) 39.9; Est GFR (Non-African American) 34.4; Potassium 4.1 mmol/L (3.5-5.1)
[2018-09-09 17:19] LABS: Albumin Globulin Ratio 1.1 (0.9-2); Bilirubin,Total 0.4 mg/dl (0.2-1); Globulin 3.7 gm/dl (2.5-4.0); Total Protein 7.7 gm/dl (6.4-8.2)
--- NOTE | 2018-09-09 18:19 | CT Scan Report ---
CT lumbar spine wo con CT DOSE: 652.95 mGy.cm HISTORY: Pain LOW BACK PAIN TECHNIQUE: Multiaxial CT images of the lumbar spine were performed and reformatted in the sagittal an d coronal plane without the use of contrast. A dose lowering technique was utilized adhering to the principles of ALARA. COMPARISON: None. FINDINGS: Vertebral body stature is normal. No evidence for compression deformity. Mild degenerative disc change throughout. Mild anterior and to a lesser extent posterior osteophytic change from L2 through L5. No major compromise of the spinal canal. Degenerative changes of the posterior elements throughout. M oderate multifactorial narrowing of the spinal canal at L3-L4, and L4-L5, IMPRESSION: 1. Mild degenerative disc change throughout the entire lumbar region. 2. Moderate multifocal narrowing of the spinal canal at L3-L4 and L4-L5. 3. No evidence for compression deformity. The above report was generated using voice recognition software. It may contain grammatical, syntax or spelling errors. Electronically signed by: Armando Carlos M.D. 09/09/2018 6:18 PM
[2018-09-09 19:22] LABS: Appearance Urine Turbid (Clear); Bacteria Urine Automated Negative (Negative); Blood Urine 3+ (Negative); Color Urine Orange; Epithelial Cell Urine Auto >30 /lpf (0-5); Glucose Urine UA 1+ (Negative); Ketones Urine Trace (Negative); Leukocyte Esterase Urine 1+ (Negative); Nitrite Urine Positive (Negative); Protein Urine 3+ (Negative); RBC Urine Automated >30 /hpf (0-4); Specific Gravity Urine 1.028 (1.000-1.030); Urobilinogen Urine Negative (Negative)
[2018-09-09 19:30] LABS: Bilirubin Urine Negative (Negative); Ictotest Urine Negative (Negative)
[2018-09-09] MEDS ORDERED: cefTRIAXone SODIUM 2,000 MG in DEXTROSE 5% 50 ML IV STA (19:33)
--- NOTE | 2018-09-09 19:40 | Emergency Department Note ---
ED Visit Note Patient seen and examined at bedside after discussion with the nurse practitioner. Discussed with patient the severity of his pain and presentation today as it is different from prior episodes. Patient denies any use of steroids, denies any recent illness, fevers or chills. Patient states he has previously had back pain but never this severe, with radiation down bilateral lower extremities. Discussed with patient lab abnormalities including significant leukocytosis as well as no acute kidney injury. Patient with no prior history of kidney injury, kidney stone, or urinary infection. Patient found to have urinary tract infection, and hospitalist team was consulted for inpatient management. Patient was given IV fluids here as well as IV antibiotics and urine sent for culture. .
[2018-09-09 19:52] LABS: Cast Urine Automated >30 /lpf (0-5)
--- OUTSIDE RECORDS SUMMARY | 2018-09-09 20:27 | External Medical Summary | Continuity of Care Document ---
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) Allergies and Adverse Reactions Penicillins (Allergy) Shellfish-derived Products (Allergy) Medications Medications not documented Procedures History of Reported Hx Of Hip Replacement - Bilateral Status: Completed History of Nose Surgery Status: Complete d Immunizations Immunizations not documented Family History Unknown Family Member Family history of Breast Cancer (V16.3) Status: Active Comments: Family History Family history of Reported Family History Of Status: Active Comments: Family History Heart Disease Plan of Treatment Planned Observations Planned Goals not documented Results No Known Results Results not documented
--- NOTE | 2018-09-09 20:59 | History & Physical Report ---
Date of Service September 09, 2018 Assessment & Plan (1) Lumbar back pain with radiculopathy affecting lower extremity: This is a 57-year-old male who has a significant past medical history of IDDM, HTN, HLD, history of CVA with short-term memory residual deficit, CKD stage III, SANAM on BiPAP, history of CVA, trigeminal neuralgia who presents to [facility] ED secondary to low back pain x1 day. In ED pt was noted to have leukocytosis 19.7k, H/H stable at 15.3 and 45.7, Na 1 34, CO2 18, AG 12, BUN 25, Cr 2.10, lactate and procal wnl Urine + nitrites, leuks, blood, protein, glucose, uric acid, wbc casts Lumbar Spine CT: 1. Mild degenerative disc change throughout the entire lumbar region. 2. Moderate multifocal narrowing of the spinal canal at L3-L4 and L4-L5. Patient low back pain appears to be MSK and radicular in nature. I believe this is unrelated to his SHARON and possible UTI Admit to med/surg tele MRI of lumbar spine in a.m. to r/o herniate disc Ice consult PT when appropriate Continue chronic pain regimen of MS continue and morphine IR Dilaudid 0.5mg prn severe pain (2) UTI (urinary tract infection): I do not feel patient is septic He does not meet SIRS criteria Urine + for nitrites and leuk esterase, WBC 19k received 2g ceftriaxone while in ED continue ceftriaxone 1g daily await urine and blood culture (3) Acute worsening of stage 3 chronic kidney disease: baseline Cr 1.1 Bun/Cr 25 and 2.10 ? pre renal vs intrinsic bladder scan 17ml so less likely outflow obstruction obtain Renal/bladder U/S rule out hydronephrosis vs nephrolithiasis urine studies for sodium, protein, cr check FeNa IVF 100cc/hr Continue IV rocephin for concern for UTI, await culture if no improvement in a.m. consult nephrology (4) Diabetes mellitus, type II: Last A1C 7.9 on 07/24/18 Lantus/Novolog per protocol Home regimen on Basaglar 25 units at HS and novolog 5 units AC (5) Hypertension: blood pressure elevated, likely also elevated in setting of acute pain continue metoprolol and amlodipine lisinopril and lasix on hold (6) Dyslipidemia: continue statin (7) Sleep apnea: bipap at HS (8) Chronic pain disorder: Follows pain clinic MS contin 30mg Q12hr along with Morphine IR 15mg bid continue (9) H/O: stroke: residual deficit of short term memory on high intensity statin therapy but does not take antiplatelet therapy (10) Diastolic dysfunction: Echo 09/2017 revealed EF 60-65% with Grade 1 diastolic dysfunction euvolemic continue metoprolol CHARLY and lasix on hold given SHARON (11) Trigeminal neuralgia: continue tegretol and amitriptyline (12) DVT prophylaxis: SCDS for now given hematuria re eval need for chemo prophylaxis daily Disposition: D/C to home when able Follow up: PCP Dr. Kaplan upon discharge Patient was seen in collaboration with Dr. Haines, please see addedum Starting 09/10/18 pt will be under the care of Dr. Wilks History of Present Illness Chief Complaint: Low back pain x1 day. Primary Care Provider: Suman Kaplan MD This is a 57-year-old male who has a significant past medical history of IDDM, HTN, HLD, history of CVA with short-term memory residual deficit, CKD stage III, SANAM on BiPAP, history of CVA, trigeminal neuralgia who presents to [facility] ED secondary to low back pain x1 day. Friend is at bedside. Patient elicits yesterday he developed a migraine, laid down to take a nap and when he woke up he had low back pain. He laid on the floor to do stretches when he noticed a, "pop," and was able to proceed on with his day without any pain. When he woke up this morning after sleeping in recliner he had severe low back discomfort and difficulty moving. Symptoms started approximately at 10 AM. Pain was located middle of lower back and slightly right-sided. Pain radiated down posterior lower extremities to bilateral heels. Pain was described as burning, rated 11 out of 10, made worse with movement, improved with sitting still in right position. Never had similar symptom in past. Also had associated numbness and tingling down bilateral lower extremities but no weakness. He denies any saddle anesthesia or loss of bowel or bladder. Denies recent illness, fever, chills, sweats, lightheadedness, dizziness, chest pain, shortness breath, palpitations, nausea, vomiting, diarrhea, abdominal pain or flank pain, increase urgency with urination, dysuria, melena, hematochezia. He does admit to having hematuria this evening as well as decreased urinary frequency today. Patient does note he has drank minimally today secondary to pain. Up until today his appetite and fluid intake has been normal. He has started no new medications. 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 Allergies Allergy/AdvReac Type Severity Reaction Status Date / Time Penicillins Allergy Unknown HAPPENED Verified 09/09/18 16:41 A CHILD shellfish derived AdvReac Unknown GI UPSET Verified 09/09/18 16:41 Home Medications Home Medications Medication Instructions Recorded Confirmed Type amlodipine 5 mg tablet 5 mg PO DAILY 07/03/18 09/09/18 History atorvastatin 80 mg tablet 80 mg PO DAILY 07/03/18 09/09/18 History azelastine 0.15 % (205.5 mcg) 1 sprays INTNAS BID 07/03/18 09/09/18 History nasal spray carbamazepine ER 400 mg 400 mg PO BID 07/03/18 09/09/18 History tablet,extended release,12 hr fenofibrate nanocrystallized 48 mg 48 mg PO DAILY 07/03/18 09/09/18 History tablet insulin aspart U- 100 100 unit/mL 5 units SQ TID ml 07/03/18 09/09/18 History subcutaneous solution lisinopril 40 mg tablet 40 mg PO DAILY 07/03/18 09/09/18 History metoprolol succinate ER 50 mg 50 mg PO BID 07/03/18 09/09/18 History tablet,extended release 24 hr morphine ER 30 mg capsule,extended 30 mg PO Q12H 07/03/18 09/09/18 History release pellets amitriptyline 25 mg tablet 25 mg PO HS 07/10/18 09/09/18 History furosemide 20 mg tablet 20 mg PO DAILY 07/10/18 09/09/18 History insulin glargine [Basaglar KwikPen 25 unit SUBCUT HS 09/09/18 09/09/18 History U-100 Insulin] ketoconazole [Nizoral] 1 applic TOPICAL UD 09/09/18 09/09/18 History morphine 15 mg PO BID PRN 04/30/19 04/30/19 History Past Med/Surg History Medical History H/O: stroke (Chronic) Bilateral hip pain (Chronic) High cholesterol (Chronic) Trigeminal neuralgia (Chronic) Migraine (Chronic) 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" Depression (Chronic) Diabetes mellitus, type II (Chronic) Dyslipidemia (Chronic) Hypertension (Chronic) Sleep apnea (Chronic) on bipap Factor V deficiency (Chronic) History of skin cancer (Chronic) 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 Social History Preferred Language: Irish Communication Ability: Effective Loss Prevention Auditor Required: No Beliefs That Will Affect Care: None marital status: Current Living Situation: Alone current occupational status: disabled Other Information That Helps Us Care for You: No Feels Safe at Home: Yes Safety Concerns: Feels Safe At This Time Smoking Status: Former smoker packs per day: 1 Years Smoked: 30 Do You Dip or Chew Tobacco: Yes Second Hand Exposure: No Tobacco Cessation Education Requested by Patient: No Hx Alcohol Use: No Hx Substance Use: No Review of Systems Review of Systems: As noted per HPI, 10 systems reviewed and negative unless noted above. Physical Exam Physical Exam: Gen: WD/WN, M, appears older than stated age, NAD, + pain with movement, lying up in bed on side, pleasant, conversing easily Head: Normocephalic, Atraumatic Eyes: Sclera normal, no conjunctival injection, PERRLA, EOMI ENT: Gross hearing intact, normal pharynx, mucous membranes dry Neck: supple, no adenopathy, No JVD, no bruit, Resp: Clear to auscultation b/l, no wheeze, rales, rhonchi. Normal insp/exp effort, no accessory muscle use CV: Regular rate, regular rhythm, soft 1/6 BRYAN noted RUSB, no rub, gallop, or ectopy Abd: +BS x 4, soft, nontender, nondistended Musculoskeletal: moves extremities active rom x 4, strength intact, good swaging machine adjuster strength, no pain to palpation along vertebral processes "I can't feel much pain at moment because of fentanyl." + R straight leg raise Extremities:minimal pretibial edema bilaterally Skin: warm, moist, no rash, negative turgor, cap refill < 2sec Neuro: Alert and oriented x 3, speech normal, good mood/affect, cran nerve 2-12 intact grossly : deferred Results & Data Vital Signs (Past 12 Hours) Vital Signs Temp Pulse Pulse Resp BP BP Pulse Ox 09/09/18 20:33 87 18 143/117 H 93 09/09/18 18:51 94 H 18 120/79 96 09/09/18 17:00 89 L 09/09/18 15:32 36.9 C 115 H 18 133/90 93 Laboratory Results Short CBC 09/09/18 09/09/18 Range/Units 14:53 14:53 WBC 19.74 H (4.8-10.8) K/uL Hgb 15.3 (14.0-18.0) g/dL Hct 45.7 (42-52) % Plt Count 182 (130-400) K/uL Glucose 226 H (70-99) mg/dl BMP 09/09/18 14:53 Sodium 134 L Potassium 4.1 Chloride 104 Carbon Dioxide 18 L BUN 25 H Creatinine 2.10 H Glucose 226 H Calcium 9.2 Liver Function 09/09/18 Range/Units 14:53 Total Bilirubin 0.4 (0.2-1) mg/dl AST 13 L (15-37) U/L ALT 21 (12-78) U/L Alkaline Phosphatase 99 (45-117) U/L Albumin 4.0 (3.4-5.0) gm/dl Urine 09/09/18 Range/Units 19:03 Urine Color Bryant Urine Appearance Turbid H (Clear) Urine pH 5.0 (4.5-7.5) Ur Specific [place] 1.028 (1.000-1.030) Urine Protein 3+ H (Negative) Urine Glucose (UA) 1+ H (Negative) Diagnostic Findings Lumbar Spine CT: IMPRESSION: 1. Mild degenerative disc change throughout the entire lumbar region. 2. Moderate multifocal narrowing of the spinal canal at L3-L4 and L4-L5. 3. No evidence for compression deformity. Medications Administered Sodium Chloride (Nss 1000ml) 1,000 mls @ 100 mls/hr IV .Q10H NEL Stop: 09/10/18 02:59 Last Admin: 09/09/18 17:18 Dose: 100 mls/hr Documented by: [id number] Discontinued Medications Fentanyl Citrate (Fentanyl Citrate) 100 mcg IV NOW STA Stop: 09/09/18 16:54 Last Admin: 09/09/18 17:18 Dose: 100 mcg Documented by: [id number] Ceftriaxone Sodium 2,000 mg/ (Dextrose) 70 mls @ 100 mls/hr IV NOW STA Stop: 09/09/18 20:14 Last Admin: 09/09/18 20:39 Dose: 100 mls/hr Documented by: [id number] Code Status & VTE Plan Code Status Full Code VTE Prophylaxis Plan Reason for no VTE drug order: Contraindicated (Pt with current hematuria; will place on SCDS for now and evaluate on day by day basis given pt risk factors) Supervising Physician Co-Signing Physician Notes Care coordinated with Anais Malik PA-C. Agree with above note. Patient seen and examined. Please refer to her notes for full details. Vital signs reviewed. Physical exam: General exam: Alert and oriented. Not in acute distress. CVS: S1 and S2 heard, regular rate and rhythm, no murmurs. RS: Clear to auscultation, no wheezing or crackles. ABD: Soft, bowel sounds present, nontender, no distention. Musculoskeletal SLR test positive RESTORATIVE ART EMBALMER: Nonfocal. EXT: No edema, no erythema. Labs: Reviewed. Assessment and plan: Back pain ct scan unremarkable follow mri pt/ot UTI rocephin nieves. l follow cx Sharon holding lisinopril and lasix renal us unremarkable 'fluids follow labs. Other diagnosis and plan of care as per Anais shipman MD. (1) UTI (urinary tract infection) Hematuria presence: with hematuria Urinary tract infection type: acute cystitis Qualified Code(s): N30.01 - Acute cystitis with hematuria
[2018-09-09] MEDS ORDERED: GLUCOSE 10 TABS/TUBE PO PRN (21:41)
[2018-09-09] MEDS ORDERED: GLUCAGON FOR INJ 1 MG VIAL SQ PRN (21:41)
[2018-09-09] MEDS ORDERED: GLUCOSE 40% GEL 15 GM TUBE PO PRN (21:41)
[2018-09-09] MEDS ORDERED: CARBOHYDRATES FOR HYPOGLYCEMIA PO PRN (21:41)
[2018-09-09] MEDS ORDERED: ONDANSETRON INJ 2 MG/ML 2 ML VIAL IV PRN (21:41)
[2018-09-09] MEDS ORDERED: ACETAMINOPHEN 325 MG TAB PO PRN (21:41)
[2018-09-09] MEDS ORDERED: POLYETHYLENE (MIRALAX) 17 GM PACK PO PRN (21:41)
[2018-09-09] MEDS ORDERED: DEXTROSE 50% 50 ML SYRINGE IV PRN (21:41)
--- NOTE | 2018-09-09 21:51 | Ultrasound Report ---
US renal/blad retro comp HISTORY: SHARON, r/o nephrolithiasis COMPARISON: None. FINDINGS: Right kidney: Maximum dimension 11.8 cm. No evidence for hydronephrosis. Normal corticomedullary diff erentiation and cortical thickness. Left kidney: Maximum dimension 11.8 cm. No evidence for hydronephrosis. Normal corticomedullary diff erentiation and cortical thickness. Bladder: No bladder wall thickening. The bilateral ureteral jets were identified. IMPRESSION: Normal renal ultrasound. The above report was generated using voice recognition software. It may contain grammatical, syntax or spelling errors. Electronically signed by: Armando Carlos M.D. 09/09/2018 9:49 PM
[2018-09-09] MEDS: AMITRIPTYLINE HCL 25 MG TAB PO SCH (23:33)
[2018-09-09] MEDS: INSULIN GLARGINE SOLOSTAR 100 UNITS/ML 3 ML PEN SC SCH (23:33)
[2018-09-09] MEDS: CARBAMAZEPINE 200 MG TABCR PO SCH (23:35)
[2018-09-09] MEDS: INSULIN ASPART 100 UNITS/ML 3 ML PEN SC SCH (23:35)
[2018-09-09] MEDS: METOPROLOL SUCC 50MG EXT REL TAB PO SCH (23:37)
[2018-09-09] MEDS: SODIUM CHLORIDE 0.9% 1000ML 1,000 ML IV SCH (23:49)
[2018-09-09] MEDS: MoRPHine SULFATE CR 15 MG TABCR PO SCH (23:50)
[2018-09-10] MEDS: MoRPHine SULFATE IR 15 MG TAB (IMMEDIATE RELEASE) PO PRN (02:10)
[2018-09-10 02:23] LABS: Total Protein Urine Random 213.6 mg/dl (0-11.9)
[2018-09-10] MEDS: HYDROmorphone INJ 0.5 MG/0.5 ML SYR IV PRN ×3 (04:50→19:05)
[2018-09-10 05:32] LABS: Basophils # (auto) 0.02 K/uL (0-0.2); Basophils % (auto) 0.1 %; Eosinophils # (auto) 0.37 K/uL (0-0.5); Eosinophils % (auto) 2.6 %; Hematocrit (blood only) 41.7 % (42-52); Hemoglobin 13.7 g/dL (14.0-18.0); Immature Granulocytes # (auto) 0.05 K/uL (0.00-0.02); Immature Granulocytes % (auto) 0.4 %; Lymphocytes # (auto) 2.31 K/uL (1.2-3.4); Lymphocytes % (auto) 16.3 %; Mean Corpuscular Hgb Conc 32.9 g/dL (32-36); Mean Corpuscular Volume 86.2 fL (80-100); Mean Platelet Volume 9.1 fL (7.4-10.4); Monocytes # (auto) 1.29 K/uL (0.11-0.59); Monocytes % (auto) 9.1 %; Neutrophils # (auto) 10.16 K/uL (1.4-6.5); Neutrophils % (auto) 71.5 %; Platelet Count 143 K/uL (130-400); RDW Coefficient of Variation 13.1 % (11.5-14.5); RDW Standard Deviation 41.6 fL (36.4-46.3); Red Blood Count 4.84 M/uL (4.7-6.1)
[2018-09-10 06:04] LABS: BUN Creatinine Ratio 16.3 (10-20); Calcium 8.5 mg/dl (8.5-10.1); Creatinine Clr Calc Pharmacy 51.4 ml/min; Est GFR (African American) 40.6; Potassium 4.7 mmol/L (3.5-5.1)
[2018-09-10] MEDS ORDERED: cefTRIAXone SODIUM 1,000 MG in DEXTROSE 5% 50 ML IV SCH (09:00)
[2018-09-10] MEDS: INSULIN ASPART 100 UNITS/ML 3 ML PEN SC SCH ×4 (09:15→21:14)
[2018-09-10] MEDS: ATORVASTATIN 40 MG TAB PO SCH (09:15)
[2018-09-10] MEDS: AMLODIPINE BESYLATE 5 MG TAB PO SCH (09:15)
[2018-09-10] MEDS: FENOFIBRATE NANOCRYSTALLIZED 48 MG TABLET PO SCH (09:15)
[2018-09-10] MEDS: CARBAMAZEPINE 200 MG TABCR PO SCH ×2 (09:15→21:13)
[2018-09-10] MEDS: METOPROLOL SUCC 50MG EXT REL TAB PO SCH ×2 (09:16→21:12)
[2018-09-10] MEDS: MoRPHine SULFATE CR 15 MG TABCR PO SCH ×2 (09:20→21:17)
--- NOTE | 2018-09-10 10:47 | Magnetic Resonance Report ---
MRI OF THE LUMBAR SPINE WITHOUT IV CONTRAST CLINICAL HISTORY: Low back pain. Lumbar radiculopathy. COMPARISON STUDY: CT scan of lumbar spine dated 09/09/2018. TECHNIQUE: MRI of the lumbar spine is performed utilizing various T1 and T2-weighted sequences in the axial and sagittal planes. IV contrast was not administered for this examination. FINDINGS: Lumbar spine: Vertebral body height and alignment are maintained throughout the lumbar spine. The tra nsverse and spinous processes are intact as imaged. There is no evidence of spondylolysis. No destruc tive bony lesion is seen. Minimal chronic degenerative endplate change is noted at T12-L1 and L5-S1. Intervertebral discs: There is degenerative disc desiccation seen throughout the lumbar spine. Mild t o moderate loss of height is noted at L5-S1. Only mild loss of height is seen at the remaining lumbar levels. Spinal cord: The visualized spinal cord is normal in morphology and signal intensity. The conus medul celeste terminates at the level of L1. The nerve roots of the cauda equina are normal in morphology. L1-L2: Unremarkable. L2-L3: Unremarkable. L3-L4: There is minimal posterior disc bulge with annular fissure. This causes mild bilateral subarti cular stenosis. The central canal and neural foramina are patent. L4-L5: There is minimal posterior disc bulge with annular fissure. This causes bilateral subarticular stenosis and may abut the exiting left L4 nerve root. This may also abut the transiting bilateral L5 nerve roots. There is only minimal acquired compromise of the central canal at this level with a min imum AP diameter of 7.5 mm. The neural foramina are patent. L5-S1: There is a posterior disc bulge eccentric to the right. This causes right-sided subarticular s tenosis and likely impinges on the exiting right L5 nerve root. There is no significant acquired comp romise of the central canal. Facet arthropathy is of no consequence. The neural foramina are patent. Sacrum: The visualized sacrum is normal in morphology and signal intensity. Soft tissues: The paraspinous soft tissues are normal in appearance. The visualized retroperitoneal s tructures are grossly unremarkable but incompletely evaluated. IMPRESSION: 1. There is no large disc herniation or high-grade central canal stenosis. 2. Degenerative disc disease and spondylotic change as above. See discussion for detailed level-by-le chela analysis. 3. No destructive bony process is identified. Dictated: 09/10/2018 10:18 AM Transcribed: 09/10/2018 10:47 AM Fariba [id number] [email or web address] Electronically signed by: Abdulaziz Soriano M.D. 09/10/2018 11:32 AM
[2018-09-10] MEDS: cefTRIAXone SODIUM 2,000 MG in DEXTROSE 5% 50 ML IV SCH (11:03)
[2018-09-10] MEDS: SODIUM CHLORIDE 0.9% 1000ML 1,000 ML IV SCH (11:03)
--- NOTE | 2018-09-10 17:25 | Hospitalist Progress Note ---
Date of Service September 10, 2018 Assessment & Plan (1) Lumbar back pain with radiculopathy affecting lower extremity: This is a 57-year-old male who has a significant past medical history of IDDM, HTN, HLD, history of CVA with short-term memory residual deficit, CKD stage III, SANAM on BiPAP, history of CVA, trigeminal neuralgia who presents to [facility] ED secondary to low back pain x1 day. Lumbar Spine CT: 1. Mild degenerative disc change throughout the entire lumbar region. 2. Moderate multifocal narrowing of the spinal canal at L3-L4 and L4-L5. Complains of persistent low back pain with radiculopathy/sciatica down to left thigh MRI of lumbar spine :1. There is no large disc herniation or high-grade central canal stenosis. 2. Degenerative disc disease and spondylotic change as above. See discussion for detailed [id number] analysis. 3. No destructive bony process is identified. PT OT evaluation requested, spine orthopedics Dr. Funez consulted for ongoing back pain symptoms Continue chronic pain regimen of MS continue and morphine IR Dilaudid 0.5mg prn severe pain (2) UTI (urinary tract infection): Urine + for nitrites and leuk esterase, WBC 19k-Improved to 14 K today Patient remains afebrile, denies of any urinary symptoms continue ceftriaxone 1g daily await urine and blood culture (3) Acute worsening of stage 3 chronic kidney disease: baseline Cr 1.1 Bun/Cr 25 and 2.10 Creatinine improved with IV fluids Renal ultrasound shows no evidence of obstruction or hydronephrosis Avoid contrast, NSAIDs Follow PRP, nephrology consult requested (4) Diabetes mellitus, type II: Last A1C 7.9 on 07/24/18 Lantus/Novolog per protocol Home regimen on Basaglar 25 units at HS and novolog 5 units AC (5) Hypertension: blood pressure elevated, likely also elevated in setting of acute pain continue metoprolol and amlodipine lisinopril and lasix on hold-Secondary to acute renal failure (6) Dyslipidemia: continue statin (7) Sleep apnea: Chronic bipap at HS (8) Chronic pain disorder: Follows pain clinic MS contin 30mg Q12hr along with Morphine IR 15mg bid continue Continue bowel regimen to prevent narcotic induced constipation (9) H/O: stroke: residual deficit of short term memory on high intensity statin therapy but does not take antiplatelet therapy (10) Diastolic dysfunction: Echo 09/2017 revealed EF 60-65% with Grade 1 diastolic dysfunction euvolemic continue metoprolol CHARLY and lasix on hold given Acute kidney injury (11) Trigeminal neuralgia: continue tegretol and amitriptyline (12) DVT prophylaxis: SCDS for now given hematuria re eval need for chemo prophylaxis daily Disposition: Patient lives alone, was independent in ADLs, presents with severe back pain, weakness of bilateral lower extremity, ambulatory dysfunction PT OT evaluation requested Social service consulted to assist in discharge planning Follow up: PCP Dr. Kaplan upon discharge Subjective Complains of ongoing back pain with radiation down to the left thigh on the posterior part, up to the knee Pain is worse with movement, improved with rest or lying still No fever or chills, denies of any urinary incontinence, no dysuria, no increased frequency of urine Patient mentions he is unable to walk due to severe back pain At baseline he is independent lives alone, Denies of any trauma or injury to back Physical Exam Constitutional: WD/WN, vitals as above no acute distress Eyes: PERRL, conjunctivae normal, anicteric sclerae ENMT: external ear and nose normal, oropharynx normal Neck: trachea midline, no thyromegaly Respiratory: normal respiratory effort, lungs clear to auscultation Cardiovascular: RRR, no murmur, no edema Gastrointestinal (Abdomen): normal bowel sounds, soft, nontender, no hepatosplenomegaly Musculoskeletal: Spine: + limited thoraco-lumbar ROM (Due to pain) Low back pain, with radiation to thigh, no CVA tenderness Skin: no rashes, warm and dry Neurologic: PERRL, EOMI, accommodation nl, no face palsy, no dysarthria Psychiatric: A+Ox3, euthymic affect Results & Data Vital Signs (Past 12 Hours) Vital Signs Temp Pulse Pulse Resp BP Pulse Ox 09/10/18 15:05 36.6 C 76 18 149/83 H 95 09/10/18 12:00 36.9 C 80 18 128/72 96 09/10/18 07:57 75 09/10/18 07:20 37.0 C 76 18 108/68 93 (1) UTI (urinary tract infection) Hematuria presence: with hematuria Urinary tract infection type: acute cystitis Qualified Code(s): N30.01 - Acute cystitis with hematuria
[2018-09-10] MEDS: AMITRIPTYLINE HCL 25 MG TAB PO SCH (21:12)
[2018-09-10] MEDS: INSULIN GLARGINE SOLOSTAR 100 UNITS/ML 3 ML PEN SC SCH (21:14)
[2018-09-11] MEDS: MoRPHine SULFATE IR 15 MG TAB (IMMEDIATE RELEASE) PO PRN ×2 (02:03→17:13)
[2018-09-11] MEDS: HYDROmorphone INJ 0.5 MG/0.5 ML SYR IV PRN ×4 (02:21→20:08)
[2018-09-11] MEDS ORDERED: HYDROmorphone INJ 0.5 MG/0.5 ML SYR IV STA (03:15)
[2018-09-11 06:40] LABS: Hematocrit (blood only) 39.9 % (42-52); Hemoglobin 13.3 g/dL (14.0-18.0); Mean Corpuscular Hgb Conc 33.3 g/dL (32-36); Mean Corpuscular Volume 85.6 fL (80-100); Mean Platelet Volume 9.6 fL (7.4-10.4); Platelet Count 138 K/uL (130-400); RDW Coefficient of Variation 13.1 % (11.5-14.5); Red Blood Count 4.66 M/uL (4.7-6.1)
[2018-09-11 07:14] LABS: Calcium 8.8 mg/dl (8.5-10.1); Creatinine Clr Calc Pharmacy 88.2 ml/min; Est GFR (African American) 77.6; Potassium 4.2 mmol/L (3.5-5.1)
[2018-09-11] MEDS: MoRPHine SULFATE CR 15 MG TABCR PO SCH ×2 (08:01→20:10)
[2018-09-11] MEDS: ATORVASTATIN 40 MG TAB PO SCH (08:02)
[2018-09-11] MEDS: FENOFIBRATE NANOCRYSTALLIZED 48 MG TABLET PO SCH (08:02)
[2018-09-11] MEDS: AMLODIPINE BESYLATE 5 MG TAB PO SCH (08:02)
[2018-09-11] MEDS: METOPROLOL SUCC 50MG EXT REL TAB PO SCH ×2 (08:02→20:13)
[2018-09-11] MEDS: CARBAMAZEPINE 200 MG TABCR PO SCH ×2 (08:02→20:13)
[2018-09-11] MEDS: INSULIN ASPART 100 UNITS/ML 3 ML PEN SC SCH ×4 (08:03→20:15)
[2018-09-11] MEDS: cefTRIAXone SODIUM 2,000 MG in DEXTROSE 5% 50 ML IV SCH (08:15)
--- NOTE | 2018-09-11 08:56 | Consultation ---
Date of Consultation September 11, 2018 Assessment & Plan (1) Lumbar back pain with radiculopathy affecting lower extremity: CT scan, MRI and clinical findings have been reviewed with Dr. Funez. Plan is conservative treatment. No acute surgical indications. He is most likely suffering from an acute spasm/flareup. This should improve over the course of the next several days. No evidence of discitis or osteomyelitis on MRI and CT scans. May consider adding muscle relaxants and /or Lidoderm patch. If pain is not improving within the next 24 hours, may consider pain management consult, Dr. Holden, of whom the patient has seen in the past for guidance of medication recommendations. Activity as tolerated. Thank you for this consult Supervising Physician Co-Signing Physician Notes Dr. Kirk Funez History of Present Illness Reason for Consultation: Back and bilateral leg pain Attending Physician: Maria D Wilks MD History of Present Illness This is a 57-year-old gentleman that we are asked to see in consultation regards to his lumbar spine. Patient states he started with acute lower back and bilateral lower extremity pain 2 days ago. No specific accident, trauma, fall that precipitated this. He presented to the emergency room several hours later because of above-mentioned complaints. He was found to have leukocytosis and a subsequent urinary tract infection which is currently being treated. He states he still has significant amount of lower back pain. It radiates down the buttock and posterior thighs to the level of the knees. Right leg is equal to the left leg. Activities such as changing positions, rolling over or twisting seem to exacerbate his pain. Denies any recent illnesses at home, fevers, chills. He is on MS Contin 30 mg p.o. twice daily plus MS IR 15 mg p.o. twice daily at baseline at home. He is undergone recent bilateral femoral and obturator nerve RFA's by Dr. Holden in June and August 2018. He reports this helped his pain. Denies bowel or bladder dysfunction. Allergies Allergy/AdvReac Type Severity Reaction Status Date / Time Penicillins Allergy Unknown HAPPENED Verified 09/09/18 16:41 A CHILD shellfish derived AdvReac Unknown GI UPSET Verified 09/09/18 16:41 Home Medications Home Medications Medication Instructions Recorded Confirmed Type amlodipine 5 mg tablet 5 mg PO DAILY 07/03/18 09/09/18 History atorvastatin 80 mg tablet 80 mg PO DAILY 07/03/18 09/09/18 History azelastine 0.15 % (205.5 mcg) 1 sprays INTNAS BID 07/03/18 09/09/18 History nasal spray carbamazepine ER 400 mg 400 mg PO BID 07/03/18 09/09/18 History tablet,extended release,12 hr fenofibrate nanocrystallized 48 mg 48 mg PO DAILY 07/03/18 09/09/18 History tablet insulin aspart U- 100 100 unit/mL 5 units SQ TID ml 07/03/18 09/09/18 History subcutaneous solution lisinopril 40 mg tablet 40 mg PO DAILY 07/03/18 09/09/18 History metoprolol succinate ER 50 mg 50 mg PO BID 07/03/18 09/09/18 History tablet,extended release 24 hr amitriptyline 25 mg tablet 25 mg PO HS 07/10/18 09/09/18 History furosemide 20 mg tablet 20 mg PO DAILY 07/10/18 09/09/18 History Basaglar KwikPen U-100 Insulin 25 unit SUBCUT HS 09/09/18 09/09/18 History ketoconazole [Nizoral] 1 applic TOPICAL UD 09/09/18 09/09/18 History baclofen 10 mg PO TID PRN 30 Days #90 tab 09/15/18 Rx methylprednisolone [Medrol (Jhonatan)] 4 mg PO UD #21 ea 09/15/18 Rx morphine 15 mg PO BID PRN #10 tab 09/15/18 Rx morphine 30 mg PO Q12H #10 cap 09/15/18 Rx polyethylene glycol 3350 [Miralax] 17 gm PO DAILY #30 ea 09/15/18 Rx Patient History Medical History H/O: stroke (Chronic) Bilateral hip pain (Chronic) High cholesterol (Chronic) Trigeminal neuralgia (Chronic) Migraine (Chronic) 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" Depression (Chronic) Diabetes mellitus, type II (Chronic) Dyslipidemia (Chronic) Hypertension (Chronic) Sleep apnea (Chronic) on bipap Factor V deficiency (Chronic) History of skin cancer (Chronic) 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 Social History Preferred Language: German Communication Ability: Effective Beliefs That Will Affect Care: None marital status: Current Living Situation: Alone current occupational status: disabled Feels Safe at Home: Yes Smoking Status: Former smoker packs per day: 1 Second Hand Exposure: No Hx Alcohol Use: No Hx Substance Use: No Review of Systems Review of Systems: All systems reviewed & are unremarkable except as noted in HPI & below Physical Exam Physical Exam: Patient sitting up in bed. Cooperative with exam. Alert and oriented x3. He is able to sit up and lean forward for me so I may inspect his lower back. Skin is clean dry and intact. Modest tenderness to palpation to the paravertebral musculature and flank. Lower extremities: Sensation to light touch is equal intact bilateral lower extremities. Calves are soft nontender bilaterally. Negative tension signs bilaterally. Negative logrolling bilaterally. Motor testing is 5/5 bilateral EHL, dorsiflexion, plantarflexion, quadriceps, hamstrings, hip flexors, hip abductor's and hip adductor's. Constitutional: well developed Eyes: normal visual scales by confrontation ENMT: external ear and nose normal, oropharynx normal Neck: normal visual inspection Respiratory: normal respiratory effort Cardiovascular: Vessels: normal peripheral pulses Extremities: normal capil manjula refill Gastrointestinal (Abdomen): Inspection/Auscultation: abdomen normal to inspection Musculoskeletal: Extremities: strength 5/5 throughout Skin: no rashes, warm and dry Neurologic: patellar DTR's 2+ bilat, sensation intact moves all extremities Psychiatric: A+Ox3, euthymic affect Speech: normal rate/rhythm/volume of speech Results & Data Vital Signs (Past 12 Hours) Vital Signs Temp Pulse Pulse Resp BP BP Pulse Ox 09/11/18 07:41 82 09/11/18 07:30 37.1 C 79 18 150/88 H 94 09/11/18 05:00 158/83 H 09/11/18 03:22 37.6 C H 79 18 179/77 H 93 09/10/18 23:52 78 09/10/18 23:26 36.7 C 74 16 148/84 H 93 Diagnostic Findings [facility], LISA [phone] Magnetic Resonance Report Patient: MAHNAZ PASCUAL DAdmit Date: 09/09/18 MR#: [id number]: [address] Acct ID:[id number]: [address] Date: [address] Zip: [place] [address] Age: 57Location: 2N Sex: M Room/Bed: [facility] Att Phy: Maria D Wilks M.D.Diagnosis: BACK PAIN Maria E Phy: Suman Kaplan MD(RIGO)Service Date: 09/10/18 Fam Phy: Interpreting Phy: Abdulaziz Soriano MD Admit Phy: Cj Haines MD Ordering Phy: Anais Malik PA-C cc: ~ MRI OF THE LUMBAR SPINE WITHOUT IV CONTRAST CLINICAL HISTORY: Low back pain. Lumbar radiculopathy. COMPARISON STUDY: CT scan of lumbar spine dated 09/09/2018. TECHNIQUE: MRI of the lumbar spine is performed utilizing various T1 and T2- weighted sequences in the axial and sagittal planes. IV contrast was not administered for this examination. FINDINGS: Lumbar spine: Vertebral body height and alignment are maintained throughout the lumbar spine. The transverse and spinous processes are intact as imaged. There is no evidence of spondylolysis. No destructive bony lesion is seen. Minimal chronic degenerative endplate change is noted at T12-L1 and L5-S1. Intervertebral discs: There is degenerative disc desiccation seen throughout the lumbar spine. Mild to moderate loss of height is noted at L5-S1. Only mild loss of height is seen at the remaining lumbar levels. Spinal cord: The visualized spinal cord is normal in morphology and signal intensity. The conus medullaris terminates at the level of L1. The nerve roots of the cauda equina are normal in morphology. L1-L2: Unremarkable. L2-L3: Unremarkable. L3-L4: There is minimal posterior disc bulge with annular fissure. This causes mild bilateral subarticular stenosis. The central canal and neural foramina are patent. L4-L5: There is minimal posterior disc bulge with annular fissure. This causes bilateral subarticular stenosis and may abut the exiting left L4 nerve root. This may also abut the transiting bilateral L5 nerve roots. There is only minimal acquired compromise of the central canal at this level with a minimum AP diameter of 7.5 mm. The neural foramina are patent. L5-S1: There is a posterior disc bulge eccentric to the right. This causes right-sided subarticular stenosis and likely impinges on the exiting right L5 nerve root. There is no significant acquired compromise of the central canal. Facet arthropathy is of no consequence. The neural foramina are patent. Sacrum: The visualized sacrum is normal in morphology and signal intensity. Soft tissues: The paraspinous soft tissues are normal in appearance. The visualized retroperitoneal structures are grossly unremarkable but incompletely evaluated. IMPRESSION: 1. There is no large disc herniation or high-grade central canal stenosis. 2. Degenerative disc disease and spondylotic change as above. See discussion for detailed [id number] analysis. 3. No destructive bony process is identified. Dictated: 09/10/2018 10:18 AM Transcribed: 09/10/2018 10:47 AM Fariba [id number] [facility] Electronically signed by: Abdulaziz Soriano M.D. 09/10/2018 11:32 AM Patient: MAHNAZ PASCUAL DAdmit Date: 09/09/18 MR#: [id number]: [address] Acct ID:[id number]: [address] Date: [address] Zip: [place] [address] Age: 57Location: ED Sex: M Room/Bed: Att Phy: Diagnosis: BACK PAIN Maria E Phy: Suman Kaplan MD(RIGO)Service Date: 09/09/18 Fam Phy: Interpreting Phy: Armando Carlos MD Admit Phy: Ordering Phy: Cassidy Heard CRNP cc: ~ CT lumbar spine wo con CT DOSE: 652.95 mGy.cm HISTORY: Pain LOW BACK PAIN TECHNIQUE: Multiaxial CT images of the lumbar spine were performed and reformatted in the sagittal and coronal plane without the use of contrast. A dose lowering technique was utilized adhering to the principles of ALARA. COMPARISON: None. FINDINGS: Vertebral body stature is normal. No evidence for compression deformity. Mild degenerative disc change throughout. Mild anterior and to a lesser extent posterior osteophytic change from L2 through L5. No major compromise of the spinal canal. Degenerative changes of the posterior elements throughout. Moderate multifactorial narrowing of the spinal canal at L3-L4, and L4-L5, IMPRESSION: 1. Mild degenerative disc change throughout the entire lumbar region. 2. Moderate multifocal narrowing of the spinal canal at L3-L4 and L4-L5. 3. No evidence for compression deformity. The above report was generated using voice recognition software. It may contain grammatical, syntax or spelling errors. Electronically signed by: Armando Carlos M.D. 09/09/2018 6:18 PM Dictated: 09/09/18 1816 Transcribed: 0
--- NOTE | 2018-09-11 10:06 | Nephrology Consultation ---
Date of Consultation September 11, 2018 Assessment & Plan (1) Acute worsening of stage 3 chronic kidney disease: Patient with acute kidney injury likely due to prerenal azotemia. Urine showing specific gravity of 1.028 and numerous hyaline casts consistent with prerenal azotemia. Creatinine is improving with volume resuscitation. He appears euvolemic now. No need for further IV fluids. Monitor with daily BMP and avoid nephrotoxins unless lifesaving. (2) UTI (urinary tract infection): Patient is on ceftriaxone per primary team. We will follow-up urine cultures. (3) Lumbar back pain with radiculopathy affecting lower extremity: Patient with low back pain likely musculoskeletal in origin. I explained that this is less likely renal origin. Renal ultrasound showed normal size kidneys with no evidence of hydronephrosis and no kidney stones. Continue conservative management History of Present Illness Reason for Consultation: SHARON Requesting Physician: Maria D Wilks MD Attending Physician: Maria D Wilks MD History of Present Illness This is a 57-year-old male with past medical history of IDDM, HTN, HLD, CVA with short-term memory residual deficit, CKD stage III with baseline cr 1.1, SANAM on BiPAP, who was admitted on 09/10 with low back pain x1 day. In ED pt was noted to have leukocytosis 19.7k, H/H stable at 15.3 and 45.7, Na 134, CO2 18, AG 12, BUN 25, Cr 2.10, Urine + nitrites, leuks, blood, protein, glucose, uric acid, wbc casts. He is being treated for UTI with ceftriaxone. Will been asked to evaluate him for etiology and management of acute kidney injury. He is receiving IV fluids. Creatinine is better this morning at 1.2. Patient reports some improvement although still complaining of significant back pain which she says radiates to the thigh. No shortness of breath. No urinary symptoms such as dysuria, hematuria or frequency. He denies NSAID use. He is on multiple opioids at home. Allergies Allergy/AdvReac Type Severity Reaction Status Date / Time Penicillins Allergy Unknown HAPPENED Verified 09/09/18 16:41 A CHILD shellfish derived AdvReac Unknown GI UPSET Verified 09/09/18 16:41 Home Medications Home Medications Medication Instructions Recorded Confirmed Type amlodipine 5 mg tablet 5 mg PO DAILY 07/03/18 09/09/18 History atorvastatin 80 mg tablet 80 mg PO DAILY 07/03/18 09/09/18 History azelastine 0.15 % (205.5 mcg) 1 sprays INTNAS BID 07/03/18 09/09/18 History nasal spray carbamazepine ER 400 mg 400 mg PO BID 07/03/18 09/09/18 History tablet,extended release,12 hr fenofibrate nanocrystallized 48 mg 48 mg PO DAILY 07/03/18 09/09/18 History tablet insulin aspart U- 100 100 unit/mL 5 units SQ TID ml 07/03/18 09/09/18 History subcutaneous solution lisinopril 40 mg tablet 40 mg PO DAILY 07/03/18 09/09/18 History metoprolol succinate ER 50 mg 50 mg PO BID 07/03/18 09/09/18 History tablet,extended release 24 hr morphine ER 30 mg capsule,extended 30 mg PO Q12H 07/03/18 09/09/18 History release pellets amitriptyline 25 mg tablet 25 mg PO HS 07/10/18 09/09/18 History furosemide 20 mg tablet 20 mg PO DAILY 07/10/18 09/09/18 History insulin glargine [Basaglar KwikPen 25 unit SUBCUT HS 09/09/18 09/09/18 History U-100 Insulin] ketoconazole [Nizoral] 1 applic TOPICAL UD 09/09/18 09/09/18 History morphine 15 mg PO BID PRN 09/09/18 09/09/18 History Patient History Medical History H/O: stroke (Chronic) Bilateral hip pain (Chronic) High cholesterol (Chronic) Trigeminal neuralgia (Chronic) Migraine (Chronic) 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" Depression (Chronic) Diabetes mellitus, type II (Chronic) Dyslipidemia (Chronic) Hypertension (Chronic) Sleep apnea (Chronic) on bipap Factor V deficiency (Chronic) History of skin cancer (Chronic) 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 Social History Preferred Language: Kyrgyz Communication Ability: Effective [employer] Required: No Beliefs That Will Affect Care: None marital status: Current Living Situation: Alone current occupational status: disabled Other Information That Helps Us Care for You: No Feels Safe at Home: Yes Safety Concerns: Feels Safe At This Time Smoking Status: Former smoker packs per day: 1 Years Smoked: 30 Do You Dip or Chew Tobacco: Yes Second Hand Exposure: No Tobacco Cessation Education Requested by Patient: No Hx Alcohol Use: No Hx Substance Use: No Review of Systems Review of Systems: All systems reviewed & are unremarkable except as noted in HPI & below Physical Exam Physical Exam: General exam: Appears comfortable, no acute distress HEENT: Pupils are equal and reactive to light Neck: No JVD, neck is supple trachea is midline Respiratory system: Clear breath sounds bilaterally. Gastrointestinal: Abdomen is soft, non distended, non tender, bowel sounds are present CVS: Regular rate and rhythm. No murmurs, rubs or gallops Musculoskeletal: No joint or muscle tenderness Extremities: Tenderness along the lower back although pain description does not fit a particular pattern, no edema, peripheral pulses are present Neuro: Oriented, no tremors, no focal neurological deficits Skin: No rashes Results & Data Vital Signs (Past 12 Hours) Vital Signs Temp Pulse Pulse Resp BP BP Pulse Ox 09/11/18 07:41 82 09/11/18 07:30 37.1 C 79 18 150/88 H 94 09/11/18 05:00 158/83 H 09/11/18 03:22 37.6 C H 79 18 179/77 H 93 09/10/18 23:52 78 09/10/18 23:26 36.7 C 74 16 148/84 H 93 Laboratory Results Laboratory Results - last 24 hr 09/10/18 09/10/18 09/10/18 11:16 16:04 20:17 WBC RBC Hgb Hct MCV MCH MCHC RDW Std Deviation RDW Coeff of Parth Plt Count MPV Sodium Potassium Chloride Carbon Dioxide Anion Gap BUN Creatinine Est Cr Clr Drug Dosing Est GFR ( Amer) Est GFR (Non-Af Amer) BUN/Creatinine Ratio Glucose POC Glucose 186 H 152 H 143 H Calcium 09/11/18 09/11/18 09/11/18 06:11 06:11 07:38 WBC 14.20 H RBC 4.66 L Hgb 13.3 L Hct 39.9 L MCV 85.6 MCH 28.5 MCHC 33.3 RDW Std Deviation 41.0 RDW Coeff of Parth 13.1 Plt Count 138 MPV 9.6 Sodium 135 L Potassium 4.2 Chloride 106 Carbon Dioxide 21 Anion Gap 8.0 BUN 31 H Creatinine 1.21 D Est Cr Clr Drug Dosing 88.2 Est GFR ( Amer) 77.6 Est GFR (Non-Af Amer) 67.0 BUN/Creatinine Ratio 26.0 H Glucose 138 H POC Glucose 129 H Calcium 8.8 (1) UTI (urinary tract infection) Urinary tract infection type: acute cystitis Hematuria presence: with hematuria Qualified Code(s): N30.01 - Acute cystitis with hematuria
[2018-09-11] MEDS ORDERED: methylPREDNISolone 4 MG TAB, 6 DAY TAPER PO SCH (17:30)
--- NOTE | 2018-09-11 17:31 | Hospitalist Progress Note ---
Date of Service September 11, 2018 Assessment & Plan (1) Lumbar back pain with radiculopathy affecting lower extremity: This is a 57-year-old male who has a significant past medical history of IDDM, HTN, HLD, history of CVA with short-term memory residual deficit, CKD stage III, SANAM on BiPAP, history of CVA, trigeminal neuralgia who presents [facility] ED secondary to low back pain x1 day. Lumbar Spine CT: 1. Mild degenerative disc change throughout the entire lumbar region. 2. Moderate multifocal narrowing of the spinal canal at L3-L4 and L4-L5. Complains of persistent low back pain with radiculopathy/sciatica down to left thigh MRI of lumbar spine :1. There is no large disc herniation or high-grade central canal stenosis. 2. Degenerative disc disease and spondylotic change as above. See discussion for detailed [id number] analysis. 3. No destructive bony process is identified. PT OT evaluation requested, Physical therapy evaluation appreciated Unable to safely go home at this time , recommend acute rehab: 3 hours combined therapy daily spine orthopedics Dr. Funez consulted for ongoing back pain symptoms- Appreciate input, no surgical intervention needed, Recommends conservative treatment with pain control, recommends Lidoderm patch, Flexeril as needed for muscle spasm-Ordered Pain management consulted, patient was seen by Dr. Holden in the past Continue chronic pain regimen of MS continue and morphine IR Ordered bowel regimen to prevent narcotic induced constipation (2) UTI (urinary tract infection): Urine + for nitrites and leuk esterase,With leukocytosis Patient remains afebrile, denies of any urinary symptoms continue ceftriaxone 1g daily await urine and blood culture (3) Acute worsening of stage 3 chronic kidney disease: Resolved with IV fluids, creatinine improved approximate baseline baseline Cr 1.1 Bun/Cr 25 and 2.10 Creatinine improved with IV fluids Renal ultrasound shows no evidence of obstruction or hydronephrosis Avoid contrast, NSAIDs Follow PRP, nephrology consult requested- Appreciate input (4) Diabetes mellitus, type II: Last A1C 7.9 on 07/24/18 Lantus/Novolog per protocol Home regimen on Basaglar 25 units at HS and novolog 5 units AC (5) Hypertension: blood pressure elevated, likely also elevated in setting of acute pain continue metoprolol and amlodipine lisinopril and lasix Will be resumed as renal function is back to baseline (6) Dyslipidemia: continue statin (7) Sleep apnea: Chronic bipap at HS (8) Chronic pain disorder: Follows pain clinic On MS contin 30mg Q12hr along with Morphine IR 15mg bid Pain management consulted Continue bowel regimen to prevent narcotic induced constipation (9) H/O: stroke: residual deficit of short term memory on high intensity statin therapy but does not take antiplatelet therapy (10) Diastolic dysfunction: Echo 09/2017 revealed EF 60-65% with Grade 1 diastolic dysfunction euvolemic continue metoprolol CHARLY and lasix-esumed as renal function improved to baseline (11) Trigeminal neuralgia: continue tegretol and amitriptyline (12) DVT prophylaxis: SCDS for now given hematuria re eval need for chemo prophylaxis daily Disposition: Patient lives alone, was independent in ADLs, presents with severe back pain, weakness of bilateral lower extremity, ambulatory dysfunction PT OT evaluation requested, Physical therapy evaluation appreciated Unable to safely go home at this time , recommend acute rehab: 3 hours combined therapy daily Social service consulted to assist in discharge planning Follow up: PCP Dr. Kaplan upon discharge Subjective Continued to have low back pain worsening with attempt to standing up, movement Unable to participate in physical therapy No fever or chills No shortness of breath, no palpitation, no cough Physical Exam Constitutional: WD/WN, vitals as above no acute distress Eyes: PERRL, conjunctivae normal, anicteric sclerae ENMT: external ear and nose normal, oropharynx normal Neck: trachea midline, no thyromegaly Respiratory: normal respiratory effort, lungs clear to auscultation Cardiovascular: RRR, no murmur, no edema Gastrointestinal (Abdomen): normal bowel sounds, soft, nontender, no hepatosplenomegaly Musculoskeletal: Spine: + limited thoraco-lumbar ROM (Due to pain) Skin: no rashes, warm and dry Neurologic: PERRL, EOMI, accommodation nl, no face palsy, no dysarthria Psychiatric: A+Ox3, euthymic affect Results & Data Vital Signs (Past 12 Hours) Vital Signs Temp Pulse Pulse Resp BP Pulse Ox 09/11/18 15:50 36.8 C 72 18 124/77 97 09/11/18 07:41 82 09/11/18 07:30 37.1 C 79 18 150/88 H 94 (1) UTI (urinary tract infection) Hematuria presence: with hematuria Urinary tract infection type: acute cystitis Qualified Code(s): N30.01 - Acute cystitis with hematuria
[2018-09-11] MEDS ORDERED: LISINOPRIL 40 MG TAB PO ONE (18:16)
[2018-09-11] MEDS ORDERED: FUROSEMIDE 20 MG TAB PO ONE (18:16)
[2018-09-11] MEDS: LIDOCAINE 5% 1 PATCH TD SCH (20:10)
[2018-09-11] MEDS: AMITRIPTYLINE HCL 25 MG TAB PO SCH (20:12)
[2018-09-11] MEDS: CYCLOBENZAPRINE HCL 10 MG TAB PO SCH ×2 (20:14→20:21)
[2018-09-11] MEDS: INSULIN GLARGINE SOLOSTAR 100 UNITS/ML 3 ML PEN SC SCH (20:14)
[2018-09-11] MEDS ORDERED: methylPREDNISolone 4 MG TAB PO SCH ×2 (21:00)
[2018-09-12] MEDS: HYDROmorphone INJ 0.5 MG/0.5 ML SYR IV PRN ×4 (02:36→23:47)
[2018-09-12] MEDS: MoRPHine SULFATE IR 15 MG TAB (IMMEDIATE RELEASE) PO PRN ×2 (05:42→18:51)
[2018-09-12 06:30] LABS: Hematocrit (blood only) 38.4 % (42-52); Hemoglobin 12.8 g/dL (14.0-18.0); Mean Corpuscular Hgb Conc 33.3 g/dL (32-36); Mean Corpuscular Volume 85.3 fL (80-100); Mean Platelet Volume 9.3 fL (7.4-10.4); Platelet Count 125 K/uL (130-400); RDW Coefficient of Variation 13.3 % (11.5-14.5); RDW Standard Deviation 41.8 fL (36.4-46.3); White Blood Count 12.89 K/uL (4.8-10.8)
[2018-09-12] MEDS ORDERED: methylPREDNISolone 4 MG TAB PO SCH ×2 (07:00→21:00)
[2018-09-12 07:08] LABS: BUN Creatinine Ratio 22.2 (10-20); Calcium 8.9 mg/dl (8.5-10.1); Creatinine Clr Calc Pharmacy 74.6 ml/min; Est GFR (African American) 63.4; Est GFR (Non-African American) 54.7; Potassium 4.6 mmol/L (3.5-5.1)
[2018-09-12] MEDS: cefTRIAXone SODIUM 2,000 MG in DEXTROSE 5% 50 ML IV SCH (08:33)
[2018-09-12] MEDS: MoRPHine SULFATE CR 15 MG TABCR PO SCH ×2 (08:35→21:05)
[2018-09-12] MEDS: CYCLOBENZAPRINE HCL 10 MG TAB PO SCH ×3 (08:36→21:06)
[2018-09-12] MEDS: CARBAMAZEPINE 200 MG TABCR PO SCH ×2 (08:40→21:07)
[2018-09-12] MEDS: METOPROLOL SUCC 50MG EXT REL TAB PO SCH ×2 (08:41→21:06)
[2018-09-12] MEDS: AMLODIPINE BESYLATE 5 MG TAB PO SCH (08:41)
[2018-09-12] MEDS: ATORVASTATIN 40 MG TAB PO SCH (08:41)
[2018-09-12] MEDS: FENOFIBRATE NANOCRYSTALLIZED 48 MG TABLET PO SCH (08:42)
[2018-09-12] MEDS: LIDOCAINE 5% 1 PATCH TD SCH (08:43)
[2018-09-12] MEDS: INSULIN ASPART 100 UNITS/ML 3 ML PEN SC SCH ×4 (08:53→21:09)
[2018-09-12] MEDS ORDERED: LISINOPRIL 40 MG TAB PO SCH (09:00)
[2018-09-12] MEDS ORDERED: FUROSEMIDE 20 MG TAB PO SCH (09:00)
[2018-09-12] MEDS ORDERED: methylPREDNISolone 4 MG TAB, 6 DAY TAPER PO SCH (09:00)
--- NOTE | 2018-09-12 09:15 | Pain Management Consultation ---
Date of Consultation September 12, 2018 Assessment & Plan (1) Lumbar back pain with radiculopathy affecting lower extremity: 1. Patient presenting with acute lumbar radicular pain with minimal component of axial low back pain. MRI findings were reviewed with patient. Potential etiologies and treatment options were discussed. We again discussed the potential role of short-term oral steroid Dosepak. The patient was previously hesitant to his history of AVN. He was agreeable to a short course of oral steroids. Will initiate a Medrol Dosepak at this time. 2. Hesitant to add gabapentin therapy due to his current anticonvulsants directed at his trigeminal neuralgia 3. Patient is not a candidate for interventional treatment at this time due to his current UTI and antibiotic therapy with pending urine and blood cultures 4. Patient will continue with his chronic opiate therapy without change. May continue with IV hydromorphone for pain breakthrough pain without change in dosing/recommendations. 5. Patient may potentially be a candidate for CARLOS in the outpatient setting with persisting pain complaints pending clearance of any current infection. Present on Admission?: Yes (2) H/O bilateral hip replacements: Present on Admission?: Yes (3) Opiate dependence, continuous: Present on Admission?: Yes (4) Chronic pain disorder: Present on Admission?: Yes (5) UTI (urinary tract infection): Urinary tract infection type: acute cystitis Hematuria presence: with hematuria Qualified Code(s): N30.01 - Acute cystitis with hematuria Present on Admission?: Yes History of Present Illness Reason for Consultation: Intractable low back and lower extremity radicular pain Attending Physician: Maria D Wilks MD History of Present Illness Mr. Vides is a 57-year-old white male who was admitted due to intractable low back and lower extremity pain right greater than left-sided. His pain is 80% radicular in 20% axial at this time. The patient reportedly awoke with his current pain and denied any known injury or inciting event. Patient reports the pain is sharp, burning, shooting and stabbing in characteristic aggravated with any movement. Patient denies overt weaknesses but reports difficulty standing and ambulating due to pain. He is finding IV hydromorphone to be moderately effective for a few hours at diminishing the severity of his pain. Patient has history of bilateral AVN with history of surgical intervention of his hips bilaterally and chronic residual pain. He has undergone radio frequency ablation procedure of the hip region through the pain service with improvement in bilateral hip pain complaints. He does remain on chronic opiate therapy with MS Contin 30 mg every 12 hours and MSIR 15 mg twice daily as needed. Patient has been resistant to steroid use upon this admission due to his prior history of AVN. Patient denies bowel or bladder incontinence or saddle anesthesias. He denies fevers, chills or night sweats. Patient has significant comorbid medical history of insulin dependent diabetes mellitus, hypertension, hyperlipidemia, history of CVA with short-term memory residual deficit, chronic kidney disease, obstructive sleep apnea on BiPAP and trigeminal neuralgia on chronic anticonvulsant therapy. Patient has no further constitutional complaints at this time. Plan of care discussed with Dr. Alejandre. Allergies Allergy/AdvReac Type Severity Reaction Status Date / Time Penicillins Allergy Unknown HAPPENED Verified 09/09/18 16:41 A CHILD shellfish derived AdvReac Unknown GI UPSET Verified 09/09/18 16:41 Home Medications Home Medications Medication Instructions Recorded Confirmed Type amlodipine 5 mg tablet 5 mg PO DAILY 07/03/18 09/09/18 History atorvastatin 80 mg tablet 80 mg PO DAILY 07/03/18 09/09/18 History azelastine 0.15 % (205.5 mcg) 1 sprays INTNAS BID 07/03/18 09/09/18 History nasal spray carbamazepine ER 400 mg 400 mg PO BID 07/03/18 09/09/18 History tablet,extended release,12 hr fenofibrate nanocrystallized 48 mg 48 mg PO DAILY 07/03/18 09/09/18 History tablet insulin aspart U- 100 100 unit/mL 5 units SQ TID ml 07/03/18 09/09/18 History subcutaneous solution lisinopril 40 mg tablet 40 mg PO DAILY 07/03/18 09/09/18 History metoprolol succinate ER 50 mg 50 mg PO BID 07/03/18 09/09/18 History tablet,extended release 24 hr morphine ER 30 mg capsule,extended 30 mg PO Q12H 07/03/18 09/09/18 History release pellets amitriptyline 25 mg tablet 25 mg PO HS 07/10/18 09/09/18 History furosemide 20 mg tablet 20 mg PO DAILY 07/10/18 09/09/18 History insulin glargine [Basaglar KwikPen 25 unit SUBCUT HS 09/09/18 09/09/18 History U-100 Insulin] ketoconazole [Nizoral] 1 applic TOPICAL UD 09/09/18 09/09/18 History morphine 15 mg PO BID PRN 09/09/18 09/09/18 History Pain History Pain Location Full Body Front + Back: 1. Axial low back pain 2. Radicular pain traveling to ankle/dorsal foot 3. Radicular pain traveling to ankle/dorsal foot Patient History Medical History H/O: stroke (Chronic) Bilateral hip pain (Chronic) High cholesterol (Chronic) Trigeminal neuralgia (Chronic) Migraine (Chronic) 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" Depression (Chronic) Diabetes mellitus, type II (Chronic) Dyslipidemia (Chronic) Hypertension (Chronic) Sleep apnea (Chronic) on bipap Factor V deficiency (Chronic) History of skin cancer (Chronic) 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 Social History Preferred Language: Azeri Communication Ability: Effective [employer] Supervisor Required: No Beliefs That Will Affect Care: None marital status: Current Living Situation: Alone current occupational status: disabled Other Information That Helps Us Care for You: No Feels Safe at Home: Yes Safety Concerns: Feels Safe At This Time Smoking Status: Former smoker packs per day: 1 Years Smoked: 30 Do You Dip or Chew Tobacco: Yes Second Hand Exposure: No Tobacco Cessation Education Requested by Patient: No Hx Alcohol Use: No Hx Substance Use: No Physical Exam Physical Exam: General: Patient sitting quietly in exam room in no acute distress. Speech and thought process appropriate. Mood and affect appropriate. Cognition intact. Head: Normocephalic and atraumatic. ENT: No evidence of nasal or oral mucosal lesions. Mucous membranes are moist. Eyes: Pupils equal round reactive to light. Neck: Supple without adenopathy and full range of motion. Chest: Nontender to palpation of the costosternal junction. Cardiac: Regular rate and rhythm without murmur. Lungs: Clear to auscultation no wheeze or rhonchi. Abdomen: Soft and nondistended. No organomegaly. Bowel sounds active. Back/spine: Loss of lumbar lordosis. Patient is nontender over the midline, facet joints or SI joints to provocative testing. Patient nontender in the paravertebral, quadratus lumborum or gluteal musculature to palpation. Limited range of motion in all planes. Lower extremities: Sensation intact to sharp and dull without focal deficit. Patient with increased pain along the right lateral hip incisional region to direct palpation. No evidence of allodynia, hyperpathia or hyperalgesic response. SLR equivocal on the right in the supine position, SLR negative on the left. Strength testing 4/5 with hip flexion and extension bilaterally. Dorsi and plantar flexion 5/5 and equal bilaterally. No evidence of edema, erythema or skin breakdown of the ankle or pretibial regions bilaterally. Neurologic: Cranial nerves grossly intact. Ambulatory function not witnessed. Results Diagnostic Review MRI: non enhanced MRI Findings: [facility], [place] [phone] Magnetic Resonance Report Patient: MAHNAZ VIDES Date: 09/09/18 MR#: [id number]: [address] Acct ID:[id number]: [address] Date: [address] Zip: [place] [address] Age: 57Location: 2N Sex: M Room/Bed: [facility] Att Phy: Maria D Wilks M.D.Diagnosis: BACK PAIN Maria E Phy: Suman Kaplan MD(RIGO)Service Date: 09/10/18 Fam Phy: Interpreting Phy: Abdulaziz Soriano MD Admit Phy: Cj Haines MD Ordering Phy: Anais Malik PA-C cc: ~ MRI OF THE LUMBAR SPINE WITHOUT IV CONTRAST CLINICAL HISTORY: Low back pain. Lumbar radiculopathy. COMPARISON STUDY: CT scan of lumbar spine dated 09/09/2018. TECHNIQUE: MRI of the lumbar spine is performed utilizing various T1 and T2- weighted sequences in the axial and sagittal planes. IV contrast was not administered for this examination. FINDINGS: Lumbar spine: Vertebral body height and alignment are maintained throughout the lumbar spine. The transverse and spinous processes are intact as imaged. There is no evidence of spondylolysis. No destructive bony lesion is seen. Minimal chronic degenerative endplate change is noted at T12-L1 and L5-S1. Intervertebral discs: There is degenerative disc desiccation seen throughout the lumbar spine. Mild to moderate loss of height is noted at L5-S1. Only mild loss of height is seen at the remaining lumbar levels. Spinal cord: The visualized spinal cord is normal in morphology and signal intensity. The conus medullaris terminates at the level of L1. The nerve roots of the cauda equina are normal in morphology. L1-L2: Unremarkable. L2-L3: Unremarkable. L3-L4: There is minimal posterior disc bulge with annular fissure. This causes mild bilateral subarticular stenosis. The central canal and neural foramina are patent. L4-L5: There is minimal posterior disc bulge with annular fissure. This causes bilateral subarticular stenosis and may abut the exiting left L4 nerve root. This may also abut the transiting bilateral L5 nerve roots. There is only minimal acquired compromise of the central canal at this level with a minimum AP diameter of 7.5 mm. The neural foramina are patent. L5-S1: There is a posterior disc bulge eccentric to the right. This causes right-sided subarticular stenosis and likely impinges on the exiting right L5 nerve root. There is no significant acquired compromise of the central canal. Facet arthropathy is of no consequence. The neural foramina are patent. Sacrum: The visualized sacrum is normal in morphology and signal intensity. Soft tissues: The paraspinous soft tissues are normal in appearance. The visualized retroperitoneal structures are grossly unremarkable but incompletely evaluated. IMPRESSION: 1. There is no large disc herniation or high-grade central canal stenosis. 2. Degenerative disc disease and spondylotic change as above. See discussion for detailed [id number] analysis. 3. No destructive bony process is identified. Dictated: 09/10/2018 10:18 AM Transcribed: 09/10/2018 10:47 AM Fariba [id number] Electronically signed by: Abdulaziz Soriano M.D. 09/10/2018 11:32 AM Dictated: 09/10/18 1018 Transcribed: 09/10/18 1047
--- NOTE | 2018-09-12 10:09 | Nephrology Progress Note ---
Date of Service September 12, 2018 Assessment & Plan (1) Acute worsening of stage 3 chronic kidney disease: Patient with acute kidney injury likely due to prerenal azotemia. Urine showing specific gravity of 1.028 and numerous hyaline casts consistent with prerenal azotemia. Creatinine is up to 1.4. He appears euvolemic now. No need for further IV fluids. Hold lisinopril and Lasix today. We can restart later once the infection is resolving. Monitor with daily BMP and avoid nephrotoxins unless lifesaving. (2) UTI (urinary tract infection): Patient is on ceftriaxone per primary team. We will follow-up urine cultures. (3) Lumbar back pain with radiculopathy affecting lower extremity: Patient with low back pain likely musculoskeletal in origin. I explained that this is less likely renal origin. Renal ultrasound showed normal size kidneys with no evidence of hydronephrosis and no kidney stones. Continue conservative management Subjective Patient seen in follow-up for acute kidney injury. He is still complaining of pain in the legs and back pain. No urinary symptoms today. Creatinine up trending to 1.4 today. No shortness of breath no leg swelling. No vomiting or diarrhoea. Review of Systems Review of Systems: All systems reviewed & are unremarkable except as noted in HPI & below Physical Exam Physical Exam: General exam: Appears comfortable, no acute distress HEENT: Pupils are equal and reactive to light Neck: No JVD, neck is supple trachea is midline Respiratory system: Clear breath sounds bilaterally. Gastrointestinal: Abdomen is soft, non distended, non tender, bowel sounds are present CVS: Regular rate and rhythm. No murmurs, rubs or gallops Musculoskeletal: No joint or muscle tenderness Extremities: Non tender, no edema, peripheral pulses are present Neuro: Oriented, no tremors, no focal neurological deficits Skin: No rashes Results & Data Vital Signs (Past 12 Hours) Vital Signs Temp Pulse Resp BP Pulse Ox 09/12/18 07:25 37.2 C 90 20 119/72 94 09/11/18 23:00 37.2 C 81 18 115/74 97 Laboratory Results Laboratory Results - last 24 hr 09/11/18 09/11/18 09/11/18 11:35 16:26 20:01 WBC RBC Hgb Hct MCV MCH MCHC RDW Std Deviation RDW Coeff of Parth Plt Count MPV Sodium Potassium Chloride Carbon Dioxide Anion Gap BUN Creatinine Est Cr Clr Drug Dosing Est GFR ( Amer) Est GFR (Non-Af Amer) BUN/Creatinine Ratio Glucose POC Glucose 165 H 143 H 153 H Calcium 09/12/18 09/12/18 09/12/18 06:16 06:16 07:40 WBC 12.89 H RBC 4.50 L Hgb 12.8 L Hct 38.4 L MCV 85.3 MCH 28.4 MCHC 33.3 RDW Std Deviation 41.8 RDW Coeff of Parth 13.3 Plt Count 125 L MPV 9.3 Sodium 135 L Potassium 4.6 Chloride 103 Carbon Dioxide 24 Anion Gap 7.0 BUN 32 H Creatinine 1.43 H Est Cr Clr Drug Dosing 74.6 Est GFR ( Amer) 63.4 Est GFR (Non-Af Amer) 54.7 BUN/Creatinine Ratio 22.2 H Glucose 144 H POC Glucose 128 H Calcium 8.9 (1) UTI (urinary tract infection) Urinary tract infection type: acute cystitis Hematuria presence: with hematuria Qualified Code(s): N30.01 - Acute cystitis with hematuria
[2018-09-12] MEDS: methylPREDNISolone 4 MG TAB PO SCH ×4 (13:23→21:11)
--- NOTE | 2018-09-12 15:12 | Hospitalist Progress Note ---
Date of Service September 12, 2018 Assessment & Plan (1) Lumbar back pain with radiculopathy affecting lower extremity: This is a 57-year-old male who has a significant past medical history of IDDM, HTN, HLD, history of CVA with short-term memory residual deficit, CKD stage III, SANAM on BiPAP, history of CVA, trigeminal neuralgia who presents to [facility] ED secondary to low back pain x1 day. Lumbar Spine CT: 1. Mild degenerative disc change throughout the entire lumbar region. 2. Moderate multifocal narrowing of the spinal canal at L3-L4 and L4-L5. Complains of persistent low back pain with radiculopathy/sciatica down to left thigh MRI of lumbar spine :1. There is no large disc herniation or high-grade central canal stenosis. 2. Degenerative disc disease and spondylotic change as above. See discussion for detailed [id number] analysis. 3. No destructive bony process is identified. PT OT evaluation requested, Physical therapy evaluation appreciated Unable to safely go home at this time , recommend acute rehab: 3 hours combined therapy daily spine orthopedics Dr. Funez consulted for ongoing back pain symptoms- Appreciate input, no surgical intervention needed, Recommends conservative treatment with pain control, recommends Lidoderm patch, Flexeril as needed for muscle spasm-Ordered Pain management consulted, Appreciate input from pain management: Patient symptoms suggestive of acute lumbar radicular pain, suggest short-term oral Medrol Dosepak-ordered Hesitant to add gabapentin as patient is on Tegretol for trigeminal neuralgia Not a candidate for CARLOS joint injection-concern for infection/UTI Plan to arrange follow-up in outpatient clinic if patient continues to have pain complaint Patient should be continued with his chronic opiate therapy without any change, and agreement with bowel regimen appreciate input Continue chronic pain regimen of MS continue and morphine IR (2) UTI (urinary tract infection): Urine + for nitrites and leuk esterase,With leukocytosis Patient remains afebrile, denies of any urinary symptoms continue ceftriaxone 1g daily await urine and blood culture (3) Acute worsening of stage 3 chronic kidney disease: cr elevated /given IV Lasix for worsening of lower ext edema appreciate Nephrology eval Indication for IV fluids at this point, hold Lasix and CHARLY inhibitor baseline Cr 1.1 Bun/Cr 25 and 2.10 Avoid contrast, NSAIDs Follow PRP, (4) Diabetes mellitus, type II: Last A1C 7.9 on 07/24/18 Lantus/Novolog per protocol Home regimen on Basaglar 25 units at HS and novolog 5 units AC (5) Hypertension: continue metoprolol and amlodipine lisinopril and lasix kept on hold for acute renal failure (6) Dyslipidemia: continue statin (7) Sleep apnea: Chronic bipap at HS (8) Chronic pain disorder: Follows pain clinic On MS contin 30mg Q12hr along with Morphine IR 15mg bid Pain management consulted appreciate input, patient started with Medrol Dosepak Continue bowel regimen to prevent narcotic induced constipation (9) H/O: stroke: residual deficit of short term memory on high intensity statin therapy but does not take antiplatelet therapy (10) Diastolic dysfunction: Echo 09/2017 revealed EF 60-65% with Grade 1 diastolic dysfunction euvolemic continue metoprolol CHARLY and lasix-will be kept on hold for worsening of kidney function (11) Trigeminal neuralgia: continue tegretol and amitriptyline (12) DVT prophylaxis: SCDS for now given hematuria re eval need for chemo prophylaxis daily Disposition: Patient lives alone, was independent in ADLs, presents with severe back pain, weakness of bilateral lower extremity, ambulatory dysfunction PT OT evaluation requested, Physical therapy evaluation appreciated Unable to safely go home at this time , recommend acute rehab: 3 hours combined therapy daily Social service consulted to assist in discharge planning Follow up: PCP Dr. Kaplan upon discharge Subjective Back pain minimally improved, does not have any pain or discomfort at rest, worsening of pain with trying to stand up, change of position Physical Exam Constitutional: WD/WN, vitals as above no acute distress Eyes: PERRL, conjunctivae normal, anicteric sclerae ENMT: external ear and nose normal, oropharynx normal Neck: trachea midline, no thyromegaly Respiratory: normal respiratory effort, lungs clear to auscultation Cardiovascular: RRR, no murmur, no edema Gastrointestinal (Abdomen): normal bowel sounds, soft, nontender, no hepatosplenomegaly Musculoskeletal: Spine: + limited thoraco-lumbar ROM (Due to pain) Skin: no rashes, warm and dry Neurologic: PERRL, EOMI, accommodation nl, no face palsy, no dysarthria Psychiatric: A+Ox3, euthymic affect Results & Data Vital Signs (Past 12 Hours) Vital Signs Temp Pulse Resp BP Pulse Ox 05/03/19 07:25 37.2 C 90 20 119/72 94 (1) UTI (urinary tract infection) Hematuria presence: with hematuria Urinary tract infection type: acute cystitis Qualified Code(s): N30.01 - Acute cystitis with hematuria
[2018-09-12] MEDS ORDERED: SUMAtriptan succinate 25 MG TAB PO ONE (15:13)
[2018-09-12] MEDS: AMITRIPTYLINE HCL 25 MG TAB PO SCH (21:06)
[2018-09-12] MEDS: INSULIN GLARGINE SOLOSTAR 100 UNITS/ML 3 ML PEN SC SCH (21:10)
[2018-09-13] MEDS: methylPREDNISolone 4 MG TAB PO SCH ×3 (06:07→17:50)
[2018-09-13] MEDS: HYDROmorphone INJ 0.5 MG/0.5 ML SYR IV PRN ×4 (06:11→20:23)
[2018-09-13] MEDS ORDERED: methylPREDNISolone 4 MG TAB PO SCH ×2 (07:00→21:00)
[2018-09-13] MEDS: INSULIN ASPART 100 UNITS/ML 3 ML PEN SC SCH ×4 (08:42→21:53)
[2018-09-13] MEDS: cefTRIAXone SODIUM 2,000 MG in DEXTROSE 5% 50 ML IV SCH (08:49)
[2018-09-13] MEDS: MoRPHine SULFATE CR 15 MG TABCR PO SCH ×2 (08:52→20:32)
[2018-09-13] MEDS: AMLODIPINE BESYLATE 5 MG TAB PO SCH (08:52)
[2018-09-13] MEDS: ATORVASTATIN 40 MG TAB PO SCH (08:53)
[2018-09-13] MEDS: FENOFIBRATE NANOCRYSTALLIZED 48 MG TABLET PO SCH (08:53)
[2018-09-13] MEDS: METOPROLOL SUCC 50MG EXT REL TAB PO SCH ×2 (08:53→20:28)
[2018-09-13] MEDS: CYCLOBENZAPRINE HCL 10 MG TAB PO SCH ×3 (08:53→20:28)
[2018-09-13] MEDS: LIDOCAINE 5% 1 PATCH TD SCH (08:54)
[2018-09-13 08:55] LABS: Hematocrit (blood only) 39.9 % (42-52); Hemoglobin 13.3 g/dL (14.0-18.0); Mean Corpuscular Hgb Conc 33.3 g/dL (32-36); Mean Corpuscular Volume 85.8 fL (80-100); Mean Platelet Volume 9.6 fL (7.4-10.4); Platelet Count 167 K/uL (130-400); RDW Coefficient of Variation 13.2 % (11.5-14.5); RDW Standard Deviation 41.2 fL (36.4-46.3); Red Blood Count 4.65 M/uL (4.7-6.1); White Blood Count 13.81 K/uL (4.8-10.8)
[2018-09-13] MEDS: CARBAMAZEPINE 200 MG TABCR PO SCH ×2 (08:55→20:27)
[2018-09-13 09:20] LABS: BUN Creatinine Ratio 27.9 (10-20); Calcium 9.9 mg/dl (8.5-10.1); Creatinine Clr Calc Pharmacy 97.9 ml/min; Est GFR (African American) 88.1; Potassium 4.5 mmol/L (3.5-5.1)
--- NOTE | 2018-09-13 13:18 | Hospitalist Progress Note ---
Date of Service September 13, 2018 Assessment & Plan (1) Lumbar back pain with radiculopathy affecting lower extremity: Developed worsening of back pain this morning, have been spontaneously Pain more appears to be muscle spasm at the paraspinal area/musculoskeletal pain, Patient is already ordered Lidoderm patch, getting scheduled dose of Flexeril, hesitant to increase the dose as patient already reporting sedation with current 5 mg 3 times daily Ordered for cold compression with alternating hot compression for symptom control This is a 57-year-old male who has a significant past medical history of IDDM, HTN, HLD, history of CVA with short-term memory residual deficit, CKD stage III, SANAM on BiPAP, history of CVA, trigeminal neuralgia who presents to [facility] ED secondary to low back pain x1 day. Lumbar Spine CT: 1. Mild degenerative disc change throughout the entire lumbar region. 2. Moderate multifocal narrowing of the spinal canal at L3-L4 and L4-L5. Complains of persistent low back pain with radiculopathy/sciatica down to left thigh MRI of lumbar spine :1. There is no large disc herniation or high-grade central canal stenosis. 2. Degenerative disc disease and spondylotic change as above. See discussion for detailed [id number] analysis. 3. No destructive bony process is identified. PT OT evaluation requested, Physical therapy evaluation appreciated Unable to safely go home at this time , recommend acute rehab: 3 hours combined therapy daily spine orthopedics Dr. Funez consulted for ongoing back pain symptoms- Appreciate input, no surgical intervention needed, Recommends conservative treatment with pain control, recommends Lidoderm patch, Flexeril as needed for muscle spasm-Ordered Pain management consulted, Appreciate input from pain management: Patient symptoms suggestive of acute lumbar radicular pain, short-term oral Medrol Dosepak-ordered Hesitant to add gabapentin as patient is on Tegretol for trigeminal neuralgia Not a candidate for CARLOS joint injection-concern for infection/UTI Plan to arrange follow-up in outpatient clinic if patient continues to have pain complaint Patient should be continued with his chronic opiate therapy without any change, and agreement with bowel regimen appreciate input Continue chronic pain regimen of MS continue and morphine IR (2) UTI (urinary tract infection): Urine culture negative growth Urine + for nitrites and leuk esterase,With leukocytosis Patient remains afebrile, denies of any urinary symptoms Treated with ceftriaxone 1g daily day 4 IV antibiotic discontinued (3) Acute worsening of stage 3 chronic kidney disease: Creatinine improved to baseline after withholding Lasix and CHARLY inhibitor appreciate Nephrology eval Recommend continue to hold Lasix and CHARLY inhibitor-during hospital stay, can be resumed on discharge Patient will need outpatient basic metabolic panel check in a week baseline Cr 1.1 Bun/Cr 25 and 2.10 Avoid contrast, NSAIDs Follow PRP, (4) Diabetes mellitus, type II: Last A1C 7.9 on 07/24/18 Lantus/Novolog per protocol Home regimen on Basaglar 25 units at HS and novolog 5 units AC (5) Hypertension: continue metoprolol and amlodipine lisinopril and lasix kept on hold for acute renal failure (6) Dyslipidemia: continue statin (7) Sleep apnea: Chronic bipap at (8) Chronic pain disorder: Follows pain clinic On MS contin 30mg Q12hr along with Morphine IR 15mg bid Pain management consulted appreciate input, patient started with Medrol Dosepak Continue bowel regimen to prevent narcotic induced constipation (9) H/O: stroke: residual deficit of short term memory on high intensity statin therapy but does not take antiplatelet therapy (10) Diastolic dysfunction: Echo 09/2017 revealed EF 60-65% with Grade 1 diastolic dysfunction euvolemic continue metoprolol ACEI and lasix-will be kept on hold for worsening of kidney function (11) Trigeminal neuralgia: continue tegretol and amitriptyline (12) DVT prophylaxis: SCDS for now given hematuria re eval need for chemo prophylaxis daily Disposition: Patient lives alone, was independent in ADLs, presents with severe back pain, weakness of bilateral lower extremity, ambulatory dysfunction PT OT evaluation requested, Physical therapy evaluation appreciated Unable to safely go home at this time , recommend acute rehab: 3 hours combined therapy daily Social service consulted -referral made to [facility], Possible transfer to [facility] on Saturday, if severe back pain improved/patient is able to participate in physical therapy Follow up: PCP Dr. Kaplan upon discharge Subjective Patient reports waking up this morning with severe back pain, limiting his movement, cannot even turn in bed without having excruciating pain in the lower lumbar region No radiation pain down to thigh Reports he had a better day yesterday, able to sit on the edge of the bed, Patient is started with Medrol Dosepak, has Lidoderm patch on the back as well, getting scheduled dose of Flexeril, does not feel any of those intervention helping him Feels very frustrated as back pain seems to get better one day and relapsing on the next Able to have bowel movement yesterday, had to use bedside commode, as he was unable to walk to the bathroom Physical Exam Constitutional: WD/WN, vitals as above no acute distress Eyes: PERRL, conjunctivae normal, anicteric sclerae ENMT: external ear and nose normal, oropharynx normal Neck: trachea midline, no thyromegaly Respiratory: normal respiratory effort, lungs clear to auscultation Cardiovascular: RRR, no murmur, no edema Gastrointestinal (Abdomen): normal bowel sounds, soft, nontender, no hepatosplenomegaly Musculoskeletal: Spine: + limited thoraco-lumbar ROM (Due to pain) Point tenderness on lower back mid spinal approximately at L5 area No rash or erythema noted Normal hip movement, does not exacerbate the pain, pain is worse with turning side to side, suggestive more of a musculoskeletal origin Skin: no rashes, warm and dry Neurologic: PERRL, EOMI, accommodation nl, no face palsy, no dysarthria Psychiatric: A+Ox3, euthymic affect Results & Data Vital Signs (Past 12 Hours) Vital Signs Temp Pulse Resp BP Pulse Ox 09/13/18 08:00 94 09/13/18 07:17 36.8 C 68 16 127/77 94 (1) UTI (urinary tract infection) Urinary tract infection type: acute cystitis Hematuria presence: with hematuria Qualified Code(s): N30.01 - Acute cystitis with hematuria
[2018-09-13] MEDS: MoRPHine SULFATE IR 15 MG TAB (IMMEDIATE RELEASE) PO PRN (18:42)
[2018-09-13] MEDS: AMITRIPTYLINE HCL 25 MG TAB PO SCH (20:28)
[2018-09-13] MEDS: INSULIN GLARGINE SOLOSTAR 100 UNITS/ML 3 ML PEN SC SCH (21:53)
[2018-09-14] MEDS: HYDROmorphone INJ 0.5 MG/0.5 ML SYR IV PRN ×6 (00:28→23:28)
[2018-09-14] MEDS: methylPREDNISolone 4 MG TAB PO SCH ×4 (05:27→20:55)
[2018-09-14] MEDS ORDERED: methylPREDNISolone 4 MG TAB PO SCH (07:00)
[2018-09-14] MEDS: METOPROLOL SUCC 50MG EXT REL TAB PO SCH ×2 (09:29→20:55)
[2018-09-14] MEDS: CYCLOBENZAPRINE HCL 10 MG TAB PO SCH ×3 (09:30→20:56)
[2018-09-14] MEDS: CARBAMAZEPINE 200 MG TABCR PO SCH ×2 (09:30→20:54)
[2018-09-14] MEDS: AMLODIPINE BESYLATE 5 MG TAB PO SCH (09:30)
[2018-09-14] MEDS: ATORVASTATIN 40 MG TAB PO SCH (09:30)
[2018-09-14] MEDS: MoRPHine SULFATE CR 15 MG TABCR PO SCH ×2 (09:31→21:00)
[2018-09-14] MEDS: LIDOCAINE 5% 1 PATCH TD SCH (09:31)
[2018-09-14] MEDS: MoRPHine SULFATE IR 15 MG TAB (IMMEDIATE RELEASE) PO PRN (09:31)
[2018-09-14] MEDS: INSULIN ASPART 100 UNITS/ML 3 ML PEN SC SCH ×4 (09:35→20:56)
[2018-09-14] MEDS: FENOFIBRATE NANOCRYSTALLIZED 48 MG TABLET PO SCH (09:37)
--- NOTE | 2018-09-14 17:25 | Hospitalist Progress Note ---
Date of Service September 14, 2018 Assessment & Plan (1) Lumbar back pain with radiculopathy affecting lower extremity: Developed worsening of back pain this morning, have been spontaneously Pain more appears to be muscle spasm at the paraspinal area/musculoskeletal pain, Patient is already ordered Lidoderm patch, getting scheduled dose of Flexeril, hesitant to increase the dose as patient already reporting sedation with current 5 mg 3 times daily Ordered for cold compression with alternating hot compression for symptom control This is a 57-year-old male who has a significant past medical history of IDDM, HTN, HLD, history of CVA with short-term memory residual deficit, CKD stage III, SANAM on BiPAP, history of CVA, trigeminal neuralgia who presents to [facility] ED secondary to low back pain x1 day. Lumbar Spine CT: 1. Mild degenerative disc change throughout the entire lumbar region. 2. Moderate multifocal narrowing of the spinal canal at L3-L4 and L4-L5. Complains of persistent low back pain with radiculopathy/sciatica down to left thigh MRI of lumbar spine :1. There is no large disc herniation or high-grade central canal stenosis. 2. Degenerative disc disease and spondylotic change as above. See discussion for detailed [id number] analysis. 3. No destructive bony process is identified. PT OT evaluation requested, Physical therapy evaluation appreciated Unable to safely go home at this time , recommend acute rehab: 3 hours combined therapy daily spine orthopedics Dr. Funez consulted for ongoing back pain symptoms- Appreciate input, no surgical intervention needed, Recommends conservative treatment with pain control, recommends Lidoderm patch, Flexeril as needed for muscle spasm-Ordered Pain management consulted, Appreciate input from pain management: Patient symptoms suggestive of acute lumbar radicular pain, short-term oral Medrol Dosepak-ordered Hesitant to add gabapentin as patient is on Tegretol for trigeminal neuralgia Not a candidate for CARLOS joint injection-concern for infection/UTI Plan to arrange follow-up in outpatient clinic if patient continues to have pain complaint Patient should be continued with his chronic opiate therapy without any change, and agreement with bowel regimen appreciate input Continue chronic pain regimen of MS continue and morphine IR Referral made to acute rehab at [facility], (2) UTI (urinary tract infection): Urine culture negative growth Urine + for nitrites and leuk esterase,With leukocytosis Patient remains afebrile, denies of any urinary symptoms Treated with ceftriaxone 1g daily day 4 IV antibiotic discontinued (3) Acute worsening of stage 3 chronic kidney disease: Creatinine improved to baseline after withholding Lasix and CHARLY inhibitor appreciate Nephrology eval Avoid contrast, NSAIDs (4) Diabetes mellitus, type II: Last A1C 7.9 on 07/24/18 Lantus/Novolog per protocol Home regimen on Basaglar 25 units at HS and novolog 5 units AC (5) Hypertension: continue metoprolol and amlodipine lisinopril and lasix kept on hold for acute renal failure-may be resumed on discharge (6) Dyslipidemia: continue statin (7) Sleep apnea: Chronic bipap at HS (8) Chronic pain disorder: Follows pain clinic On MS contin 30mg Q12hr along with Morphine IR 15mg bid Pain management consulted appreciate input, patient started with Medrol Dosepak Pain management clinic follow-up in 1 week for possible SI joint injection Continue bowel regimen to prevent narcotic induced constipation (9) H/O: stroke: residual deficit of short term memory on high intensity statin therapy but does not take antiplatelet therapy (10) Diastolic dysfunction: Echo 09/2017 revealed EF 60-65% with Grade 1 diastolic dysfunction euvolemic continue metoprolol ACEI and lasix-will be kept on hold for worsening of kidney function (11) Trigeminal neuralgia: continue tegretol and amitriptyline (12) DVT prophylaxis: SCDS for now given hematuria re eval need for chemo prophylaxis daily Disposition: Patient lives alone, was independent in ADLs, presents with severe back pain, weakness of bilateral lower extremity, ambulatory dysfunction PT OT evaluation requested, Physical therapy evaluation appreciated Unable to safely go home at this time , recommend acute rehab: 3 hours combined therapy daily Social service consulted -referral made to [facility], Possible transfer to [facility] on Saturday09/15/2018 Follow up: PCP Dr. Kaplan Subjective Patient reports his back pain remains the same, frustrated with no improvement, Wants to know if Dilaudid was could be increased, Had bowel movement yesterday, no fever or chills, no GI or issues Physical Exam Constitutional: WD/WN, vitals as above no acute distress Eyes: PERRL, conjunctivae normal, anicteric sclerae ENMT: external ear and nose normal, oropharynx normal Neck: trachea midline, no thyromegaly Respiratory: normal respiratory effort, lungs clear to auscultation Cardiovascular: RRR, no murmur, no edema Gastrointestinal (Abdomen): normal bowel sounds, soft, nontender, no hepatosplenomegaly Musculoskeletal: Spine: + limited thoraco-lumbar ROM (Due to pain) Skin: no rashes, warm and dry Neurologic: PERRL, EOMI, accommodation nl, no face palsy, no dysarthria Psychiatric: A+Ox3, euthymic affect Results & Data Vital Signs (Past 12 Hours) Vital Signs Temp Pulse Pulse Resp BP BP Pulse Ox 09/14/18 15:00 36.8 C 80 18 154/79 H 94 09/14/18 07:22 37.0 C 81 18 162/85 H 97 (1) UTI (urinary tract infection) Hematuria presence: with hematuria Urinary tract infection type: acute cystitis Qualified Code(s): N30.01 - Acute cystitis with hematuria
[2018-09-14] MEDS: INSULIN GLARGINE SOLOSTAR 100 UNITS/ML 3 ML PEN SC SCH (20:52)
[2018-09-14] MEDS: AMITRIPTYLINE HCL 25 MG TAB PO SCH (20:55)
[2018-09-15] MEDS: HYDROmorphone INJ 0.5 MG/0.5 ML SYR IV PRN ×4 (04:27→18:16)
[2018-09-15] MEDS: methylPREDNISolone 4 MG TAB PO SCH ×2 (06:12→12:26)
[2018-09-15] MEDS ORDERED: methylPREDNISolone 4 MG TAB PO SCH (07:00)
[2018-09-15] MEDS: INSULIN ASPART 100 UNITS/ML 3 ML PEN SC SCH ×3 (07:59→18:19)
[2018-09-15] MEDS: MoRPHine SULFATE CR 15 MG TABCR PO SCH (07:59)
[2018-09-15] MEDS: AMLODIPINE BESYLATE 5 MG TAB PO SCH (08:00)
[2018-09-15] MEDS: FENOFIBRATE NANOCRYSTALLIZED 48 MG TABLET PO SCH (08:00)
[2018-09-15] MEDS: LIDOCAINE 5% 1 PATCH TD SCH (08:00)
[2018-09-15] MEDS: CYCLOBENZAPRINE HCL 10 MG TAB PO SCH (08:00)
[2018-09-15] MEDS: METOPROLOL SUCC 50MG EXT REL TAB PO SCH (08:01)
[2018-09-15] MEDS: ATORVASTATIN 40 MG TAB PO SCH (08:01)
[2018-09-15] MEDS: CARBAMAZEPINE 200 MG TABCR PO SCH (08:01)
--- NOTE | 2018-09-15 08:10 | Nephrology Progress Note ---
Date of Service September 15, 2018 Assessment & Plan (1) Acute worsening of stage 3 chronic kidney disease: Patient with acute kidney injury likely due to prerenal azotemia on presentation w/ presenting creatinine 2.1. Urine sediment consistent with prerenal azotemia. concern initially for uti but urine cx negative. creatinine improved then worsened as home lasix, acei reintroduced. yesterday's creat was at baseline which is 1.2-1.3 -agree w/ using amlodipine (new med) and OP metoprolol to manage HTN >> could at this point reintroduce lasix -after d/c at pcp f/u w/ stable labs, consider reintroducing lisinopril and consider whether ca channel benja still indicated -cont nsaid avoidance in pain mgt -would monitor bmp weekly x 2-3 wks after d/c since creat has trended up / down -unless further issues arise, no need for CKD clinic f/u. will sign off; pls call if ? (2) Lumbar back pain with radiculopathy affecting lower extremity: Patient with low back pain likely musculoskeletal in origin. No component to this pain >> Renal ultrasound showed normal size kidneys with no evidence of hydronephrosis and no kidney stones. Continue mgt per hospitalist; note of course that bp may be more elevated than baseline w/ pain Subjective ongoing back and BL leg pain both quite severe. denies he was dehydrated prior to admission though does endorse decreased po. no edema, no sob; denies issues passing urine which is still darker Review of Systems Review of Systems: All systems reviewed & are unremarkable except as noted in HPI & below Cardiovascular: no dyspnea, no palpitations and no edema Genitourinary: + problem reported (darker urine) Musculoskeletal: + back pain leg pain Physical Exam Constitutional: well developed and well nourished sitting in bed on ra Eyes: EOM intact bilaterally ENMT: Ears: no external ear abnormality Nose: no external nose abnormality Mouth: + dry oral mucous membranes Neck: no nuchal rigidity Respiratory: normal respiratory effort Auscultation: + diminished lung sounds (arsenio BL bases) Cardiovascular: Rate/Rhythm: regular rate (distant) and regular rhythm Extremities: + edema (trace bl pretibial) Gastrointestinal (Abdomen): Inspection/Auscultation: normal bowel sounds Percussion/Palpation: abdomen soft; abdomen nontender Musculoskeletal: brown, fluent speech Skin: no rashes, warm and dry Neurologic: brown, fluent speech, no tremor Results & Data Vital Signs (Past 12 Hours) Vital Signs Temp Pulse Pulse Resp BP Pulse Ox 09/15/18 07:52 37.6 C H 77 16 138/78 96 09/14/18 22:54 36.9 C 78 18 135/83 97 Laboratory Results Abnormal lab results 09/14/18 09/15/18 09/15/18 Range/Units 20:23 07:47 11:30 POC Glucose 148 H 114 H 152 H (70-99) 09/15/18 Range/Units 16:52 POC Glucose 154 H (70-99)
[2018-09-15] MEDS ORDERED: BACLOFEN 10 MG TAB PO PRN (08:23)
--- NOTE | 2018-09-15 08:26 | Pain Management Progress Note ---
Date of Service September 15, 2018 Assessment & Plan (1) Lumbar back pain with radiculopathy affecting lower extremity: 1. Recommend conversion from Flexeril to baclofen at this time. Hopefully this will provide additional muscle relaxation to minimize pain. Orders are written 2. Continue chronic opiate therapy, Tegretol, oral steroids, physical therapy as previous. 3. Patient continues not to be a candidate for interventional management at this time secondary to current UTI. 4. Patient may potentially be a candidate for CARLOS in the outpatient setting with persisting pain complaints pending clearance current infection. (2) H/O bilateral hip replacements: (3) Opiate dependence, continuous: (4) Chronic pain disorder: (5) UTI (urinary tract infection): Hematuria presence: with hematuria Urinary tract infection type: acute cystitis Qualified Code(s): N30.01 - Acute cystitis with hematuria Subjective 57-year-old male who reports pain in his lumbosacral junction with radiation to anterior thighs states that with the addition of oral steroids his pain has mildly improved. He continues to report sedation from Flexeril dosing. He reports moderate benefit from Lidoderm patch. He reports mild benefit from massage and stretching and physical therapy. He states he is agreeable for [facility] short-term rehabilitation for overall reconditioning. He states he feels frustrated over his pain complaints and admits to some sleep interference secondary to pain when turning over in bed. Pain has been averagin g around 8 out of 10 characterizes sharp and cramping. He denies any bowel or bladder incontinence, footdrop, fever, chills, and or night sweats. He does report to some perceived motor weakness but admits this is secondary to pain rather than true muscle weakness. Physical Exam Physical Exam: Constitutional: Well-developed, well-nourished, healthy- appearing, overweight Psych: Awake, alert, and oriented 3 with normal affect and mood. Recent memory appears grossly intact Eyes: Pupils are equally round and reactive to light with normal size pupils, eyelids appear normal Ear, nose, mouth, and throat: Moist nasal and oral membranes, lips and tongues appear normal, no external ear abnormalities are noted Neck: The trachea is midline without deviation and no thyromegaly is noted Respiratory: Normal respiratory effort without distress, no audible wheezes or rhonchi CV: Normal S1 and S2 Musculoskeletal: Head is normocephalic and atraumatic, gait was not observed Cervical: Lordotic curve: Normal Range of motion is normal with extension, flexion, side-bending, rotation Strength: Strength is grossly equal bilaterally with 5 out of 5 strength in all planes Sensation of upper extremities: Intact bilaterally Thoracic: Kyphotic curve: Normal Range of motion is normal with extension, flexion, side-bending, rotation Tenderness: Nontender over the axial midline Myofascial spasm: No appreciable spasm. No discrete trigger points noted Lumbar: Lordotic curve: Normal Range of motion is decreased in all planes secondary to pain with extension, flexion, side-bending, rotation Tenderness: Mild to moderately tender over the axial midline particularly at the lumbosacral junction Facet provocation: Marginally positive bilaterally Straight leg raise: Negative bilaterally Step-off injuries: None Strength: Strength is equal bilaterally with 5 out of 5 strength plantar and dorsiflexion, anterior tibialis, gastroc, hip flexion and hip extension graded at 4+ out of 5 bilaterally secondary to pain Sensation of lower extremities: Intact bilaterally Deep tendon reflexes: Rated at 2+ in bilateral L4 and S1 Myofascial spasm: Moderate appreciable spasm over left greater than right paravertebral spinous musculature. No discrete trigger points noted Greater trochanters: Nontender bilaterally Sacroiliac joints: Nontender bilaterally Pathologic reflexes noted: None Skin: No rashes, lesions, ulcers, or induration noted Neuro: No nystagmus noted, the tongue is midline, the patient is able to rotate their head bilaterally : Deferred
--- NOTE | 2018-09-15 16:05 | Discharge Summary ---
Date of Service September 15, 2018 Admission HPI Per Admitting Provider This is a 57-year-old male who has a significant past medical history of IDDM, HTN, HLD, history of CVA with short-term memory residual deficit, CKD stage III, SANAM on BiPAP, history of CVA, trigeminal neuralgia who presents to [facility] ED secondary to low back pain x1 day. Friend is at bedside. Patient elicits yesterday he developed a migraine, laid down to take a nap and when he woke up he had low back pain. He laid on the floor to do stretches when he noticed a, "pop," and was able to proceed on with his day without any pain. When he woke up this morning after sleeping in recliner he had severe low back discomfort and difficulty moving. Symptoms started approximately at 10 AM. Pain was located middle of lower back and slightly right-sided. Pain radiated down posterior lower extremities to bilateral heels. Pain was described as burning, rated 11 out of 10, made worse with movement, improved with sitting still in right position. Never had similar symptom in past. Also had assoc iated numbness and tingling down bilateral lower extremities but no weakness. He denies any saddle anesthesia or loss of bowel or bladder. Denies recent illness, fever, chills, sweats, lightheadedness, dizziness, chest pain, shortness breath, palpitations, nausea, vomiting, diarrhea, abdominal pain or flank pain, increase urgency with urination, dysuria, melena, hematochezia. He does admit to having hematuria this evening as well as decreased urinary frequency today. Patient does note he has drank minimally today secondary to pain. Up until today his appetite and fluid intake has been normal. He has started no new medications. 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 Principal Diagnosis Intractable back pain Discharge Exam Constitutional WD/WN, vitals as above no acute distress Eyes PERRL, conjunctivae normal, anicteric sclerae ENMT external ear and nose normal, oropharynx normal Neck trachea midline, no thyromegaly Respiratory normal respiratory effort, lungs clear to auscultation Cardiovascular RRR, no murmur, no edema Gastrointestinal (Abdomen) normal bowel sounds, soft, nontender, no hepatosplenomegaly Musculoskeletal Spine: + limited thoraco-lumbar ROM (Due to pain) Skin no rashes, warm and dry Neurologic PERRL, EOMI, accommodation nl, no face palsy, no dysarthria Psychiatric A+Ox3, euthymic affect Discharge Data Allergies Allergy/AdvReac Type Severity Reaction Status Date / Time Penicillins Allergy Unknown HAPPENED Verified 09/09/18 16:41 A CHILD shellfish derived AdvReac Unknown GI UPSET Verified 09/09/18 16:41 Consultations 09/09/18 19:43 ED Decision to Admit Stat 09/10/18 17:56 Consult Orthopedic Surgery Routine 09/10/18 17:58 Consult Case Management - Discharge Planning Routine 09/10/18 18:35 Consult Nephrology Routine 09/11/18 17:25 Consult Pain Management Routine Ordered Studies 09/09/18 16:53 CT lumbar spine wo con Stat 09/09/18 20:45 US renal/blad retro comp Urgent 09/10/18 04:44 MR lumbar spine wo con AMLAB Hospital Course (1) Lumbar back pain with radiculopathy affecting lower extremity: Developed worsening of back pain this morning, have been spontaneously Pain more appears to be muscle spasm at the paraspinal area/musculoskeletal pain, Patient is already ordered Lidoderm patch, getting scheduled dose of Flexeril, hesitant to increase the dose as patient already reporting sedation with current 5 mg 3 times daily Ordered for cold compression with alternating hot compression for symptom control This is a 57-year-old male who has a significant past medical history of IDDM, HTN, HLD, history of CVA with short-term memory residual deficit, CKD stage III, SANAM on BiPAP, history of CVA, trigeminal neuralgia who presents to [facility] ED secondary to low back pain x1 day. Lumbar Spine CT: 1. Mild degenerative disc change throughout the entire lumbar region. 2. Moderate multifocal narrowing of the spinal canal at L3-L4 and L4-L5. Complains of persistent low back pain with radiculopathy/sciatica down to left thigh MRI of lumbar spine :1. There is no large disc herniation or high-grade central canal stenosis. 2. Degenerative disc disease and spondylotic change as above. See discussion for detailed boxil-sa-vreco analysis. 3. No destructive bony process is identified. PT OT evaluation requested, Physical therapy evaluation appreciated Unable to safely go home at this time , recommend acute rehab: 3 hours combined therapy daily spine orthopedics Dr. Funez consulted for ongoing back pain symptoms- Appreciate input, no surgical intervention needed, Recommends conservative treatment with pain control, recommends Lidoderm patch, Flexeril as needed for muscle spasm-Ordered Pain management consulted, Appreciate input from pain management: Patient symptoms suggestive of acute lumbar radicular pain, short-term oral Medrol Dosepak-ordered Hesitant to add gabapentin as patient is on Tegretol for trigeminal neuralgia Not a candidate for CARLOS joint injection-concern for infection/UTI Plan to arrange follow-up in outpatient clinic if patient continues to have pain complaint Patient should be continued with his chronic opiate therapy without any change, and agreement with bowel regimen appreciate input Continue chronic pain regimen of MS continue and morphine IR Referral made to acute rehab at [facility], (2) UTI (urinary tract infection): Urine culture negative growth Urine + for nitrites and leuk esterase,With leukocytosis Patient remains afebrile, denies of any urinary symptoms Treated with ceftriaxone 1g daily day 4 IV antibiotic discontinued (3) Acute worsening of stage 3 chronic kidney disease: Creatinine improved to baseline after withholding Lasix and CHARLY inhibitor appreciate Nephrology eval Avoid contrast, NSAIDs (4) Diabetes mellitus, type II: Last A1C 7.9 on 07/24/18 Lantus/Novolog per protocol Home regimen on Basaglar 25 units at and novolog 5 units (5) Hypertension: continue metoprolol and amlodipine lisinopril and lasix kept on hold for acute renal failure-may be resumed on discharge (6) Dyslipidemia: continue statin (7) Sleep apnea: Chronic bipap at (8) Chronic pain disorder: Follows pain clinic On MS contin 30mg Q12hr along with Morphine IR 15mg bid Pain management consulted appreciate input, patient started with Medrol Dosepak Pain management clinic follow-up in 1 week for possible SI joint injection Continue bowel regimen to prevent narcotic induced constipation (9) H/O: stroke: residual deficit of short term memory on high intensity statin therapy but does not take antiplatelet therapy (10) Diastolic dysfunction: Echo 09/2017 revealed EF 60-65% with Grade 1 diastolic dysfunction euvolemic continue metoprolol ACEI and lasix-will be kept on hold for worsening of kidney function (11) Trigeminal neuralgia: continue tegretol and amitriptyline (12) DVT prophylaxis: SCDS for now given hematuria re eval need for chemo prophylaxis daily Disposition: Patient lives alone, was independent in ADLs, presents with severe back pain, weakness of bilateral lower extremity, ambulatory dysfunction PT OT evaluation requested, Physical therapy evaluation appreciated Unable to safely go home at this time , recommend acute rehab: 3 hours combined therapy daily Social service consulted -referral made to [facility], Stable to be transferred to acute rehab: [facility] today Follow up: PCP Dr. Kaplan Total Time Total Time Spent Total Time Spent (In Minutes): Approximate 50 minutes: Total Time Includes: Examination of the Patient, Discharge Planning, Medication Reconciliation and Communication With Other Providers Discharge Plan Discharge Items Patient Disposition: Transfer Inpatient Rehab Fac Reason For Visit: BACK PAIN Discharge Diagnosis: intractable back pain Condition: Good Discharge Goals: Decrease discomfort, Diagnostic testing and Therapeutic intervention Activity: As commented below Activity Comment: Continue physical therapy /occupational therapy Non-emergency contact: Primary Care Provider Call non-emergency contact if: you have any medication questions Follow-up/Referrals: Bhavesh Alejandre MD, FI [Anesthesiologist] - Suman Kaplan MD [Primary Care Provider] - Diet: Heart Healthy Addtl Provider Instructions: Continue physical therapy/Occupational Therapy at [facility] Follow-up with pain management clinic/with Dr. Alejandre in a week Prescriptions: New baclofen 10 mg Tablet 10 mg PO TID PRN (Reason: PAIN) 30 Days Qty: 90 RF: 0 polyethylene glycol 3350 [Miralax] 17 gram powder in packet 17 gm PO DAILY Qty: 30 RF: 0 methylprednisolone [Medrol (Jhonatan)] 4 mg tablets,dose pack 4 mg PO UD Qty: 21 RF: 0 Continued amlodipine 5 mg tablet 5 mg PO DAILY RF: 0 atorvastatin [Lipitor] 80 mg tablet 80 mg PO DAILY RF: 0 azelastine [Astepro] 0.15 % (205.5 mcg) spray,non-aerosol 1 sprays INTNAS BID RF: 0 fenofibrate nanocrystallized [Tricor] 48 mg tablet 48 mg PO DAILY RF: 0 insulin aspart U-100 [Novolog U-100 Insulin aspart] 100 unit/mL solution 5 units SQ TID RF: 0 lisinopril 40 mg tablet 40 mg PO DAILY RF: 0 metoprolol succinate [Toprol XL] 50 mg tablet extended release 24 hr 50 mg PO BID RF: 0 carbamazepine [Tegretol XR] 400 mg tablet extended release 12 hr 400 mg PO BID RF: 0 amitriptyline 25 mg tablet 25 mg PO HS RF: 0 furosemide 20 mg tablet 20 mg PO DAILY RF: 0 ketoconazole [Nizoral] 2 % shampoo 1 applic topical UD RF: 0 Basaglar KwikPen U-100 Insulin 100 unit/mL (3 mL) insulin pen 25 unit subcut HS RF: 0 morphine 15 mg tablet 15 mg PO BID PRN (Reason: Pain) Qty: 10 RF: 0 morphine 30 mg capsule,extend.release pellets 30 mg PO Q12H Qty: 10 RF: 0 Stand-Alone Forms: [facility] Discharge Orders: Discharge Order (Routine); Ordered 09/15/18 Ordered By: Maria D Wilks Skilled Items Patient informed of condition?: Yes DNR: No Discharge Level of Care: Acute rehab Communicable Disease: No Discharge Prognosis: Stable Admission Data Admit Date/Time: 09/09/18 20:45 Attending Provider: Maria D Wilks Admit Provider: Cj Haines Primary Care Provider: Suman Kaplan Other Providers: Kalpesh Teixeira ; Cj Haines ; Kirk Funez ; Anika Yanez ; Barak Mccann Kerim I ; Sheri Zhou ; Teresa Singh Japheth E. ; Bhavesh Alejandre Service: Telemetry Medical Other Interventions: Discharge Summary Assessment (RN) Last Done: 09/15/18 15:43
[2018-09-15] MEDS: MoRPHine SULFATE IR 15 MG TAB (IMMEDIATE RELEASE) PO PRN (16:38)
[2018-09-16] MEDS ORDERED: methylPREDNISolone 4 MG TAB PO SCH ×2 (07:00)
[2018-09-17] MEDS ORDERED: methylPREDNISolone 4 MG TAB PO SCH (07:00)
== END 2018-09-15 20:19 | DRG 552 ==
LOC: ED 15:24 → 2N 20:45 → SUATTDRO 20:45 → 2N 21:09

== ENCOUNTER 2022-09-28 20:32 | Inpatient (IN) ==
[2022-09-28 21:28] LABS: Basophils # (auto) 0.06 K/uL (0-0.2); Basophils % (auto) 0.7 %; Eosinophils # (auto) 0.29 K/uL (0-0.50); Eosinophils % (auto) 3.6 %; Hemoglobin 14.6 g/dl (14.0-18.0); Immature Granulocytes # (auto) 0.03 K/uL (0.01-0.20); Immature Granulocytes % (auto) 0.4 %; Lymphocytes # (auto) 1.42 K/uL (1.2-3.4); Lymphocytes % (auto) 17.5 %; Mean Corpuscular Hemoglobin 28.2 pg (25.0-34.0); Mean Corpuscular Hgb Conc 32.4 g/dL (32.0-36.0); Mean Platelet Volume 10.2 fL (9.4-12.4); Monocytes # (auto) 0.48 K/uL (0.11-0.59); Monocytes % (auto) 5.9 %; Neutrophils # (auto) 5.83 K/uL (1.40-6.50); Neutrophils % (auto) 71.9 %; Platelet Count 266 K/uL (130-400); RDW Standard Deviation 41.1 fL (36.4-46.3); Red Blood Count 5.17 M/uL (4.70-6.10); White Blood Count 8.11 K/ul (4.8-10.8)
[2022-09-28 21:35] LABS: INR 0.9 (0.9-1.1); Prothrombin Time 10.3 Seconds (9.0-12.0)
[2022-09-28 21:41] LABS: Alanine Aminotransferase 14 U/L (7-52); Albumin Globulin Ratio 1.4 (0.9-2); Albumin Level 4.6 gm/dl (3.4-5.0); Alkaline Phosphatase 77 U/L (34-104); Anion Gap 9 (3-11); Aspartate Aminotransferase 18 U/L (13-39); BUN Creatinine Ratio 17.9 (10-20); Bilirubin,Total 0.3 mg/dl (0.2-1.0); Blood Urea Nitrogen 21 mg/dl (6-23); Calcium 9.7 mg/dl (8.6-10.3); Carbon Dioxide 30 mmol/L (21-32); Chloride 98 mmol/L (98-107); Est GFR (African American) 78.6 ml/min; Est GFR (Non-African American) 67.8 ml/min; Globulin 3.4 gm/dl (2.5-4.0); Glucose 254 mg/dl (70-99(Fasting)); Potassium 3.6 mmol/L (3.5-5.1); Sodium 137 mmol/L (136-145)
[2022-09-28] MEDS ORDERED: OPTIRAY 320 500ml IV ONE (21:59)
--- NOTE | 2022-09-28 23:19 | CT Scan Report ---
Exam(s): CTA CHEST IV Amt: 110ml EXAM: CT Chest With Intravenous Contrast CLINICAL HISTORY: Reason for exam: PE. TECHNIQUE: Axial computed tomographic images of the chest with intravenous contrast. CTDI is 20.69 mGy and DLP is 1195.33 mGy-cm. Automated exposure control was utilized for the study. A dose lowering technique was utilized adhering to the principles of ALARA. COMPARISON: No relevant prior studies available. FINDINGS: Pulmonary arteries: Unremarkable. No pulmonary embolism. Aorta: No acute findings. No thoracic aortic aneurysm. Lungs: Unremarkable. No mass. No consolidation. Pleural space: Unremarkable. No significant effusion. No pneumothorax. Heart: There are coronary vascular calcifications. No significant pericardial effusion. No evidence of RV dysfunction. Bones/joints: No acute fracture. No dislocation. Soft tissues: Unremarkable. Lymph nodes: Unremarkable. No enlarged lymph nodes. IMPRESSION: No acute findings in the visualized arteries of the chest. Electronically signed by: Azeem Bautista MD 09/28/22 23:18 PM
--- NOTE | 2022-09-28 23:21 | CT Scan Report ---
Exam(s): CT ABDOMEN + PELVIS With Contrast IV Amt: 110ml EXAM: CT Abdomen and Pelvis With Intravenous Contrast CLINICAL HISTORY: Reason for exam: dvt b/l le. TECHNIQUE: Axial computed tomography images of the abdomen and pelvis with intravenous contrast. CTDI is 20.69 mGy and DLP is 1195.33 mGy-cm. Automated exposure control was utilized for the study. A dose lowering technique was utilized adhering to the principles of ALARA. CONTRAST: Patient received 110ml of IV contrast COMPARISON: Dated 06/15/16 FINDINGS: Lung bases: Unremarkable. No mass. No consolidation. ABDOMEN: Liver: Unremarkable. No mass. Gallbladder and bile ducts: Unremarkable. No calcified stones. No ductal dilation. Pancreas: Unremarkable. No mass. No ductal dilation. Spleen: Unremarkable. No splenomegaly. Adrenals: Unremarkable. No mass. Kidneys and ureters: Unremarkable. No solid mass. No hydronephrosis. Stomach and bowel: Unremarkable. No obstruction. No mucosal thickening. PELVIS: Appendix: No findings to suggest acute appendicitis. Bladder: Unremarkable. No mass. Reproductive: Unremarkable as visualized. ABDOMEN and PELVIS: Intraperitoneal space: Unremarkable. No free air. No significant fluid collection. Bones/joints: Streak artifact from bilateral hip arthroplasties obscures evaluation of the pelvis. No acute fracture. No dislocation. Soft tissues: See below. Vasculature: The pelvic veins are poorly evaluated. There is diffuse atherosclerotic calcification of the aorta and its major branch vessels. There is an IVC filter in place. There is chronic occlusion of the infrarenal IVC with multiple abdominal wall and intra-abdominal collaterals. No abdominal aortic aneurysm. Lymph nodes: Unremarkable. No enlarged lymph nodes. IMPRESSION: 1. Poor evaluation of the pelvic veins due to streak artifact from bilateral hip arthroplasties. 2. 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 Electronically signed by: Azeem Bautista MD 09/28/22 23:21 PM
[2022-09-28] MEDS ORDERED: Heparin IV Adult Wt-Based Standard WITH Bolus Protocol IV STA (23:32)
[2022-09-28] MEDS ORDERED: HEPARIN SOD (PORCINE) 1000 UNIT/ML IV ONE ×2 (23:45→23:47)
--- NOTE | 2022-09-29 00:01 | Emergency Department Note ---
Impression & Plan Deep vein thrombosis of bilateral lower extremities ED Provider Note NAME: MAHNAZ PASCUAL AGE: 61 SEX: M : 1960 ARRIVES VIA: Walk-In INFORMANT: Patient ED PROVIDER(S): Gilberto Dubose DO CHIEF COMPLAINT: B/L leg DVT HPI: Patient is a 61-year-old male with a past medical history of CKD, stroke, sepsis, pressure, diabetes, hypertension, hyperlipidemia, factor V deficiency who presents the ER for bilateral lower extremity clots. He notes he has been having pain in the interim for the past 3 days along with some discoloration. He denies any headache or change in vision. No chest pain or shortness of breath. No nausea, vomiting, or diarrhea. He was referred in by his PCP due to this. No history of previous GI bleeds, coughing up blood, vomiting blood or blood in his stool. PAST MEDICAL HISTORY:See Below PAST SURGICAL HISTORY:See Below FAMILY HISTORY:See Below SOCIAL HISTORY:See Below HOME MEDICATIONS:See Below ALLERGIES:See Below VITALS:See Below PHYSICAL EXAMINATION: GENERAL: Sitting up in bed, alert, well appearing, well nourished, no distress, non-toxic EYE EXAM: normal conjunctiva. OROPHARYNX: mucous membranes are moist LUNGS: Clear to auscultation. Normal chest wall mechanics HEART: no murmurs, S1 normal and S2 normal ABDOMEN: abdomen soft, non-tender, normo-active bowel sounds, no masses, no rebound or guarding. UPPER EXTREMITIES: upper extremities are grossly normal. LOWER EXTREMITIES: Mild edema bilaterally. Flexion-extension bilateral hips knees ankles and EHL intact NEURO EXAM: Normal sensorium, cranial nerves II-XII grossly intact, normal speech, no gross weakness of arms, no gross weakness of legs. MEDICAL DECISION MAKING: Patient is a 61-year-old male who presents ER for above-stated complaint. IV was established blood work was obtained. External records were reviewed from the out patient ultrasound which shows bilateral DVTs in the bilateral common femoral. With this her concern for more proximal occlusions and consequently CT of the chest and belly was performed. Labs show no significant leukocytosis or anemia. INR unremarkable. BMP along LFTs and bilirubin was remarkable for slightly elevated glucose at 250. 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 With these new DVTs which are bilateral did discuss the case with the hospitalist for observation and investigation. Patient was placed on heparin drip and bolus. Triage Nursing notes reviewed. Limited review of prior medical records performed Vital Signs: reviewed and remarkable for no significant abnormalities Differential diagnosis: DVT, musculoskeletal, infection, joint effusion, trauma, lymphedema, idiopathic, CHF, as well as other pathologies. ER treatment provided: See below Diagnostics interpreted by me include EKG and cardiac monitoring as listed below: -Cardiac Monitoring: An order was placed for continuous cardiac monitoring. The monitor shows a rate of 80 with sinus rhythm. -ECG: Sinus rhythm rate 89 Left axis Right bundle branch block QTc 484 -Laboratory studies:Interpreted by me as stated above in MDM and shown below. Imaging studies: Xrays: As interpreted by me:none CTs show: CT angio of the chest shows no obvious pneumonia per my read CT of the chest and belly shows no acute pathology per radiology with the exception Consultation(s): Discussed with Dr. 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 Beliefs That Will Affect Care: None marital status: Current Living Situation: Alone current occupational status: disabled Feels Safe at Home: Yes Assistive Devices: None Allergies Allergies Allergy/AdvReac Type Severity Reaction Status Date / Time Penicillins Allergy Unknown HAPPENED Verified 09/28/22 23:31 A CHILD shellfish derived AdvReac Intermediate GI UPSET Verified 09/28/22 23:31 Home Meds Home Medications Medication Instructions Recorded Confirmed amlodipine 5 mg tablet 5 mg PO DAILY 07/03/18 09/28/22 atorvastatin 80 mg tablet (Lipitor) 80 mg PO DAILY 07/03/18 09/28/22 fenofibrate nanocrystallized 48 mg 48 mg PO DAILY 07/03/18 09/28/22 tablet (Tricor) insulin aspart U-100 100 unit/mL 5 units subcut TIDM 07/03/18 09/28/22 subcutaneous solution (Novolog U-100 Insulin aspart) lisinopril 40 mg tablet 40 mg PO DAILY 07/03/18 09/28/22 metoprolol succinate 50 mg 50 mg PO BID 07/03/18 09/28/22 tablet,extended release 24 hr (Toprol XL) amitriptyline 25 mg tablet 25 mg PO HS 07/10/18 09/28/22 insulin glargine 100 unit/mL (3 28 unit subcut HS 09/09/18 09/28/22 mL) subcutaneous pen (Basaglar KwikPen U-100 Insulin) carbamazepine 200 mg tablet 400 mg PO TID 09/18/18 09/28/22 (Tegretol) aspirin 81 mg tablet,delayed 81 mg PO DAILY 09/28/22 09/28/22 release duloxetine 60 mg capsule,delayed 60 mg PO DAILY 09/28/22 09/28/22 release furosemide 40 mg tablet 40 mg PO DAILY 09/28/22 09/28/22 Previous Rx's Medication Instructions Recorded morphine 15 mg immediate release 15 mg PO BID PRN Pain #10 tabs 09/15/18 tablet morphine 30 mg capsule,extended 30 mg PO Q12H #10 caps 09/15/18 release pellets Results & Data (ED) Vital Signs Vital Signs - 24 hr 09/28/22 20:38 09/28/22 22:52 09/28/22 23:08 Temperature 37.1 C Temperature Source Temporal Artery Scan Pulse Rate 93 H Pulse Rate [Apical] 82 Pulse Rate from SpO2 Sensor 86 Pulse Rhythm Regular Pulse Rhythm [Apical] Regular Pulse Strength Normal Pulse Strength [Apical] Normal Respiratory Rate 18 16 Respiratory Effort / Characteristics Non-Labored Spontaneous Non-Labored Spontaneous Respiratory Depth Normal Normal Respiratory Pattern Regular Regular Blood Pressure 168/86 H Blood Pressure [Left Arm] 165/86 H Blood Pressure Mean 113 Blood Pressure Mean [Left Arm] 112 Blood Pressure Position Sitting Blood Pressure Position [Left Arm] Lying Pulse Oximetry 97 96 97 Oxygen Delivery Method Room Air Room Air Room Air Sepsis Recent Fever Within 48 Hours No Sepsis New/Unexplained Change in Mental Status N/A Sepsis Action Taken by Nursing No Action Required Laboratory Data 09/28/22 20:55 09/28/22 20:55 Lab Results 09/28/22 09/28/22 09/28/22 Range/Units 20:55 20:55 20:55 WBC 8.11 (4.8-10.8) K/ul RBC 5.17 (4.70-6.10) M/uL Hgb 14.6 (14.0-18.0) g/dl Hct 45.0 (42.0-52.0) % MCV 87.0 (80.0-100.0) fL MCH 28.2 (25.0-34.0) pg MCHC 32.4 (32.0-36.0) g/dL RDW Std Deviation 41.1 (36.4-46.3) fL RDW Coeff of Parth 13.0 (11.5-14.5) % Plt Count 266 (130-400) K/uL MPV 10.2 (9.4-12.4) fL Immature Gran % (Auto) 0.4 % Neut % (Auto) 71.9 % Lymph % (Auto) 17.5 % Ware % (Auto) 5.9 % Eos % (Auto) 3.6 % Baso % (Auto) 0.7 % Neut # (Auto) 5.83 (1.40-6.50) K/uL Lymph # (Auto) 1.42 (1.2-3.4) K/uL Ware # (Auto) 0.48 (0.11-0.59) K/uL Eos # (Auto) 0.29 (0-0.50) K/uL Baso # (Auto) 0.06 (0-0.2) K/uL Immature Gran # (Auto) 0.03 (0.01-0.20) K/uL PT 10.3 (9.0-12.0) Seconds INR 0.9 (0.9-1.1) Sodium 137 (136-145) mmol/L Potassium 3.6 (3.5-5.1) mmol/L Chloride 98 (98-107) mmol/L Carbon Dioxide 30 (21-32) mmol/L Anion Gap 9 (3-11) BUN 21 (6-23) mg/dl Creatinine 1.17 (0.6-1.4) mg/dl Est Cr Clr Drug Dosing Not Reportable Est GFR ( Amer) 78.6 ml/min Est GFR (Non-Af Amer) 67.8 ml/min BUN/Creatinine Ratio 17.9 (10-20) Glucose 254 H (70-99(Fasting)) mg/dl Calcium 9.7 (8.6-10.3) mg/dl Total Bilirubin 0.3 (0.2-1.0) mg/dl AST 18 (13-39) U/L ALT 14 (7-52) U/L Alkaline Phosphatase 77 (34-104) U/L Total Protein 8.0 (6.0-8.3) gm/dl Albumin 4.6 (3.4-5.0) gm/dl Globulin 3.4 (2.5-4.0) gm/dl Albumin/Globulin Ratio 1.4 (0.9-2) Administered Medications Discontinued Medications Ioversol (Optiray 320 500ml) 110 ml IV ONCE ONE Stop: 09/28/22 22:00 Last Admin: 09/28/22 22:00 Dose: 110 ml Documented By: BLADE Imaging Data Radiologist's Impression: Chest CTA 09/28/22 21:47 Exam(s): CTA CHEST IV Amt: 110ml EXAM: CT Chest With Intravenous Contrast CLINICAL HISTORY: Reason for exam: PE. TECHNIQUE: Axial computed tomographic images of the chest with intravenous contrast. CTDI is 20.69 mGy and DLP is 1195.33 mGy-cm. Automated exposure control was utilized for the study. A dose lowering technique was utilized adhering to the principles of ALARA. COMPARISON: No relevant prior studies available. FINDINGS: Pulmonary arteries: Unremarkable. No pulmonary embolism. Aorta: No acute findings. No thoracic aortic aneurysm. Lungs: Unremarkable. No mass. No consolidation. Pleural space: Unremarkable. No significant effusion. No pneumothorax. Heart: There are coronary vascular calcifications. No significant pericardial effusion. No evidence of RV dysfunction. Bones/joints: No acute fracture. No dislocation. Soft tissues: Unremarkable. Lymph nodes: Unremarkable. No enlarged lymph nodes. IMPRESSION: No acute findings in the visualized arteries of the chest. Electronically signed by: Azeem Bautista MD 09/28/22 23:18 PM Abdomen/Pelvis CT 09/28/22 21:53 Exam(s): CT ABDOMEN + PELVIS With Contrast IV Amt: 110ml EXAM: CT Abdomen and Pelvis With Intravenous Contrast CLINICAL HISTORY: Reason for exam: dvt b/l le. TECHNIQUE: Axial computed tomography images of the abdomen and pelvis with intravenous contrast. CTDI is 20.69 mGy and DLP is 1195.33 mGy-cm. Automated exposure control was utilized for the study. A dose lowering technique was utilized adhering to the principles of ALARA. CONTRAST: Patient received 110ml of IV contrast COMPARISON: Dated 06/15/16 FINDINGS: Lung bases: Unremarkable. No mass. No consolidation. ABDOMEN: Liver: Unremarkable. No mass. Gallbladder and bile ducts: Unremarkable. No calcified stones. No ductal dilation. Pancreas: Unremarkable. No mass. No ductal dilation. Spleen: Unremarkable. No splenomegaly. Adrenals: Unremarkable. No mass. Kidneys and ureters: Unremarkable. No solid mass. No hydronephrosis. Stomach and bowel: Unremarkable. No obstruction. No mucosal thickening. PELVIS: Appendix: No findings to suggest acute appendicitis. Bladder: Unremarkable. No mass. Reproductive: Unremarkable as visualized. ABDOMEN and PELVIS: Intraperitoneal space: Unremarkable. No free air. No significant fluid collection. Bones/joints: Streak artifact from bilateral hip arthroplasties obscures evaluation of the pelvis. No acute fracture. No dislocation. Soft tissues: See below. Vasculature: The pelvic veins are poorly evaluated. There is diffuse atherosclerotic calcification of the aorta and its major branch vessels. There is an IVC filter in place. There is chronic occlusion of the infrarenal IVC with multiple abdominal wall and intra-abdominal collaterals. No abdominal aortic aneurysm. Lymph nodes: Unremarkable. No enlarged lymph nodes. IMPRESSION: 1. Poor evaluation of the pelvic veins due to streak artifact from bilateral hip arthroplasties. 2. 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 Electronically signed by: Azeem Bautista MD 09/28/22 23:21 PM Discharge Plan Visit Data Chief Complaint: Referred by Doctor Stated Complaint: BLOOD CLOT IN LEGS ED Provider: Gilberto Dubose Discharge Problem: Deep vein thrombosis of bilateral lower extremities Forms Stand Alone Forms: My [facility] Prescriptions Prescriptions: No Action amlodipine 5 mg tablet 5 mg PO DAILY atorvastatin [Lipitor] 80 mg tablet 80 mg PO DAILY fenofibrate nanocrystallized [Tricor] 48 mg tablet 48 mg PO DAILY insulin aspart U-100 [Novolog U-100 Insulin aspart] 100 unit/mL solution 5 units SQ TIDM lisinopril 40 mg tablet 40 mg PO DAILY metoprolol succinate [Toprol XL] 50 mg tablet extended release 24 hr 50 mg PO BID amitriptyline 25 mg tablet 25 mg PO HS carbamazepine [Tegretol] 200 mg tablet 400 mg PO TID insulin glargine [Basaglar KwikPen U-100 Insulin] 100 unit/mL (3 mL) insulin pen 28 unit subcut HS morphine 15 mg tablet 15 mg PO BID PRN (Reason: Pain) Qty: 10 0RF morphine 30 mg capsule,extend.release pellets 30 mg PO Q12H Qty: 10 0RF furosemide 40 mg tablet 40 mg PO DAILY aspirin 81 mg Tablet,Delayed Release (Dr/Ec) 81 mg PO DAILY duloxetine 60 mg capsule,delayed release(DR/EC) 60 mg PO DAILY Referrals Referrals: PCP,NO [Primary Care Provider] -
[2022-09-29] MEDS: HEPARIN SODIUM/DEXTROSE 25,000 UNITS/500 ML BAG IV SCH ×2 (00:15→17:11)
[2022-09-29 00:31] LABS: Partial Thromboplastin Ratio 0.9; Partial Thromboplastin Time 25.3 Seconds (21.0-31.0)
[2022-09-29] MEDS ORDERED: POLYETHYLENE (MIRALAX) 17 GM PACK PO PRN (02:17)
[2022-09-29] MEDS ORDERED: GLUCOSE 40% GEL 15 GM TUBE PO PRN (02:17)
[2022-09-29] MEDS ORDERED: GLUCAGON FOR INJ 1 MG VIAL SQ PRN (02:17)
[2022-09-29] MEDS ORDERED: CARBOHYDRATES FOR HYPOGLYCEMIA PO PRN (02:17)
[2022-09-29] MEDS ORDERED: MoRPHine SULFATE IR 15 MG TAB (IMMEDIATE RELEASE) PO PRN (02:17)
[2022-09-29] MEDS ORDERED: ACETAMINOPHEN 325 MG TAB PO PRN (02:17)
[2022-09-29] MEDS ORDERED: DEXTROSE 50% 50 ML SYRINGE IV PRN (02:17)
[2022-09-29] MEDS ORDERED: GLUCOSE 10 TAB/TUBE PO PRN (02:17)
[2022-09-29 06:49] LABS: Basophils # (auto) 0.07 K/uL (0-0.2); Basophils % (auto) 0.7 %; Eosinophils # (auto) 0.37 K/uL (0-0.50); Eosinophils % (auto) 3.9 %; Hemoglobin 12.8 g/dl (14.0-18.0); Immature Granulocytes # (auto) 0.03 K/uL (0.01-0.20); Immature Granulocytes % (auto) 0.3 %; Lymphocytes % (auto) 27.1 %; Mean Corpuscular Hemoglobin 28.1 pg (25.0-34.0); Mean Corpuscular Hgb Conc 33.7 g/dL (32.0-36.0); Mean Corpuscular Volume 83.5 fL (80.0-100.0); Mean Platelet Volume 9.6 fL (9.4-12.4); Monocytes # (auto) 0.73 K/uL (0.11-0.59); Monocytes % (auto) 7.6 %; Neutrophils # (auto) 5.79 K/uL (1.40-6.50); Neutrophils % (auto) 60.4 %; Platelet Count 221 K/uL (130-400); RDW Coefficient of Variation 12.7 % (11.5-14.5); RDW Standard Deviation 38.3 fL (36.4-46.3); Red Blood Count 4.55 M/uL (4.70-6.10); White Blood Count 9.59 K/ul (4.8-10.8)
--- NOTE | 2022-09-29 07:06 | Electrocardiogram Report ---
Test Reason : Blood Pressure : / mmHG Vent. Rate : 089 BPM Atrial Rate : 089 BPM P-R Int : 178 ms QRS Dur : 148 ms QT Int : 398 ms P-R-T Axes : 031 -71 025 degrees QTc Int : 484 ms Normal sinus rhythm Right bundle branch block Left anterior fascicular block Bifascicular block Abnormal ECG When compared with ECG of 10-SEP-2016 19:15, Premature atrial complexes are no longer Present Right bundle branch block has replaced Incomplete right bundle branch block Confirmed by Darrius Sagastume ([id number]) on 09/29/2022 7:06:21 AM Referred By: REFERRED SELF Confirmed By:Fabio Sagastume
[2022-09-29 07:09] LABS: Creatinine Clr Calc Pharmacy 120.3 ml/min; Est GFR (African American) 111.1 ml/min; Est GFR (Non-African American) 95.8 ml/min
[2022-09-29 07:10] LABS: BUN Creatinine Ratio 21.4 (10-20); Calcium 9.2 mg/dl (8.6-10.3); Magnesium 1.8 mg/dl (1.7-2.4); Potassium 3.5 mmol/L (3.5-5.1)
[2022-09-29 07:42] LABS: Estimated Average Glucose 209 mg/dl; Hemoglobin A1C 8.9 % (4.5-5.6)
[2022-09-29 07:45] LABS: Partial Thromboplastin Ratio 1.8
[2022-09-29 07:56] LABS: Partial Thromboplastin Time 49.5 Seconds (21.0-31.0)
--- NOTE | 2022-09-29 08:24 | History and Physical Report ---
DATE OF ADMISSION: 09/29/2022. CHIEF COMPLAINT: Lower extremity deep venous thrombosis. HISTORY OF PRESENT ILLNESS: This is a 61-year-old male with past medical history significant for type 2 diabetes, chronic kidney disease stage III, hyperlipidemia, obstructive sleep apnea treated with BiPAP, allergic rhinitis, history of CVA, palpitations,, history of aseptic necrosis of bone, trigeminal neuralgia, migraine, presents with DVT. The patient currently lives at [facility] in [place]. [facility] because of [facility] issues recently changed the PCP to [place].He has reddish/ purplish discoloration of the lower extremities, which is chronic, but recently was spreading and that is the reason the recent Dopplers were checked and found to have bilateral lower extremity clots. The patient denies any pain. Is wheelchair bound for the last 5 years, walks short distance in his room. States in 2006 when he had hip surgery in [place], says because of his risk of blood clots, he was placed an IVC filter. Denies any chest pain. No shortness of breath, no cough, no nausea, no vomiting, no abdominal pain. Normal bowel and bladder movements. Denies any blood in stool or black stools. No hematuria. Normal bladder movements. No headache, no dizziness, no blurred visions, no earache, no runny nose, no sore throat, no difficulty swallowing. Currently, resting comfortably and hemodynamically stable. ALLERGIES: PENICILLIN, SHELLFISH. PAST MEDICAL HISTORY: As mentioned above. PAST SURGICAL HISTORY: Colonoscopy, EGD, tonsillectomy, repair of nasal septum, bilateral hip replacement in 2006, IVC filter placement in 2006. MEDICATIONS: Currently, the patient seems to be on amitriptyline 25 mg p.o. at bedtime, amlodipine 5 mg p.o. daily, aspirin 81 mg p.o. daily, atorvastatin 80 mg p.o. daily, carbamazepine 400 mg p.o. t.i.d., duloxetine 60 mg p.o. daily, fenofibrate 48 mg p.o. daily, Lasix 40 mg p.o. daily, insulin 5 units subcutaneous t.i.d., insulin glargine 28 units at bedtime, lisinopril 40 mg p.o. daily, metoprolol succinate 50 mg p.o. b.i.d., morphine 15 mg p.o. b.i.d. p.r.n., morphine 15 mg p.o. every 12 hours. FAMILY HISTORY: Significant for mother has asthma, thyroid disorder. Father had blood disorder, kidney cancer, diabetes, heart disorder, at age of 65 with SC, first SC at age of 50. Sister with obesity. SOCIAL HISTORY: Currently live at [facility] in [place]. Quit smoking in 2017, smoked quarter pack a day for bout 25 years. Chewed tobacco for 40 years, 1 can every 5-6 days. No alcohol use. No drug use. REVIEW OF SYSTEMS: As per HPI. Rest of the review of systems is negative. PHYSICAL EXAMINATION: GENERAL: The patient is moderate build, not in acute distress. VITAL SIGNS: Temperature 37.1, pulse 78, respiratory rate 19, blood pressure 171/97, oxygen 97% on room air. HEENT: Pupils equal, round and reactive to light. Oral mucosa moist. NECK: No JVD, no neck masses. CARDIOVASCULAR: S1 and S2 heard. Regular rate and rhythm. No murmur, no gallop. RESPIRATORY SYSTEM: Normal AP diameter. No accessory muscle use. No wheezing, no crackles. ABDOMEN: Soft, bowel sounds present, nontender, no distention. CENTRAL NERVOUS SYSTEM: Alert and oriented. Speech is clear. No facial droop. Obeys simple commands. Insight is okay. Moves extremities. EXTREMITIES: Bilateral lower extremity edema present with dark erythematous changes seen up to the mid calf. SKIN: Dry skin seen. LABORATORY DATA: WBC 8.1, hemoglobin 14.6, hematocrit 45, platelets 266. PT 10.3, INR 0.9, APTT 25.3. Sodium 137, potassium 3.6, chloride 98, bicarbonate 30, BUN 21, creatinine 1.1, serum glucose 254, calcium 9.7, total bilirubin 0.3, AST 18, ALT 14, alkaline phosphatase 77. SARS-COVID rapid test negative. IMAGING DATA: CT abdomen and pelvis with IV contrast : .1. Poor evaluation of the pelvic veins due to streak artifact from bilateral hip arthroplasties. 2. 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 Chest CTA, no acute findings. EKG: Normal sinus rhythm, rate of 89, right bundle-branch block, left anterior fascicular block. ASSESSMENT AND PLAN: This is a 61-year-old male who presents with bilateral lower extremity deep venous thrombosis. 1. Bilateral lower extremity deep venous thrombosis. The patient says he has had a blood disorder and prior to hip surgery in 2006 in [place] IVC filter was placed, but he never had a blood clot in the past. He is wheelchair bound for the last 5 years. Increasing discoloration of lower extremity for which Doppler was done as outpatient, which showed bilateral deep venous thrombosis and sent in here. CTA chest, no pulmonary embolism. 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 Started on IV heparin. Needs followup with hem/onc . May need to discuss about Ct findings with heme/oco during hospitalization. Monitor in the medical floor. 2. History of diabetes. Continue home long-acting insulin plus sliding scale. Follow the blood sugars. 3. History of obstructive sleep apnea. On BiPAP. 4. History of chronic kidney disease stage III. Current creatinine of 1.1. We will follow labs. 5. Hyperlipidemia. Continue statin and fenofibrate. 6. Hypertension. On lisinopril and metoprolol succinate, amlodipine. Monitor the blood pressure. 7. Chronic pain. Continue his home pain medications. 8. History of cerebrovascular accident. Aspirin and statin. 9. History of chronic pain and neuropathy pain. Continue his home pain medications. 10. deep venous thrombosis prophylaxis. Placed on IV heparin. DISPOSITION: Closely monitor in the medical floor. Expect to discharge home and follow with family doctor. Level 1 full code. Job ID: [id number] [facility]
[2022-09-29] MEDS: FUROSEMIDE 40 MG TAB PO SCH (08:56)
[2022-09-29] MEDS: FENOFIBRATE NANOCRYSTALLIZED 48 MG TABLET PO SCH (08:56)
[2022-09-29] MEDS: amLODIPine BESYLATE 5 MG TAB PO SCH (08:56)
[2022-09-29] MEDS: lisinopril 40 MG TAB PO SCH (08:56)
[2022-09-29] MEDS: carBAMazepine 200 MG TABLET PO SCH ×3 (08:57→20:37)
[2022-09-29] MEDS: ATORVASTATIN 40 MG TAB PO SCH (08:57)
[2022-09-29] MEDS: DULoxetine HCL 60 MG CAP PO SCH (08:57)
[2022-09-29] MEDS: METOPROLOL SUCC 50MG EXT REL TAB PO SCH ×2 (08:57→20:38)
[2022-09-29] MEDS ORDERED: ASPIRIN 81 MG ECTAB PO SCH (09:00)
[2022-09-29] MEDS: INSULIN ASPART PER UNIT CHARGE SC SCH ×4 (09:01→21:14)
[2022-09-29] MEDS: MoRPHine SULFATE CR 15 MG TABCR PO SCH ×2 (09:09→20:38)
[2022-09-29] MEDS ORDERED: MoRPHine SULFATE IR 15 MG TAB (IMMEDIATE RELEASE) PO STA (14:54)
--- NOTE | 2022-09-29 15:08 | Hospitalist Progress Note ---
Date of Service September 29, 2022 Assessment & Plan (1) Deep vein thrombosis of bilateral lower extremities: Plan: per Dr. Haines's notes with addendum: ASSESSMENT AND PLAN: This is a 61-year-old male who presents with bilateral lower extremity deep venous thrombosis. 1. Bilateral lower extremity deep venous thrombosis. The patient says he has had a blood disorder and prior to hip surgery in 2006 in [place] IVC filter was placed, but he never had a blood clot in the past. He is wheelchair bound for the last 5 years. Increasing discoloration of lower extremity for which Doppler was done as outpatient, which showed bilateral deep venous thrombosis and sent in here. CTA chest, no pulmonary embolism. 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 Started on IV heparin. Needs followup with hem/onc . May need to discuss about Ct findings with heme/oco during hospitalization. Monitor in the medical floor. 09/29 hemodynamically stable continue Heparin drip transition to Eliquis tomorrow 2. History of diabetes. Continue home long-acting insulin plus sliding scale. Follow the blood sugars. 3. History of obstructive sleep apnea. On BiPAP. 4. History of chronic kidney disease stage III. Current creatinine of 1.1. 5. Hyperlipidemia. Continue statin and fenofibrate. 6. Hypertension. On lisinopril and metoprolol succinate, amlodipine. Monitor the blood pressure. 7. Chronic pain. Continue his home pain medications. 8. History of cerebrovascular accident. Aspirin and statin. 9. History of chronic pain and neuropathy pain. Continue his home pain medications. 10. deep venous thrombosis prophylaxis. IV heparin. DISPOSITION: anticipate d/c in 1-2 days Admission and Anticipated Discharge Date Admission Date: September 29, 2022 Subjective ff up for acute DVT, etc seen resting in bed, comfortable states he feels ok overall no dyspnea, chest pain, bleeding has some lower leg pain no other symptoms Review of Systems Review of Systems: all noted and negative except for above Physical Exam Physical Exam: General- oriented x 3, not in distress, speaks in sentences with no effort or accessory muscle use Head- atraumatic Eyes- PERRL, EOMI, anicteric ENT- oropharynx clear Neck- supple, no JVD, no adenopathy, no thyromegaly; carotids +2/2, no bruits appreciated Lungs- clear to auscultation bilaterally, no rales/wheezes Heart- normal rate, regular rhythm; no murmur, no gallop, no rub appreciated Abdomen- normal bowel sounds, nondistended, soft, nontender, no masses or hepatosplenomegaly Extremities- (+) grade 1 lower ext edema no warmth/tenderness discoloration on the distal aspect Neuro- alert, oriented x 3; CN 2-12 grossly intact; motor 5/5 bilaterally;sensation 100% on all extremities; no other gross focal neurologic deficits Skin- warm & dry Results & Data Results & Data Vital Signs (Past 12 Hours) Vital Signs Temp Pulse Resp BP Pulse Ox O2 Del Method 09/29/22 14:29 36.8 C 68 18 143/72 H 95 Room Air 09/29/22 13:53 71 146/76 H 09/29/22 09:00 Room Air 09/29/22 08:30 36.9 C 75 18 186/94 H 93 Room Air 09/29/22 03:30 Room Air all noted and reviewed including below
[2022-09-29] MEDS: AMITRIPTYLINE HCL 25 MG TAB PO SCH (20:38)
[2022-09-29] MEDS: LANTUS PER UNIT CHARGE SQ SCH (21:13)
[2022-09-30] MEDS: carBAMazepine 200 MG TABLET PO SCH ×3 (08:14→21:17)
[2022-09-30] MEDS: FUROSEMIDE 40 MG TAB PO SCH (08:14)
[2022-09-30] MEDS: amLODIPine BESYLATE 5 MG TAB PO SCH (08:14)
[2022-09-30] MEDS: ATORVASTATIN 40 MG TAB PO SCH (08:14)
[2022-09-30] MEDS: DULoxetine HCL 60 MG CAP PO SCH (08:15)
[2022-09-30] MEDS: FENOFIBRATE NANOCRYSTALLIZED 48 MG TABLET PO SCH (08:15)
[2022-09-30] MEDS: lisinopril 40 MG TAB PO SCH (08:15)
[2022-09-30] MEDS: METOPROLOL SUCC 50MG EXT REL TAB PO SCH ×2 (08:15→21:17)
[2022-09-30] MEDS: MoRPHine SULFATE CR 15 MG TABCR PO SCH ×2 (08:19→21:17)
[2022-09-30] MEDS: INSULIN ASPART PER UNIT CHARGE SC SCH ×4 (08:20→21:16)
[2022-09-30 09:26] LABS: Basophils # (auto) 0.07 K/uL (0-0.2); Basophils % (auto) 0.7 %; Eosinophils # (auto) 0.27 K/uL (0-0.50); Eosinophils % (auto) 2.9 %; Hematocrit (blood only) 38.9 % (42.0-52.0); Hemoglobin 13.1 g/dl (14.0-18.0); Immature Granulocytes # (auto) 0.04 K/uL (0.01-0.20); Immature Granulocytes % (auto) 0.4 %; Lymphocytes # (auto) 2.34 K/uL (1.2-3.4); Mean Corpuscular Hemoglobin 28.8 pg (25.0-34.0); Mean Corpuscular Hgb Conc 33.7 g/dL (32.0-36.0); Mean Corpuscular Volume 85.5 fL (80.0-100.0); Mean Platelet Volume 9.7 fL (9.4-12.4); Monocytes # (auto) 0.67 K/uL (0.11-0.59); Monocytes % (auto) 7.2 %; Neutrophils # (auto) 5.96 K/uL (1.40-6.50); Neutrophils % (auto) 63.8 %; Platelet Count 200 K/uL (130-400); RDW Coefficient of Variation 12.9 % (11.5-14.5); RDW Standard Deviation 39.8 fL (36.4-46.3); Red Blood Count 4.55 M/uL (4.70-6.10); White Blood Count 9.35 K/ul (4.8-10.8)
[2022-09-30 09:44] LABS: BUN Creatinine Ratio 19.8 (10-20); Calcium 8.9 mg/dl (8.6-10.3); Est GFR (African American) 106.5 ml/min; Est GFR (Non-African American) 91.9 ml/min; Potassium 3.6 mmol/L (3.5-5.1)
[2022-09-30 10:20] LABS: Partial Thromboplastin Ratio 1.6
[2022-09-30 10:23] LABS: Partial Thromboplastin Time 44.9 Seconds (21.0-31.0)
[2022-09-30] MEDS: HEPARIN SODIUM/DEXTROSE 25,000 UNITS/500 ML BAG IV SCH (10:45)
[2022-09-30] MEDS: MoRPHine SULFATE IR 15 MG TAB (IMMEDIATE RELEASE) PO PRN (14:52)
--- NOTE | 2022-09-30 17:36 | Hospitalist Progress Note ---
Date of Service September 30, 2022 Assessment & Plan (1) Deep vein thrombosis of bilateral lower extremities: Plan: per Dr. Haines's notes with addendum: ASSESSMENT AND PLAN: This is a 61-year-old male who presents with bilateral lower extremity deep venous thrombosis. 1. Bilateral lower extremity deep venous thrombosis. The patient says he has had a blood disorder and prior to hip surgery in 2006 in [place] IVC filter was placed, but he never had a blood clot in the past. He is wheelchair bound for the last 5 years. Increasing discoloration of lower extremity for which Doppler was done as outpatient, which showed bilateral deep venous thrombosis and sent in here. CTA chest, no pulmonary embolism. 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 Started on IV heparin. Needs followup with hem/onc . May need to discuss about Ct findings with heme/oco during hospitalization. Monitor in the medical floor. 09/30 remains hemodynamically stable still has significant BLE edema continue Heparin drip transition to Eliquis in 1-2 days 2. History of diabetes. Continue home long-acting insulin plus sliding scale. Follow the blood sugars. 3. History of obstructive sleep apnea. On BiPAP. 4. History of chronic kidney disease stage III. Current creatinine of 1.1. 5. Hyperlipidemia. Continue statin and fenofibrate. 6. Hypertension. On lisinopril and metoprolol succinate, amlodipine. 7. Chronic pain. Continue his home pain medications. 8. History of cerebrovascular accident. Aspirin and statin. 9. History of chronic pain and neuropathy pain. Continue his home pain me dications. 10. deep venous thrombosis prophylaxis. IV heparin. DISPOSITION: anticipate d/c in 1-2 days Admission and Anticipated Discharge Date Admission Date: September 29, 2022 Subjective ff up for acute DVT, etc seen resting in bed, comfortable states he still has some upper leg discomfort- same as yesterday no chest pain, dyspnea, palpitations, dizziness no bleeding no other symptoms Review of Systems Review of Systems: all noted and negative except for above Physical Exam Physical Exam: General- oriented x 3, not in distress, speaks in sentences with no effort or accessory muscle use Eyes- anicteric Neck- no JVD Lungs- clear BS BL Heart- normal rate, regular rhythm; no murmurs Abdomen- normal bowel sounds, nondistended, soft, nontender Extremities- grade 1 lower extremity edema mild warmth discoloration on the anterior distal aspect- chronic Neuro- alert, oriented x 3; no gross focal neurologic deficits Skin- warm & dry Results & Data Results & Data Vital Signs (Past 12 Hours) Vital Signs Temp Pulse Resp BP Pulse Ox O2 Del Method 09/30/22 15:57 36.9 C 60 18 152/84 H 97 Room Air 09/30/22 07:31 36.4 C L 66 18 154/83 H 96 Room Air all noted and reviewed including below
[2022-09-30] MEDS: LANTUS PER UNIT CHARGE SQ SCH (21:16)
[2022-09-30] MEDS: AMITRIPTYLINE HCL 25 MG TAB PO SCH (21:17)
[2022-10-01] MEDS: HEPARIN SODIUM/DEXTROSE 25,000 UNITS/500 ML BAG IV SCH ×2 (03:07→19:01)
[2022-10-01] MEDS: MoRPHine SULFATE IR 15 MG TAB (IMMEDIATE RELEASE) PO PRN (06:27)
[2022-10-01 06:51] LABS: Basophils # (auto) 0.06 K/uL (0-0.2); Basophils % (auto) 0.6 %; Eosinophils # (auto) 0.33 K/uL (0-0.50); Eosinophils % (auto) 3.5 %; Hematocrit (blood only) 38.7 % (42.0-52.0); Hemoglobin 12.7 g/dl (14.0-18.0); Immature Granulocytes # (auto) 0.05 K/uL (0.01-0.20); Immature Granulocytes % (auto) 0.5 %; Lymphocytes # (auto) 2.38 K/uL (1.2-3.4); Lymphocytes % (auto) 25.3 %; Mean Corpuscular Hemoglobin 28.1 pg (25.0-34.0); Mean Corpuscular Hgb Conc 32.8 g/dL (32.0-36.0); Mean Corpuscular Volume 85.6 fL (80.0-100.0); Mean Platelet Volume 9.6 fL (9.4-12.4); Monocytes # (auto) 0.65 K/uL (0.11-0.59); Monocytes % (auto) 6.9 %; Neutrophils # (auto) 5.92 K/uL (1.40-6.50); Neutrophils % (auto) 63.2 %; Platelet Count 201 K/uL (130-400); RDW Coefficient of Variation 12.7 % (11.5-14.5); RDW Standard Deviation 39.5 fL (36.4-46.3); Red Blood Count 4.52 M/uL (4.70-6.10); White Blood Count 9.39 K/ul (4.8-10.8)
[2022-10-01 07:04] LABS: BUN Creatinine Ratio 19.4 (10-20); Calcium 8.8 mg/dl (8.6-10.3); Creatinine Clr Calc Pharmacy 108.7 ml/min; Est GFR (African American) 103.8 ml/min; Est GFR (Non-African American) 89.5 ml/min; Potassium 3.8 mmol/L (3.5-5.1)
[2022-10-01 07:25] LABS: Partial Thromboplastin Ratio 1.5
[2022-10-01 07:35] LABS: Partial Thromboplastin Time 42.1 Seconds (21.0-31.0)
[2022-10-01] MEDS: FUROSEMIDE 40 MG TAB PO SCH (08:47)
[2022-10-01] MEDS: lisinopril 40 MG TAB PO SCH (08:47)
[2022-10-01] MEDS: ATORVASTATIN 40 MG TAB PO SCH (08:48)
[2022-10-01] MEDS: amLODIPine BESYLATE 5 MG TAB PO SCH (08:48)
[2022-10-01] MEDS: carBAMazepine 200 MG TABLET PO SCH ×3 (08:49→19:32)
[2022-10-01] MEDS: DULoxetine HCL 60 MG CAP PO SCH (08:49)
[2022-10-01] MEDS: FENOFIBRATE NANOCRYSTALLIZED 48 MG TABLET PO SCH (08:50)
[2022-10-01] MEDS: METOPROLOL SUCC 50MG EXT REL TAB PO SCH ×2 (08:50→19:33)
[2022-10-01] MEDS: MoRPHine SULFATE CR 15 MG TABCR PO SCH ×2 (08:52→19:34)
[2022-10-01] MEDS: INSULIN ASPART PER UNIT CHARGE SC SCH ×4 (08:54→20:44)
--- NOTE | 2022-10-01 09:26 | Consultation ---
Date of Consultation October 01, 2022 Assessment & Plan (1) Deep vein thrombosis of bilateral lower extremities: (2) Status post insertion of inferior vena caval filter: Plan Very pleasant 61-year-old gentleman with reported history of blood clotting disorder and avascular necrosis for which he is s/p IVC filter placement in 2006 prior to hip surgery. He was subsequently on chronic anticoagulation with Coumadin till 2009 when it was discontinued by his PCP. Patient presented with bilateral lower extremity DVTs as well as occlusion of IVC filter. -Patient gives a history of possible hypercoagulable condition. He will require work-up for thrombophilia. Would recommend obtaining this as an outpatient after acute thrombotic period has elapsed. In the meantime, would recommend switching from IV heparin to weight-based Lovenox dosing 1 mg/kg twice daily. While awaiting hypercoagulable work-up, recommend placing him on warfarin since it is unclear if/what type of thrombophilia he has. Can start with 5 mg warfarin daily. Continue with therapeutic dosing of Lovenox for at least 5 days and discontinue when INR is greater than 2 for at least 2 measurements about 24 hours apart Thank you for this consult. He will follow-up with me upon discharge from hospital. Please feel free to call if you have any further questions History of Present Illness Reason for Consultation: Bilateral DVT Attending Physician: Edenilson Saleh MD History of Present Illness 61-year-old male with Multiple comorbidities including diabetes mellitus, CKD stage III, obstructive sleep apnea and peripheral neuropathy. Per review of records, he had IVC filter placed in 2006 after hip surgery due to high risk of clots. Patient presented worsening erythema involving bilateral lower extremities for which lower extremity ultrasound was obtained outpatient which revealed bilateral DVT. CTA chest on 09/28/[address] abdomen and pelvis on 09/28/2022 revealed chronic occlusion of infrarenal IVC with associated collateralization. He was placed on unfractionated heparin drip which he remains on at this time. Patient indicates that sometime in 2006, he had labs while living in [place] which revealed a possible clotting disorder. As a result of this, IVC filter was placed prior to hip surgery for bilateral avascular necrosis due to high risk for VTE. He states that shortly after surgery, he was placed on Lovenox and transitioned to Coumadin which he remained on up until 2009 when Coumadin was discontinued by his new PCP in [place]. He denies prior history of VTE. States that his father also had possible blood clotting disorder for which he was on anticoagulation for a period of time. He states that he is up-to-date with colonoscopy. Denies chest pain, shortness of breath, abdominal pain, nausea, vomiting, weight loss or any other issues Allergies Allergy/AdvReac Type Severity Reaction Status Date / Time Penicillins Allergy Unknown HAPPENED Verified 09/28/22 23:31 A CHILD shellfish derived AdvReac Intermediate GI UPSET Verified 09/28/22 23:31 Home Medications Medication Instructions Recorded Confirmed Type amlodipine 5 mg tablet 5 mg PO DAILY 07/03/18 09/28/22 History atorvastatin 80 mg tablet (Lipitor) 80 mg PO DAILY 07/03/18 09/28/22 History fenofibrate nanocrystallized 48 mg 48 mg PO DAILY 07/03/18 09/28/22 History tablet (Tricor) insulin aspart U-100 100 unit/mL 5 units subcut TIDM 07/03/18 09/28/22 History subcutaneous solution (Novolog U-100 Insulin aspart) lisinopril 40 mg tablet 40 mg PO DAILY 07/03/18 09/28/22 History metoprolol succinate 50 mg 50 mg PO BID 07/03/18 09/28/22 History tablet,extended release 24 hr (Toprol XL) amitriptyline 25 mg tablet 25 mg PO HS 07/10/18 09/28/22 History insulin glargine 100 unit/mL (3 28 unit subcut HS 09/09/18 09/28/22 History mL) subcutaneous pen (Basaglar KwikPen U-100 Insulin) morphine 15 mg immediate release 15 mg PO BID PRN Pain #10 tabs 09/15/18 09/28/22 Rx tablet morphine 30 mg capsule,extended 30 mg PO Q12H #10 caps 09/15/18 09/28/22 Rx release pellets carbamazepine 200 mg tablet 400 mg PO TID 09/18/18 09/28/22 History (Tegretol) aspirin 81 mg tablet,delayed 81 mg PO DAILY 09/28/22 09/28/22 History release duloxetine 60 mg capsule,delayed 60 mg PO DAILY 09/28/22 09/28/22 History release furosemide 40 mg tablet 40 mg PO DAILY 09/28/22 09/28/22 History Patient History Medical History (Updated 09/29/22 @ 00:10 by Gilberto Dubose DO) Acute pyelonephritis Bilateral hip pain Chronic pain disorder secondary to b/l hip AVN with history of bilateral NATACHA Depression Diabetes mellitus, type II Dyslipidemia 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 Social History Smoking Status: Former smoker packs per day: 1; Second Hand Exposure: No; Do You Dip or Chew Tobacco: Yes; Hx Alcohol Use: No Hx Substance Use: No Preferred Language: Moldovan Communication Ability: Effective Vending Machine Operator Required: No Beliefs That Will Affect Care: None marital status: Current Living Situation: Personal Care Facility current occupational status: disabled Other Information That Helps Us Care for You: No Feels Safe at Home: Yes Safety Concerns: Feels Safe At This Time Assistive Devices: Cane, Denture - Upper, Denture - Lower, Glasses and Wheelchair Results & Data Vital Signs (Past 12 Hours) Vital Signs Temp Pulse Pulse Resp BP BP Pulse Ox 10/01/22 08:45 64 130/80 10/01/22 07:45 10/01/22 07:33 37.0 C 63 18 161/85 H 97 O2 Del Method 10/01/22 08:45 10/01/22 07:45 Room Air 10/01/22 07:33 Room Air PG Care Time/CCT Total # of Minutes Spent Total Time Spent with Patient: Total time spent is greater than 50% in coordination of care (as documented) at patient's floor/unit and/or counseling patient: Coding Level of Care Code 98140 IN/OBS CONSULT LVL 4,60M Diagnoses Deep vein thrombosis of bilateral lower extremities I82.403 Status post insertion of inferior vena caval filter Z95.828
--- NOTE | 2022-10-01 15:47 | Hospitalist Progress Note ---
Date of Service October 01, 2022 Assessment & Plan (1) Deep vein thrombosis of bilateral lower extremities: Plan: per Dr. Haines's notes with addendum: ASSESSMENT AND PLAN: This is a 61-year-old male who presents with bilateral lower extremity deep venous thrombosis. 1. Bilateral lower extremity deep venous thrombosis. The patient says he has had a blood disorder and prior to hip surgery in 2006 in [place] IVC filter was placed, but he never had a blood clot in the past. He is wheelchair bound for the last 5 years. Increasing discoloration of lower extremity for which Doppler was done as outpatient, which showed bilateral deep venous thrombosis and sent in here. CTA chest, no pulmonary embolism. 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 Started on IV heparin. Needs followup with hem/onc . May need to discuss about Ct findings with heme/oco during hospitalization. Monitor in the medical floor. 10/01 remains hemodynamically stable still has significant BLE edema continue Heparin drip consulted Hematology regarding recommendations for anticoagulation management 2. History of diabetes. Continue home long-acting insulin plus sliding scale. Follow the blood sugars. 3. History of obstructive sleep apnea. On BiPAP. 4. History of chronic kidney disease stage III. Current creatinine of 1.1. 5. Hyperlipidemia. Continue statin and fenofibrate. 6. Hypertension. On lisinopril and metoprolol succinate, amlodipine. 7. Chronic pain. Continue his home pain medications. 8. History of cerebrovascular accident. Aspirin and statin. 9. History of chronic pain and neuropathy pain. Continue his home pain medications. 10. deep venous thrombosis prophylaxis. IV heparin. DISPOSITION: anticipate d/c in 1-2 days Admission and Anticipated Discharge Date Admission Date: September 29, 2022 Subjective ff up for acute BL DVT etc seen resting in bed, sitting up in good spirits states he feels ok overall has mild discomfort BL legs no dyspnea, chest pain, dizziness, palpitations no bleeding no other symptoms Review of Systems Review of Systems: all noted and negative except for above Physical Exam Physical Exam: General- oriented x 3, not in distress, speaks in sentences with no effort or accessory muscle use Eyes- anicteric Neck- no JVD Lungs- clear breath sounds bilaterally, no rales/wheezes Heart- normal rate, regular rhythm; no murmurs Abdomen- normal bowel sounds, nondistended, soft, nontender Extremities- BLLE: grade 1 edema, no warmth, no tenderness (+) chronic venous stasis skin changes- distal aspect Neuro- alert, oriented x 3; no gross focal neurologic deficits Skin- warm & dry Results & Data Results & Data Vital Signs (Past 12 Hours) Vital Signs Temp Pulse Pulse Resp BP BP Pulse Ox 10/01/22 15:18 37.3 C 63 18 120/74 94 10/01/22 08:45 64 130/80 10/01/22 07:45 10/01/22 07:33 37.0 C 63 18 161/85 H 97 O2 Del Method 10/01/22 15:18 Room Air 10/01/22 08:45 10/01/22 07:45 Room Air 10/01/22 07:33 Room Air all noted and reviewed including below
[2022-10-01] MEDS: AMITRIPTYLINE HCL 25 MG TAB PO SCH (19:32)
[2022-10-01] MEDS: LANTUS PER UNIT CHARGE SQ SCH (20:44)
[2022-10-02 06:44] LABS: Partial Thromboplastin Ratio 1.5
[2022-10-02 06:51] LABS: Partial Thromboplastin Time 42.1 Seconds (21.0-31.0)
[2022-10-02] MEDS: ATORVASTATIN 40 MG TAB PO SCH (08:52)
[2022-10-02] MEDS: amLODIPine BESYLATE 5 MG TAB PO SCH (08:53)
[2022-10-02] MEDS: FUROSEMIDE 40 MG TAB PO SCH (08:53)
[2022-10-02] MEDS: carBAMazepine 200 MG TABLET PO SCH ×3 (08:53→20:46)
[2022-10-02] MEDS: METOPROLOL SUCC 50MG EXT REL TAB PO SCH ×2 (08:53→20:46)
[2022-10-02] MEDS: lisinopril 40 MG TAB PO SCH (08:53)
[2022-10-02] MEDS: DULoxetine HCL 60 MG CAP PO SCH (08:54)
[2022-10-02] MEDS: INSULIN ASPART PER UNIT CHARGE SC SCH ×4 (08:54→20:45)
[2022-10-02] MEDS: MoRPHine SULFATE CR 15 MG TABCR PO SCH ×2 (08:55→20:46)
[2022-10-02] MEDS: ENOXAPARIN INJ 120 MG/0.8 ML SYR SC SCH ×2 (09:19→20:46)
--- NOTE | 2022-10-02 15:01 | Hospitalist Progress Note ---
Date of Service October 02, 2022 Assessment & Plan (1) Deep vein thrombosis of bilateral lower extremities: Plan: per Dr. Haines's notes with addendum: ASSESSMENT AND PLAN: This is a 61-year-old male who presents with bilateral lower extremity deep venous thrombosis. 1. Acute bilateral lower extremity deep venous thrombosis. -History of blood clotting disorder, avascular necrosis, status post IVC filter placement in 2006 prior to hip surgery Was on Coumadin until 2009, discontinued by PCP -Given IV heparin -Physician Underwriter consulted, Dr. Flores Recommend to transition to Lovenox 1 mg/kg twice daily, along with Coumadin- starting dose 5 mg Continue with therapeutic dosing of Lovenox for at least 5 days and discontinue when INR is greater than 2 for at least 2 measurements about 24 hours apart Outpatient hypercoagulable work-up -Hemodynamically stable Leg edema gradually improving 2. History of diabetes. A1c 8.9 Continue home long-acting insulin plus sliding scale. 3. History of obstructive sleep apnea. On BiPAP. 4. History of chronic kidney disease stage III. Current creatinine of 1.1. 5. Hyperlipidemia. Continue statin -Fenofibrate discontinued due to possible potentiation of warfarin 6. Hypertension. On lisinopril and metoprolol succinate, amlodipine. -BP okay overall 7. Chronic pain. Continue his home pain medications. 8. History of cerebrovascular accident. Aspirin and statin. -- Monitor for bleeding as patient now on Coumadin as well 9. History of chronic pain and neuropathy pain. Continue his home pain medications. 10. deep venous thrombosis prophylaxis. Therapeutic Lovenox and Coumadin DISPOSITION: Anticipate return to [facility] once INR therapeutic Admission and Anticipated Discharge Date Admission Date: September 29, 2022 Subjective Follow-up for acute bilateral common femoral vein DVT, etc. Resting in bed, comfortable, not in distress In good spirits States he feels fine overall Minimal leg discomfort, intermittent No shortness of breath, chest pain, dizziness No bleeding No other symptoms Review of Systems Review of Systems: all noted and negative except for above Physical Exam Physical Exam: General- oriented x 3, not in distress, speaks in sentences with no effort or accessory muscle use Eyes- anicteric Neck- no JVD Lungs- clear breath sounds bilaterally, no rales/wheezes Heart- normal rate, regular rhythm; no murmurs Abdomen- normal bowel sounds, nondistended, soft, nontender Extremities-grade 1 through 2 lower extremity edema, no warmth/tenderness Positive venous stasis changes distal lower extremity Neuro- alert, oriented x 3; no gross focal neurologic deficits Skin- warm & dry Results & Data Results & Data Vital Signs (Past 12 Hours) Vital Signs Temp Pulse Resp BP Pulse Ox O2 Del Method 10/02/22 14:57 36.9 C 71 18 143/84 H 96 Room Air 10/02/22 07:45 36.7 C 61 18 121/73 96 Room Air all noted and reviewed including below
[2022-10-02] MEDS: MoRPHine SULFATE IR 15 MG TAB (IMMEDIATE RELEASE) PO PRN (15:11)
[2022-10-02] MEDS: WARFARIN SOD 5 MG TAB PO SCH (17:13)
[2022-10-02] MEDS: LANTUS PER UNIT CHARGE SQ SCH (20:45)
[2022-10-02] MEDS: AMITRIPTYLINE HCL 25 MG TAB PO SCH (20:47)
[2022-10-03 07:29] LABS: Basophils # (auto) 0.07 K/uL (0-0.2); Basophils % (auto) 0.7 %; Eosinophils # (auto) 0.38 K/uL (0-0.50); Hematocrit (blood only) 38.1 % (42.0-52.0); Hemoglobin 12.7 g/dl (14.0-18.0); Immature Granulocytes # (auto) 0.06 K/uL (0.01-0.20); Immature Granulocytes % (auto) 0.6 %; Lymphocytes # (auto) 2.26 K/uL (1.2-3.4); Mean Corpuscular Hemoglobin 28.5 pg (25.0-34.0); Mean Corpuscular Hgb Conc 33.3 g/dL (32.0-36.0); Mean Corpuscular Volume 85.6 fL (80.0-100.0); Mean Platelet Volume 9.8 fL (9.4-12.4); Monocytes # (auto) 0.71 K/uL (0.11-0.59); Monocytes % (auto) 7.6 %; Neutrophils # (auto) 5.92 K/uL (1.40-6.50); Neutrophils % (auto) 63.1 %; Platelet Count 199 K/uL (130-400); RDW Coefficient of Variation 12.8 % (11.5-14.5); RDW Standard Deviation 39.4 fL (36.4-46.3); Red Blood Count 4.45 M/uL (4.70-6.10)
[2022-10-03 07:38] LABS: Creatinine Clr Calc Pharmacy 97.2 ml/min; Est GFR (African American) 90.7 ml/min; Est GFR (Non-African American) 78.2 ml/min
[2022-10-03 07:52] LABS: Partial Thromboplastin Ratio 1.1; Partial Thromboplastin Time 30.2 Seconds (21.0-31.0)
[2022-10-03] MEDS: INSULIN ASPART PER UNIT CHARGE SC SCH ×4 (08:35→21:00)
[2022-10-03] MEDS: amLODIPine BESYLATE 5 MG TAB PO SCH (08:36)
[2022-10-03] MEDS: ENOXAPARIN INJ 120 MG/0.8 ML SYR SC SCH ×2 (08:36→21:01)
[2022-10-03] MEDS: MoRPHine SULFATE CR 15 MG TABCR PO SCH ×2 (08:36→20:57)
[2022-10-03] MEDS: DULoxetine HCL 60 MG CAP PO SCH (08:37)
[2022-10-03] MEDS: FUROSEMIDE 40 MG TAB PO SCH (08:37)
[2022-10-03] MEDS: ATORVASTATIN 40 MG TAB PO SCH (08:37)
[2022-10-03] MEDS: METOPROLOL SUCC 50MG EXT REL TAB PO SCH ×2 (08:37→20:58)
[2022-10-03] MEDS: lisinopril 40 MG TAB PO SCH (08:37)
[2022-10-03] MEDS: carBAMazepine 200 MG TABLET PO SCH ×3 (08:37→20:57)
[2022-10-03] MEDS: MoRPHine SULFATE IR 15 MG TAB (IMMEDIATE RELEASE) PO PRN (14:46)
[2022-10-03] MEDS: WARFARIN SOD 5 MG TAB PO SCH (15:16)
--- NOTE | 2022-10-03 19:27 | Hospitalist Progress Note ---
Date of Service October 03, 2022 Assessment & Plan (1) Deep vein thrombosis of bilateral lower extremities: Plan: This is a 61-year-old male who presents with bilateral lower extremity deep venous thrombosis. 1. Acute bilateral lower extremity deep venous thrombosis. -History of blood clotting disorder, avascular necrosis, status post IVC filter placement in 2006 prior to hip surgery Was on Coumadin until 2009, discontinued by PCP -Given IV heparin initially -Duplicator Punch Set Up Operator consulted, Dr. Flores Recommend to transition to Lovenox 1 mg/kg twice daily, along with Coumadin- starting dose 5 mg Continue with therapeutic dosing of Lovenox for at least 5 days and discontinue when INR is greater than 2 for at least 2 measurements about 24 hours apart Outpatient hypercoagulable work-up -Hemodynamically stable Leg edema gradually improving 2. History of diabetes. A1c 8.9 Continue home long-acting insulin plus sliding scale. 3. History of obstructive sleep apnea. On BiPAP. 4. History of chronic kidney disease stage III. Current creatinine of 1.1. 5. Hyperlipidemia. Continue statin -Fenofibrate discontinued due to possible potentiation of warfarin 6. Hypertension. On lisinopril and metoprolol succinate, amlodipine. -BP well controlled 7. Chronic pain. Continue his home pain medications. 8. History of cerebrovascular accident. Aspirin and statin. -- Monitor for bleeding as patient now on Coumadin as well 9. History of chronic pain and neuropathy pain. Continue his home pain medications. DV prophylaxis. Therapeutic Lovenox and Coumadin DISPOSITION: Anticipate return to [facility] Admission and Anticipated Discharge Date Admission Date: September 29, 2022 Subjective Follow-up for acute bilateral common femoral vein DVT, etc. Resting in bed, comfortable, not in distress In good spirits States he feels well overall Minimal leg discomfort, intermittent, says he is able to ambulate No shortness of breath, chest pain, dizziness No bleeding No other symptoms Says he used lovenox before and he is comfortable using it Review of Systems Review of Systems: All systems reviewed & are unremarkable except as noted in Subjective Physical Exam Physical Exam: General- oriented x 3, not in distress, speaks in sentences with no effort or accessory muscle use Eyes- anicteric Neck- no JVD Lungs- clear breath sounds bilaterally, no rales/wheezes Heart- normal rate, regular rhythm; no murmurs Abdomen- normal bowel sounds, nondistended, soft, nontender Extremities-grade 1 through 2 lower extremity edema, no warmth/tenderness Positive venous stasis changes distal lower extremity Neuro- alert, oriented x 3; speech fluent, no facial asymmetry, moves extremities Skin- warm & dry Results & Data Results & Data Vital Signs (Past 12 Hours) Vital Signs Temp Pulse Resp BP Pulse Ox O2 Del Method 10/03/22 15:35 37.0 C 69 16 150/78 H 96 Room Air 10/03/22 07:43 36.5 C 62 16 130/80 96 Room Air Laboratory Results 10/03/22 10/03/22 10/03/22 Range/Units 16:48 11:50 07:55 WBC (4.8-10.8) K/ul RBC (4.70-6.10) M/uL Hgb (14.0-18.0) g/dl Hct (42.0-52.0) % MCV (80.0-100.0) fL MCH (25.0-34.0) pg MCHC (32.0-36.0) g/dL RDW Std Deviation (36.4-46.3) fL RDW Coeff of Parth (11.5-14.5) % Plt Count (130-400) K/uL MPV (9.4-12.4) fL Immature Gran % (Auto) % Neut % (Auto) % Lymph % (Auto) % [place] % (Auto) % Eos % (Auto) % Baso % (Auto) % Neut # (Auto) (1.40-6.50) K/uL Lymph # (Auto) (1.2-3.4) K/uL [place] # (Auto) (0.11-0.59) K/uL Eos # (Auto) (0-0.50) K/uL Baso # (Auto) (0-0.2) K/uL Immature Gran # (Auto) (0.01-0.20) K/uL PT (9.0-12.0) Seconds INR (0.9-1.1) APTT (21.0-31.0) Seconds PTT Ratio Creatinine (0.6-1.4) mg/dl Est Cr Clr Drug Dosing ml/min Est GFR ( Amer) ml/min Est GFR (Non-Af Amer) ml/min POC Glucose 149 H 165 H 105 H (70-99) mg/dl 10/03/22 10/03/22 10/03/22 Range/Units 06:51 06:51 06:51 WBC 9.40 (4.8-10.8) K/ul RBC 4.45 L (4.70-6.10) M/uL Hgb 12.7 L (14.0-18.0) g/dl Hct 38.1 L (42.0-52.0) % MCV 85.6 (80.0-100.0) fL MCH 28.5 (25.0-34.0) pg MCHC 33.3 (32.0-36.0) g/dL RDW Std Deviation 39.4 (36.4-46.3) fL RDW Coeff of Parth 12.8 (11.5-14.5) % Plt Count 199 (130-400) K/uL MPV 9.8 (9.4-12.4) fL Immature Gran % (Auto) 0.6 % Neut % (Auto) 63.1 % Lymph % (Auto) 24.0 % [place] % (Auto) 7.6 % Eos % (Auto) 4.0 % Baso % (Auto) 0.7 % Neut # (Auto) 5.92 (1.40-6.50) K/uL Lymph # (Auto) 2.26 (1.2-3.4) K/uL [place] # (Auto) 0.71 H (0.11-0.59) K/uL Eos # (Auto) 0.38 (0-0.50) K/uL Baso # (Auto) 0.07 (0-0.2) K/uL Immature Gran # (Auto) 0.06 (0.01-0.20) K/uL PT 11.0 (9.0-12.0) Seconds INR 1.0 (0.9-1.1) APTT 30.2 (21.0-31.0) Seconds PTT Ratio 1.1 Creatinine 1.04 (0.6-1.4) mg/dl Est Cr Clr Drug Dosing 97.2 ml/min Est GFR ( Amer) 90.7 ml/min Est GFR (Non-Af Amer) 78.2 ml/min POC Glucose (70-99) mg/dl 10/02/22 Range/Units 20:36 WBC (4.8-10.8) K/ul RBC (4.70-6.10) M/uL Hgb (14.0-18.0) g/dl Hct (42.0-52.0) % MCV (80.0-100.0) fL MCH (25.0-34.0) pg MCHC (32.0-36.0) g/dL RDW Std Deviation (36.4-46.3) fL RDW Coeff of Parth (11.5-14.5) % Plt Count (130-400) K/uL MPV (9.4-12.4) fL Immature Gran % (Auto) % Neut % (Auto) % Lymph % (Auto) % [place] % (Auto) % Eos % (Auto) % Baso % (Auto) % Neut # (Auto) (1.40-6.50) K/uL Lymph # (Auto) (1.2-3.4) K/uL [place] # (Auto) (0.11-0.59) K/uL Eos # (Auto) (0-0.50) K/uL Baso # (Auto) (0-0.2) K/uL Immature Gran # (Auto) (0.01-0.20) K/uL PT (9.0-12.0) Seconds INR (0.9-1.1) APTT (21.0-31.0) Seconds PTT Ratio Creatinine (0.6-1.4) mg/dl Est Cr Clr Drug Dosing ml/min Est GFR ( Amer) ml/min Est GFR (Non-Af Amer) ml/min POC Glucose 156 H (70-99) mg/dl Medications Administered Current Inpatient Medications Acetaminophen (Acetaminophen 325 Mg Tab) 650 mg PO Q4H PRN PRN Reason: pain/fever Stop: 10/29/22 02:16 Amitriptyline HCl (Amitriptyline Hcl 25 Mg Tab) 25 mg PO HS NEL Stop: 10/29/22 20:59 Last Admin: 10/02/22 20:47 Dose: 25 mg Amlodipine Besylate (Amlodipine Besylate 5 Mg Tab) 5 mg PO DAILY NEL Stop: 10/29/22 08:59 Last Admin: 10/03/22 08:36 Dose: 5 mg Aspirin (Aspirin 81 Mg Ectab) 81 mg PO DAILY [facility] Stop: 10/29/22 08:59 Last Admin: 09/29/22 08:56 Dose: 81 mg Atorvastatin Calcium (Atorvastatin 40 Mg Tab) 80 mg PO DAILY NEL Stop: 10/29/22 08:59 Last Admin: 10/03/22 08:37 Dose: 80 mg Carbamazepine (Carbamazepine 200 Mg Tablet) 400 mg PO TID NEL Stop: 10/29/22 08:59 Last Admin: 10/03/22 14:46 Dose: 400 mg Dextrose (Dextrose 50% 50 Ml Syringe) 25 - 50 ml IV UD PRN; Protocol PRN Reason: Hypoglycemia Protocol Stop: 10/29/22 02:16 Duloxetine HCl (Duloxetine Hcl 60 Mg Cap) 60 mg PO DAILY [facility] Stop: 10/29/22 08:59 Last Admin: 10/03/22 08:37 Dose: 60 mg Enoxaparin Sodium (Enoxaparin Inj 120 Mg/0.8 Ml Syr) 111 mg SC Q12H NEL Stop: 11/01/22 08:14 Last Admin: 10/03/22 08:36 Dose: 111 mg Furosemide (Furosemide 40 Mg Tab) 40 mg PO DAILY NEL Stop: 10/29/22 08:59 Last Admin: 10/03/22 08:37 Dose: 40 mg Glucagon (Glucagon For Inj 1 Mg Vial) 1 mg SQ UD PRN; Protocol PRN Reason: Hypoglycemia Protocol Stop: 10/29/22 02:16 Glucose (Glucose 10 Tab/Tube) 4 - 8 tab PO UD PRN; Protocol PRN Reason: Hypoglycemia Treatment Stop: 10/29/22 02:16 Glucose (Glucose 40% Gel 15 Gm Tube) 15 - 30 gm PO UD PRN; Protocol PRN Reason: Hypoglycemia Protocol Stop: 10/29/22 02:16 Insulin Aspart (Insulin Aspart Per Unit Charge) 0 units SC ACHS [facility] Stop: 10/29/22 07:29 Last Admin: 10/03/22 16:50 Dose: Not Given Insulin Glargine (Lantus Per Unit Charge) 28 units SQ HS [facility] Stop: 10/29/22 20:59 Last Admin: 10/02/22 20:45 Dose: 28 units Lisinopril (Lisinopril 40 Mg Tab) 40 mg PO DAILY [facility] Stop: 10/29/22 08:59 Last Admin: 10/03/22 08:37 Dose: 40 mg Metoprolol Succinate (Metoprolol Succ 50mg Ext Rel Tab) 50 mg PO BID [facility] Stop: 10/29/22 08:59 Last Admin: 10/03/22 08:37 Dose: 50 mg Miscellaneous (Carbohydrates For Hypoglycemia ) 15 - 30 gm PO UD PRN PRN Reason: Hypoglycemia Protocol Stop: 10/29/22 02:16 Morphine Sulfate (Morphine Sulfate Cr 15 Mg Tabcr) 30 mg PO Q12H [facility] Stop: 10/29/22 08:59 Last Admin: 10/03/22 08:36 Dose: 30 mg Morphine Sulfate (Morphine Sulfate Ir 15 Mg Tab (Immediate Release)) 15 mg PO Q6H PRN PRN Reason: Pain Stop: 10/13/22 02:16 Last Admin: 10/03/22 14:46 Dose: 15 mg Polyethylene Glycol (Polyethylene (Miralax) 17 Gm Pack) 17 gm PO DAILY PRN PRN Reason: Constipation Stop: 10/29/22 02:16 Warfarin Sodium (Warfarin Sod 5 Mg Tab) 5 mg PO DAILY@1600 [facility] Stop: 11/01/22 15:59 Last Admin: 10/03/22 15:16 Dose: 5 mg
[2022-10-03] MEDS: AMITRIPTYLINE HCL 25 MG TAB PO SCH (20:58)
[2022-10-03] MEDS: LANTUS PER UNIT CHARGE SQ SCH (21:00)
[2022-10-04 07:00] LABS: Hemoglobin 13.1 g/dl (14.0-18.0); Mean Corpuscular Hemoglobin 28.2 pg (25.0-34.0); Mean Corpuscular Hgb Conc 33.6 g/dL (32.0-36.0); Mean Corpuscular Volume 84.1 fL (80.0-100.0); Platelet Count 210 K/uL (130-400); RDW Standard Deviation 38.9 fL (36.4-46.3); Red Blood Count 4.64 M/uL (4.70-6.10)
[2022-10-04 07:23] LABS: INR 1.1 (0.9-1.1); Partial Thromboplastin Ratio 1.1; Partial Thromboplastin Time 30.6 Seconds (21.0-31.0); Prothrombin Time 11.5 Seconds (9.0-12.0)
[2022-10-04 07:28] LABS: BUN Creatinine Ratio 18.5 (10-20); Calcium 9.2 mg/dl (8.6-10.3); Creatinine Clr Calc Pharmacy 93.6 ml/min; Est GFR (African American) 86.6 ml/min; Est GFR (Non-African American) 74.7 ml/min; Magnesium 1.9 mg/dl (1.7-2.4); Phosphorus 3.7 mg/dl (2.5-4.9); Potassium 4.2 mmol/L (3.5-5.1)
[2022-10-04] MEDS: INSULIN ASPART PER UNIT CHARGE SC SCH ×4 (08:25→21:03)
[2022-10-04] MEDS: METOPROLOL SUCC 50MG EXT REL TAB PO SCH ×2 (08:56→21:04)
[2022-10-04] MEDS: ENOXAPARIN INJ 120 MG/0.8 ML SYR SC SCH ×2 (08:57→21:05)
[2022-10-04] MEDS: FUROSEMIDE 40 MG TAB PO SCH (08:57)
[2022-10-04] MEDS: amLODIPine BESYLATE 5 MG TAB PO SCH (08:57)
[2022-10-04] MEDS: ATORVASTATIN 40 MG TAB PO SCH (08:57)
[2022-10-04] MEDS: DULoxetine HCL 60 MG CAP PO SCH (08:57)
[2022-10-04] MEDS: carBAMazepine 200 MG TABLET PO SCH ×3 (08:57→21:05)
[2022-10-04] MEDS: lisinopril 40 MG TAB PO SCH (08:58)
[2022-10-04] MEDS: MoRPHine SULFATE CR 15 MG TABCR PO SCH ×2 (09:00→21:03)
--- NOTE | 2022-10-04 12:02 | Hospitalist Progress Note ---
Date of Service October 04, 2022 Assessment & Plan (1) Deep vein thrombosis of bilateral lower extremities: Plan: This is a 61-year-old male who presents with bilateral lower extremity deep venous thrombosis. 1. Acute bilateral lower extremity deep venous thrombosis. History of blood clotting disorder, avascular necrosis, status post IVC filter placement in 2006 prior to hip surgery Was on Coumadin until 2009, discontinued by PCP Given IV heparin initially and transitioned to Lovenox 1 mg/kg twice daily, along with Coumadin-starting dose [address] Flores Continue with therapeutic dosing of Lovenox for at least 5 days and discontinue when INR is greater than 2 for at least 2 measurements about 24 hours apart Repeat INR 1.1 today, increased coumadin to 10mg for this afternoon, monitor INR Outpatient hypercoagulable work-up CM checking if INR checks can be done through [facility] to allow for discharge as patient is hemodynamically stable and otherwise ready Leg edema gradually improving 2. History of diabetes. A1c 8.9. Continue home long-acting insulin plus sliding scale. 3. History of obstructive sleep apnea. On BiPAP. 4. History of chronic kidney disease stage III. Current creatinine of 1.1. 5. Hyperlipidemia. Continue statin Fenofibrate discontinued due to possible potentiation of warfarin 6. Hypertension. On lisinopril and metoprolol succinate, amlodipine. BP well controlled 7. Chronic pain. Continue his home pain medications. 8. History of cerebrovascular accident. Aspirin and statin. Monitor for bleeding as patient now on Coumadin as well 9. History of chronic pain and neuropathy pain. Continue his home pain medications. DV prophylaxis. Therapeutic Lovenox and Coumadin DISPOSITION: Anticipate return to [facility] I spent a total of 35 minutes coordinating, documenting, and providing care for this patient excluding time spent in the performance of separately billed services. Admission and Anticipated Discharge Date Admission Date: September 29, 2022 Supervising Physician Co-Signing Physician Notes Pt seen and examined by me, care coordinated w/ Leydi Gonzales PA-C, pls refer to her note above for further detail. Patient seen working with physical therapy. Patient is awake alert oriented answering appropriately. Denies any significant pain in the lower extremities. Denies chest pain or shortness of breath. Discussed with Dr. Flores - hematology this morning, recommends to increase warfarin to 10 mg, patient can be possibly discharged and follow-up as outpatient, will need to arrange anticoagulation clinic/appropriate follow-up. Patient currently resides at personal alf in [place]. MD Fabián Subjective Seen in follow-up for acute bilateral common femoral vein DVT, etc. Resting comfortably, denies any clinical changes overnight. Similar minimal pain in hips and legs, able to ambulate. No F/c, dizziness, chest pain, shortness of breath, N/V, abdominal pain, dysuria, have bowel movement yesterday. Review of Systems Review of Systems: At least ten systems reviewed and negative except as noted in the HPI. Physical Exam Physical Exam: Gen: WD/WN, NAD, sitting up in bed, A&Ox3 HEENT: Normocephalic, atraumatic, conjunctivae moist, sclerae anicteric, mucous membranes moist Lung: Clear to Auscultation bilaterally, no wheezes/rales/rhonchi Heart: Regular rate, regular rhythm, no murmurs, rubs, or gallops Abdomen: Soft, NT, ND +BS x 4 Extremities: 1-2+ BLE edema with venous stasis changes, no warmth/tenderness Skin: Warm, no rash Results & Data Results & Data Vital Signs (Past 12 Hours) Vital Signs Temp Pulse Resp BP Pulse Ox O2 Del Method 10/04/22 09:51 Room Air 10/04/22 07:43 36.8 C 64 18 115/68 95 Room Air Laboratory Results Short CBC 10/04/22 Range/Units 06:17 WBC 9.10 (4.8-10.8) K/ul Hgb 13.1 L (14.0-18.0) g/dl Hct 39.0 L (42.0-52.0) % Plt Count 210 (130-400) K/uL BMP 10/04/22 06:17 Sodium 135 L Potassium 4.2 Chloride 101 Carbon Dioxide 28 BUN 20 Creatinine 1.08 Glucose 123 H Calcium 9.2 Diagnostic Findings Chest CTA 09/28/22 21:47 Exam(s): CTA CHEST IV Amt: 110ml EXAM: CT Chest With Intravenous Contrast CLINICAL HISTORY: Reason for exam: PE. TECHNIQUE: Axial computed tomographic images of the chest with intravenous contrast. CTDI is 20.69 mGy and DLP is 1195.33 mGy-cm. Automated exposure control was utilized for the study. A dose lowering technique was utilized adhering to the principles of ALARA. COMPARISON: No relevant prior studies available. FINDINGS: Pulmonary arteries: Unremarkable. No pulmonary embolism. Aorta: No acute findings. No thoracic aortic aneurysm. Lungs: Unremarkable. No mass. No consolidation. Pleural space: Unremarkable. No significant effusion. No pneumothorax. Heart: There are coronary vascular calcifications. No significant pericardial effusion. No evidence of RV dysfunction. Bones/joints: No acute fracture. No dislocation. Soft tissues: Unremarkable. Lymph nodes: Unremarkable. No enlarged lymph nodes. IMPRESSION: No acute findings in the visualized arteries of the chest. Electronically signed by: Azeem Bautista MD 09/28/22 23:18 PM Abdomen/Pelvis CT 09/28/22 21:53 Exam(s): CT ABDOMEN + PELVIS With Contrast IV Amt: 110ml EXAM: CT Abdomen and Pelvis With Intravenous Contrast CLINICAL HISTORY: Reason for exam: dvt b/l le. TECHNIQUE: Axial computed tomography images of the abdomen and pelvis with intravenous contrast. CTDI is 20.69 mGy and DLP is 1195.33 mGy-cm. Automated exposure control was utilized for the study. A dose lowering technique was utilized adhering to the principles of ALARA. CONTRAST: Patient received 110ml of IV contrast COMPARISON: Dated 06/15/16 FINDINGS: Lung bases: Unremarkable. No mass. No consolidation. ABDOMEN: Liver: Unremarkable. No mass. Gallbladder and bile ducts: Unremarkable. No calcified stones. No ductal dilation. Pancreas: Unremarkable. No mass. No ductal dilation. Spleen: Unremarkable. No splenomegaly. Adrenals: Unremarkable. No mass. Kidneys and ureters: Unremarkable. No solid mass. No hydronephrosis. Stomach and bowel: Unremarkable. No obstruction. No mucosal thickening. PELVIS: Appendix: No findings to suggest acute appendicitis. Bladder: Unremarkable. No mass. Reproductive: Unremarkable as visualized. ABDOMEN and PELVIS: Intraperitoneal space: Unremarkable. No free air. No significant fluid collection. Bones/joints: Streak artifact from bilateral hip arthroplasties obscures evaluation of the pelvis. No acute fracture. No dislocation. Soft tissues: See below. Vasculature: The pelvic veins are poorly evaluated. There is diffuse atherosclerotic calcification of the aorta and its major branch vessels. There is an IVC filter in place. There is chronic occlusion of the infrarenal IVC with multiple abdominal wall and intra-abdominal collaterals. No abdominal aortic aneurysm. Lymph nodes: Unremarkable. No enlarged lymph nodes. IMPRESSION: 1. Poor evaluation of the pelvic veins due to streak artifact from bilateral hip arthroplasties. 2. 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 Electronically signed by: Azeem Bautista MD 09/28/22 23:21 PM
[2022-10-04] MEDS: MoRPHine SULFATE IR 15 MG TAB (IMMEDIATE RELEASE) PO PRN (14:00)
[2022-10-04] MEDS: WARFARIN SOD 10 MG TAB PO SCH (17:28)
[2022-10-04] MEDS: LANTUS PER UNIT CHARGE SQ SCH (21:03)
[2022-10-04] MEDS: AMITRIPTYLINE HCL 25 MG TAB PO SCH (21:05)
[2022-10-05 06:33] LABS: Hematocrit (blood only) 40.4 % (42.0-52.0); Hemoglobin 13.5 g/dl (14.0-18.0); Mean Corpuscular Hemoglobin 28.6 pg (25.0-34.0); Mean Corpuscular Hgb Conc 33.4 g/dL (32.0-36.0); Mean Corpuscular Volume 85.6 fL (80.0-100.0); Mean Platelet Volume 10.1 fL (9.4-12.4); Platelet Count 214 K/uL (130-400); RDW Coefficient of Variation 13.1 % (11.5-14.5); RDW Standard Deviation 40.4 fL (36.4-46.3); Red Blood Count 4.72 M/uL (4.70-6.10); White Blood Count 9.39 K/ul (4.8-10.8)
[2022-10-05 06:49] LABS: BUN Creatinine Ratio 18.8 (10-20); Calcium 9.2 mg/dl (8.6-10.3); Est GFR (African American) 67.3 ml/min; Est GFR (Non-African American) 58.1 ml/min; Potassium 4.3 mmol/L (3.5-5.1)
[2022-10-05 06:54] LABS: INR 1.1 (0.9-1.1); Partial Thromboplastin Ratio 1.2; Partial Thromboplastin Time 32.7 Seconds (21.0-31.0); Prothrombin Time 12.4 Seconds (9.0-12.0)
[2022-10-05] MEDS: INSULIN ASPART PER UNIT CHARGE SC SCH ×4 (08:09→20:34)
[2022-10-05] MEDS: MoRPHine SULFATE CR 15 MG TABCR PO SCH ×2 (08:55→20:33)
[2022-10-05] MEDS: carBAMazepine 200 MG TABLET PO SCH ×3 (08:55→20:31)
[2022-10-05] MEDS: amLODIPine BESYLATE 5 MG TAB PO SCH (08:56)
[2022-10-05] MEDS: METOPROLOL SUCC 50MG EXT REL TAB PO SCH ×2 (08:56→20:32)
[2022-10-05] MEDS: DULoxetine HCL 60 MG CAP PO SCH (08:56)
[2022-10-05] MEDS: ATORVASTATIN 40 MG TAB PO SCH (08:56)
[2022-10-05] MEDS: lisinopril 40 MG TAB PO SCH (08:56)
[2022-10-05] MEDS: FUROSEMIDE 40 MG TAB PO SCH (08:56)
[2022-10-05] MEDS: ENOXAPARIN INJ 120 MG/0.8 ML SYR SC SCH ×2 (08:56→20:30)
--- NOTE | 2022-10-05 11:01 | Hospitalist Progress Note ---
Date of Service October 05, 2022 Assessment & Plan (1) Deep vein thrombosis of bilateral lower extremities: Plan: This is a 61-year-old male who presents with bilateral lower extremity deep venous thrombosis. 1. Acute bilateral lower extremity deep venous thrombosis. History of blood clotting disorder, avascular necrosis, status post IVC filter placement in 2006 prior to hip surgery Was on Coumadin until 2009, discontinued by PCP Given IV heparin initially and transitioned to Lovenox 1 mg/kg twice daily, along with Coumadin-starting dose [address] Flores Continue with therapeutic dosing of Lovenox for at least 5 days and discontinue when INR is greater than 2 for at least 2 measurements about 24 hours apart Repeat INR 1.1 today, increased coumadin to 10mg yesterday, monitor INR Outpatient hypercoagulable work-up Leg edema gradually improving 2. History of diabetes. A1c 8.9 %. Continue home long-acting insulin plus sliding scale. 3. History of obstructive sleep apnea. On BiPAP. 4. History of chronic kidney disease stage III. Current creatinine of 1.1. 5. Hyperlipidemia. Continue statin Fenofibrate discontinued due to possible potentiation of warfarin 6. Hypertension. On lisinopril and metoprolol succinate, amlodipine. BP well controlled 7. Chronic pain. Continue his home pain medications. 8. History of cerebrovascular accident. Aspirin and statin. Monitor for bleeding as patient now on Coumadin as well 9. History of chronic pain and neuropathy pain. Continue his home pain medications. DV prophylaxis. Therapeutic Lovenox and Coumadin DISPOSITION: Anticipate return to [facility] Admission and Anticipated Discharge Date Admission Date: September 29, 2022 Subjective Follow-up for acute bilateral common femoral vein DVT, etc. Resting in bed, comfortable, not in distress States he feels well overall Minimal leg discomfort, intermittent, he is able to ambulate No shortness of breath, chest pain, dizziness No bleeding No other symptoms Review of Systems Review of Systems: All systems reviewed & are unremarkable except as noted in Subjective Physical Exam Physical Exam: General- oriented x 3, not in distress, speaks in sentences with no effort or accessory muscle use Eyes- anicteric Neck- no JVD Lungs- clear breath sounds bilaterally, no rales/wheezes Heart- normal rate, regular rhythm; no murmurs Abdomen- normal bowel sounds, nondistended, soft, nontender Extremities- 1-2 lower extremity edema, no warmth/tenderness Positive venous stasis changes distal lower extremity Neuro- alert, oriented x 3; speech fluent, no facial asymmetry, moves extremities Skin- warm & dry Results & Data Results & Data Vital Signs (Past 12 Hours) Vital Signs Temp Pulse Resp BP Pulse Ox O2 Del Method 10/05/22 09:23 Room Air 10/05/22 07:44 36.5 C 66 17 151/80 H 98 Room Air Laboratory Results 10/05/22 10/05/22 10/05/22 Range/Units 08:04 05:40 05:40 WBC 9.39 (4.8-10.8) K/ul RBC 4.72 (4.70-6.10) M/uL Hgb 13.5 L (14.0-18.0) g/dl Hct 40.4 L (42.0-52.0) % MCV 85.6 (80.0-100.0) fL MCH 28.6 (25.0-34.0) pg MCHC 33.4 (32.0-36.0) g/dL RDW Std Deviation 40.4 (36.4-46.3) fL RDW Coeff of Parth 13.1 (11.5-14.5) % Plt Count 214 (130-400) K/uL MPV 10.1 (9.4-12.4) fL PT (9.0-12.0) Seconds INR (0.9-1.1) APTT (21.0-31.0) Seconds PTT Ratio Sodium 135 L (136-145) mmol/L Potassium 4.3 (3.5-5.1) mmol/L Chloride 101 (98-107) mmol/L Carbon Dioxide 28 (21-32) mmol/L Anion Gap 6 (3-11) BUN 25 H (6-23) mg/dl Creatinine 1.33 (0.6-1.4) mg/dl Est Cr Clr Drug Dosing 76.0 ml/min Est GFR ( Amer) 67.3 ml/min Est GFR (Non-Af Amer) 58.1 ml/min BUN/Creatinine Ratio 18.8 (10-20) Glucose 177 H (70-99(Fasting)) mg/dl POC Glucose 147 H (70-99) mg/dl Calcium 9.2 (8.6-10.3) mg/dl 10/05/22 10/04/22 10/04/22 Range/Units 05:40 20:15 17:24 WBC (4.8-10.8) K/ul RBC (4.70-6.10) M/uL Hgb (14.0-18.0) g/dl Hct (42.0-52.0) % MCV (80.0-100.0) fL MCH (25.0-34.0) pg MCHC (32.0-36.0) g/dL RDW Std Deviation (36.4-46.3) fL RDW Coeff of Parth (11.5-14.5) % Plt Count (130-400) K/uL MPV (9.4-12.4) fL PT 12.4 H (9.0-12.0) Seconds INR 1.1 (0.9-1.1) APTT 32.7 H (21.0-31.0) Seconds PTT Ratio 1.2 Sodium (136-145) mmol/L Potassium (3.5-5.1) mmol/L Chloride (98-107) mmol/L Carbon Dioxide (21-32) mmol/L Anion Gap (3-11) BUN (6-23) mg/dl Creatinine (0.6-1.4) mg/dl Est Cr Clr Drug Dosing ml/min Est GFR ( Amer) ml/min Est GFR (Non-Af Amer) ml/min BUN/Creatinine Ratio (10-20) Glucose (70-99(Fasting)) mg/dl POC Glucose 212 H 142 H (70-99) mg/dl Calcium (8.6-10.3) mg/dl 10/04/22 Range/Units 12:10 WBC (4.8-10.8) K/ul RBC (4.70-6.10) M/uL Hgb (14.0-18.0) g/dl Hct (42.0-52.0) % MCV (80.0-100.0) fL MCH (25.0-34.0) pg MCHC (32.0-36.0) g/dL RDW Std Deviation (36.4-46.3) fL RDW Coeff of Parth (11.5-14.5) % Plt Count (130-400) K/uL MPV (9.4-12.4) fL PT (9.0-12.0) Seconds INR (0.9-1.1) APTT (21.0-31.0) Seconds PTT Ratio Sodium (136-145) mmol/L Potassium (3.5-5.1) mmol/L Chloride (98-107) mmol/L Carbon Dioxide (21-32) mmol/L Anion Gap (3-11) BUN (6-23) mg/dl Creatinine (0.6-1.4) mg/dl Est Cr Clr Drug Dosing ml/min Est GFR ( Amer) ml/min Est GFR (Non-Af Amer) ml/min BUN/Creatinine Ratio (10-20) Glucose (70-99(Fasting)) mg/dl POC Glucose 151 H (70-99) mg/dl Calcium (8.6-10.3) mg/dl Medications Administered Current Inpatient Medications Acetaminophen (Acetaminophen 325 Mg Tab) 650 mg PO Q4H PRN PRN Reason: pain/fever Stop: 10/29/22 02:16 Amitriptyline HCl (Amitriptyline Hcl 25 Mg Tab) 25 mg PO HS NEL Stop: 10/29/22 20:59 Last Admin: 10/04/22 21:05 Dose: 25 mg Amlodipine Besylate (Amlodipine Besylate 5 Mg Tab) 5 mg PO DAILY NEL Stop: 10/29/22 08:59 Last Admin: 10/05/22 08:56 Dose: 5 mg Aspirin (Aspirin 81 Mg Ectab) 81 mg PO DAILY NEL Stop: 10/29/22 08:59 Last Admin: 09/29/22 08:56 Dose: 81 mg Atorvastatin Calcium (Atorvastatin 40 Mg Tab) 80 mg PO DAILY NEL Stop: 10/29/22 08:59 Last Admin: 10/05/22 08:56 Dose: 80 mg Carbamazepine (Carbamazepine 200 Mg Tablet) 400 mg PO TID NEL Stop: 10/29/22 08:59 Last Admin: 10/05/22 08:55 Dose: 400 mg Dextrose (Dextrose 50% 50 Ml Syringe) 25 - 50 ml IV UD PRN; Protocol PRN Reason: Hypoglycemia Protocol Stop: 10/29/22 02:16 Duloxetine HCl (Duloxetine Hcl 60 Mg Cap) 60 mg PO DAILY NEL Stop: 10/29/22 08:59 Last Admin: 10/05/22 08:56 Dose: 60 mg Enoxaparin Sodium (Enoxaparin Inj 120 Mg/0.8 Ml Syr) 111 mg SC Q12H [facility] Stop: 11/01/22 08:14 Last Admin: 10/05/22 08:56 Dose: 111 mg Furosemide (Furosemide 40 Mg Tab) 40 mg PO DAILY NEL Stop: 10/29/22 08:59 Last Admin: 10/05/22 08:56 Dose: 40 mg Glucagon (Glucagon For Inj 1 Mg Vial) 1 mg SQ UD PRN; Protocol PRN Reason: Hypoglycemia Protocol Stop: 10/29/22 02:16 Glucose (Glucose 10 Tab/Tube) 4 - 8 tab PO UD PRN; Protocol PRN Reason: Hypoglycemia Treatment Stop: 10/29/22 02:16 Glucose (Glucose 40% Gel 15 Gm Tube) 15 - 30 gm PO UD PRN; Protocol PRN Reason: Hypoglycemia Protocol Stop: 10/29/22 02:16 Insulin Aspart (Insulin Aspart Per Unit Charge) 0 units SC ACHS [facility] Stop: 10/29/22 07:29 Last Admin: 10/05/22 08:09 Dose: Not Given Insulin Glargine (Lantus Per Unit Charge) 28 units SQ HS [facility] Stop: 10/29/22 20:59 Last Admin: 10/04/22 21:03 Dose: 28 units Lisinopril (Lisinopril 40 Mg Tab) 40 mg PO DAILY [facility] Stop: 10/29/22 08:59 Last Admin: 10/05/22 08:56 Dose: 40 mg Metoprolol Succinate (Metoprolol Succ 50mg Ext Rel Tab) 50 mg PO BID NEL Stop: 10/29/22 08:59 Last Admin: 10/05/22 08:56 Dose: 50 mg Miscellaneous (Carbohydrates For Hypoglycemia ) 15 - 30 gm PO UD PRN PRN Reason: Hypoglycemia Protocol Stop: 10/29/22 02:16 Morphine Sulfate (Morphine Sulfate Cr 15 Mg Tabcr) 30 mg PO Q12H NEL Stop: 10/29/22 08:59 Last Admin: 10/05/22 08:55 Dose: 30 mg Morphine Sulfate (Morphine Sulfate Ir 15 Mg Tab (Immediate Release)) 15 mg PO Q6H PRN PRN Reason: Pain Stop: 10/13/22 02:16 Last Admin: 10/04/22 14:00 Dose: 15 mg Polyethylene Glycol (Polyethylene (Miralax) 17 Gm Pack) 17 gm PO DAILY PRN PRN Reason: Constipation Stop: 10/29/22 02:16 Warfarin Sodium (Warfarin Sod 10 Mg Tab) 10 mg PO DAILY@1600 NEL Stop: 11/03/22 15:59 Last Admin: 10/04/22 17:28 Dose: 10 mg
[2022-10-05] MEDS: MoRPHine SULFATE IR 15 MG TAB (IMMEDIATE RELEASE) PO PRN (14:02)
[2022-10-05] MEDS: WARFARIN SOD 10 MG TAB PO SCH (15:50)
[2022-10-05] MEDS: AMITRIPTYLINE HCL 25 MG TAB PO SCH (20:32)
[2022-10-05] MEDS: LANTUS PER UNIT CHARGE SQ SCH (20:34)
[2022-10-06 06:19] LABS: Hematocrit (blood only) 39.6 % (42.0-52.0)
[2022-10-06 06:34] LABS: INR 1.3 (0.9-1.1); Partial Thromboplastin Ratio 1.2; Partial Thromboplastin Time 34.8 Seconds (21.0-31.0); Prothrombin Time 14.1 Seconds (9.0-12.0)
[2022-10-06] MEDS: INSULIN ASPART PER UNIT CHARGE SC SCH ×4 (08:24→20:19)
[2022-10-06] MEDS: METOPROLOL SUCC 50MG EXT REL TAB PO SCH ×2 (08:27→20:07)
[2022-10-06] MEDS: FUROSEMIDE 40 MG TAB PO SCH (08:29)
[2022-10-06] MEDS: carBAMazepine 200 MG TABLET PO SCH ×3 (08:30→20:07)
[2022-10-06] MEDS: ATORVASTATIN 40 MG TAB PO SCH (08:32)
[2022-10-06] MEDS: lisinopril 40 MG TAB PO SCH (08:33)
[2022-10-06] MEDS: amLODIPine BESYLATE 5 MG TAB PO SCH (08:34)
[2022-10-06] MEDS: DULoxetine HCL 60 MG CAP PO SCH (08:35)
[2022-10-06] MEDS: MoRPHine SULFATE CR 15 MG TABCR PO SCH ×2 (08:42→20:18)
[2022-10-06] MEDS: ENOXAPARIN INJ 120 MG/0.8 ML SYR SC SCH ×2 (08:44→20:08)
--- NOTE | 2022-10-06 09:21 | Hospitalist Progress Note ---
Date of Service October 06, 2022 Assessment & Plan (1) Deep vein thrombosis of bilateral lower extremities: Plan: This is a 61-year-old male who presents with bilateral lower extremity deep venous thrombosis. 1. Acute bilateral lower extremity deep venous thrombosis. History of blood clotting disorder, avascular necrosis, status post IVC filter placement in 2006 prior to hip surgery Was on Coumadin until 2009, discontinued by PCP Given IV heparin initially and transitioned to Lovenox 1 mg/kg twice daily, along with Coumadin-starting dose [address] Flores Continue with therapeutic dosing of Lovenox for at least 5 days and discontinue when INR is greater than 2 for at least 2 measurements about 24 hours apart INR 1.3 today, increase coumadin to 12mg, monitor INR Outpatient hypercoagulable work-up Leg edema gradually improving 2. History of diabetes. A1c 8.9 %. Continue home long-acting insulin plus sliding scale. 3. History of obstructive sleep apnea. On BiPAP. 4. History of chronic kidney disease stage III. Current creatinine of 1.1. 5. Hyperlipidemia. Continue statin Fenofibrate discontinued due to possible potentiation of warfarin 6. Hypertension. On lisinopril and metoprolol succinate, amlodipine. BP well controlled 7. Chronic pain. Continue his home pain medications. 8. History of cerebrovascular accident. Aspirin and statin. Monitor for bleeding as patient now on Coumadin as well 9. History of chronic pain and neuropathy pain. Continue his home pain medications. DV prophylaxis. Therapeutic Lovenox and Coumadin DISPOSITION: Anticipate return to [facility] Admission and Anticipated Discharge Date Admission Date: September 29, 2022 Subjective Follow-up for acute bilateral common femoral vein DVT, etc. Resting in bed, comfortable, not in distress States he feels well overall Minimal leg discomfort, intermittent, he is able to ambulate No shortness of breath, chest pain, dizziness No bleeding No other symptoms Review of Systems Review of Systems: All systems reviewed & are unremarkable except as noted in Subjective Physical Exam Physical Exam: General- oriented x 3, not in distress, speaks in sentences with no effort or accessory muscle use Eyes- anicteric Neck- no JVD Lungs- clear breath sounds bilaterally, no rales/wheezes Heart- normal rate, regular rhythm; no murmurs Abdomen- normal bowel sounds, nondistended, soft, nontender Extremities- 1-2 lower extremity edema, no warmth/tenderness Positive venous stasis changes distal lower extremity Neuro- alert, oriented x 3; speech fluent, no facial asymmetry, moves extremities Skin- warm & dry Results & Data Results & Data Vital Signs (Past 12 Hours) Vital Signs Temp Pulse Resp BP Pulse Ox O2 Del Method 10/06/22 07:53 36.5 C 63 15 108/65 95 Room Air Laboratory Results 10/06/22 10/06/22 10/06/22 Range/Units 07:51 05:40 05:40 Hgb 13.0 L (14.0-18.0) g/dl Hct 39.6 L (42.0-52.0) % PT 14.1 H (9.0-12.0) Seconds INR 1.3 H (0.9-1.1) APTT 34.8 H (21.0-31.0) Seconds PTT Ratio 1.2 POC Glucose 149 H (70-99) mg/dl 10/05/22 10/05/22 10/05/22 Range/Units 20:24 16:58 11:49 Hgb (14.0-18.0) g/dl Hct (42.0-52.0) % PT (9.0-12.0) Seconds INR (0.9-1.1) APTT (21.0-31.0) Seconds PTT Ratio POC Glucose 184 H 164 H 162 H (70-99) mg/dl Medications Administered Current Inpatient Medications Acetaminophen (Acetaminophen 325 Mg Tab) 650 mg PO Q4H PRN PRN Reason: pain/fever Stop: 10/29/22 02:16 Amitriptyline HCl (Amitriptyline Hcl 25 Mg Tab) 25 mg PO HS NEL Stop: 10/29/22 20:59 Last Admin: 10/05/22 20:32 Dose: 25 mg Amlodipine Besylate (Amlodipine Besylate 5 Mg Tab) 5 mg PO DAILY NEL Stop: 10/29/22 08:59 Last Admin: 10/06/22 08:34 Dose: 5 mg Aspirin (Aspirin 81 Mg Ectab) 81 mg PO DAILY NEL Stop: 10/29/22 08:59 Last Admin: 09/29/22 08:56 Dose: 81 mg Atorvastatin Calcium (Atorvastatin 40 Mg Tab) 80 mg PO DAILY NEL Stop: 10/29/22 08:59 Last Admin: 10/06/22 08:32 Dose: 80 mg Carbamazepine (Carbamazepine 200 Mg Tablet) 400 mg PO TID NEL Stop: 10/29/22 08:59 Last Admin: 10/06/22 08:30 Dose: 400 mg Dextrose (Dextrose 50% 50 Ml Syringe) 25 - 50 ml IV UD PRN; Protocol PRN Reason: Hypoglycemia Protocol Stop: 10/29/22 02:16 Duloxetine HCl (Duloxetine Hcl 60 Mg Cap) 60 mg PO DAILY NEL Stop: 10/29/22 08:59 Last Admin: 10/06/22 08:35 Dose: 60 mg Enoxaparin Sodium (Enoxaparin Inj 120 Mg/0.8 Ml Syr) 111 mg SC Q12H NEL Stop: 11/01/22 08:14 Last Admin: 10/06/22 08:44 Dose: 111 mg Furosemide (Furosemide 40 Mg Tab) 40 mg PO DAILY NEL Stop: 10/29/22 08:59 Last Admin: 10/06/22 08:29 Dose: 40 mg Glucagon (Glucagon For Inj 1 Mg Vial) 1 mg SQ UD PRN; Protocol PRN Reason: Hypoglycemia Protocol Stop: 10/29/22 02:16 Glucose (Glucose 10 Tab/Tube) 4 - 8 tab PO UD PRN; Protocol PRN Reason: Hypoglycemia Treatment Stop: 10/29/22 02:16 Glucose (Glucose 40% Gel 15 Gm Tube) 15 - 30 gm PO UD PRN; Protocol PRN Reason: Hypoglycemia Protocol Stop: 10/29/22 02:16 Insulin Aspart (Insulin Aspart Per Unit Charge) 0 units SC ACHS NEL Stop: 10/29/22 07:29 Last Admin: 10/06/22 08:24 Dose: Not Given Insulin Glargine (Lantus Per Unit Charge) 28 units SQ HS NEL Stop: 10/29/22 20:59 Last Admin: 10/05/22 20:34 Dose: 28 units Lisinopril (Lisinopril 40 Mg Tab) 40 mg PO DAILY [facility] Stop: 10/29/22 08:59 Last Admin: 10/06/22 08:33 Dose: 40 mg Metoprolol Succinate (Metoprolol Succ 50mg Ext Rel Tab) 50 mg PO BID NEL Stop: 10/29/22 08:59 Last Admin: 10/06/22 08:27 Dose: 50 mg Miscellaneous (Carbohydrates For Hypoglycemia ) 15 - 30 gm PO UD PRN PRN Reason: Hypoglycemia Protocol Stop: 10/29/22 02:16 Morphine Sulfate (Morphine Sulfate Cr 15 Mg Tabcr) 30 mg PO Q12H NEL Stop: 10/29/22 08:59 Last Admin: 10/06/22 08:42 Dose: 30 mg Morphine Sulfate (Morphine Sulfate Ir 15 Mg Tab (Immediate Release)) 15 mg PO Q6H PRN PRN Reason: Pain Stop: 10/13/22 02:16 Last Admin: 10/05/22 14:02 Dose: 15 mg Polyethylene Glycol (Polyethylene (Miralax) 17 Gm Pack) 17 gm PO DAILY PRN PRN Reason: Constipation Stop: 10/29/22 02:16 Warfarin Sodium (Warfarin Sod 10 Mg Tab) 10 mg PO DAILY@1600 [facility] Stop: 11/03/22 15:59 Last Admin: 10/05/22 15:50 Dose: 10 mg
[2022-10-06] MEDS: MoRPHine SULFATE IR 15 MG TAB (IMMEDIATE RELEASE) PO PRN (13:45)
[2022-10-06] MEDS: WARFARIN SOD 6 MG TAB PO SCH (16:36)
[2022-10-06] MEDS: AMITRIPTYLINE HCL 25 MG TAB PO SCH (20:07)
[2022-10-06] MEDS: LANTUS PER UNIT CHARGE SQ SCH (20:19)
[2022-10-07 06:30] LABS: Hematocrit (blood only) 40.1 % (42.0-52.0); Hemoglobin 13.3 g/dl (14.0-18.0)
[2022-10-07 06:52] LABS: INR 1.5 (0.9-1.1); Partial Thromboplastin Ratio 1.3; Partial Thromboplastin Time 37.3 Seconds (21.0-31.0); Prothrombin Time 15.7 Seconds (9.0-12.0)
--- NOTE | 2022-10-07 08:01 | Hospitalist Progress Note ---
Date of Service October 07, 2022 Assessment & Plan (1) Deep vein thrombosis of bilateral lower extremities: Plan: This is a 61-year-old male who presents with bilateral lower extremity deep venous thrombosis. 1. Acute bilateral lower extremity deep venous thrombosis. History of blood clotting disorder, avascular necrosis, status post IVC filter placement in 2006 prior to hip surgery Was on Coumadin until 2009, discontinued by PCP Given IV heparin initially and transitioned to Lovenox 1 mg/kg twice daily, along with Coumadin-starting dose [address] Flores Continue with therapeutic dosing of Lovenox for at least 5 days and discontinue when INR is greater than 2 for at least 2 measurements about 24 hours apart INR 1.5 today, cont. coumadin to 12mg, monitor INR Outpatient hypercoagulable work-up Leg edema gradually improving 2. History of diabetes. A1c 8.9 %. Continue home long-acting insulin plus sliding scale. 3. History of obstructive sleep apnea. On BiPAP. 4. History of chronic kidney disease stage III. Current creatinine of 1.1. 5. Hyperlipidemia. Continue statin Fenofibrate discontinued due to possible potentiation of warfarin 6. Hypertension. On lisinopril and metoprolol succinate, amlodipine. BP well controlled 7. Chronic pain. Continue his home pain medications. 8. History of cerebrovascular accident. Aspirin and statin. Monitor for bleeding as patient now on Coumadin as well 9. History of chronic pain and neuropathy pain. Continue his home pain medications. DV prophylaxis. Therapeutic Lovenox and Coumadin DISPOSITION: Anticipate return to [facility] Admission and Anticipated Discharge Date Admission Date: September 29, 2022 Subjective Follow-up for acute bilateral common femoral vein DVT, etc. Resting in bed, comfortable, not in distress States he feels well overall Minimal leg discomfort, intermittent, he is able to ambulate No shortness of breath, chest pain, dizziness No bleeding No other symptoms Review of Systems Review of Systems: All systems reviewed & are unremarkable except as noted in Subjective Physical Exam Physical Exam: General- oriented x 3, not in distress, speaks in sentences with no effort or accessory muscle use Eyes- anicteric Neck- no JVD Lungs- clear breath sounds bilaterally, no rales/wheezes Heart- normal rate, regular rhythm; no murmurs Abdomen- normal bowel sounds, nondistended, soft, nontender Extremities- 1-2 lower extremity edema, no warmth/tenderness Positive venous stasis changes distal lower extremity Neuro- alert, oriented x 3; speech fluent, no facial asymmetry, moves extremities Skin- warm & dry Results & Data Results & Data Vital Signs (Past 12 Hours) Vital Signs Temp Pulse Pulse Resp BP BP Pulse Ox 10/07/22 07:15 10/07/22 07:32 36.9 C 60 15 107/60 94 10/06/22 20:44 10/06/22 20:04 36.7 C 64 18 139/65 97 O2 Del Method 10/07/22 07:15 Room Air 10/07/22 07:32 Room Air 10/06/22 20:44 Room Air 10/06/22 20:04 Room Air Laboratory Results 10/07/22 10/07/22 10/06/22 Range/Units 05:31 05:31 20:02 Hgb 13.3 L (14.0-18.0) g/dl Hct 40.1 L (42.0-52.0) % PT 15.7 H (9.0-12.0) Seconds INR 1.5 H (0.9-1.1) APTT 37.3 H (21.0-31.0) Seconds PTT Ratio 1.3 POC Glucose 175 H (70-99) mg/dl 10/06/22 10/06/22 Range/Units 16:56 12:06 Hgb (14.0-18.0) g/dl Hct (42.0-52.0) % PT (9.0-12.0) Seconds INR (0.9-1.1) APTT (21.0-31.0) Seconds PTT Ratio POC Glucose 156 H 173 H (70-99) mg/dl Medications Administered Current Inpatient Medications Acetaminophen (Acetaminophen 325 Mg Tab) 650 mg PO Q4H PRN PRN Reason: pain/fever Stop: 10/29/22 02:16 Amitriptyline HCl (Amitriptyline Hcl 25 Mg Tab) 25 mg PO HS NEL Stop: 10/29/22 20:59 Last Admin: 10/06/22 20:07 Dose: 25 mg Amlodipine Besylate (Amlodipine Besylate 5 Mg Tab) 5 mg PO DAILY NEL Stop: 10/29/22 08:59 Last Admin: 10/06/22 08:34 Dose: 5 mg Aspirin (Aspirin 81 Mg Ectab) 81 mg PO DAILY NEL Stop: 10/29/22 08:59 Last Admin: 09/29/22 08:56 Dose: 81 mg Atorvastatin Calcium (Atorvastatin 40 Mg Tab) 80 mg PO DAILY NEL Stop: 10/29/22 08:59 Last Admin: 10/06/22 08:32 Dose: 80 mg Carbamazepine (Carbamazepine 200 Mg Tablet) 400 mg PO TID NEL Stop: 10/29/22 08:59 Last Admin: 10/06/22 20:07 Dose: 400 mg Dextrose (Dextrose 50% 50 Ml Syringe) 25 - 50 ml IV UD PRN; Protocol PRN Reason: Hypoglycemia Protocol Stop: 10/29/22 02:16 Duloxetine HCl (Duloxetine Hcl 60 Mg Cap) 60 mg PO DAILY [facility] Stop: 10/29/22 08:59 Last Admin: 10/06/22 08:35 Dose: 60 mg Enoxaparin Sodium (Enoxaparin Inj 120 Mg/0.8 Ml Syr) 111 mg SC Q12H NEL Stop: 11/01/22 08:14 Last Admin: 10/06/22 20:08 Dose: 111 mg Furosemide (Furosemide 40 Mg Tab) 40 mg PO DAILY NEL Stop: 10/29/22 08:59 Last Admin: 10/06/22 08:29 Dose: 40 mg Glucagon (Glucagon For Inj 1 Mg Vial) 1 mg SQ UD PRN; Protocol PRN Reason: Hypoglycemia Protocol Stop: 10/29/22 02:16 Glucose (Glucose 10 Tab/Tube) 4 - 8 tab PO UD PRN; Protocol PRN Reason: Hypoglycemia Treatment Stop: 10/29/22 02:16 Glucose (Glucose 40% Gel 15 Gm Tube) 15 - 30 gm PO UD PRN; Protocol PRN Reason: Hypoglycemia Protocol Stop: 10/29/22 02:16 Insulin Aspart (Insulin Aspart Per Unit Charge) 0 units SC ACHS [facility] Stop: 10/29/22 07:29 Last Admin: 10/06/22 20:19 Dose: 3 units Insulin Glargine (Lantus Per Unit Charge) 28 units SQ HS [facility] Stop: 10/29/22 20:59 Last Admin: 10/06/22 20:19 Dose: 28 units Lisinopril (Lisinopril 40 Mg Tab) 40 mg PO DAILY [facility] Stop: 10/29/22 08:59 Last Admin: 10/06/22 08:33 Dose: 40 mg Metoprolol Succinate (Metoprolol Succ 50mg Ext Rel Tab) 50 mg PO BID [facility] Stop: 10/29/22 08:59 Last Admin: 10/06/22 20:07 Dose: 50 mg Miscellaneous (Carbohydrates For Hypoglycemia ) 15 - 30 gm PO UD PRN PRN Reason: Hypoglycemia Protocol Stop: 10/29/22 02:16 Morphine Sulfate (Morphine Sulfate Cr 15 Mg Tabcr) 30 mg PO Q12H [facility] Stop: 10/29/22 08:59 Last Admin: 10/06/22 20:18 Dose: 30 mg Morphine Sulfate (Morphine Sulfate Ir 15 Mg Tab (Immediate Release)) 15 mg PO Q6H PRN PRN Reason: Pain Stop: 10/13/22 02:16 Last Admin: 10/06/22 13:45 Dose: 15 mg Polyethylene Glycol (Polyethylene (Miralax) 17 Gm Pack) 17 gm PO DAILY PRN PRN Reason: Constipation Stop: 10/29/22 02:16 Warfarin Sodium (Warfarin Sod 6 Mg Tab) 12 mg PO DAILY@1600 [facility] Stop: 11/05/22 15:59 Last Admin: 10/06/22 16:36 Dose: 12 mg
[2022-10-07] MEDS: lisinopril 40 MG TAB PO SCH (09:25)
[2022-10-07] MEDS: MoRPHine SULFATE CR 15 MG TABCR PO SCH ×2 (09:26→21:29)
[2022-10-07] MEDS: DULoxetine HCL 60 MG CAP PO SCH (09:27)
[2022-10-07] MEDS: ATORVASTATIN 40 MG TAB PO SCH (09:28)
[2022-10-07] MEDS: FUROSEMIDE 40 MG TAB PO SCH (09:29)
[2022-10-07] MEDS: amLODIPine BESYLATE 5 MG TAB PO SCH (09:30)
[2022-10-07] MEDS: carBAMazepine 200 MG TABLET PO SCH ×3 (09:31→21:26)
[2022-10-07] MEDS: METOPROLOL SUCC 50MG EXT REL TAB PO SCH ×2 (09:32→21:26)
[2022-10-07] MEDS: ENOXAPARIN INJ 120 MG/0.8 ML SYR SC SCH ×2 (09:32→21:25)
[2022-10-07] MEDS: INSULIN ASPART PER UNIT CHARGE SC SCH ×4 (09:34→21:29)
[2022-10-07] MEDS: MoRPHine SULFATE IR 15 MG TAB (IMMEDIATE RELEASE) PO PRN (13:58)
[2022-10-07] MEDS: WARFARIN SOD 6 MG TAB PO SCH (17:16)
[2022-10-07] MEDS ORDERED: MoRPHine SULFATE IR 15 MG TAB (IMMEDIATE RELEASE) PO PRN (17:35)
[2022-10-07] MEDS: AMITRIPTYLINE HCL 25 MG TAB PO SCH (21:26)
[2022-10-07] MEDS: LANTUS PER UNIT CHARGE SQ SCH (21:29)
[2022-10-08 05:54] LABS: Hematocrit (blood only) 37.8 % (42.0-52.0); Hemoglobin 12.8 g/dl (14.0-18.0)
[2022-10-08 06:37] LABS: INR 1.7 (0.9-1.1); Partial Thromboplastin Ratio 1.6; Prothrombin Time 18.4 Seconds (9.0-12.0)
[2022-10-08 06:40] LABS: Partial Thromboplastin Time 44.4 Seconds (21.0-31.0)
--- NOTE | 2022-10-08 08:29 | Hospitalist Progress Note ---
Date of Service October 08, 2022 Assessment & Plan (1) Deep vein thrombosis of bilateral lower extremities: Plan: This is a 61-year-old male who presents with bilateral lower extremity deep venous thrombosis. 1. Acute bilateral lower extremity deep venous thrombosis. History of blood clotting disorder, avascular necrosis, status post IVC filter placement in 2006 prior to hip surgery Was on Coumadin until 2009, discontinued by PCP Given IV heparin initially and transitioned to Lovenox 1 mg/kg twice daily, along with Coumadin-starting dose [address] Flores Continue with therapeutic dosing of Lovenox for at least 5 days and discontinue when INR is greater than 2 for at least 2 measurements about 24 hours apart INR 1.7 today and pt developed hematuria, Hgb stable, cont. coumadin at 12mg, monitor INR 10/08 Discussed w/ Dr. Flores today - will obtain UA to r/o UTI, if no UTI, pt may need urology eval. will switch from lovenox to IV heparin Outpatient hypercoagulable work-up Leg edema gradually improving 2. History of diabetes. A1c 8.9 %. Continue home long-acting insulin plus sliding scale. 3. History of obstructive sleep apnea. On BiPAP. 4. History of chronic kidney disease stage III. Current creatinine of 1.1. 5. Hyperlipidemia. Continue statin Fenofibrate discontinued due to possible potentiation of warfarin 6. Hypertension. On lisinopril and metoprolol succinate, amlodipine. BP well controlled 7. Chronic pain. Continue his home pain medications. 8. History of cerebrovascular accident. Aspirin and statin. Monitor for bleeding as patient now on Coumadin as well 9. History of chronic pain and neuropathy pain. Continue his home pain medications. DVT prophylaxis. Therapeutic Lovenox -> heparin, and Coumadin DISPOSITION: Anticipate return to [facility] Admission and Anticipated Discharge Date Admission Date: September 29, 2022 Subjective Follow-up for acute bilateral common femoral vein DVT, etc. Resting in bed, comfortable, not in distress This AM developed hematuria, Hgb stable, INR subtherapeutic at 1.7 States he feels well overall Minimal leg discomfort, intermittent, he is able to ambulate No shortness of breath, chest pain, dizziness No other symptoms Discussed w/ Dr. Flores, will obtain UA to r/o UTI, will place on iv heparin Review of Systems Review of Systems: All systems reviewed & are unremarkable except as noted in Subjective Physical Exam Physical Exam: General- oriented x 3, not in distress, speaks in sentences with no effort or accessory muscle use Eyes- anicteric Neck- no JVD Lungs- clear breath sounds bilaterally, no rales/wheezes Heart- normal rate, regular rhythm; no murmurs Abdomen- normal bowel sounds, nondistended, soft, nontender Extremities- 1-2 lower extremity edema, no warmth/tenderness Positive venous stasis changes distal lower extremity Neuro- alert, oriented x 3; speech fluent, no facial asymmetry, moves extremities Skin- warm & dry Results & Data Results & Data Vital Signs (Past 12 Hours) Vital Signs Temp Pulse Resp BP Pulse Ox O2 Del Method 10/08/22 07:26 36.6 C 58 L 20 129/80 96 Room Air 10/07/22 21:23 69 135/79 Laboratory Results 10/08/22 10/08/22 10/08/22 Range/Units 08:00 05:33 05:33 Hgb 12.8 L (14.0-18.0) g/dl Hct 37.8 L (42.0-52.0) % PT 18.4 H (9.0-12.0) Seconds INR 1.7 H (0.9-1.1) APTT 44.4 H* (21.0-31.0) Seconds PTT Ratio 1.6 POC Glucose 122 H (70-99) mg/dl 10/07/22 10/07/22 10/07/22 Range/Units 20:20 17:02 12:08 Hgb (14.0-18.0) g/dl Hct (42.0-52.0) % PT (9.0-12.0) Seconds INR (0.9-1.1) APTT (21.0-31.0) Seconds PTT Ratio POC Glucose 182 H 136 H 175 H (70-99) mg/dl Medications Administered Current Inpatient Medications Acetaminophen (Acetaminophen 325 Mg Tab) 650 mg PO Q4H PRN PRN Reason: pain/fever Stop: 10/29/22 02:16 Amitriptyline HCl (Amitriptyline Hcl 25 Mg Tab) 25 mg PO HS NEL Stop: 10/29/22 20:59 Last Admin: 10/07/22 21:26 Dose: 25 mg Amlodipine Besylate (Amlodipine Besylate 5 Mg Tab) 5 mg PO DAILY NEL Stop: 10/29/22 08:59 Last Admin: 10/07/22 09:30 Dose: 5 mg Aspirin (Aspirin 81 Mg Ectab) 81 mg PO DAILY NEL Stop: 10/29/22 08:59 Last Admin: 09/29/22 08:56 Dose: 81 mg Atorvastatin Calcium (Atorvastatin 40 Mg Tab) 80 mg PO DAILY NEL Stop: 10/29/22 08:59 Last Admin: 10/07/22 09:28 Dose: 80 mg Carbamazepine (Carbamazepine 200 Mg Tablet) 400 mg PO TID NEL Stop: 10/29/22 08:59 Last Admin: 10/07/22 21:26 Dose: 400 mg Dextrose (Dextrose 50% 50 Ml Syringe) 25 - 50 ml IV UD PRN; Protocol PRN Reason: Hypoglycemia Protocol Stop: 10/29/22 02:16 Duloxetine HCl (Duloxetine Hcl 60 Mg Cap) 60 mg PO DAILY NEL Stop: 10/29/22 08:59 Last Admin: 10/07/22 09:27 Dose: 60 mg Enoxaparin Sodium (Enoxaparin Inj 120 Mg/0.8 Ml Syr) 111 mg SC Q12H NEL Stop: 11/01/22 08:14 Last Admin: 10/07/22 21:25 Dose: 111 mg Furosemide (Furosemide 40 Mg Tab) 40 mg PO DAILY NEL Stop: 10/29/22 08:59 Last Admin: 10/07/22 09:29 Dose: 40 mg Glucagon (Glucagon For Inj 1 Mg Vial) 1 mg SQ UD PRN; Protocol PRN Reason: Hypoglycemia Protocol Stop: 10/29/22 02:16 Glucose (Glucose 10 Tab/Tube) 4 - 8 tab PO UD PRN; Protocol PRN Reason: Hypoglycemia Treatment Stop: 10/29/22 02:16 Glucose (Glucose 40% Gel 15 Gm Tube) 15 - 30 gm PO UD PRN; Protocol PRN Reason: Hypoglycemia Protocol Stop: 10/29/22 02:16 Insulin Aspart (Insulin Aspart Per Unit Charge) 0 units SC ACHS NEL Stop: 10/29/22 07:29 Last Admin: 10/07/22 21:29 Dose: 4 units Insulin Glargine (Lantus Per Unit Charge) 28 units SQ HS [facility] Stop: 10/29/22 20:59 Last Admin: 10/07/22 21:29 Dose: 28 units Lisinopril (Lisinopril 40 Mg Tab) 40 mg PO DAILY [facility] Stop: 10/29/22 08:59 Last Admin: 10/07/22 09:25 Dose: 40 mg Metoprolol Succinate (Metoprolol Succ 50mg Ext Rel Tab) 50 mg PO BID [facility] Stop: 10/29/22 08:59 Last Admin: 10/07/22 21:26 Dose: 50 mg Miscellaneous (Carbohydrates For Hypoglycemia ) 15 - 30 gm PO UD PRN PRN Reason: Hypoglycemia Protocol Stop: 10/29/22 02:16 Morphine Sulfate (Morphine Sulfate Cr 15 Mg Tabcr) 30 mg PO Q12H [facility] Stop: 10/29/22 08:59 Last Admin: 10/07/22 21:29 Dose: 30 mg Morphine Sulfate (Morphine Sulfate Ir 15 Mg Tab (Immediate Release)) 10 mg PO Q6H PRN PRN Reason: Pain Stop: 10/13/22 02:16 Polyethylene Glycol (Polyethylene (Miralax) 17 Gm Pack) 17 gm PO DAILY PRN PRN Reason: Constipation Stop: 10/29/22 02:16 Warfarin Sodium (Warfarin Sod 6 Mg Tab) 12 mg PO DAILY@1600 [facility] Stop: 11/05/22 15:59 Last Admin: 10/07/22 17:16 Dose: 12 mg
[2022-10-08] MEDS: INSULIN ASPART PER UNIT CHARGE SC SCH ×4 (08:38→21:02)
[2022-10-08] MEDS: carBAMazepine 200 MG TABLET PO SCH ×3 (08:42→20:57)
[2022-10-08] MEDS: METOPROLOL SUCC 50MG EXT REL TAB PO SCH ×2 (08:42→20:56)
[2022-10-08] MEDS: amLODIPine BESYLATE 5 MG TAB PO SCH (08:42)
[2022-10-08] MEDS: ATORVASTATIN 40 MG TAB PO SCH (08:43)
[2022-10-08] MEDS: DULoxetine HCL 60 MG CAP PO SCH (08:43)
[2022-10-08] MEDS: FUROSEMIDE 40 MG TAB PO SCH (08:44)
[2022-10-08] MEDS: lisinopril 40 MG TAB PO SCH (08:44)
[2022-10-08] MEDS: MoRPHine SULFATE CR 15 MG TABCR PO SCH ×2 (08:47→20:57)
[2022-10-08] MEDS: ENOXAPARIN INJ 120 MG/0.8 ML SYR SC SCH (09:30)
[2022-10-08] MEDS ORDERED: Heparin IV Adult Wt-Based Low-Dose *NO* Bolus Protocol IV SCH (10:00)
[2022-10-08 10:16] LABS: Appearance Urine Clear (Clear); Bacteria Urine Automated Negative (Negative); Bilirubin Urine Negative (Negative); Blood Urine 3+ (Negative); Color Urine Dark Yellow; Glucose Urine UA Negative (Negative); Ketones Urine Negative (Negative); Leukocyte Esterase Urine Negative (Negative); Nitrite Urine Negative (Negative); Protein Urine Negative (Negative); RBC Urine Automated >30 /hpf (0-4); Specific Gravity Urine 1.019 (1.000-1.030); Urobilinogen Urine Negative (Negative); pH Urine 5.5 (4.5-7.5)
[2022-10-08] MEDS: HEPARIN SODIUM/DEXTROSE 25,000 UNITS/500 ML BAG IV SCH (12:05)
[2022-10-08] MEDS: MoRPHine SULFATE IR 15 MG TAB (IMMEDIATE RELEASE) PO PRN (14:09)
[2022-10-08] MEDS: WARFARIN SOD 6 MG TAB PO SCH (16:11)
[2022-10-08 19:17] LABS: Partial Thromboplastin Ratio 1.5
[2022-10-08 19:20] LABS: Partial Thromboplastin Time 41.3 Seconds (21.0-31.0)
[2022-10-08] MEDS: AMITRIPTYLINE HCL 25 MG TAB PO SCH (20:57)
[2022-10-08] MEDS: LANTUS PER UNIT CHARGE SQ SCH (21:01)
[2022-10-09 06:06] LABS: Hematocrit (blood only) 38.5 % (42.0-52.0); Hemoglobin 12.9 g/dl (14.0-18.0); Mean Corpuscular Hgb Conc 33.5 g/dL (32.0-36.0); Mean Corpuscular Volume 83.7 fL (80.0-100.0); Mean Platelet Volume 9.5 fL (9.4-12.4); Platelet Count 197 K/uL (130-400); RDW Coefficient of Variation 13.2 % (11.5-14.5); RDW Standard Deviation 39.8 fL (36.4-46.3)
[2022-10-09 06:27] LABS: BUN Creatinine Ratio 21.2 (10-20); Calcium 8.8 mg/dl (8.6-10.3); Creatinine Clr Calc Pharmacy 89.4 ml/min; Est GFR (Non-African American) 70.8 ml/min; Phosphorus 4.2 mg/dl (2.5-4.9); Potassium 4.2 mmol/L (3.5-5.1)
[2022-10-09 06:58] LABS: INR 1.8 (0.9-1.1); Partial Thromboplastin Ratio 1.3; Partial Thromboplastin Time 37.3 Seconds (21.0-31.0); Prothrombin Time 19.1 Seconds (9.0-12.0)
[2022-10-09] MEDS: DULoxetine HCL 60 MG CAP PO SCH (07:57)
[2022-10-09] MEDS: carBAMazepine 200 MG TABLET PO SCH ×3 (07:57→21:09)
[2022-10-09] MEDS: FUROSEMIDE 40 MG TAB PO SCH (07:57)
[2022-10-09] MEDS: ATORVASTATIN 40 MG TAB PO SCH (07:58)
[2022-10-09] MEDS: amLODIPine BESYLATE 5 MG TAB PO SCH (07:58)
[2022-10-09] MEDS: lisinopril 40 MG TAB PO SCH (07:58)
[2022-10-09] MEDS: METOPROLOL SUCC 50MG EXT REL TAB PO SCH ×2 (07:59→21:09)
[2022-10-09] MEDS: MoRPHine SULFATE CR 15 MG TABCR PO SCH ×2 (08:31→21:09)
[2022-10-09] MEDS: INSULIN ASPART PER UNIT CHARGE SC SCH ×4 (08:31→21:14)
--- NOTE | 2022-10-09 09:08 | Hospitalist Progress Note ---
Date of Service October 09, 2022 Assessment & Plan (1) Deep vein thrombosis of bilateral lower extremities: Plan: This is a 61-year-old male who presents with bilateral lower extremity deep venous thrombosis. 1. Acute bilateral lower extremity deep venous thrombosis. History of blood clotting disorder, avascular necrosis, status post IVC filter placement in 2006 prior to hip surgery Was on Coumadin until 2009, discontinued by PCP Given IV heparin initially and transitioned to Lovenox 1 mg/kg twice daily, along with Coumadin-starting dose [address] Flores Continue with therapeutic dosing of Lovenox for at least 5 days and discontinue when INR is greater than 2 for at least 2 measurements about 24 hours apart INR 1.7 today and pt developed hematuria, Hgb stable, cont. coumadin at 12mg, monitor INR 10/08 Discussed w/ Dr. Flores today - will obtain UA to r/o UTI, if no UTI, pt may need urology eval. will switch from lovenox to IV heparin UA negative and hematuria resolved 10/09 Hgb stable at 12.9, INR 1.8 -> cont. warfarin and IV heparin Outpatient hypercoagulable work-up Leg edema gradually improving 2. History of diabetes. A1c 8.9 %. Continue home long-acting insulin plus sliding scale. 3. History of obstructive sleep apnea. On BiPAP. 4. History of chronic kidney disease stage III. Current creatinine of 1.1. 5. Hyperlipidemia. Continue statin Fenofibrate discontinued due to possible potentiation of warfarin 6. Hypertension. On lisinopril and metoprolol succinate, amlodipine. BP well controlled 7. Chronic pain. Continue his home pain medications. 8. History of cerebrovascular accident. Aspirin and statin. Monitor for bleeding as patient now on Coumadin as well 9. History of chronic pain and neuropathy pain. Continue his home pain medications. DVT prophylaxis. heparin , and Coumadin DISPOSITION: Anticipate return to [facility] Admission and Anticipated Discharge Date Admission Date: September 29, 2022 Subjective Follow-up for acute bilateral common femoral vein DVT, etc. Resting in bed, comfortable, not in distress Yesterday AM developed hematuria, Hgb stable, INR subtherapeutic. Reports no hematuria overnight. States he feels well overall Minimal leg discomfort, intermittent, he is able to ambulate No shortness of breath, chest pain, dizziness No other symptoms Discussed w/ Dr. Flores yesterday, obtained UA- which was negative, placed on iv heparin. Pt prefers not to be on lovenox. Review of Systems Review of Systems: All systems reviewed & are unremarkable except as noted in Subjective Physical Exam Physical Exam: General- oriented x 3, not in distress, speaks in sentences with no effort or accessory muscle use Eyes- anicteric Neck- no JVD Lungs- clear breath sounds bilaterally, no rales/wheezes Heart- normal rate, regular rhythm; no murmurs Abdomen- normal bowel sounds, nondistended, soft, nontender Extremities- 1-2 lower extremity edema, no warmth/tenderness Positive venous stasis changes distal lower extremity Neuro- alert, oriented x 3; speech fluent, no facial asymmetry, moves extremities Skin- warm & dry Results & Data Results & Data Vital Signs (Past 12 Hours) Vital Signs Temp Pulse Resp BP Pulse Ox O2 Del Method 10/09/22 07:12 36.5 C 58 L 16 131/69 97 Room Air Laboratory Results 10/09/22 10/09/22 10/09/22 Range/Units 07:59 05:52 05:52 WBC 8.00 (4.8-10.8) K/ul RBC 4.60 L (4.70-6.10) M/uL Hgb 12.9 L (14.0-18.0) g/dl Hct 38.5 L (42.0-52.0) % MCV 83.7 (80.0-100.0) fL MCH 28.0 (25.0-34.0) pg MCHC 33.5 (32.0-36.0) g/dL RDW Std Deviation 39.8 (36.4-46.3) fL RDW Coeff of Parth 13.2 (11.5-14.5) % Plt Count 197 (130-400) K/uL MPV 9.5 (9.4-12.4) fL PT (9.0-12.0) Seconds INR (0.9-1.1) APTT (21.0-31.0) Seconds PTT Ratio Sodium 132 L (136-145) mmol/L Potassium 4.2 (3.5-5.1) mmol/L Chloride 100 (98-107) mmol/L Carbon Dioxide 27 (21-32) mmol/L Anion Gap 5 (3-11) BUN 24 H (6-23) mg/dl Creatinine 1.13 (0.6-1.4) mg/dl Est Cr Clr Drug Dosing 89.4 ml/min Est GFR ( Amer) 82.0 ml/min Est GFR (Non-Af Amer) 70.8 ml/min BUN/Creatinine Ratio 21.2 H (10-20) Glucose 141 H (70-99(Fasting)) mg/dl POC Glucose 131 H (70-99) mg/dl Calcium 8.8 (8.6-10.3) mg/dl Phosphorus 4.2 (2.5-4.9) mg/dl Magnesium 2.0 (1.7-2.4) mg/dl Urine Color Urine Appearance (Clear) Urine pH (4.5-7.5) Ur Specific [place] (1.000-1.030) Urine Protein (Negative) Urine Glucose (UA) (Negative) Urine Ketones (Negative) Urine Blood (Negative) Urine Nitrite (Negative) Urine Bilirubin (Negative) Urine Urobilinogen (Negative) Ur Leukocyte Esterase (Negative) Urine WBC (Auto) (0-5) /hpf Urine RBC (Auto) (0-4) /hpf U Hyaline Cast (Auto) (0-5) /lpf U Epithel Cells (Auto) (0-5) /lpf Urine Bacteria (Auto) (Negative) 10/09/22 10/08/22 10/08/22 Range/Units 05:52 20:52 18:12 WBC (4.8-10.8) K/ul RBC (4.70-6.10) M/uL Hgb (14.0-18.0) g/dl Hct (42.0-52.0) % MCV (80.0-100.0) fL MCH (25.0-34.0) pg MCHC (32.0-36.0) g/dL RDW Std Deviation (36.4-46.3) fL RDW Coeff of Parth (11.5-14.5) % Plt Count (130-400) K/uL MPV (9.4-12.4) fL PT 19.1 H (9.0-12.0) Seconds INR 1.8 H (0.9-1.1) APTT 37.3 H 41.3 H* (21.0-31.0) Seconds PTT Ratio 1.3 1.5 Sodium (136-145) mmol/L Potassium (3.5-5.1) mmol/L Chloride (98-107) mmol/L Carbon Dioxide (21-32) mmol/L Anion Gap (3-11) BUN (6-23) mg/dl Creatinine (0.6-1.4) mg/dl Est Cr Clr Drug Dosing ml/min Est GFR ( Amer) ml/min Est GFR (Non-Af Amer) ml/min BUN/Creatinine Ratio (10-20) Glucose (70-99(Fasting)) mg/dl POC Glucose 155 H (70-99) mg/dl Calcium (8.6-10.3) mg/dl Phosphorus (2.5-4.9) mg/dl Magnesium (1.7-2.4) mg/dl Urine Color Urine Appearance (Clear) Urine pH (4.5-7.5) Ur Specific [place] (1.000-1.030) Urine Protein (Negative) Urine Glucose (UA) (Negative) Urine Ketones (Negative) Urine Blood (Negative) Urine Nitrite (Negative) Urine Bilirubin (Negative) Urine Urobilinogen (Negative) Ur Leukocyte Esterase (Negative) Urine WBC (Auto) (0-5) /hpf Urine RBC (Auto) (0-4) /hpf U Hyaline Cast (Auto) (0-5) /lpf U Epithel Cells (Auto) (0-5) /lpf Urine Bacteria (Auto) (Negative) 10/08/22 10/08/22 10/08/22 Range/Units 16:59 12:05 10:06 WBC (4.8-10.8) K/ul RBC (4.70-6.10) M/uL Hgb (14.0-18.0) g/dl Hct (42.0-52.0) % MCV (80.0-100.0) fL MCH (25.0-34.0) pg MCHC (32.0-36.0) g/dL RDW Std Deviation (36.4-46.3) fL RDW Coeff of Parth (11.5-14.5) % Plt Count (130-400) K/uL MPV (9.4-12.4) fL PT (9.0-12.0) Seconds INR (0.9-1.1) APTT (21.0-31.0) Seconds PTT Ratio Sodium (136-145) mmol/L Potassium (3.5-5.1) mmol/L Chloride (98-107) mmol/L Carbon Dioxide (21-32) mmol/L Anion Gap (3-11) BUN (6-23) mg/dl Creatinine (0.6-1.4) mg/dl Est Cr Clr Drug Dosing ml/min Est GFR ( Amer) ml/min Est GFR (Non-Af Amer) ml/min BUN/Creatinine Ratio (10-20) Glucose (70-99(Fasting)) mg/dl POC Glucose 129 H 142 H (70-99) mg/dl Calcium (8.6-10.3) mg/dl Phosphorus (2.5-4.9) mg/dl Magnesium (1.7-2.4) mg/dl Urine Color Dark Yellow Urine Appearance Clear (Clear) Urine pH 5.5 (4.5-7.5) Ur Specific [place] 1.019 (1.000-1.030) Urine Protein Negative (Negative) Urine Glucose (UA) Negative (Negative) Urine Ketones Negative (Negative) Urine Blood 3+ H (Negative) Urine Nitrite Negative (Negative) Urine Bilirubin Negative (Negative) Urine Urobilinogen Negative (Negative) Ur Leukocyte Esterase Negative (Negative) Urine WBC (Auto) 1-5 (0-5) /hpf Urine RBC (Auto) >30 H (0-4) /hpf U Hyaline Cast (Auto) 1-5 (0-5) /lpf U Epithel Cells (Auto) 5-10 H (0-5) /lpf Urine Bacteria (Auto) Negative (Negative) Medications Administered Current Inpatient Medications Acetaminophen (Acetaminophen 325 Mg Tab) 650 mg PO Q4H PRN PRN Reason: pain/fever Stop: 10/29/22 02:16 Amitriptyline HCl (Amitriptyline Hcl 25 Mg Tab) 25 mg PO HS NEL Stop: 10/29/22 20:59 Last Admin: 10/08/22 20:57 Dose: 25 mg Amlodipine Besylate (Amlodipine Besylate 5 Mg Tab) 5 mg PO DAILY NEL Stop: 10/29/22 08:59 Last Admin: 10/09/22 07:58 Dose: 5 mg Aspirin (Aspirin 81 Mg Ectab) 81 mg PO DAILY [facility] Stop: 10/29/22 08:59 Last Admin: 09/29/22 08:56 Dose: 81 mg Atorvastatin Calcium (Atorvastatin 40 Mg Tab) 80 mg PO DAILY [facility] Stop: 10/29/22 08:59 Last Admin: 10/09/22 07:58 Dose: 80 mg Carbamazepine (Carbamazepine 200 Mg Tablet) 400 mg PO TID [facility] Stop: 10/29/22 08:59 Last Admin: 10/09/22 07:57 Dose: 400 mg Dextrose (Dextrose 50% 50 Ml Syringe) 25 - 50 ml IV UD PRN; Protocol PRN Reason: Hypoglycemia Protocol Stop: 10/29/22 02:16 Duloxetine HCl (Duloxetine Hcl 60 Mg Cap) 60 mg PO DAILY [facility] Stop: 10/29/22 08:59 Last Admin: 10/09/22 07:57 Dose: 60 mg Enoxaparin Sodium (Enoxaparin Inj 120 Mg/0.8 Ml Syr) 111 mg SC Q12H [facility] Stop: 11/01/22 08:14 Last Admin: 10/08/22 09:30 Dose: Not Given Furosemide (Furosemide 40 Mg Tab) 40 mg PO DAILY [facility] Stop: 10/29/22 08:59 Last Admin: 10/09/22 07:57 Dose: 40 mg Glucagon (Glucagon For Inj 1 Mg Vial) 1 mg SQ UD PRN; Protocol PRN Reason: Hypoglycemia Protocol Stop: 10/29/22 02:16 Glucose (Glucose 10 Tab/Tube) 4 - 8 tab PO UD PRN; Protocol PRN Reason: Hypoglycemia Treatment Stop: 10/29/22 02:16 Glucose (Glucose 40% Gel 15 Gm Tube) 15 - 30 gm PO UD PRN; Protocol PRN Reason: Hypoglycemia Protocol Stop: 10/29/22 02:16 Heparin Sodium/Dextrose (Heparin Sodium/Dextrose) 25,000 units in 500 mls @ 22 mls/hr IV .[id number] [facility]; Protocol Stop: 11/07/22 10:29 Last Titration: 10/09/22 07:13 Dose: 1,100 units/hr, 22 mls/hr Insulin Aspart (Insulin Aspart Per Unit Charge) 0 units SC ACHS [facility] Stop: 10/29/22 07:29 Last Admin: 10/09/22 08:31 Dose: Not Given Insulin Glargine (Lantus Per Unit Charge) 28 units SQ HS [facility] Stop: 10/29/22 20:59 Last Admin: 10/08/22 21:01 Dose: 28 units Lisinopril (Lisinopril 40 Mg Tab) 40 mg PO DAILY [facility] Stop: 10/29/22 08:59 Last Admin: 10/09/22 07:58 Dose: 40 mg Metoprolol Succinate (Metoprolol Succ 50mg Ext Rel Tab) 50 mg PO BID [facility] Stop: 10/29/22 08:59 Last Admin: 10/09/22 07:59 Dose: Not Given Miscellaneous (Carbohydrates For Hypoglycemia ) 15 - 30 gm PO UD PRN PRN Reason: Hypoglycemia Protocol Stop: 10/29/22 02:16 Morphine Sulfate (Morphine Sulfate Cr 15 Mg Tabcr) 30 mg PO Q12H [facility] Stop: 10/29/22 08:59 Last Admin: 10/09/22 08:31 Dose: 30 mg Morphine Sulfate (Morphine Sulfate Ir 15 Mg Tab (Immediate Release)) 15 mg PO Q6H PRN PRN Reason: Pain Stop: 10/13/22 02:16 Last Admin: 10/08/22 14:09 Dose: 15 mg Polyethylene Glycol (Polyethylene (Miralax) 17 Gm Pack) 17 gm PO DAILY PRN PRN Reason: Constipation Stop: 10/29/22 02:16 Warfarin Sodium (Warfarin Sod 6 Mg Tab) 12 mg PO DAILY@1600 [facility] Stop: 11/05/22 15:59 Last Admin: 10/08/22 16:11 Dose: 12 mg
[2022-10-09] MEDS: MoRPHine SULFATE IR 15 MG TAB (IMMEDIATE RELEASE) PO PRN (12:43)
[2022-10-09] MEDS: HEPARIN SODIUM/DEXTROSE 25,000 UNITS/500 ML BAG IV SCH (12:53)
[2022-10-09 14:25] LABS: Partial Thromboplastin Ratio 1.5
[2022-10-09 14:32] LABS: Partial Thromboplastin Time 42.3 Seconds (21.0-31.0)
[2022-10-09] MEDS: WARFARIN SOD 6 MG TAB PO SCH (15:14)
[2022-10-09] MEDS: AMITRIPTYLINE HCL 25 MG TAB PO SCH (21:09)
[2022-10-09] MEDS: LANTUS PER UNIT CHARGE SQ SCH (21:13)
[2022-10-10 07:49] LABS: Hematocrit (blood only) 40.4 % (42.0-52.0); Hemoglobin 13.6 g/dl (14.0-18.0)
[2022-10-10 08:00] LABS: INR 1.9 (0.9-1.1); Prothrombin Time 20.4 Seconds (9.0-12.0)
[2022-10-10] MEDS: ATORVASTATIN 40 MG TAB PO SCH (08:06)
[2022-10-10] MEDS: amLODIPine BESYLATE 5 MG TAB PO SCH (08:06)
[2022-10-10] MEDS: carBAMazepine 200 MG TABLET PO SCH ×2 (08:07→14:57)
[2022-10-10] MEDS: DULoxetine HCL 60 MG CAP PO SCH (08:07)
[2022-10-10] MEDS: FUROSEMIDE 40 MG TAB PO SCH (08:08)
[2022-10-10] MEDS: lisinopril 40 MG TAB PO SCH (08:09)
[2022-10-10] MEDS: METOPROLOL SUCC 50MG EXT REL TAB PO SCH (08:10)
[2022-10-10] MEDS: MoRPHine SULFATE IR 15 MG TAB (IMMEDIATE RELEASE) PO PRN (08:13)
[2022-10-10] MEDS: INSULIN ASPART PER UNIT CHARGE SC SCH ×2 (08:47→12:32)
[2022-10-10] MEDS: MoRPHine SULFATE CR 15 MG TABCR PO SCH (08:51)
[2022-10-10 09:22] LABS: Partial Thromboplastin Ratio 1.8
[2022-10-10 09:27] LABS: Partial Thromboplastin Time 51.6 Seconds (21.0-31.0)
--- NOTE | 2022-10-10 21:39 | Discharge Summary ---
Date of Service October 10, 2022 Admission HPI Per Admitting Provider This is a 61-year-old male with past medical history significant for type 2 diabetes, chronic kidney disease stage III, hyperlipidemia, obstructive sleep apnea treated with BiPAP, allergic rhinitis, history of CVA, palpitations,, history of aseptic necrosis of bone, trigeminal neuralgia, migraine, presents with DVT. The patient currently lives [facility] [place]. Used to follow with [facility] but because of transport issues recently changed the PCP to [place].He has reddish/ purplish discoloration of the lower extremities, which is chronic, but recently was spreading and that is the reason the recent Doppl ers were checked and found to have bilateral lower extremity clots. The patient denies any pain. Is wheelchair bound for the last 5 years, walks short distance in his room. States in 2006 when he had hip surgery in [place], says because of his risk of blood clots, he was placed an IVC filter. Denies any chest pain. No shortness of breath, no cough, no nausea, no vomiting, no abdominal pain. N ormal bowel and bladder movements. Denies any blood in stool or black stools. No hematuria. Normal bladder movements. No headache, no dizziness, no blurred visions, no earache, no runny nose, no sore throat, no difficulty swallowing. Currently, resting comfortably and hemodynamically stable. Admission Exam Per Admitting Provider GENERAL: The patient is moderate build, not in acute distress. VITAL SIGNS: Temperature 37.1, pulse 78, respiratory rate 19, blood pressure 171/97, oxygen 97% on room air. HEENT: Pupils equal, round and reactive to light. Oral mucosa moist. NECK: No JVD, no neck masses. CARDIOVASCULAR: S1 and S2 heard. Regular rate and rhythm. No murmur, no gallop. RESPIRATORY SYSTEM: Normal AP diameter. No accessory muscle use. No wheezing, no crackles. ABDOMEN: Soft, bowel sounds present, nontender, no distention. CENTRAL NERVOUS SYSTEM: Alert and oriented. Speech is clear. No facial droop. Obeys simple commands. Insight is okay. Moves extremities. EXTREMITIES: Bilateral lower extremity edema present with dark erythematous changes seen up to the mid calf. SKIN: Dry skin seen. Principal Diagnosis Acute lower extremity DVT Discharge Exam General: Sitting comfortably in bed, not in distress, on room air HEENT: EOMI, MARCOS, MMM Chest: Clear breath sounds bilaterally, no wheezes or crackles CVS: Regular rate and rhythm, normal heart sounds, no murmur Abdomen: Soft, non tender, not distended, normal bowel sounds Neuro: Awake, alert, oriented, conversing well, non focal Extremities: No cyanosis, clubbing; mild LE edema with venous stasis changes Discharge Data Allergies Allergy/AdvReac Type Severity Reaction Status Date / Time Penicillins Allergy Unknown HAPPENED Verified 09/28/22 23:31 A CHILD shellfish derived AdvReac Intermediate GI UPSET Verified 09/28/22 23:31 Consultations 09/28/22 23:43 ED Decision to Admit Stat 10/01/22 08:00 Consult Hematology Routine 10/01/22 11:12 HIM [Consult Health Information Management] Routine Ordered Studies 09/28/22 21:47 CT angio chest PE protocol Stat 09/28/22 21:53 CT Abd and Pelvis [CT abd pelvis IV con only] Stat Hospital Course (1) Deep vein thrombosis of bilateral lower extremities: This is a 61-year-old male who presents with acute bilateral lower extremity deep venous thrombosis. 1. Acute bilateral lower extremity deep venous thrombosis- seen in [place] LE however CT chest negative for PE, IVC filter in place. History of hypercoagulable disorder and avascular necrosis of bilateral hip per patient, status post IVC filter placement in 2006 prior to hip surgery Was on Coumadin until 2009, discontinued by PCP Started on coumadin here and bridged with iv heparin->lovenox-> iv heparin (switches given hematuria). However hematuria has completely resolved. States he was on 12-14 mg of Coumadin previously. He is currently on coumadin 12 mg daily and is being discharged on same with repeat INR tomorrow and further coumadin adjustment to be made by PCP. INR trending up and now at 1.9 at discharge. Hesitant to be aggressive given his hematuria. Moreover, he does have IVC filter and chances of PE is minimal. Recommend outpatient hypercoagulable work-up Leg edema improving 2. Diabetes mellitus type 2- A1c 8.9 %. Continue home medication 3. History of obstructive sleep apnea. On BiPAP. 4. History of chronic kidney disease stage III. Current creatinine of 1.1. 5. Hyperlipidemia. Continue statin. Fenofibrate discontinued due to possible potentiation of warfarin 6. Hypertension. On lisinopril and metoprolol succinate, amlodipine. BP well controlled 7. Chronic pain. Continue his home pain medications. 8. History of cerebrovascular accident. Aspirin and statin. Monitor for bleeding as patient now on Coumadin as well 9. History of chronic pain and neuropathy pain. Continue his home pain medications. 10. Hematuria- resolved. Hemoglobin remained stable at 13. Being discharged to his personal custodial- [facility]. He is comfortable and stable for discharge. He will have INR drawn tomorrow and his PCP there will direct further Coumadin doses. Anticipate he will require lifelong anticoagulation given his history-defer to PCP. Total Time Total Time Spent Total Time Spent (In Minutes): 40 Discharge Plan Discharge Items Patient Disposition: Home - Self-Care Reason For Visit: DVT Discharge Diagnosis: Acute bilateral LE DVT Activity: Resume your previous activity Non-emergency contact: Primary Care Provider Call non-emergency contact if: you have any medication questions, your symptoms worsen and your pain is concerning for you Follow-up/Referrals: PCP,NO [Primary Care Provider] - Diet: Carb Consistent or DM2 Addtl Attending Provider Instructions: Continue coumadin 12 mg today (you are getting at 4 pm everyday here in the hospital). Check INR tomorrow. Your family doctor will decide on further dose of coumadin and the total length of coumadin but anticipate you have to be on it lifelong unless bleeding concerns. Pending Studies at Discharge: No Stand-Alone Forms: My [facility] Hatsize, Smoking Cessation Medications and DC Order Prescriptions: New warfarin 6 mg Tablet 12 mg PO DAILY@1600 Qty: 30 0RF Continued amlodipine 5 mg tablet 5 mg PO DAILY atorvastatin [Lipitor] 80 mg tablet 80 mg PO DAILY fenofibrate nanocrystallized [Tricor] 48 mg tablet 48 mg PO DAILY insulin aspart U-100 [Novolog U-100 Insulin aspart] 100 unit/mL solution 5 units SQ TIDM lisinopril 40 mg tablet 40 mg PO DAILY metoprolol succinate [Toprol XL] 50 mg tablet extended release 24 hr 50 mg PO BID amitriptyline 25 mg tablet 25 mg PO HS carbamazepine [Tegretol] 200 mg tablet 400 mg PO TID insulin glargine [Basaglar KwikPen U-100 Insulin] 100 unit/mL (3 mL) insulin pen 28 unit subcut HS morphine 15 mg tablet 15 mg PO BID PRN (Reason: Pain) Qty: 10 0RF morphine 30 mg capsule,extend.release pellets 30 mg PO Q12H Qty: 10 0RF furosemide 40 mg tablet 40 mg PO DAILY aspirin 81 mg Tablet,Delayed Release (Dr/Ec) 81 mg PO DAILY duloxetine 60 mg capsule,delayed release(DR/EC) 60 mg PO DAILY Discharge Orders: Discharge Order (Routine); Ordered 10/10/22 Ordered By: Arpan Marshall/Other Patient Handouts: Managing Type 2 Diabetes Admission Data Admit Date/Time: 09/29/22 00:59 Attending Provider: Arpan Clark Admit Provider: Cj Haines Primary Care Provider: PCP,NO Other Providers: Cj Haines ; Rhiannon Flores ; Edenilson Saleh ; Savannah Gonzales Other Interventions: Discharge Summary Assessment (RN) Last Done: 10/10/22 14:43
== END 2022-10-10 15:22 | disposition home or self-care (01) | DRG 300 ==
LOC: ED 20:32 → SUATTDRO 09-29 00:59 → 3E 09-29 00:59